=== PATIENT | male | born 1975 | race Caucasian/White ===

== ENCOUNTER 2020-03-16 17:00 | Outpatient (RCR) | payer BC, SELFPAY ==
[2019-12-22 10:35] VITALS: PULSE 93
[2019-12-22 10:40] VITALS: BP 156/90; PULSE 93; RESP 16; TEMP 36.5; O2SAT 98
[2019-12-28 18:30] LABS: Glucose Point of Care 97 (65-105)
--- NOTE | 2020-02-01 09:47 | PCCPR ---
Absent-working late
--- NOTE | 2020-02-03 17:34 | PCCPR ---
Getachew's called today, Getachew is stuck at work and will not be able to make it.
--- NOTE | 2020-02-11 15:50 | PCCPR ---
Absent Getachew's called states he has to work late this evening and will not be in.
--- NOTE | 2020-02-18 14:08 | PCCPR ---
Absent Getachew's called states he has a late work mtg.
[2020-02-26 08:01] LABS: Glucose Point of Care 78 (65-105)
[2020-02-26 08:01] LABS: Glucose Point of Care 96 (65-105)
[2020-02-26 08:01] LABS: Glucose Point of Care 86 (65-105)
[2020-03-09 17:37] LABS: Glucose Point of Care 95 (65-105)
[2020-03-09 17:37] LABS: Glucose Point of Care 99 (65-105)
--- NOTE | 2020-03-10 18:21 | PCCPR ---
Absent-car trouble
== END 2020-03-16 18:24 | disposition home or self-care (01) ==
LOC: ANHCPREHAB 17:00
PROVIDERS: PCP Family Medicine; Visit Provider Nurse Practitioner Adult Health
DX: Z95.1 Presence of aortocoronary bypass graft (principal)
CPT/HCPCS: 93798

== ENCOUNTER 2021-01-27 11:26 | Outpatient (RCR) | payer BC, SELFPAY ==
[2021-01-27] MEDS: diphenhydrAMINE HCl CAP 25 MG CAPSULE PO (12:19)
[2021-01-27] MEDS: FAMOTIDINE 20 MG TABLET PO (12:20)
[2021-01-27] MEDS: ACETAMINOPHEN 325 MG TABLET 650 MG PO (12:20)
[2021-01-27 12:21] VITALS: BP 166/86; PULSE 98; RESP 18; TEMP 35.8; O2SAT 100
--- NOTE | 2021-01-27 12:39 | PC.NURSE ---
Patient received [employer] vaccines on 07/25/2020 and 08/14/2020.
[2021-01-27 13:59] VITALS: BP 151/80; PULSE 87; RESP 18; TEMP 36.1; O2SAT 99
--- NOTE | 2021-01-30 09:21 | PC.NURSE ---
Attempted to call patient for follow-up regarding COVID antibody infusion but patient did not answer. Left voicemail with callback number.
== END 2021-01-27 16:30 | disposition home or self-care (01) ==
LOC: AMCINF 11:26
PROVIDERS: PCP Family Medicine; Referring Provider Family Medicine; Visit Provider Internal Medicine Hematology & Oncology
DX: Z23 Encounter for immunization (principal); U07.1 COVID-19; I10 Essential (primary) hypertension; I25.10 Atherosclerotic heart disease of native coronary artery without angina pectoris; E11.9 Type 2 diabetes mellitus without complications
CPT/HCPCS: A9270; J7050; M0243

== ENCOUNTER 2021-04-03 12:15 | Observation (INO) | payer BC, SELFPAY ==
[2021-04-03] VITALS (23 sets, daily range): BP systolic 126–188; BP diastolic 80–115; PULSE 76–107; RESP 5–22; TEMP 36.3–36.8; O2SAT 91–100
--- NOTE | ~2021-04-03 | NM_ITS ---
EXAMINATION: NM rola stress w perfusion DATE: 04/06/2021 12:19 INDICATION: Coronary atherosclerosis. Congestive heart failure. TECHNIQUE: Rest images were obtained following intravenous administration of 9.5 mCi Tc99m tetrofosmi n (Myoview). The patient was infused intravenously with Lexiscan (regadenoson). Then, 30.2 mCi Tc99m tetrofosmin (Myoview) was administered intravenously, and supine and prone stress images were obtaine d. Data was reconstructed into short axis and horizontal and vertical long axis SPECT images. Gated S PECT images were also obtained. COMPARISON: Chest CT 05/31/2019 FINDINGS: There is a small, mild, fixed perfusion defect involving left ventricular apex and apical a nterior segment, consistent with infarct. There is a small, mild, fixed perfusion defect involving ba janna anterolateral and inferolateral segments, consistent with infarct. No reversible perfusion defect to suggest ischemia. There is global hypokinesis.. Left ventricular ejection fraction measures 29%. IMPRESSION: 1. Small area of mild infarct involving left ventricular apex and apical anterior segment. 2. Small area of mild infarct involving the basal anterolateral and inferolateral segments of left ve ntricle. 3. Global hypokinesis with left ventricular ejection fraction measuring 29%. Reviewed, dictated and finalized at location A. PHYSICIAN IMPRESSION: 1. Small area of mild infarct involving left ventricular apex and apical anteri or segment. 2. Small area of mild infarct involving the basal anterolateral and inferolater al segments of left ventricle. 3. Global hypokinesis with left ventricular ejection fraction measuring 29%.
--- NOTE | ~2021-04-03 | XR_ITS ---
EXAMINATION: XR chest 2V EXAM DATE: 04/03/2021 12:54 INDICATION: SOB, edema, Open Heart X1 Yr Ago, HX CAD,HTN. TECHNIQUE: Portable AP frontal chest x-ray was obtained. Comparison is made to prior examination from 05/31/2019. FINDINGS: Sternotomy wires are present without findings to suggest sternal dehiscence. There is cardi omegaly and pulmonary vascular congestion. There is indistinct reticulation with a bibasal predominan ce which may indicate pulmonary edema. Small pleural effusions. Findings consistent with CHF exacerba tion. No pneumothorax or confluent consolidation. IMPRESSION: Findings consistent with CHF exacerbation. Reviewed, dictated and finalized at location B. DENTIAL ENERGY AUDITOR
--- NOTE | ~2021-04-03 | US_ITS ---
EXAMINATION: US venous doppler LE EXAM DATE: 04/04/2021 09:14 INDICATION: Bilateral leg edema. TECHNIQUE: Multiple grayscale, color flow and Doppler images of the lower extremity deep venous syste ms bilaterally were obtained and reviewed. There is no prior study for comparison. FINDINGS: Right side: The right common femoral, femoral and profunda veins demonstrate normal color flow, respi ratory variation, augmentation and compressibility. Compressibility, color flow confirmed within the right popliteal, posterior tibial, peroneal, and greater saphenous veins. Left side: The left common femoral, femoral and profunda veins demonstrate normal color flow, respira tory variation, augmentation and compressibility. Compressibility, color flow confirmed within the l eft popliteal, posterior tibial, peroneal, and greater saphenous veins. IMPRESSION: 1. No lower extremity deep venous thrombosis bilaterally. Reviewed, dictated and finalized at location D. MACHINE OPERATOR
--- NOTE | ~2021-04-03 | XR_ITS ---
EXAMINATION: XR chest 2V EXAM DATE: 04/05/2021 09:04 INDICATION: Fluid status, shortness of breath. TECHNIQUE: Portable AP frontal chest x-ray was obtained. Comparison is made to prior examination from 04/03/2021. FINDINGS: Sternotomy wires are present without findings to suggest sternal dehiscence. There is mild cardiomegaly and pulmonary vascular congestion, interval improvement. Improving basilar pulmonary marianela ma. Persistent small pleural effusions. No pneumothorax. There are no osseous abnormalities identifie d. IMPRESSION: 1. Improving CHF exacerbation. Reviewed, dictated and finalized at location B. UNLOADER
--- NOTE | 2021-04-03 12:21 | ECG_ITS ---
Measurements Intervals [place] Rate: 103 P: 0 [place]: 132 QRS: 54 QRSD: 118 T: 68 QT: 385 QTc: 506 Interpretive Statements SINUS TACHYCARDIA INCOMPLETE LEFT BUNDLE BRANCH BLOCK DELAYED PRECORDIAL R/S TRANSITION LOW QRS VOLTAGE IN LIMB LEADS BASELINE ARTIFACT- AVL ABNORMAL ECG Electronically Signed On 04-03-2021 13:00:15 SEAL DELIVERY VEHICLE TEAM TECHNICIAN by Demario Crawford D.O.
[2021-04-03 12:38] LABS: Basophils Absolute Auto 0.1 K/mm3 (0.0-0.1); Basophils Percent Auto 0.6 % (0.2-1.2); Eosinophils Percent Auto 0.3 % (0-4.4); Hematocrit 55.1 % (42.0-52.0); Hemoglobin 18.4 g/dL (14.0-18.0); Immature Granulocyte Absolute 0.04 K/mm3 (0.00-0.031); Immature Granulocyte Percent A 0.3 % (0-0.5); Lymphocytes Absolute Auto 1.13 K/mm3 (0.9-3.2); Lymphocytes Percent Auto 9.8 % (18.3-44.2); Mean Corpuscular HGB Conc 33.4 g/dl (32-36); Mean Corpuscular Hemoglobin 29.5 pg (26-34); Mean Corpuscular Volume 88.4 fl (80-100); Mean Platelet Volume 9.6 fl (7.4-10.4); Monocytes Absolute Auto 0.6 K/mm3 (0.1-0.6); Monocytes Percent Auto 5.2 % (2.6-8.5); Neutrophils Absolute Auto 9.7 K/mm3 (1.3-6.7); Neutrophils Percent Auto 83.8 % (45.5-73.1); Platelet Count Result 236 k/mm3 (150-375); Red Blood Count 6.23 M/mm3 (4.6-6.20); Red Cell Distribution Width 15.3 % (11.5-14.5); White Blood Count 11.6 K/mm3 (4.5-10.0)
[2021-04-03 12:52] LABS: Anion Gap 14 mmol/L (8-16); Blood Urea Nitrogen 19 mg/dL (9-20); Calcium 9.2 mg/dL (8.4-10.2); Carbon Dioxide 26 mmol/L (22-30); Chloride 98 mmol/L (98-107); Estimated CRCL calculation 121 ml/min; Estimated Glomerular Filt Rate > 60; Glucose 210 mg/dL (65-110); Potassium 3.4 mmol/L (3.4-5.0); Sodium 138 mmol/L (137-145)
--- NOTE | 2021-04-03 13:04 | ED.SOB ---
HPI - SOB/Dyspnea General Chief Complaint: Shortness of Breath/Dyspnea Stated Complaint: SOB Time Seen by Provider: 04/03/21 13:01 Source: patient Mode of arrival: ambulatory Limitations: no limitations History of Present Illness HPI Narrative: Patient presents with increased shortness of breath over the last 7 days. Mainly on exertion. And swelling of the lower extremity, abdomen and face. Patient denies any fever, chills, nausea, vomiting, chest pain. Patient status post Covid infection History of mitral valve regurgitation, CKD, hyperlipidemia, diabetes, sleep apnea, congestive heart failure Related Data Home Medications Medication Instructions Recorded Confirmed Men's Multivitamin 1 tablet PO DAILY 05/31/19 04/03/21 aspirin 81 mg PO DAILY 05/31/19 04/03/21 semaglutide [Ozempic] 1 mg SUBCUT WEEKLY 12/22/19 04/03/21 tadalafil 10 mg tablet 10 mg PO DAILY PRN 03/01/20 04/03/21 Allergies Allergy/AdvReac Type Severity Reaction Status Date / Time atenolol Allergy Unknown cough Verified 04/03/21 10:56 Review of Systems Review of Systems: CONSTITUTIONAL: Denies fever, chills, or sweats. EYES: Denies visual changes, redness, or discharge. ENT: Denies rhinorrhea, congestion, sore throat, or otalgia. CARDIOVASCULAR: Denies chest pain, palpitations, or edema. RESPIRATORY: Denies cough or dyspnea. GASTROINTESTINAL: Denies abdominal pain, nausea, vomiting, or diarrhea. GENITOURINARY: Denies dysuria or hematuria. SKIN: Denies rash or itching. MUSCULOSKELETAL: Denies back pain, joint pain, or myalgia. NEUROLOGIC: Denies headache, numbness, or weakness. PSYCHIATRIC: Denies anxiety or depression. [facility] Past Medical History Medical History CAD (coronary artery disease) Chest pain Echocardiogram abnormal 04/11/20: EF 35%, concentric LVH and moderate dysfunction. segment hypokinesis LV. Mitral Valve regurg Elevated troponin Herniated disc History of angina HLD (hyperlipidemia) HTN (hypertension) LV dysfunction 04/11/20: EF 35%, concentric LVH and moderate dysfunction. segment hypokinesis LV. Mitral Valve regurg Myocardial infarction Polycythemia Skin ulcer Sleep apnea CPAP Surgical History Surgical History H/O angioplasty H/O cardiac catheterization H/O heart artery stent History of cholecystectomy Family History Family History Mother Hypertension Pancreatic cancer Father Diabetes mellitus Atrial fibrillation Colon cancer Sibling Kidney disease Diabetes mellitus Other Family history of cardiovascular disease Family history of malignant neoplasm Social History Social History Social History: Patient lives at home with his Maru and their 2 children. He is lifelong nonsmoker. No drug use. Drinks 1 alcoholic drink per month on average. He is a full code. He nominates Maru to be the individual would make medical decisions for him if he is not able Alcohol intake: current Drinks per week: 1 Substance use: never Gender identity (if verbalized by the patient): Male Spiritual care concerns: No Agree to blood products: Yes Exam Narrative: General appearance: Well-developed, well-nourished, obese Skin: Normal color 1+ edema lower extremity bilaterally Head: Normocephalic, nontraumatic Eyes: Clear conjunctiva ENT: Oropharynx normal, ears normal, nose normal Neck: Supple, nontender Chest and respiratory: Airway patent, no respiratory distress, no accessory muscle use Heart: Tachycardia Abdomen: Soft, nontender, no organomegaly, quiet bowel sounds Vascular: Normal peripheral pulses, normal capillary refill. Musculoskeletal: Normal range of motion, nontender back Neurologic: Alert and oriented ?3, CONSIGNEE is normal as tested, no gross motor deficit
[2021-04-03 13:11] LABS: NT Pro B Type Natriuretic Pept 5030 pg/mL (5-100); Troponin I 0.055 ng/mL (0.000-0.034)
[2021-04-03] MEDS: NITROGLYCERIN OINTMENT 1 INCH DOSE TRANSDERM (13:13)
[2021-04-03] MEDS: FUROSEMIDE INJ 100 MG/10 ML VIAL 80 MG IV PUSH (13:13)
--- NOTE | 2021-04-03 13:55 | PM.IMHP ---
H&P: HPI History of Present Illness Date/Time: 04/03/21 13:55 Chief Complaint: Shortness of breath. Narrative: This is a pleasant 45-year-old male with coronary artery disease status post stent and two-vessel bypass in September 2019, ischemic cardiomyopathy, hypertension, obstructive sleep apnea, and type 2 diabetes mellitus who presented to the emergency department earlier today from home with complaints of shortness of breath. The patient had Covid in January and he seemed to recover well from that however he has noticed that he has been more fatigued since that time. Over the past 1 week or so he has developed progressive dyspnea on lesser and lesser exertion as well as an unknown weight gain and swelling in his legs and up into the abdomen. He made an appointment with his primary care provider today for evaluation and he was directed to the emergency department where he was found to have a mildly elevated troponin and findings on chest x-ray consistent with CHF exacerbation and he is being admitted in this setting. At the time my evaluation he is sitting up at the side of the bed and has no significant complaints. He denies fever, chills, sweats, sinus congestion, rhinorrhea, otalgia, odynophagia, cough, orthopnea, and PND. He has not had nausea, vomiting, or sweats. No recent travel, calf pain, or history of venous thromboembolism. Review of Systems Review of Systems: 12 systems were reviewed. Patient tells me his glucose has been running a bit high. No blurry vision, polydipsia, or polyuria. He has wounds on his bilateral anterior shins from falling down some bleachers about 3 weeks ago but they seem to be healing okay. About 2 weeks ago he had 4 days that he had nausea and vomiting associated with mild right shoulder pain but that is since resolved. He denies hematemesis and melena. He has not had exertional chest pain. No palpitations. Except as documented, all other systems were reviewed and are negative [facility] Past Medical History Medical History (Updated 04/03/21 @ 14:48 by Tricia Salmeron PA-C) Benign prostatic hyperplasia Chronic depression Coronary artery disease COVID-19 (01/2021) Erectile dysfunction Herniated disc Hypertension Ischemic cardiomyopathy Echocardiogram 04/11/2020 showed normal left ventricular size, moderate concentric left ventricular hypertrophy, moderate global left ventricular systolic dysfunction and impaired diastolic relaxation grade 1 with an EF visually estimated at 35 to 40%, measured at 33% with hypokinetic LV segments to include the apical septum and mid anteroseptal segment. Macroalbuminuric diabetic nephropathy Mitral valve regurgitation Mixed hyperlipidemia Myocardial infarction Obstructive sleep apnea on CPAP Polycythemia Transient atrial fibrillation/flutter 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 Type 2 diabetes mellitus, with long-term current use of insulin Hemoglobin A1c was 11.1% on 05/31/2019. Surgical History Surgical History (Updated 04/03/21 @ 14:12 by Tricia Salmeron PA-C) History of cardiac catheterization 10/09/2013: PTCA/stent to circumflex. 06/02/2019: Multivessel coronary artery disease with severe ischemic cardiomyopathy with ejection fraction around 25%, referred for surgical revascularization History of coronary artery bypass graft x 2 (09/30/19) Bypass of the LAD and right posterior left ventricular branch. Complicated by sternal infection. History of laparoscopic cholecystectomy (11/2008) Status post panniculectomy (2001) Family History Family History Mother Hypertension Pancreatic cancer Father Diabetes mellitus Atrial fibrillation Colon cancer Sibling Kidney disease Diabetes mellitus Other Family history of cardiovascular disease Family history of malignant neoplasm Social History Social History (Updated 04/03/21 @ 14:13 by Tricia Salmeron PA-C) Social History: The patient lives at home with his and
[2021-04-03 14:56] LABS: Alanine Aminotransferase 35 U/L (4-50); Albumin Level 4.7 g/dL (3.5-5.1); Alkaline Phosphatase 66 U/L (38-126); Aspartate Amino Transferase 34 U/L (17-59); Bilirubin,Total 1.9 mg/dL (0.2-1.3); INR 1.1; Prothrombin Time 14.3 Seconds (11.1-14.7)
[2021-04-03 14:57] LABS: Partial Thromboplastin Time 31.4 SECONDS (22.3-36.8)
[2021-04-03 16:14] LABS: Hemoglobin A1C 8.6 % (<5.7)
--- NOTE | 2021-04-03 17:14 | PC.NURSE ---
Attempted to call IMU for report, RN states they will figure out what nurse is taking patient and will call back
--- NOTE | 2021-04-03 17:22 | PC.NURSE ---
Pt aware of admission to room 204, no acute distress at this time
[2021-04-03 17:35] LABS: Troponin I 0.074 ng/mL (0.000-0.034)
--- NOTE | 2021-04-03 18:10 | PC.NURSE ---
This patient, Getachew Dunn, was admitted to IMU Room 204-01. Patient/family oriented to hospital policies and general routines including ID bracelet, bed and alarms, visiting hours, pain management, procedures, bathroom and other care routines, personal items, smoking policy, room service/diet, and visiting hours. Information on how to activate the Rapid Response Team has been discussed. Patient/Family are encouraged to report perceived risks to care and to ask questions if they do not understand what they are told or what they should do.
[2021-04-03 18:21] LABS: Glucose Point of Care 102 mg/dl (65-105)
[2021-04-03 19:49] LABS: Troponin I 0.069 ng/mL (0.000-0.034)
[2021-04-03 20:32] LABS: Glucose Point of Care 139 mg/dl (65-105)
[2021-04-03] MEDS: FUROSEMIDE INJ 40 MG/4 ML VIAL IV PUSH (20:41)
[2021-04-04] VITALS (18 sets, daily range): BP systolic 127–153; BP diastolic 81–95; PULSE 74–96; RESP 14–24; TEMP 36.2–36.9; O2SAT 96–100
--- NOTE | 2021-04-04 | ECHO_ITS ---
Patient Info Name: Getachew Dunn Age: 45 years : 1975 Gender: Male Ht: 72 in Wt: 315 lbs BSA: 2.76 m2 HR: 84 bpm BP: 139 / 87 mmHg Heart Rhythm: Sinus Rhythm Technical Quality: Poor Exam Date: 04/04/2021 2:23 PM Exam Location: [facility] Patient Status: Inpatient Admit Date: 04/03/2021 Staff Ordering Physician: Phil Duvall MD Oven Attendant: Carmenza Justice RDCS Attending Provider: Fahad Dobbins Referring Physician: Eloina FORREST; Exam Type: CA echo dop color flow w con Study Info Indications - ISCHEMIC CARDIOMYOPATHY - ACUTE CHRONIC CHF Complete two-dimensional, color flow and Doppler transthoracic echocardiogram is performed with contrast to opacify the left ventricle and to improve the deliniation of the left ventricle endocardial borders. Contrast/Agitated Saline Contrast/Ag. Saline: Definity Amount: 2.00 ml Administered By: Tammy Koroma RN Existing IV Access: Yes IV Access Condition: patent with no signs of infiltration Reason for Poor Study: patient body habitus Summary 1. Left ventricular chamber dimension is severely enlarged. 2. Left ventricular systolic function is severely reduced, estimated at 15-20%. 3. There is mildly increased left ventricular wall thickness. 4. The left ventricular diastolic function is grade III diastolic dysfunction. 5. The basal anteroseptal, and mid anteroseptal are akinetic. 6. The apex, inferior wall, anterior wall, inferoseptal wall, anterolateral wall, and inferolateral wall are hypokinetic. 7. Left atrial chamber dimension is mildly enlarged. 8. There is mild tricuspid valve regurgitation. 9. Moderate pulmonary hypertension, estimated pulmonary arterial systolic pressure is 45 mmHg. Left Ventricle Left ventricular chamber dimension is severely enlarged. Left ventricular systolic function is severely reduced, estimated at 15-20%. There is mildly increased left ventricular wall thickness. The left ventricular diastolic function is grade III diastolic dysfunction. The basal anteroseptal, and mid anteroseptal are akinetic. The apex, inferior wall, anterior wall, inferoseptal wall, anterolateral wall, and inferolateral wall are hypokinetic. Right Ventricle Right ventricular chamber dimension is normal. Right ventricular systolic function is normal. Left Atria Left atrial chamber dimension is mildly enlarged. Right Atria Right atrial chamber dimension is normal. Atrial Septum Intact interatrial septum visualized by color flow imaging. Aortic Valve The aortic valve is trileaflet. There is no aortic valve sclerosis. There is no aortic valve stenosis. There is trace aortic valve regurgitation. Pulmonic Valve The pulmonic valve is normal. There is no pulmonic valve stenosis. There is trace pulmonic regurgitation. Mitral Valve There is no mitral valve stenosis. There is trace mitral valve regurgitation. The mitral valve annulus is mildly calcified. Tricuspid Valve The tricuspid valve leaflets are normal. There is no significant tricuspid valve stenosis. There is mild tricuspid valve regurgitation. Moderate pulmonary hypertension, estimated pulmonary arterial systolic pressure is 45 mmHg. Pericardium/Pleural The pericardium appears normal. There is no pericardial effusion. Inferior Vena Cava Normal inferior vena cava with <50% collapse upon inspiration consistent with elevated right atri
[2021-04-04 05:36] LABS: Anion Gap 7 mmol/L (8-16); Blood Urea Nitrogen 19 mg/dL (9-20); Calcium 8.7 mg/dL (8.4-10.2); Carbon Dioxide 31 mmol/L (22-30); Chloride 98 mmol/L (98-107); Estimated CRCL calculation 120 ml/min; Estimated Glomerular Filt Rate > 60; Glucose 101 mg/dL (65-110); Magnesium 1.9 mg/dL (1.6-2.3); Potassium 3.1 mmol/L (3.4-5.0); Sodium 136 mmol/L (137-145)
[2021-04-04 08:16] LABS: Glucose Point of Care 121 mg/dl (65-105)
[2021-04-04] MEDS: OLMESARTAN MEDOXOMIL 20 MG TABLET 40 MG PO (09:39)
[2021-04-04] MEDS: ASPIRIN 81 MG ENTERIC TABLET PO (09:39)
[2021-04-04] MEDS: CLOPIDOGREL BISULFATE 75 MG TABLET PO (09:39)
[2021-04-04] MEDS: SERTRALINE HCL 50 MG TABLET 200 MG PO (09:39)
[2021-04-04] MEDS: POTASSIUM CHLORIDE 20 MEQ TABLET.ER PO (09:39)
[2021-04-04] MEDS: amLODIPine BESYLATE 5 MG TABLET 10 MG PO (09:40)
[2021-04-04] MEDS: FUROSEMIDE INJ 40 MG/4 ML VIAL IV PUSH ×2 (09:40→20:21)
[2021-04-04] MEDS: THERAPEUTIC MULTIVITAMINS/MINERALS TAB (*BKC) 1 TABLET PO (09:40)
[2021-04-04] MEDS: METOPROLOL SUCCINATE EXT REL 100 MG TABCR PO (09:40)
[2021-04-04] MEDS: EMPAGLIFLOZIN 25 MG TABLET PO (09:40)
[2021-04-04] MEDS: ATORVASTATIN 20 MG TABLET PO (09:40)
--- NOTE | 2021-04-04 09:40 | P.PNIM_ITS ---
Progress Note: A&P Assessment and Plan (1) Acute exacerbation of congestive heart failure: Code(s): I50.9 - Heart failure, unspecified Status: Acute Assessment and Plan: * blood pressure is have been running as high as 188/115 * compliance with his home medications * IV lasix 40mg BID * Add Entresto 49/51 Q12hr * BNP 5030 * Heart failure education * Can be transferred off IMU (2) Elevated troponin: Code(s): R77.8 - Other specified abnormalities of plasma proteins Status: Acute Assessment and Plan: * Troponin was mildly elevated and flat likely due to CHF. * telemetry * Dr. Reyes consulted thank you for recommendation * No complaints of chest pain (3) Coronary artery disease: Code(s): I25.10 - Atherosclerotic heart disease of [place] coronary artery without angina pectoris Status: Acute Assessment and Plan: * Status post stent to the circumflex and bypass of the LAD and right posterior descending artery in September 2019 at [place] [facility]. * Continue statin, beta-raquel, and dual antiplatelet therapy * telemonitor (4) Hypertension: Code(s): I10 - Essential (primary) hypertension Status: Acute Assessment and Plan: * Current BP 139/87 * Improved with diuresis * Continue home amlodipine, metoprolol * add entresto per cards (5) Mixed hyperlipidemia: Code(s): E78.2 - Mixed hyperlipidemia Status: Acute Assessment and Plan: * Continue statin (6) Obstructive sleep apnea on CPAP: Code(s): G47.33 - Obstructive sleep apnea (adult) (pediatric); Z99.89 - Dependence on other enabling machines and devices Status: Acute Assessment and Plan: * CPAP. 1 will be provided for him to use while hospitalized. 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 * Continue basal insulin and empagliflozin. * Initiate sliding scale insulin. * hemoglobin A1c 8.6 Time Spent With Patient Time with patient: Greater than 35 minutes Subjective Date/time seen: 04/04/21 0940 Interval history: Date/Time: 04/03/21 13:55 Narrative: This is a pleasant 45-year-old male with coronary artery disease status post stent and two-vessel bypass in September 2019, ischemic cardiomyopathy, hypertension, obstructive sleep apnea, and type 2 diabetes mellitus who presented to the emergency department earlier today from home with complaints of shortness of breath. The patient had Covid in January and he seemed to recover well from that however he has noticed that he has been more fatigued since that time. Over the past 1 week or so he has developed progressive dyspnea on lesser and lesser exertion as well as an unknown weight gain and swelling in his legs and up into the abdomen. He made an appointment with his primary care provider today for evaluation and he was directed to the emergency department where he was found to have a mildly elevated troponin and findings on chest x-ray consistent with CHF exacerbation and he is being admitted in this setting. At the time my evaluation he is sitting up at the side of the bed and has no sig nificant complaints. He denies fever, chills, sweats, sinus congestion, rhinorrhea, otalgia, odynophagia, cough, orthopnea, and PND. He has not had nausea, vomiting, or sweats. No recent travel, calf pain, or history of venous
--- NOTE | 2021-04-04 09:40 | PM.IMPN ---
Progress Note: A&P Assessment and Plan (1) Acute exacerbation of congestive heart failure: Code(s): I50.9 - Heart failure, unspecified Status: Acute Assessment and Plan: blood pressure is have been running as high as 188/115 compliance with his home medications IV lasix 40mg BID Add Entresto 49/51 Q12hr BNP 5030 Heart failure education Can be transferred off IMU (2) Elevated troponin: Code(s): R77.8 - Other specified abnormalities of plasma proteins Status: Acute Assessment and Plan: Troponin was mildly elevated and flat likely due to CHF. telemetry Dr. eRyes consulted thank you for recommendation No complaints of chest pain (3) Coronary artery disease: Code(s): I25.10 - Atherosclerotic heart disease of [place] coronary artery without angina pectoris Status: Acute Assessment and Plan: Status post stent to the circumflex and bypass of the LAD and right posterior descending artery in September 2019 at [place]. Continue statin, beta-raquel, and dual antiplatelet therapy telemonitor (4) Hypertension: Code(s): I10 - Essential (primary) hypertension Status: Acute Assessment and Plan: Current BP 139/87 Improved with diuresis Continue home amlodipine, metoprolol add entresto per cards (5) Mixed hyperlipidemia: Code(s): E78.2 - Mixed hyperlipidemia Status: Acute Assessment and Plan: Continue statin (6) Obstructive sleep apnea on CPAP: Code(s): G47.33 - Obstructive sleep apnea (adult) (pediatric); Z99.89 - Dependence on other enabling machines and devices Status: Acute Assessment and Plan: CPAP. 1 will be provided for him to use while hospitalized. (7) Type 2 diabetes mellitus, with long-term current use of insulin: Code(s): E11.9 - Type 2 diabetes mellitus without complications; Z79.4 - manager long term care (current) use of insulin Status: Acute Assessment and Plan: Random glucose today is 101. Continue basal insulin and empagliflozin. Initiate sliding scale insulin. hemoglobin A1c 8.6 Time Spent With Patient Time with patient: Greater than 35 minutes Subjective Date/time seen: 04/04/21 0940 Interval history: Date/Time: 04/03/21 13:55 Narrative: This is a pleasant 45-year-old male with coronary artery disease status post stent and two-vessel bypass in September 2019, ischemic cardiomyopathy, hypertension, obstructive sleep apnea, and type 2 diabetes mellitus who presented to the emergency department earlier today from home with complaints of shortness of breath. The patient had Covid in January and he seemed to recover well from that however he has noticed that he has been more fatigued since that time. Over the past 1 week or so he has developed progressive dyspnea on lesser and lesser exertion as well as an unknown weight gain and swelling in his legs and up into the abdomen. He made an appointment with his primary care provider today for evaluation and he was directed to the emergency department where he was found to have a mildly elevated troponin and findings on chest x-ray consistent with CHF exacerbation and he is being admitted in this setting. At the time my evaluation he is sitting up at the side of the bed and has no significant complaints. He denies fever, chills, sweats, sinus congestion, rhinorrhea, otalgia, odynophagia, cough, orthopnea, and PND. He has not had nausea, vomiting, or sweats. No recent travel, calf pain, or history of venous thromboembolism. Date/Time: 04/04/21 0940 Patient is sitting in the chair and is feeling better. 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 He did state that he is feeling well enough to go home. He does see Dr. Matthew here. He also stated that he really all thought that it was related to covid since he has been going through this. He does admit to breathi
[2021-04-04] MEDS: INSULIN GLARGINE (*BKC) 100 UNITS/ML 40 UNITS SUB-Q (10:14)
[2021-04-04 13:03] LABS: Glucose Point of Care 117 mg/dl (65-105)
--- NOTE | 2021-04-04 13:53 | PM.CNCAR ---
Assessment and Plan Assessment and plan (1) Elevated troponin: Code(s): R77.8 - Other specified abnormalities of plasma proteins Status: Acute Assessment and Plan: This related to his CHF and not related to acute coronary syndrome (2) Acute exacerbation of congestive heart failure: Code(s): I50.9 - Heart failure, unspecified Status: Acute Assessment and Plan: This is acute on chronic systolic heart failure. Likely worsened by acute illness. Will continue IV furosemide 40 mg q.12 hours. Transition to once daily or even oral diuretics tomorrow. I am going to discontinue olmesartan and transition to Entresto 49/51 mg p.o. b.i.d.. Will repeat a 2D echocardiogram Doppler to re-evaluate his mitral regurgitation as well as cardiomyopathy. I's and O's, daily weights will be ordered and monitored. Low-salt diet is also encouraged. He is hypokalemic at this point and will give him 40 mg p.o. potassium chloride x1. Long-term though he may not need potassium supplementation with the addition of Entresto. Continue metoprolol, aspirin, Jardiance and statin. It also makes sense for him to transition off of amlodipine and on to Entresto and aldosterone antagonist if needed. This can be done as an outpatient (3) Hypertension associated with diabetes: Code(s): E11.59 - Type 2 diabetes mellitus with other circulatory complications; I15.2 - Hypertension secondary to endocrine disorders Status: Acute Assessment and Plan: Above goal (4) Hyperlipidemia associated with type 2 diabetes mellitus: Code(s): E11.69 - Type 2 diabetes mellitus with other specified complication; E78.5 - Hyperlipidemia, unspecified Status: Acute Assessment and Plan: Will check a lipid panel and up titrate his statin if needed (5) Coronary artery disease: Code(s): I25.10 - Atherosclerotic heart disease of [place] coronary artery without angina pectoris Status: Acute Assessment and Plan: As above. Continue dual anti-platelet therapy, beta-raquel, ARB, statin (6) Sleep apnea: Qualifiers: Sleep apnea type: obstructive Qualified Code(s): G47.33 - Obstructive sleep apnea (adult) (pediatric) Code(s): G47.30 - Sleep apnea, unspecified Status: Acute Assessment and Plan: Compliant with CPAP History of Present Illness History of Present Illness Consult date/time: 04/04/21 13:53 Requesting physician: Tricia Salmeron PA-C Consult reason: congestive heart failure Reason For Visit: CHF/elevated troponin Narrative: Date of service 04/04/2021 Reason consultation: CHF, elevated troponin Requesting provider: Tricia Salmeron History: Patient is a 45-year-old male who has a history of coronary disease status post stenting and 2 vessel bypass in September of 2019. He is a patient of Dr. Reyes. He also has other problems including ischemic cardiomyopathy ejection fraction 35-40%, hypertension, structure sleep apnea, diabetes, hyperlipidemia. He also had COVID as recently as January of this year. He states that it since having COVID he simply has not felt very well. Again he had coronavirus in January and recovered but is not been feeling very well especially the past 2-3 weeks. Had an episode of nausea and vomiting a few weeks ago and since then has had increasingly worsening bloating, lower extremity swelling and dyspnea with exertion. 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 He denies any paroxysmal nocturnal dyspnea and is compliant this CPAP. He has no chest pain, syncope, presyncope, palpitations. He was admitted because of worsening lower extremity swelling, acute on chronic systolic heart failure. He was started on IV diuretics and is feeling better at this point. Review of Systems Review of Systems: All systems reviewed & are unremarkable except as noted in HPI and below Constitutional: Constitutional: Denies
[2021-04-04] MEDS: PERFLUTREN LIPID MICROSPHERES 1.5 ML VIAL DILUTED TO 10 ML TOTAL VOLUME IV PUSH (14:50)
[2021-04-04] MEDS: POTASSIUM CHLORIDE 20 MEQ TABLET 40 MEQ PO (16:01)
[2021-04-04 17:16] LABS: Glucose Point of Care 123 mg/dl (65-105)
[2021-04-04 20:20] LABS: Glucose Point of Care 173 mg/dl (65-105)
[2021-04-04] MEDS: SACUBITRIL/VALSARTAN 49-51 MG TABLET 1 TABLET PO (20:20)
[2021-04-05] VITALS (12 sets, daily range): BP systolic 128–144; BP diastolic 82–98; PULSE 76–92; RESP 18–22; TEMP 35.3–36.8; O2SAT 95–98
[2021-04-05 05:09] LABS: Basophils Absolute Auto 0.1 K/mm3 (0.0-0.1); Basophils Percent Auto 0.7 % (0.2-1.2); Eosinophils Absolute Auto 0.1 K/mm3 (0-0.3); Hematocrit 49.5 % (42.0-52.0); Hemoglobin 15.9 g/dL (14.0-18.0); Immature Granulocyte Absolute 0.03 K/mm3 (0.00-0.031); Immature Granulocyte Percent A 0.4 % (0-0.5); Lymphocytes Absolute Auto 1.06 K/mm3 (0.9-3.2); Lymphocytes Percent Auto 14.9 % (18.3-44.2); Mean Corpuscular HGB Conc 32.1 g/dl (32-36); Mean Corpuscular Hemoglobin 28.6 pg (26-34); Mean Platelet Volume 9.8 fl (7.4-10.4); Monocytes Absolute Auto 0.4 K/mm3 (0.1-0.6); Monocytes Percent Auto 6.1 % (2.6-8.5); Neutrophils Absolute Auto 5.4 K/mm3 (1.3-6.7); Neutrophils Percent Auto 75.9 % (45.5-73.1); Platelet Count Result 173 k/mm3 (150-375); Red Blood Count 5.56 M/mm3 (4.6-6.20); Red Cell Distribution Width 14.8 % (11.5-14.5); White Blood Count 7.1 K/mm3 (4.5-10.0)
[2021-04-05 05:27] LABS: Alanine Aminotransferase 27 U/L (4-50); Albumin Level 3.8 g/dL (3.5-5.1); Alkaline Phosphatase 60 U/L (38-126); Anion Gap 7 mmol/L (8-16); Aspartate Amino Transferase 28 U/L (17-59); Bilirubin,Total 1.4 mg/dL (0.2-1.3); Blood Urea Nitrogen 16 mg/dL (9-20); Calcium 8.3 mg/dL (8.4-10.2); Carbon Dioxide 26 mmol/L (22-30); Chloride 99 mmol/L (98-107); Estimated CRCL calculation 147 ml/min; Estimated Glomerular Filt Rate > 60; Glucose 163 mg/dL (65-110); Magnesium 1.8 mg/dL (1.6-2.3); Potassium 3.4 mmol/L (3.4-5.0); Sodium 132 mmol/L (137-145)
[2021-04-05] MEDS: INSULIN GLARGINE (*BKC) 100 UNITS/ML 60 UNITS SUB-Q (08:40)
[2021-04-05] MEDS: POTASSIUM CHLORIDE 20 MEQ TABLET 40 MEQ PO (08:40)
[2021-04-05] MEDS: FUROSEMIDE 40 MG TABLET PO (08:42)
[2021-04-05] MEDS: SACUBITRIL/VALSARTAN 49-51 MG TABLET 1 TABLET PO ×2 (08:42→23:15)
[2021-04-05] MEDS: POTASSIUM CHLORIDE 20 MEQ TABLET.ER PO (08:42)
[2021-04-05] MEDS: CLOPIDOGREL BISULFATE 75 MG TABLET PO (08:43)
[2021-04-05] MEDS: ATORVASTATIN 20 MG TABLET PO (08:43)
[2021-04-05] MEDS: METOPROLOL SUCCINATE EXT REL 100 MG TABCR PO (08:43)
[2021-04-05] MEDS: THERAPEUTIC MULTIVITAMINS/MINERALS TAB (*BKC) 1 TABLET PO (08:43)
[2021-04-05] MEDS: SERTRALINE HCL 50 MG TABLET 200 MG PO (08:44)
[2021-04-05] MEDS: ASPIRIN 81 MG ENTERIC TABLET PO (08:44)
[2021-04-05] MEDS: amLODIPine BESYLATE 5 MG TABLET 10 MG PO (08:44)
[2021-04-05] MEDS: EMPAGLIFLOZIN 25 MG TABLET PO (08:44)
[2021-04-05 09:27] LABS: Glucose Point of Care 119 mg/dl (65-105)
[2021-04-05 11:47] LABS: Glucose Point of Care 136 mg/dl (65-105)
--- NOTE | 2021-04-05 12:00 | P.PNIM_ITS ---
Progress Note: A&P Assessment and Plan (1) Acute exacerbation of congestive heart failure: Code(s): I50.9 - Heart failure, unspecified Status: Acute Assessment and Plan: * Acute exacerbation of both systolic and diastolic heart failure * Echo showed systolic dysfunction with an EF of 10-15% and a grade III diastolic dysfunction * blood pressure is have been running as high as 188/115 * compliance with his home medications * IV lasix 40mg BID * Add Entresto 49/51 Q12hr * BNP 5030 * Heart failure education * Life vest ordered * Lexiscan tomorrow (2) Elevated troponin: Code(s): R77.8 - Other specified abnormalities of plasma proteins Status: Acute Assessment and Plan: * Troponin was mildly elevated and flat likely due to CHF. * telemetry * Dr. Reyes consulted thank you for recommendation * No complaints of chest pain (3) Coronary artery disease: Code(s): I25.10 - Atherosclerotic heart disease of [place] coronary artery without angina pectoris Status: Acute Assessment and Plan: * Status post stent to the circumflex and bypass of the LAD and right posterior descending artery in September 2019 at [place]. * Continue statin, beta-raquel, and dual antiplatelet therapy * telemonitor (4) Hypertension: Code(s): I10 - Essential (primary) hypertension Status: Acute Assessment and Plan: * Current BP 135/84 * Improved with diuresis * Continue home amlodipine, metoprolol * add entresto per cards (5) Mixed hyperlipidemia: Code(s): E78.2 - Mixed hyperlipidemia Status: Acute Assessment and Plan: * Continue statin * Lipid panel in the am (6) Obstructive sleep apnea on CPAP: Code(s): G47.33 - Obstructive sleep apnea (adult) (pediatric); Z99.89 - Dependence on other enabling machines and devices Status: Acute Assessment and Plan: * CPAP. 1 will be provided for him to use while hospitalized. (7) Type 2 diabetes mellitus, with long-term current use of insulin: Code(s): E11.9 - Type 2 diabetes mellitus without complications; Z79.4 - skilled nursing (current) use of insulin Status: Acute Assessment and Plan: * Glucose is 163. * Continue basal insulin and empagliflozin. * Initiate sliding scale insulin. * hemoglobin A1c 8.6 Time Spent With Patient Time with patient: Greater than 35 minutes Subjective Date/time seen: 04/05/21 14:07 Interval history: Date/Time: 04/03/21 13:55 Narrative: This is a pleasant 45-year-old male with coronary artery disease status post stent and two-vessel bypass in September 2019, ischemic cardiomyopathy, hypertension, obstructive sleep apnea, and type 2 diabetes mellitus who prese nted to the emergency department earlier today from home with complaints of shortness of breath. The patient had Covid in January and he seemed to recover well from that however he has noticed that he has been more fatigued since that time. Over the past 1 week or so he has developed progressive dyspnea on lesser and lesser exertion as well as an unknown weight gain and swelling in his legs and up into the abdomen. He made an appointment with his primary care provider today for evaluation and he was directed to the emergency department where he was found to have a mildly elevated troponin and findings on chest x-ray consistent with CHF exacerbation and he is being admitted in this setting. At the time my evaluation he is sitting up at the side of the bed and has no significant com
--- NOTE | 2021-04-05 12:00 | PM.IMPN ---
Progress Note: A&P Assessment and Plan (1) Acute exacerbation of congestive heart failure: Code(s): I50.9 - Heart failure, unspecified Status: Acute Assessment and Plan: Acute exacerbation of both systolic and diastolic heart failure Echo showed systolic dysfunction with an EF of 10-15% and a grade III diastolic dysfunction blood pressure is have been running as high as 188/115 compliance with his home medications IV lasix 40mg BID Add Entresto 49/51 Q12hr BNP 5030 Heart failure education Life vest ordered Lexiscan tomorrow (2) Elevated troponin: Code(s): R77.8 - Other specified abnormalities of plasma proteins Status: Acute Assessment and Plan: Troponin was mildly elevated and flat likely due to CHF. telemetry Dr. Reyes consulted thank you for recommendation No complaints of chest pain (3) Coronary artery disease: Code(s): I25.10 - Atherosclerotic heart disease of [place] coronary artery without angina pectoris Status: Acute Assessment and Plan: Status post stent to the circumflex and bypass of the LAD and right posterior descending artery in September 2019 at [place]. Continue statin, beta-raquel, and dual antiplatelet therapy telemonitor (4) Hypertension: Code(s): I10 - Essential (primary) hypertension Status: Acute Assessment and Plan: Current BP 135/84 Improved with diuresis Continue home amlodipine, metoprolol add entresto per cards (5) Mixed hyperlipidemia: Code(s): E78.2 - Mixed hyperlipidemia Status: Acute Assessment and Plan: Continue statin Lipid panel in the am (6) Obstructive sleep apnea on CPAP: Code(s): G47.33 - Obstructive sleep apnea (adult) (pediatric); Z99.89 - Dependence on other enabling machines and devices Status: Acute Assessment and Plan: CPAP. 1 will be provided for him to use while hospitalized. (7) Type 2 diabetes mellitus, with long-term current use of insulin: Code(s): E11.9 - Type 2 diabetes mellitus without complications; Z79.4 - intermediate card tender (current) use of insulin Status: Acute Assessment and Plan: Glucose is 163. Continue basal insulin and empagliflozin. Initiate sliding scale insulin. hemoglobin A1c 8.6 Time Spent With Patient Time with patient: Greater than 35 minutes Subjective Date/time seen: 04/05/21 14:07 Interval history: Date/Time: 04/03/21 13:55 Narrative: This is a pleasant 45-year-old male with coronary artery disease status post stent and two-vessel bypass in September 2019, ischemic cardiomyopathy, hypertension, obstructive sleep apnea, and type 2 diabetes mellitus who presented to the emergency department earlier today from home with complaints of shortness of breath. The patient had Covid in January and he seemed to recover well from that however he has noticed that he has been more fatigued since that time. Over the past 1 week or so he has developed progressive dyspnea on lesser and lesser exertion as well as an unknown weight gain and swelling in his legs and up into the abdomen. He made an appointment with his primary care provider today for evaluation and he was directed to the emergency department where he was found to have a mildly elevated troponin and findings on chest x-ray consistent with CHF exacerbation and he is being admitted in this setting. At the time my evaluation he is sitting up at the side of the bed and has no significant complaints. He denies fever, chills, sweats, sinus congestion, rhinorrhea, otalgia, odynophagia, cough, orthopnea, and PND. He has not had nausea, vomiting, or sweats. No recent travel, calf pain, or history of venous thromboembolism. Date/Time: 04/04/21 0940 Patient is sitting in the chair and is feeling better. 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 He did state that he is feeling well en
--- NOTE | 2021-04-05 14:39 | PC.NURSE ---
Patient transferred via wheelchair to [facility] at 1105.
--- NOTE | 2021-04-05 14:58 | PM.PNCARD ---
Progress Note: A&P Assessment and Plan (1) Elevated troponin: Code(s): R77.8 - Other specified abnormalities of plasma proteins Status: Acute Assessment and Plan: This related to his CHF and not related to acute coronary syndrome (2) Acute exacerbation of congestive heart failure: Code(s): I50.9 - Heart failure, unspecified Status: Acute Assessment and Plan: This is acute on chronic systolic heart failure. His EF is worse. Will keep him NPO after midnight and perform a Lexiscan perfusion study in the morning. He very well may need an angiogram given his worsening ejection fraction. LifeVest is ordered. Will transition him off of amlodipine on to spironolactone. Will start spironolactone 25 mg daily. In the long-term will likely need to discontinue his potassium supplement because of the addition of spironolactone. (3) Hypertension associated with diabetes: Code(s): E11.59 - Type 2 diabetes mellitus with other circulatory complications; I15.2 - Hypertension secondary to endocrine disorders Status: Acute Assessment and Plan: Above goal (4) Hyperlipidemia associated with type 2 diabetes mellitus: Code(s): E11.69 - Type 2 diabetes mellitus with other specified complication; E78.5 - Hyperlipidemia, unspecified Status: Acute Assessment and Plan: Will check a lipid panel and up titrate his statin if needed (5) Coronary artery disease: Code(s): I25.10 - Atherosclerotic heart disease of [place] coronary artery without angina pectoris Status: Acute Assessment and Plan: As above. Continue dual anti-platelet therapy, beta-raquel, ARB, statin (6) Sleep apnea: Qualifiers: Sleep apnea type: obstructive Qualified Code(s): G47.33 - Obstructive sleep apnea (adult) (pediatric) Code(s): G47.30 - Sleep apnea, unspecified Status: Acute Assessment and Plan: Compliant with CPAP Subjective Date/time seen: 04/05/21 14:58 Interval history: 45-year-old with shortness of breath. Diuresed. Echocardiogram shows worsening ejection fraction. Date of service 04/05/2021: He continues diuresed. Swelling is better. Less short of breath. No chest pain. Review of Systems Review of Systems: All systems reviewed & are unremarkable except as noted in HPI and below Constitutional: Constitutional: Denies fatigue, Denies headache(s) and Denies weakness Eyes: Eyes: Denies blurry vision ENT: Reports Normal hearing present, Denies headache(s) and Denies neck pain Cardiovascular: Cardiovascular: Denies chest pain, Reports pedal edema, Reports leg edema and Reports dyspnea on exertion Respiratory: Respiratory: Reports dyspnea on exertion Gastrointestinal: Gastrointestinal: Denies abdominal pain Genitourinary: Genitourinary: Denies dysuria Musculoskeletal: Musculoskeletal: Denies back pain, Denies neck pain and Denies numbness Integumentary/Breasts: Skin/Breast: Denies unusual bruising Neurologic: Reports Normal hearing present, Denies confusion, Denies headache(s), Denies numbness and Denies weakness Psychiatric: Psychiatric: Denies anxiety and Denies confusion Endocrine: Endocrine: Denies fatigue Hematologic/Lymphatic: Hematologic/Lymphatic: Denies easy bleeding Allergic/Immunologic: Allergic/Immunologic: Denies GI upset with certain foods Exam Narrative: Alert and oriented and appears stated age Const: General: comfortable and no acute distress; No confusion Orientation/consciousness: No confusion HENMT: General nose exam: Normal nares present Eyes: Sclera: sclerae normal Neck: Neck: supple and no JVD Chest: Other: No reproducible chest wall pain to palpation Resp: Auscultation: clear to auscultation bilaterally Cardio: Rate: regular rate Rhythm: regular rhythm GI: Auscultation: normal bowel sounds Skin: General skin exam: normal color Neuro: General: No confusion Cranial nerves: Yes Nor
[2021-04-05 16:54] LABS: Glucose Point of Care 99 mg/dl (65-105)
[2021-04-05] MEDS: FUROSEMIDE INJ 40 MG/4 ML VIAL IV PUSH (23:30)
[2021-04-05 23:38] LABS: Glucose Point of Care 156 mg/dl (65-105)
[2021-04-06] VITALS (9 sets, daily range): BP systolic 130–131; BP diastolic 76–86; PULSE 74–99; RESP 18–20; TEMP 35.9–36.8; O2SAT 98–99
[2021-04-06 06:32] LABS: Basophils Absolute Auto 0.1 K/mm3 (0.0-0.1); Basophils Percent Auto 0.7 % (0.2-1.2); Eosinophils Absolute Auto 0.2 K/mm3 (0-0.3); Eosinophils Percent Auto 2.2 % (0-4.4); Hematocrit 51.6 % (42.0-52.0); Hemoglobin 16.7 g/dL (14.0-18.0); Immature Granulocyte Absolute 0.02 K/mm3 (0.00-0.031); Immature Granulocyte Percent A 0.3 % (0-0.5); Lymphocytes Absolute Auto 1.12 K/mm3 (0.9-3.2); Lymphocytes Percent Auto 16.4 % (18.3-44.2); Mean Corpuscular HGB Conc 32.4 g/dl (32-36); Mean Corpuscular Volume 89.6 fl (80-100); Mean Platelet Volume 9.4 fl (7.4-10.4); Monocytes Absolute Auto 0.5 K/mm3 (0.1-0.6); Monocytes Percent Auto 7.6 % (2.6-8.5); Neutrophils Percent Auto 72.8 % (45.5-73.1); Platelet Count Result 177 k/mm3 (150-375); Red Blood Count 5.76 M/mm3 (4.6-6.20); Red Cell Distribution Width 14.8 % (11.5-14.5); White Blood Count 6.9 K/mm3 (4.5-10.0)
[2021-04-06 06:47] LABS: Alanine Aminotransferase 23 U/L (4-50); Albumin Level 3.8 g/dL (3.5-5.1); Alkaline Phosphatase 53 U/L (38-126); Anion Gap 7 mmol/L (8-16); Aspartate Amino Transferase 26 U/L (17-59); Bilirubin,Total 1.2 mg/dL (0.2-1.3); Blood Urea Nitrogen 18 mg/dL (9-20); Carbon Dioxide 31 mmol/L (22-30); Chloride 100 mmol/L (98-107); Cholesterol 119 mg/dL (0-200); Estimated CRCL calculation 109 ml/min; Estimated Glomerular Filt Rate > 60; Glucose 100 mg/dL (65-110); HDL Direct 40 mg/dL; Magnesium 2.2 mg/dL (1.6-2.3); Potassium 3.9 mmol/L (3.4-5.0); Sodium 138 mmol/L (137-145); Triglycerides 77 mg/dL (<150)
[2021-04-06 06:58] LABS: LDL Cholesterol Direct 64 mg/dL
[2021-04-06 09:22] LABS: Glucose Point of Care 122 mg/dl (65-105)
--- NOTE | 2021-04-06 11:19 | PC.NURSE ---
Transfer for Stress Marlena via at 0900.
--- NOTE | 2021-04-06 11:40 | PM.PNCARD ---
Progress Note: A&P Assessment and Plan (1) Elevated troponin: Code(s): R77.8 - Other specified abnormalities of plasma proteins Status: Acute Assessment and Plan: This related to his CHF and not related to acute coronary syndrome (2) Acute exacerbation of congestive heart failure: Code(s): I50.9 - Heart failure, unspecified Status: Acute Assessment and Plan: This is acute on chronic systolic heart failure. His EF is worse. He very well may need an angiogram given his worsening ejection fraction. LifeVest is ordered. Continue spironolactone, Entresto, metoprolol. With the addition of spironolactone and Entresto, he likely does not need the potassium supplementation. Therefore will stop potassium and check a basic metabolic panel next week. Stress test this morning is pending but likely will be discharged home later today for follow-up with Dr. Reyes after LifeVest is fitted. (3) Hypertension associated with diabetes: Code(s): E11.59 - Type 2 diabetes mellitus with other circulatory complications; I15.2 - Hypertension secondary to endocrine disorders Status: Acute Assessment and Plan: Above goal (4) Hyperlipidemia associated with type 2 diabetes mellitus: Code(s): E11.69 - Type 2 diabetes mellitus with other specified complication; E78.5 - Hyperlipidemia, unspecified Status: Acute Assessment and Plan: On statin (5) Coronary artery disease: Code(s): I25.10 - Atherosclerotic heart disease of [place] coronary artery without angina pectoris Status: Acute Assessment and Plan: As above. Continue dual anti-platelet therapy, beta-raquel, ARB, statin (6) Sleep apnea: Qualifiers: Sleep apnea type: obstructive Qualified Code(s): G47.33 - Obstructive sleep apnea (adult) (pediatric) Code(s): G47.30 - Sleep apnea, unspecified Status: Acute Assessment and Plan: Compliant with CPAP Subjective Date/time seen: 04/06/21 11:40 Interval history: 45-year-old with shortness of breath. Diuresed. Echocardiogram shows worsening ejection fraction. Date of service 04/05/2021: He continues diuresed. Swelling is better. Less short of breath. No chest pain. Date of service 04/06/2021: He has lost 24 lb since admission. Swelling is improved and nearly gone. No chest pain or shortness of breath. Patient was seen in the stress lab Review of Systems Review of Systems: All systems reviewed & are unremarkable except as noted in HPI and below Constitutional: Constitutional: Denies fatigue, Denies headache(s) and Denies weakness Eyes: Eyes: Denies blurry vision ENT: Reports Normal hearing present, Denies headache(s) and Denies neck pain Cardiovascular: Cardiovascular: Denies chest pain, Reports pedal edema, Reports leg edema and Reports dyspnea on exertion Respiratory: Respiratory: Reports dyspnea on exertion Gastrointestinal: Gastrointestinal: Denies abdominal pain Genitourinary: Genitourinary: Denies dysuria Musculoskeletal: Musculoskeletal: Denies back pain, Denies neck pain and Denies numbness Integumentary/Breasts: Skin/Breast: Denies unusual bruising Neurologic: Reports Normal hearing present, Denies confusion, Denies headache(s), Denies numbness and Denies weakness Psychiatric: Psychiatric: Denies anxiety and Denies confusion Endocrine: Endocrine: Denies fatigue Hematologic/Lymphatic: Hematologic/Lymphatic: Denies easy bleeding Allergic/Immunologic: Allergic/Immunologic: Denies GI upset with certain foods Exam Narrative: Alert and oriented and appears stated age Const: General: comfortable and no acute distress; No confusion Orientation/consciousness: No confusion HENMT: General nose exam: Normal nares present Eyes: Sclera: sclerae normal Neck: Neck: supple and no JVD Chest: Other: No reproducible chest wall pain to palpation Resp: Auscultation: clear to auscultation bilate
[2021-04-06] MEDS: INSULIN GLARGINE (*BKC) 100 UNITS/ML 60 UNITS SUB-Q (12:36)
[2021-04-06] MEDS: SPIRONOLACTONE 25 MG TABLET PO (12:37)
[2021-04-06] MEDS: FUROSEMIDE 40 MG TABLET PO (12:37)
[2021-04-06] MEDS: SACUBITRIL/VALSARTAN 49-51 MG TABLET 1 TABLET PO ×2 (12:37→16:38)
[2021-04-06] MEDS: POTASSIUM CHLORIDE 20 MEQ TABLET.ER PO (12:37)
[2021-04-06] MEDS: SERTRALINE HCL 50 MG TABLET 200 MG PO (12:37)
[2021-04-06] MEDS: ATORVASTATIN 20 MG TABLET PO (12:37)
[2021-04-06] MEDS: EMPAGLIFLOZIN 25 MG TABLET PO (12:38)
[2021-04-06] MEDS: ASPIRIN 81 MG ENTERIC TABLET PO (12:38)
[2021-04-06] MEDS: CLOPIDOGREL BISULFATE 75 MG TABLET PO (12:38)
[2021-04-06 12:59] LABS: Glucose Point of Care 162 mg/dl (65-105)
--- NOTE | 2021-04-06 13:49 | P.DS_ITS ---
DS: Admitting Diagnosis Discharge Date Date of service 04/06/2021 at 6 40 a.m. Admitting Diagnosis Acute exacerbation of CHF DS: Discharge Diagnosis Discharge Diagnosis (1) Acute exacerbation of congestive heart failure: Code(s): I50.9 - Heart failure, unspecified Status: Acute Assessment and Plan: * Acute exacerbation of both systolic and diastolic heart failure * Echo showed systolic dysfunction with an EF of 10-15% and a grade III diastolic dysfunction * blood pressure is have been running as high as 188/115 * compliance with his home medications * IV lasix 40mg BID * Add Entresto 49/51 Q12hr * BNP 5030 * Heart failure education * Life vest ordered * Lexiscan tomorrow Lexiscan showed small infarct involving the left ventricular apex, anterolateral inferior lateral segments of left ventricle and global hypokinesis. Patient will be fitted for LifeVest and medications have been changed. (2) Elevated troponin: Code(s): R77.8 - Other specified abnormalities of plasma proteins Status: Acute Assessment and Plan: * Troponin was mildly elevated and flat likely due to CHF. * telemetry * Dr. Reyes consulted thank you for recommendation * No complaints of chest pain (3) Coronary artery disease: Code(s): I25.10 - Atherosclerotic heart disease of [place] coronary artery without angina pectoris Status: Acute Assessment and Plan: * Status post stent to the circumflex and bypass of the LAD and right posterior descending artery in September 2019 at [place]. * Continue statin, beta-raquel, and dual antiplatelet therapy * telemonitor (4) Hypertension: Code(s): I10 - Essential (primary) hypertension Status: Acute Assessment and Plan: * Current BP 135/84 * Improved with diuresis * Continue home amlodipine, metoprolol * add entresto per cards (5) Mixed hyperlipidemia: Code(s): E78.2 - Mixed hyperlipidemia Status: Acute Assessment and Plan: * Continue statin * Lipid panel in the am (6) Obstructive sleep apnea on CPAP: Code(s): G47.33 - Obstructive sleep apnea (adult) (pediatric); Z99.89 - Dependence on other enabling machines and devices Status: Acute Assessment and Plan: * CPAP. 1 will be provided for him to use while hospitalized. (7) Type 2 diabetes mellitus, with long-term current use of insulin: Code(s): E11.9 - Type 2 diabetes mellitus without complications; Z79.4 - alf (current) use of insulin Status: Acute Assessment and Plan: * Glucose is 163. * Continue basal insulin and empagliflozin. * Initiate sliding scale insulin. * hemoglobin A1c 8.6 DS: Summary Hospital Course Hospital Course: Patient is a 45-year-old male with a past medical history of hypertension, hyperlipidemia, coronary artery disease with stent placement and bypass, ischemic cardiomyopathy, diabetes who presented to the emergency room with complaints of shortness of breath. It was noted that patient was recovering from COVID back in January. This admission did show severe swelling in the bilateral lower extremities and belly. BNP was 5030. Patient was started on IV Lasix and Cardiology was consulted. Repeat echo was completed which showed an EF of 10-15% with grade 3 diastolic dysfunction. Entresto was added and olmesartan was discontinued. Patient was also started on Aldactone and amlodipine was discontinued. Patient was also evaluated through Lexiscan. Which did show some small
--- NOTE | 2021-04-06 13:49 | PM.DS ---
DS: Admitting Diagnosis Discharge Date Date of service 04/06/2021 at 6 40 a.m. Admitting Diagnosis Acute exacerbation of CHF DS: Discharge Diagnosis Discharge Diagnosis (1) Acute exacerbation of congestive heart failure: Code(s): I50.9 - Heart failure, unspecified Status: Acute Assessment and Plan: Acute exacerbation of both systolic and diastolic heart failure Echo showed systolic dysfunction with an EF of 10-15% and a grade III diastolic dysfunction blood pressure is have been running as high as 188/115 compliance with his home medications IV lasix 40mg BID Add Entresto 49/51 Q12hr BNP 5030 Heart failure education Life vest ordered Lexiscan tomorrow Lexiscan showed small infarct involving the left ventricular apex, anterolateral inferior lateral segments of left ventricle and global hypokinesis. Patient will be fitted for LifeVest and medications have been changed. (2) Elevated troponin: Code(s): R77.8 - Other specified abnormalities of plasma proteins Status: Acute Assessment and Plan: Troponin was mildly elevated and flat likely due to CHF. telemetry Dr. Reyes consulted thank you for recommendation No complaints of chest pain (3) Coronary artery disease: Code(s): I25.10 - Atherosclerotic heart disease of [place] coronary artery without angina pectoris Status: Acute Assessment and Plan: Status post stent to the circumflex and bypass of the LAD and right posterior descending artery in September 2019 at [place]. Continue statin, beta-raquel, and dual antiplatelet therapy telemonitor (4) Hypertension: Code(s): I10 - Essential (primary) hypertension Status: Acute Assessment and Plan: Current BP 135/84 Improved with diuresis Continue home amlodipine, metoprolol add entresto per cards (5) Mixed hyperlipidemia: Code(s): E78.2 - Mixed hyperlipidemia Status: Acute Assessment and Plan: Continue statin Lipid panel in the am (6) Obstructive sleep apnea on CPAP: Code(s): G47.33 - Obstructive sleep apnea (adult) (pediatric); Z99.89 - Dependence on other enabling machines and devices Status: Acute Assessment and Plan: CPAP. 1 will be provided for him to use while hospitalized. (7) Type 2 diabetes mellitus, with long-term current use of insulin: Code(s): E11.9 - Type 2 diabetes mellitus without complications; Z79.4 - detention (current) use of insulin Status: Acute Assessment and Plan: Glucose is 163. Continue basal insulin and empagliflozin. Initiate sliding scale insulin. hemoglobin A1c 8.6 DS: Summary Hospital Course Hospital Course: Patient is a 45-year-old male with a past medical history of hypertension, hyperlipidemia, coronary artery disease with stent placement and bypass, ischemic cardiomyopathy, diabetes who presented to the emergency room with complaints of shortness of breath. It was noted that patient was recovering from COVID back in January. This admission did show severe swelling in the bilateral lower extremities and belly. BNP was 5030. Patient was started on IV Lasix and Cardiology was consulted. Repeat echo was completed which showed an EF of 10-15% with grade 3 diastolic dysfunction. Entresto was added and olmesartan was discontinued. Patient was also started on Aldactone and amlodipine was discontinued. Patient was also evaluated through Lexiscan. Which did show some small mild infarcts and global hypokinesis. Patient has been fitted for a Life Vest and will need follow-up with Cardiology in a few weeks. Labs have been stable throughout the visit. Renal function is stable with a BUN/creatinine of 18/1.1. Hemoglobin A1c was 8.6 upon admission. Random glucose a been running anywhere from 100-200. Blood pressures have been stable and better with diuresis. Today patient is ready to go. Patient denies chest pain,
[2021-04-06] MEDS: METOPROLOL SUCCINATE EXT REL 100 MG TABCR PO (14:29)
[2021-04-06] MEDS: THERAPEUTIC MULTIVITAMINS/MINERALS TAB (*BKC) 1 TABLET PO (14:30)
--- NOTE | 2021-04-06 15:04 | EST_ITS ---
Patient Info Name: Getachew Dunn Age: 45 years : 1975 Gender: Male Exam Date: 04/06/2021 9:51 AM Exam Location: [facility] Stress Patient Status: Inpatient Admit Date: 04/03/2021 Staff Ordering Physician: Phil Duvall MD Attending Provider: Fahad Dobbins Exercise Technologist: Carmenza Justice RDCS Exercise Physician: Phil Duvall MD Exam Type: CA stress rola w NM Study Info Indications - CHF - CAD A regadenoson stress test was performed. Summary 1. Non diagnostic ST/T wave changes with Lexiscan. 2. Please correlate with nuclear medicine images, reported separately. Max Pred HR: 174 bpm Target HR: 148 bpm Resting ECG Normal sinus rhythm. IVCD, RAD, NSTT. Stress ECG Non diagnostic ST/T wave changes with Lexiscan. Arrhythmias Occasional PVCs. Report Signatures
[2021-04-06 16:47] LABS: Glucose Point of Care 207 mg/dl (65-105)
== END 2021-04-06 17:30 | disposition home or self-care (01) ==
LOC: ANHED 13:35 → ANHIMU 16:41 → ANH3MEDSUR 04-06 13:55 → ANHIMU 04-10 13:50
PROVIDERS: Nurse Practitioner; Physician Assistant; Admitting Provider Internal Medicine; Emergency Provider Emergency Medicine; PCP Family Medicine; Visit Provider Internal Medicine
DX: I11.0 Hypertensive heart disease with heart failure (principal); I50.23 Acute on chronic systolic (congestive) heart failure; R77.8 Other specified abnormalities of plasma proteins; R60.0 Localized edema; R06.02 Shortness of breath; E78.2 Mixed hyperlipidemia; E11.9 Type 2 diabetes mellitus without complications; G47.33 Obstructive sleep apnea (adult) (pediatric); I25.2 Old myocardial infarction; I25.10 Atherosclerotic heart disease of native coronary artery without angina pectoris; Z99.89 Dependence on other enabling machines and devices; Z79.4 Long term (current) use of insulin; Z95.1 Presence of aortocoronary bypass graft; Z79.84 Long term (current) use of oral hypoglycemic drugs; Z95.5 Presence of coronary angioplasty implant and graft; Z79.02 Long term (current) use of antithrombotics/antiplatelets
CPT/HCPCS: 36415; 71046; 78452; 80048; 80053; 80061; 80076; 82948; 83036; 83735; 83880; 84443; 84484; 85025; 85610; 85730; 93005; 93017; 93970; 96374; 96375; 96376; 99285; A9270; A9502; C8929; G0378; J1815; J1940; J2785; Q9957

== ENCOUNTER 2021-08-02 16:30 | Outpatient (RCR) | payer BC, SELFPAY ==
[2021-05-05 11:51] VITALS: PULSE 98
[2021-06-19 07:23] LABS: Glucose Point of Care 192 mg/dl (65-105)
[2021-06-26 16:40] LABS: Glucose Point of Care 199 mg/dl (65-105)
[2021-06-26 17:29] LABS: Glucose Point of Care 155 mg/dl (65-105)
== END 2021-08-02 18:00 | disposition home or self-care (01) ==
LOC: ANHCPREHAB 16:30
PROVIDERS: PCP Family Medicine; Visit Provider Nurse Practitioner
DX: I50.89 Other heart failure (principal)
CPT/HCPCS: 93798

== ENCOUNTER 2021-11-16 09:00 | Outpatient (RCR) | payer BC, SELFPAY ==
[2021-11-16 12:34] VITALS: BP 173/88; PULSE 102; RESP 20; TEMP 36.6; O2SAT 99
[2021-11-16] MEDS: FAMOTIDINE 20 MG TABLET PO (12:38)
[2021-11-16] MEDS: ACETAMINOPHEN 325 MG TABLET 650 MG PO (12:38)
[2021-11-16] MEDS: diphenhydrAMINE HCl CAP 25 MG CAPSULE PO (12:39)
[2021-11-16] MEDS: BEBTELOVIMAB 175 MG/2 ML VIAL IV PUSH (12:59)
[2021-11-16 13:41] VITALS: BP 142/77; PULSE 92; O2SAT 97
== END 2021-11-16 16:00 ==
LOC: AMCINF 09:00
PROVIDERS: PCP Family Medicine; Referring Provider Family Medicine; Visit Provider Internal Medicine Hematology & Oncology
DX: U07.1 COVID-19 (principal)
CPT/HCPCS: A9270; M0222; Q0222

== ENCOUNTER → 2023-04-16 15:02 | Outpatient (CLI) | payer BC, SELFPAY ==
--- NOTE | ~2023-04-16 | XR_ITS ---
EXAM: XR foot LT min 3V DATE: 04/16/2023 15:14 HISTORY: Left 2nd toe cyanosis, left heel pain NO INJURY . COMPARISON: 07/23/2018, images only. FINDINGS: Normal mineralization. No fracture or dislocation. No lytic or blastic lesion. Mild scatte red degenerative change. No erosion or periosteal change. Vascular calcifications. IMPRESSION: No radiographic evidence of osteomyelitis. Reviewed, dictated and finalized at location K. IC POLICY PROFESSOR
--- NOTE | ~2023-04-16 | XR_ITS ---
EXAM: XR foot RT min 3V DATE: 04/16/2023 15:14 HISTORY: r 5th metarsal pain ( prox) NO INJURY . COMPARISON: None available. FINDINGS: Normal mineralization. No fracture or dislocation. No lytic or blastic lesion. Mild scatte red degenerative change. Plantar enthesopathy No erosion or periosteal change. Vascular calcification s. IMPRESSION: Radiographically normal-appearing fifth metatarsal. Reviewed, dictated and finalized at location K. OFFICE MARKUP CLERK
== END ==
PROVIDERS: PCP Family Medicine; Visit Provider Family Medicine
DX: M79.675 Pain in left toe(s) (principal); M79.671 Pain in right foot; R23.0 Cyanosis
CPT/HCPCS: 73630

== ENCOUNTER 2023-10-27 10:29 | Emergency (ER) | payer BC, SELFPAY ==
--- NOTE | 2023-10-27 10:31 | ED.SKABFB ---
HPI - Skin/Abscess/Foreign Bdy General Chief complaint: Skin/Abscess/Foreign Body Stated complaint: Boil Time Seen by Provider: 10/27/23 10:31 Source: patient Mode of arrival: ambulatory Limitations: no limitations History of Present Illness HPI narrative: Getachew is a 48-year-old male patient presenting to the clinic today with complaints of a boil to his right scrotum. He reports 1st noticed this on Saturday. It began draining today. Reports chills yesterday but no known fever. States he has had boils to this area in the past that have had to be drained. History of diabetes, hypertension, CABG, congestive heart failure, morbid obesity, sleep apnea, CKD, and AFib-flutter. Takes Plavix and aspirin. Related Data Home Medications Medication Instructions Recorded Confirmed aspirin 81 mg tablet,delayed 81 mg PO DAILY 05/31/19 11/16/21 release hpxcsmah-tpytsvwt-amcft acid 400 1 tablet PO DAILY 05/31/19 11/16/21 mcg-vit K 20 mcg-lycop 300 mcg tablet (Men's Multivitamin) Allergies Allergy/AdvReac Type Severity Reaction Status Date / Time atenolol AdvReac Unknown cough Verified 10/27/23 10:38 Review of Systems Review of Systems: Pertinent positives per HPI. Patient denies any fever, rash, headache, visual changes, dizziness, cough, runny nose, sore throat, shortness of breath, chest pain, palpitations, nausea, vomiting, diarrhea, constipation, abdominal pain, or any urinary issues. 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 Trochanteric bursitis, right hip Type 2 diabetes mellitus, with long-term current use of insulin Hemoglobin A1c was 11.1% on 05/31/2019. Surgical History Surgical History History of cardiac catheterization 10/09/2013: PTCA/stent to circumflex. 06/02/2019: Multivessel coronary artery disease with severe ischemic cardiomyopathy with ejection fraction around 25%, referred for surgical revascularization History of coronary artery bypass graft x 2 (09/30/19) Bypass of the LAD and right posterior left ventricular branch. Complicated by sternal infection. History of laparoscopic cholecystectomy (11/2008) Status post panniculectomy (2001) Family History Family History Mother Pancreatic cancer Hypertension Father Colon cancer Diabetes mellitus Atrial fibrillation Sibling Diabetes mellitus Kidney disease Hypertension Other Family history of cardiovascular disease Family history of malignant neoplasm Social History Social History Social History: The patient lives at home with his and their 2 children in [place]. He works for [employer]. Lifelong nonsmoker. He drinks perhaps 1-2 alcoholic beverages a month on average. No illicit substance use. He designates his , Maru Dunn, as his surrogate decision-maker. CODE STATUS: Full code. Smoking status: Never smoker Alcohol intake: never Substance use: never Substance use type: does not use Lack of Transportation: No Lack of Food: Never True Current Housing: I Have Housing Concerned About Future Housing: No Difficulty Paying Gas/Electric Bills: No Difficulty Paying for Meds: No Currently Unemployed: No Education: Bachelor's Degree Difficulty w/ Childcare or Family Care: No Living arrangements: with family Spiritual care concerns: No Comments At the time of my
[2023-10-27 10:35] VITALS: BP 201/122; PULSE 111; RESP 16; TEMP 36.6; O2SAT 100
== END 2023-10-27 10:50 | disposition short-term general hospital (02) ==
LOC: EXPGOSH 10:31
PROVIDERS: Emergency Provider Nurse Practitioner Family; PCP Family Medicine
DX: N49.2 Inflammatory disorders of scrotum (principal); I16.0 Hypertensive urgency; E11.9 Type 2 diabetes mellitus without complications; I13.0 Hypertensive heart and chronic kidney disease with heart failure and stage 1 through stage 4 chronic kidney disease, or unspecified chronic kidney disease; E11.22 Type 2 diabetes mellitus with diabetic chronic kidney disease; N18.30 Chronic kidney disease, stage 3 unspecified; I50.9 Heart failure, unspecified; E78.2 Mixed hyperlipidemia; I25.2 Old myocardial infarction; G47.33 Obstructive sleep apnea (adult) (pediatric); Z95.5 Presence of coronary angioplasty implant and graft; E11.21 Type 2 diabetes mellitus with diabetic nephropathy; E66.01 Morbid (severe) obesity due to excess calories; Z68.41 Body mass index [BMI] 40.0-44.9, adult; Z79.01 Long term (current) use of anticoagulants; Z79.82 Long term (current) use of aspirin
CPT/HCPCS: 99212; G0463

== ENCOUNTER 2023-10-29 13:31 | Emergency (ER) | payer BC, SELFPAY ==
[2023-10-29] VITALS (27 sets, daily range): BP systolic 147–209; BP diastolic 83–114; PULSE 107–129; RESP 18–36; TEMP 36.6–36.7; O2SAT 94–100
--- NOTE | ~2023-10-29 | CT_ITS ---
EXAMINATION: CT chest abdomen pelvis w con DATE: 10/29/2023 15:01 INDICATION: Perineal abscess at the right groin TECHNIQUE: Computed tomography (CT) of the chest, abdomen, and pelvis was performed with 100 mL Omnip aque-350 intravenous contrast. Automated exposure control and iterative reconstruction technique were employed. The dose-length product was 2574.48 mGy-cm. COMPARISON: CT chest dated 05/31/2019 FINDINGS: CHEST CT: Smooth septal line thickening at the bilateral dependent lung bases consistent with minimal pulmonary edema. No pneumonia or pleural effusion. Heart size is normal. Atherosclerotic coronary artery calci fication. There are also changes of prior median sternotomy and coronary artery bypass grafting. Thor acic aorta is normal in caliber with no dissection. No pathologically enlarged thoracic lymphadenopat hy. No significant change in a likely benign 12 mm thyroid nodule extending caudally from the caudal lobe of the left thyroid. Moderate bilateral gynecomastia. Moderate thoracic spondylosis with chronic mild anterior wedging and several Schmorl's nodes at several levels scattered throughout the thoraci c spine. ABDOMEN/PELVIS CT: Cholecystectomy clips the gallbladder fossa. Diffuse hepatic steatosis. Spleen, pancreas, bilateral a drenal glands and left kidney are normal. 1.6 cm exophytic cyst at the lateral upper pole of the righ t kidney. Small fat-containing supraumbilical ventral hernia. Bowels including the appendix are eugenia l. Bladder is normal. Surgical scar extending from left to right across the anterior pelvic wall. Sub cutaneous edema extending caudally from the surgical scar into the peritoneum. There is a large gas a nd fluid containing abscess at the right side of the perineum which is reportedly been draining likel y accounting for the intraluminal gas. The abscess cavity measures 8.2 x 2.2 x 3.2 cm. No other more remote soft tissue gas to suggest necrotizing fasciitis although this is ultimately a clinical diagno sis. No free intraperitoneal gas or fluid. There are shotty bilateral likely reactive inguinal lymph nodes slightly more prominent on the left. No pathologically enlarged intra-abdominal or pelvic lymph adenopathy. Mild to moderate lumbar spondylosis. IMPRESSION: 1. Cellulitis associated with a gas and fluid containing, reportedly draining 8.2 x 2.2 x 3.2 cm righ t perineal subcutaneous abscess. 2. Coronary artery disease with changes of prior coronary artery bypass grafting and mild pulmonary e silvia at the bilateral dependent lung bases. Reviewed, dictated and finalized at location A. IMPRESSION: 1. Cellulitis associated with a gas and fluid containing, reportedly draining 8 .2 x 2.2 x 3.2 cm right perineal subcutaneous abscess. 2. Coronary artery disease with changes of prior coronary artery bypass graftin g and mild pulmonary edema at the bilateral dependent lung bases.
--- NOTE | ~2023-10-29 | US_ITS ---
EXAMINATION: US scrotum doppler DATE: 10/29/2023 18:45 INDICATION: abscess . TECHNIQUE: Grayscale and Doppler ultrasound images of the testes were obtained. COMPARISON: CT cap, same date. FINDINGS: The right testis measures 4.3 x 2.3 x 2.7 cm. The left testis measures 3.9 x 2.9 x 2.9 cm. No testicular mass. There is normal vascular flow to both testes. The right epididymis is enlarged an d heterogeneous, with increased flow. The left epididymis is enlarged and heterogeneous, with increas ed flow. No varicocele. Small volume simple appearing left hydrocele. Diffuse scrotal skin thickening . Partially visualized right peroneal abscess. IMPRESSION: Sonographic findings suggestive of bilateral epididymitis. Small left hydrocele. Diffuse scrotal skin swelling, correlate for clinical findings of cellulitis. Partially visualized right peroneal abscess , better seen by prior CT. Reviewed, dictated and finalized at location K. IMPRESSION: Sonographic findings suggestive of bilateral epididymitis. Small left hydrocele . Diffuse scrotal skin swelling, correlate for clinical findings of cellulitis. Partially visualized right peroneal abscess, better seen by prior CT.
--- NOTE | 2023-10-29 14:09 | ED.SKABFB ---
HPI - Skin/Abscess/Foreign Bdy General Chief complaint: Skin/Abscess/Foreign Body Stated complaint: foot infection Time Seen by Provider: 10/29/23 14:02 History of Present Illness HPI narrative: Pt presents with abscess in perineal and scrotal swelling. Pt denies fever. Pt is diabetic. Pt has not been taking his BP meds. Pt denies vomiting or fever. Related Data Home Medications Medication Instructions Recorded Confirmed aspirin 81 mg tablet,delayed 81 mg PO DAILY 05/31/19 11/16/21 release nyfecygu-znddcxjc-mqxnf acid 400 1 tablet PO DAILY 05/31/19 11/16/21 mcg-vit K 20 mcg-lycop 300 mcg tablet (Men's Multivitamin) Allergies Allergy/AdvReac Type Severity Reaction Status Date / Time atenolol AdvReac Unknown cough Verified 10/29/23 13:51 Review of Systems Review of Systems: All systems reviewed & are unremarkable except as noted in HPI and below PMFSH Past Medical History Medical History CHF (congestive heart failure) Chronic depression Chronic kidney disease, stage 3 (moderate) COVID-19 (01/2021) COVID-19 Elevated troponin Erectile dysfunction Herniated disc HTN (hypertension) Macroalbuminuric diabetic nephropathy Mitral valve regurgitation Mixed hyperlipidemia Myocardial infarction Obstructive sleep apnea on CPAP Polycythemia Transient atrial fibrillation/flutter 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 Trochanteric bursitis, right hip Type 2 diabetes mellitus, with long-term current use of insulin Hemoglobin A1c was 11.1% on 05/31/2019. Surgical History Surgical History History of cardiac catheterization 10/09/2013: PTCA/stent to circumflex. 06/02/2019: Multivessel coronary artery disease with severe ischemic cardiomyopathy with ejection fraction around 25%, referred for surgical revascularization History of coronary artery bypass graft x 2 (09/30/19) Bypass of the LAD and right posterior left ventricular branch. Complicated by sternal infection. History of laparoscopic cholecystectomy (11/2008) Status post panniculectomy (2001) Family History Family History Mother Pancreatic cancer Hypertension Father Colon cancer Diabetes mellitus Atrial fibrillation Sibling Diabetes mellitus Kidney disease Hypertension Other Family history of cardiovascular disease Family history of malignant neoplasm Social History Social History Social History: The patient lives at home with his and their 2 children in [place]. He works for [employer]. Lifelong nonsmoker. He drinks perhaps 1-2 alcoholic beverages a month on average. No illicit substance use. He designates his , Maru Dunn, as his surrogate decision-maker. CODE STATUS: Full code. Smoking status: Never smoker Alcohol intake: never Substance use: never Substance use type: does not use Lack of Transportation: No Lack of Food: Never True Current Housing: I Have Housing Concerned About Future Housing: No Difficulty Paying Gas/Electric Bills: No Difficulty Paying for Meds: No Currently Unemployed: No Education: Bachelor's Degree Difficulty w/ Childcare or Family Care: No Living arrangements: with family Spiritual care concerns: No Exam Const: General: no acute distress Nutritional Appearance: well nourished Orientation/consciousness: patient oriented x3 Limitations: no limitations Resp: Effort & Inspection: normal respiratory effort Auscultation: clear to auscultation bilaterally Cardio: Rate: regular rate Rhythm: regular rhythm GI: GI Palp: Yes Soft to palpation and No Tenderness to palpation present (GI) Auscultation: normal bowel sounds : Scrotum: scrotal swelling diffuse Other: swollen fluctuant area perineum on right. Skin: General skin exam: normal color Wo
[2023-10-29 14:14] LABS: Basophils Absolute Auto 0.1 K/mm3 (0.0-0.1); Basophils Percent Auto 0.4 % (0.2-1.2); Eosinophils Percent Auto 0.2 % (0-4.4); Hematocrit 51.2 % (42.0-52.0); Hemoglobin 16.6 g/dL (14.0-18.0); Immature Granulocyte Absolute 0.08 K/mm3 (0.00-0.031); Immature Granulocyte Percent A 0.6 % (0-0.5); Lymphocytes Absolute Auto 0.47 K/mm3 (0.9-3.2); Lymphocytes Percent Auto 3.4 % (18.3-44.2); Mean Corpuscular HGB Conc 32.4 g/dl (32-36); Mean Corpuscular Hemoglobin 28.3 pg (26-34); Mean Corpuscular Volume 87.2 fl (80-100); Mean Platelet Volume 9.8 fl (7.4-10.4); Monocytes Absolute Auto 0.8 K/mm3 (0.1-0.6); Monocytes Percent Auto 5.7 % (2.6-8.5); Neutrophils Absolute Auto 12.5 K/mm3 (1.3-6.7); Neutrophils Percent Auto 89.7 % (45.5-73.1); Platelet Count Result 206 k/mm3 (150-375); Red Blood Count 5.87 M/mm3 (4.6-6.20); Red Cell Distribution Width 15.3 % (11.5-14.5); White Blood Count 13.9 K/mm3 (4.5-10.0)
[2023-10-29] MEDS: MORPHINE SULFATE (*CRX) 4 MG/ML INJ IV PUSH (14:19)
[2023-10-29 14:26] LABS: Alanine Aminotransferase 25 U/L (6-50); Albumin Level 4.3 g/dL (3.5-5.1); Alkaline Phosphatase 132 U/L (38-126); Anion Gap 18 mmol/L (4-12); Aspartate Amino Transferase 30 U/L (17-59); Bilirubin,Total 1.7 mg/dL (0.2-1.3); Blood Urea Nitrogen 18 mg/dL (9-20); Calcium 9.1 mg/dL (8.4-10.2); Carbon Dioxide 16 mmol/L (22-30); Chloride 99 mmol/L (98-107); Estimated CRCL calculation 135 ml/min; Estimated Glomerular Filt Rate > 60; Glucose 350 mg/dL (65-110); Potassium 3.7 mmol/L (3.4-5.0); Sodium 133 mmol/L (137-145)
[2023-10-29 15:15] LABS: Lactic Acid Reflex 1.7 mmol/L (0.7-2.0)
[2023-10-29 15:21] LABS: INR 1.3; Prothrombin Time 16.6 Seconds (11.1-14.7)
[2023-10-29 15:22] LABS: Partial Thromboplastin Time 38.6 Seconds (22.3-36.8)
[2023-10-29 15:32] LABS: CRP 23.8 mg/dL (<1.0)
[2023-10-29] MEDS: VANCOMYCIN 1,250 MG/NS 250 ML 1,250 MG/250 ML BAG 166.67 MG IVPB (18:10)
--- NOTE | 2023-10-29 19:09 | PM.IMCN ---
Assessment and Plan Assessment and plan (1) Necrotizing fasciitis: Code(s): M72.6 - Necrotizing fasciitis Status: Acute (2) Abscess of deep perineal space: Code(s): N34.0 - Urethral abscess Status: Acute (3) Sepsis: Qualifiers: Sepsis type: sepsis due to unspecified organism Sepsis acute organ dysfunction status: without acute organ dysfunction Qualified Code(s): A41.9 - Sepsis, unspecified organism Code(s): A41.9 - Sepsis, unspecified organism Status: Acute (4) Type 2 diabetes mellitus with hyperglycemia, with long-term current use of insulin: Code(s): E11.65 - Type 2 diabetes mellitus with hyperglycemia; Z79.4 - intermediate frame tender (current) use of insulin Status: Acute (5) Pseudohyponatremia: Code(s): R79.89 - Other specified abnormal findings of blood chemistry Status: Acute (6) High anion gap metabolic acidosis: Code(s): E87.29 - Other acidosis Status: Acute Plan Patient has a perineal abscess with large amount of gas with measurements as mentioned above. Given the relatively small pinhole area of evaluation the amount of gas seems out of proportion to the abscess self. The patient does have history of complicated infections of the peritoneum in the past his Lrinec score is intermediate risk for necrotizing fasciitis/Rogelio's gangrene. Given clinical picture I am highly suspicious of necrotizing fasciitis and the patient is likely more complex than can be handled at our facility. For this reason I have asked ER to transfer the patient to tertiary care. I have also requested the patient be started on vancomycin, Zosyn and clindamycin. Patient is also on diabetic medications I can leave him more prone Rogelio's gangrene. The patient does have uncontrolled diabetes which also complicates his prognosis and management. I did order 1 L of IV fluids while patient is awaiting transfer. Blood cultures have been ordered and are pending. Patient does have elevated anion gap with a low serum bicarb. It could have a component of DKA or simply dehydration. Patient has pseudo hyponatremia due to hyperglycemia. Recommend patient receive a least 2 L isotonic fluid hydration but up to 30 mL/kilos bolus depending on clinical course. Patient may not receive all of the fluids prior to transfer but at least initiating bolus would be beneficial. Clinical condition is serious. Prognosis is guarded. 70 minute spent in critical care activities. Due to a high probability of clinically significant, life threatening deterioration, the patient required my highest level of preparedness to intervene emergently and I personally spent this critical care time directly and personally managing the patient. This critical care time included obtaining a history; examining the patient; pulse oximetry; ordering and review of studies; arranging urgent treatment with development of a management plan; evaluation of patient's response to treatment; frequent reassessment; and discussions with other providers. It was exclusive of separately billable procedures and treating other patients and teaching time. Please see Assessment and Plan section and the rest of the note for further information on patient assessment and treatment. HPI Date of Consult Consult date: 10/29/23 Requesting Physician: Dr. Reilly Primary Care Provider: Lindsay Peralta MD Consult Narrative Narrative: Getachew Dunn is a 48 year old male with a past medical history of morbid obesity, obstructive sleep apnea, essential hypertension, coronary artery disease, uncontrolled diabetes mellitus on insulin therapy and prior episodes of groin abscesses requiring incision and drainage who presented to the ER but with an abscess in his right groin. The patient reports that symptoms started on November 24. He had a small area of pain and swelling. The area started to drain the next day with bloody clear to purulent appeari
[2023-10-29] MEDS: LACTATED RINGERS 1,000 ML 999 ML IV CONT (19:51)
[2023-10-29] MEDS: PIPERACILLN/TAZ 3.375GM/NS50ML 3.375 GM/50 ML BAG IVPB (19:51)
[2023-10-29] MEDS: CLINDAMYCIN 600 MG/D5W 50 ML 600 MG/50 ML PIGGYBACK 100 MG IVPB (20:20)
--- NOTE | 2023-10-29 20:30 | PC.NURSE ---
IV fluids/antibiotics continued in ems to [facility]. report given to Jared @191. left [facility] @2029 by [facility]
== END 2023-10-29 20:30 | disposition short-term general hospital (02) ==
PROVIDERS: Emergency Provider Emergency Medicine; PCP Family Medicine
DX: A41.9 Sepsis, unspecified organism (principal); M72.6 Necrotizing fasciitis; L02.215 Cutaneous abscess of perineum; E11.65 Type 2 diabetes mellitus with hyperglycemia; E87.29 Other acidosis; N49.3 Fournier gangrene; E11.22 Type 2 diabetes mellitus with diabetic chronic kidney disease; I13.0 Hypertensive heart and chronic kidney disease with heart failure and stage 1 through stage 4 chronic kidney disease, or unspecified chronic kidney disease; I50.9 Heart failure, unspecified; N18.30 Chronic kidney disease, stage 3 unspecified; E11.21 Type 2 diabetes mellitus with diabetic nephropathy; E11.40 Type 2 diabetes mellitus with diabetic neuropathy, unspecified; I25.5 Ischemic cardiomyopathy; I34.0 Nonrheumatic mitral (valve) insufficiency; I25.10 Atherosclerotic heart disease of native coronary artery without angina pectoris; I27.20 Pulmonary hypertension, unspecified; E78.2 Mixed hyperlipidemia; N40.1 Benign prostatic hyperplasia with lower urinary tract symptoms; N13.8 Other obstructive and reflux uropathy; G47.33 Obstructive sleep apnea (adult) (pediatric); Z95.1 Presence of aortocoronary bypass graft; Z86.16 Personal history of COVID-19; Z90.49 Acquired absence of other specified parts of digestive tract; Z79.4 Long term (current) use of insulin; Z79.82 Long term (current) use of aspirin; Z79.84 Long term (current) use of oral hypoglycemic drugs; Z79.85 Long-term (current) use of injectable non-insulin antidiabetic drugs; Z79.899 Other long term (current) drug therapy; R93.89 Abnormal findings on diagnostic imaging of other specified body structures
CPT/HCPCS: 36415; 71260; 74177; 76870; 80053; 83605; 85025; 85610; 85730; 86140; 87040; 93976; 96365; 96366; 96367; 96375; 99285; J2270; J2543; J3370; J7120; Q9967

== ENCOUNTER 2025-02-18 12:46 | Inpatient (IN) | payer BC, SELFPAY ==
--- OUTSIDE RECORDS SUMMARY | 2008-09-30 10:45 | XMS_ITS | Continuity of Care Document ---
Author Organization [facility] Address [address] [place] [address] Phone Care Team Providers Care Analyst Sales Name Role Phone Brower OD, Ryan Unavailable Unavailable Procedures Procedure Date No Charge Contact Lens Check Eye Exam & Treatment Office Consultation Ophthalmoscopy Ophthalmoscopy Optic Nerve Topography Optic Nerve Topography Eye Exam & Treatment Advance Directives Directive Yes / No Effective Date File Name No Information Encounters Encounter Description Practice Location Reason(s) For Visit Diagnoses Date Provider Providers Copied on Encounter [facility], [address] [place] [address] [address], [place], [place], [id number], tel:[phone] [facility] No Information May-1 4-200 9 Brower OD Ryan. [address], [place], [place], [facility], . tel:[phone] [facility], [address], [place], [place], [id number], [place] tel:[phone] [facility] No Information May-0 7-200 9 Brower OD Ryan. [address] , [address], [place], [address], . tel:[phone] Office Consultation [facility], [address], [place], [place], [id number], tel:[phone] [facility] No Information May-0 7-200 9 Reid Jeff. [address] [place], [address], [place]. tel:[phone] Referring Provider: Ryan Beverly, [address], [place], [address]. tel:[phone] [facility], [address] [facility] [address], [place], [place], [address], [place] tel:[phone] [facility] No Information 3[address] 7 Pamela Mendieta. [address], [place], [place], [address], [place]. tel:[phone] Family History Family Member Type Diagnosis Age At Onset No Information Payers Payer name Insurance type Covered libertarian ID Authorprachi gracia(s) [facility] [id number] Social History Type Description Quantity Date Captured Comments Sex Male Smoking Status No Information Chief Complaint And Reason For Visit No Information Reason For Referral Reason For Referral No Information History Of Present Illness Encounter Date Complaint History Of Prese nt Illness No Information Functional Status Date Functional Assessmen t No Information Instructions Date Instruction Additional Infor mation No Information Assessments Type Assessment Date No Information Patient Care Teams Name Effective Dates (start - stop) Status Members No Information
--- OUTSIDE RECORDS SUMMARY | 2008-09-30 10:45 | XMS_ITS | Continuity of Care Document ---
Author Organization [facility] Address [address] [place] [address] Phone Care Team Providers Care Weight Training Instructor Name Role Phone Brower OD, Ryan Unavailable Unavailable Procedures Procedure Date No Charge Contact Lens Check Eye Exam & Treatment Office Consultation Ophthalmoscopy Ophthalmoscopy Optic Nerve Topography Optic Nerve Topography Eye Exam & Treatment Advance Directives Directive Yes / No Effective Date File Name No Information Encounters Encounter Description Practice Location Reason(s) For Visit Diagnoses Date Provider Providers Copied on Encounter [facility], [address] [place] [address] [address], [place], [place], [id number], tel:[phone] [facility] No Information May-1 4-200 9 Brower OD Ryan. [address], [place], [place], [facility], . tel:[phone] [facility], [address], [place], [place], [address], [place] tel:[phone] [facility] No Information May-0 7-200 9 Brower OD Ryan. [address], [place], [address], . tel:[phone] Office Consultation [facility], [address], [place], [place], [address], tel:[phone] [facility] No Information May-0 7-200 9 Reid Jeff. [address] [place], [address], [place]. tel:[phone] Referring Provider: Ryan Beverly, [address], [place], [address]. tel:[phone] [facility], [address], [place], [place], [address], [place] tel:[phone] [facility] No Information 3[address] 7 Pamela Mendieta. [address], [place], [place], [address], [place]. tel:[phone] Family History Family Member Type Diagnosis Age At Onset No Information Payers Payer name Insurance type Covered democrat ID Authorprachi gracia(s) [facility] [id number] Social History Type Description Quantity Date Captured [...]
--- NOTE | ~2025-02-18 | XR_ITS ---
EXAMINATION: XR chest 2V, 02/18/2025 14:18 CDT HISTORY: infection work up COMPARISON: No comparisons available. Technique: 2 views obtained. Findings: The lungs are clear, no effusion. No pneumothorax. Heart is normal size. Mediastinal and hilar contours are within normal limits. Post sternotomy Impression: No acute cardiopulmonary abnormality. Reviewed, dictated and finalized at location P. Impression: No acute cardiopulmonary abnormality.
--- NOTE | ~2025-02-18 | US_ITS ---
EXAMINATION: US venous doppler LE RT, 02/19/2025 16:57 CDT HISTORY: edema COMPARISON: None Technique: Ramos-scale and color Doppler images were attempted of the lower saphenofemoral junction, common femoral vein,superficial femoral vein, proximal deep femoral vein, proximal deep femoral vein, popliteal vein and posterior tibial veins. Findings: Deep Venous System:Normal flow, augmentation and compressibility. No echogenic thrombus identified. Superficial Venous SystemNo superficial thrombophlebitis. Soft tissues: Soft tissues are unremarkable. Impression: Negative for DVT. Reviewed, dictated and finalized at location P. Impression: Negative for DVT.
--- NOTE | ~2025-02-18 | US_ITS ---
EXAMINATION: US arterial ankle brachial ind DATE: 02/20/2025 10:45 INDICATION: Right great toe diabetic ulcer. TECHNIQUE: Segmental pressures and plethysmographic and Doppler waveforms of the brachial and lower extremity arteries were obtained. COMPARISON: None. FINDINGS: Right and left brachial artery pressures of 130 mm Hg and 121 mm Hg, respectively, are concordant (normal difference <= 30 mmHg). The right ankle-brachial index (ROSANA) is 1.79 (normal >= 0.9-1.0). The right great toe-brachial index (TBI) is 0.68 (normal >= 0.65). Arterial Doppler waveforms are biphasic in posterior tibial artery and monophasic in dorsalis pedis. The left ROSANA is 1.68. The left TBI is 0.61. Arterial Doppler waveforms are biphasic at the ankle. IMPRESSION: 1. Mildly decreased left TBI and normal left ROSANA, consistent with left-sided arterial occlusive disease. Note that ROSANA may be overestimated if arteries are calcified. 2. No significant right-sided arterial occlusive disease. Reviewed, dictated and finalized at location E. IMPRESSION: 1. Mildly decreased left TBI and normal left ROSANA, consistent with left-sided ar terial occlusive disease. Note that ROSANA may be overestimated if arteries are ca lcified. 2. No significant right-sided arterial occlusive disease.
--- OUTSIDE RECORDS SUMMARY | 2025-02-18 12:52 | XMS_ITS | Clinical Summary ---
Author Organization [facility] Address [address] [place] [id number] Phone Care Team Providers Care Drywall Metal Stud Worker Name Role Phone Lindsay Peralta MD Primary Care Provider [phone] Allergies Active Allergy Reactions Criticality Noted Date Comments Atenolol-Chlorthalidone Cough Low 12/10/2001 Medications aspirin 81 MG chewable tablet Chew 81 mg 1 (one) time each day. Active atorvastatin (LIPITOR) 20 MG tablet Take 20 mg by mouth 1 (one) time each day. Active olmesartan (BENICAR) 40 MG tablet Take 40 mg by mouth 1 (one) time each day. Active fluticasone (FLONASE) 50 MCG/ACT nasal spray Administer 1 spray into each nostril 1 (one) time each day. Shake gently. Before first use, prime pump. After use, clean tip and replace cap. Active metFORMIN (GLUCOPHAGE) 500 MG tablet Take 1,000 mg by mouth 2 (two) times a day with meals. Active insulin glargine (LANTUS) 100 UNIT/ML injection Inject under the skin every night. Active metoprolol succinate XL (TOPROL-XL) 100 MG 24 hr tablet Take 100 mg by mouth 1 (one) time each day. Active Multiple Vitamin (MULTIVITAMIN) capsule Take 1 capsule by mouth 1 (one) time each day. Active clopidogrel (PLAVIX) 75 MG tablet Take 75 mg by mouth 1 (one) time each day. Active sertraline (ZOLOFT) 100 MG tablet Take 100 mg by mouth 1 (one) time each day. Active B-D ULTRAFINE III SHORT PEN 31G X 8 MM misc USE TO INJECT 3 TIMES PER DAY 3 9 Active insulin lispro (HumaLOG KWIKPEN) 200 UNIT/ML solution pen-injector injection INJECT 5 UNITS PRIOR OR WITH EACH MEAL 3 TIMES A DAY 9 Active furosemide (LASIX) 40 MG tablet Take 40 mg by mouth daily Active Continuous Blood Gluc Dope Maintenance Worker (DEXCOM G6 RECREATION ACTIVITIES COORDINATOR) device USE TO MONITIOR BLOOD GLUCOSE LEVELS 0 Active ONETOUCH ULTRA test strip 0 Active JARDIANCE 25 MG tablet Take 1 tablet by mouth 1 (one) time each day in the morning 0 Active amLODIPine (NORVASC) 10 MG tablet Take 1 tablet (10 mg total) by mouth 1 (one) time each day 90 tablet 3 0 Active potassium chloride (KLOR-CON M20) 20 MEQ CR tablet Take 20 mEq by mouth 1 (one) time each day Active Semaglutide, 1 MG/DOSE, 2 MG/1.5ML solution pen-injector Inject 1 mg under the skin per week Active Continuous Blood Gluc Sensor (Dexcom G6 Sensor) misc 0 Active Cholecalciferol (D2000 Ultra Strength) 50 MCG (2000 UT) capsule Take 2,000 Units by mouth daily Active Active Problems Problem Noted Date Diagnosed Date Subclinical hypothyroidism 10/19/2019 Overview (09/16/2020): Last Assessment & Plan: Will repeat TS/FT4 as outpatient, consider adding a TPO antibody as well at that time Atrial fibrillation 10/04/2019 Overview (12/04/2019): Last Assessment & Plan: Post op A-fib Remains SR Amiodarone 200mg daily Monitor QTc Acute injury of kidney 10/01/2019 Overview (12/04/2019): Last Assessment & Plan: Cr up today from 1.04 to 1.31 today Will hold diuretics today Cont vancomycin and monitoring of trough Continue to monitor BMP History of coronary artery bypass grafting 09/30 Overview (09/16/2020): Last Assessment & Plan: Completed on 09/30/2019. Admitted from clinic due to concern for surgical site infection. Now on antibiotics. Infection contributes to hyperglycemia. Will continue to work on improving blood glucose control to help with resolution of infection. Obstructive sleep apnea syndrome 09/28/2019 Overview (12/04/2019): Last Assessment & Plan: Utilize home CPAP Coronary arteriosclerosis in sit[place] artery 10/16 Overview (12/11/2018): Coronary atherosclerosis Generalized ischemic myocardial dysfunction 09/19 History of placement of stent for coronary arter y disease 10/16/2018 Essential hypertension 09/27/2018 Other and unspecified hyperlipidemia 09/27/2018 Persistent proteinuria 09/27/2018 Type 2 diabetes mellitus 10/03/2013 Overview (12/11/2018): DMII WO CMP UNCNTRLD Immunizations Immunization Administration Dates Next Due Influenza TIV (IM) 03/01/2020 Influenza, Injectable, Quadrivalent, Preservativ e Free 02/13/2018 Social History Tobacco Use Types Packs/Day Years Used Date Smoking Tobacco: Never Smokeless Tobacco: Never Alcohol Use Standard Drinks/Week Comments Yes 0 (1 standard drink = 0.6 oz pur e alcohol) rare Sex and Gender Information Value Date Recorded Sex Assigned at Not on file Legal Sex Male 11:07 AM MDT Gender Identity Not on file Sexual Orientation Not on file Last Filed Vital Signs Vital Sign Reading Time Taken Comments Blood Pressure 128/72 03/22/2020 2:38 PM [employer] Pulse 84 03/22/2020 2:38 PM [employer] Temperature 36 C (96.8 F) 03/22/2020 2:38 PM [employer] Respiratory Rate - - Oxygen Saturation - - Inhaled Oxygen Concentration - - Weight 132 kg (291 lb) 03/22/2020 2:38 PM [employer] Height 180.3 cm (5' 11) 03/22/2020 2:38 PM [employer] Body Mass Index 40.59 03/22/2020 2:38 PM [employer] Plan of Treatment Health Maintenance Due Date Last Done Comments Influenza Vaccine (#1) 2025 03/01/2020, 2017 Insurance [facility] Care Teams Drywall Metal Stud Worker Relationship Specialty Start Date End Date Lindsay Peralta MD [address] [place] [id number] PCP - General 09/04/18
--- OUTSIDE RECORDS SUMMARY | 2025-02-18 12:52 | XMS_ITS | Clinical Summary ---
Author Organization [facility] Address [address] [place] [address] Care Team Providers Care Process Engineering Technician Name Role Phone Lindsay Peralta MD Primary Care Provider [phone] Source Comments [facility],non-owned Affiliates and Associated Physician Practices is amultiple site organization consisting of ambulatory clinics and hospital sitesin [place], [place], [place] and [place]. This disclosure is being madepursuant to the Care Everywhere program and may not contain all information available regarding this patient. Last updated 18.[facility] Allergies Active Allergy Reactions Criticality Noted Date Comments Atenolol Cough Low 10/29/2023 Medications * Be aware that medications may not be up to date on this document. Alwaysverify current medications with the patient. aspirin (Aspirin) 81 MG chew tablet Take 1 (one) tablet by mouth once daily Active empagliflozin (Jardiance) 25 MG tablet Take 1 (one) tablet by mouth once daily Active atorvastatin (Lipitor) 40 MG tablet Take 1 (one) tablet by mouth at bedtime Active metFORMIN (Glucophage) 500 MG tablet Take 1 (one) tablet by mouth 2 times daily with morning and evening meal Active sertraline (Zoloft) 100 MG tablet Take 1 (one) tablet by mouth once daily Active multivitamin daily tablet Take 1 (one) tablet by mouth daily with food Active vitamin D3 (Cholecalciferol ) 25 MCG (1000 UNITS) tablet Take 1 (one) tablet by mouth once daily Active insulin glargine (Lantus/Semglee) 100 units/ml injection Inject 50 (fifty) Units subcutaneously once daily Active Semaglutide (1 MG/DOSE) 2 MG/1.5ML Subcutaneous Solution Pen-injector (Ozempic) Inject 1 (one) mg subcutaneously every 7 days Active metoprolol succinate XL 24hr (Toprol XL) 100 MG tablet Take 1 (one) tablet by mouth once daily Active insulin aspart (NovoLOG) pen Inject 8 (eight) Units subcutaneously 3 times daily with meals for 30 days 7.2 mL 11/02/19 24 Active oxyCODONE, immediate release, (Roxicodone) 5 MG tabletIndication s:Perineal abscess TAKE ONE TABLET BY MOUTH EVERY 6 HOURS NEEDED FOR PAIN 12 tablet 11/02/19 24 Active insulin lispro (HumaLOG;ADMelog ) 100 UNIT/ML pen INJECT 8 UNITS SUBCUTANEOUSLY 3 TIMES A DAY WITH MEALS FOR 30 DAYS 15 mL 11/02/19 24 Active amoxicillin-clav ulanate (Augmentin) 875-125 MG tablet TAKE ONE TABLET BY MOUTH 2 TIMES A DAY WITH MORNING AND EVENING MEALS FOR 4 DAYS 8 tablet 11/02/19 24 Active linezolid (Zyvox) 600 MG tablet TAKE ONE TABLET BY MOUTH EVERY 12 HOURS FOR 4 DAYS 8 tablet 11/02/19 24 Active Insulin Pen Needle 32G X 4 MM [facility] USE PEN NEEDLES FOUR TIMES A DAY FOR INJECTIONS 100 Each 11/02/19 24 Active Active Problems Problem Noted Date Diagnosed Date Diabetic ketoacidosis withou t coma associated with diabetes mellitus due to underlying condition 10/30/2023 CAD s/p PCI, CABG 10/30/2023 Overview (10/30/2023): PCI in 2012, CABG in 2019 at [facility] Perineal abscess 10/30/2023 Sinus tachycardia 10/30/2023 High anion gap metabolic acidosis 10/30/2023 SUSANA (obstructive sleep apnea) 10/30/2023 Hypertension 10/30/2023 CHF (congestive heart failure) 10/30/2023 Hypokalemia 10/30/2023 Family History Medical History Relation Name Comments Cancer - Colon Father Diabetes - Type 2 Father CAD (Coronary Artery Disease) Mother Myocardial Infarction Cancer - Pancreatic Mother Hypertension Mother Relation Name Status Comments Father Mother Social History Tobacco Use Types Packs/Day Years Used Date Smoking Tobacco: Never Passive Smoke Exposure: Never Smokeless Tobacco: Never Tobacco Cessation:Counseling Given: No Alcohol Use Standard Drinks/Week Comments Yes 0 (1 standard drink = 0.6 oz pur e alcohol) A couple times per month AUDIT-C Answer Date Recorded Q1: How often do you have a drink containing alc ohol? Monthly or less 10/30/2023 Q2: How many drinks containi ng alcohol do you have on a typical day when you are drinking? 1 or 2 10/30/2023 Q3: How often do you have si x or more drinks on one occasion? Never 10/30/2023 Overall Financial Resource Strain (CARDIA) Answe r Date Recorded How hard is it for you to pa y for the very basics like food, housing, medical care, and heating? Not very hard 10/30/2023 [facility] - Occupational Stress Questionnaire Answer Date Recorded Do you feel stress - tense, restless, nervous, or anxious, or unable to sleep at night because your mind is troubled all the time - these days? To some extent 10/30/2023 Hunger Vital Sign Answer Date Recorded Within the past 12 months, y ou worried that your food would run out before you got the money to buy more. Never true 10/30/19 24 Within the past 12 months, t he food you bought just didn't last and you didn't have money to get more. Never true 10/30/2023 PRAPARE - Transportation Answer Date Re corded In the past 12 months, has l ack of transportation kept you from medical appointments or from getting medications? No 10/18 In the past 12 months, has l ack of transportation kept you from meetings, work, or from getting things needed for daily living? No 10/30/2023 Housing Stability Vital Sign Answer Mo e Recorded In the last 12 months, was t here a time when you were not able to pay the mortgage or rent on time? No 10/30/2023 In the last 12 months, how many places have you lived? 1 10/30/2023 In the last 12 months, was t here a time when you did not have a steady place to sleep or slept in a retirement (including now)? No 10/30/2023 Sex and Gender Information Value Date Recorded Sex Assigned at Not on file Legal Sex Male 6:55 PM CDT Gender Identity Not on file Sexual Orientation Not on file Last Filed Vital Signs Vital Sign Reading Time Taken Comments Blood Pressure 136/95 11/02/2023 8:21 AM CDT Pulse 82 11/02/2023 8:21 AM CDT Temperature 36.2 C (97.2 F) 11/02/2023 3:00 AM CDT Respiratory Rate 12 11/02/2023 8:21 AM CDT Oxygen Saturation 97% 11/02/2023 8:21 AM CDT Inhaled Oxygen Concentration - - Weight 136 kg (299 lb 13.2 oz) 11/01/2023 4:00 A M CDT Height 180.3 cm (5' 11) 10/30/2023 8:00 AM CDT Body Mass Index 41.82 10/30/2023 8:00 AM CDT Plan of Treatment Health Maintenance Due Date Last Done Comments COLOGUARD (AGES 45-75) - COLON CA SCREENING 1974 COLON MONITORING 1974 COLONOSCOPY - COLON CA SCREENING 1974 CT COLONOGRAPHY - COLON CA SCREENING 1974 Colorectal Cancer Screening 1974 FIT - COLON CA SCREENING 1974 FLEX SIG - COLON CA SCREENING 1974 HIV SCREENING 1989 HEPATITIS C SCREENING 10/19/1992 DTAP/TDAP/TD VACCINES (1 - Tdap) 1993 HEPATITIS B VACCINE (1 of 3 - 19+ 3-dose series) 1993 PNEUMOCOCCAL VACCINE 50+ (1 of 2 - PCV) 1993 DIABETES RETINOPATHY SCREENING 10/30/2023 DIABETES-FOOT EXAM WITH MONOFILAMENT 10/30/2023 DIABETES-HGB A1C 01/30/2024 10/30/2023 DEPRESSION SCREENING 05/20/2024 DIABETES - URINE PROTEIN SCREENING 05/20/2024 ZOSTER VACCINE (1 of 2) 2024 DIABETES-SERUM CREATININE 11/01/20242023, 11/01/2023, 10/31/2023, Additional history exists COVID-19 VACCINE ( - season) 2025 INFLUENZA VACCINE (#1) 2025 03/01/2020, 2017 HIB VACCINE Aged Out No longer eligi ble based on patient's age to complete this topic HPV VACCINE Aged Out No longer eligi ble based on patient's age to complete this topic MENINGOCOCCAL (Group B) VACCINE SHARED DECISION-MAKING Aged Out No longer eligible based on patient's age to complete this topic MENINGOCOCCAL GROUPS A/C/Y/W VACCINE Aged Out No longer eligible based on patient's age to complete this topic Procedures Procedure Name Priority Date/Time Associated Diagnosis Comments BASIC METABOLIC PANEL (CALCIUM TOTAL) Routine 11/02/2023 3:19 AM CDT HEMOGLOBIN A1C BHARAT 10/30/2023 8:05 AM CDT from Last 3 Months or Most Recently Relevant to Health Maintenance Results * (ABNORMAL) BASIC METABOLIC PANEL (CALCIUM TOTAL) (11/02/2023 3:19 AM CDT) BUN 25 7 - 26 mg/dL 11/02/2023 3:50 AM [facility] Creatinine 1.03 0.71 - 1.16 mg/dL 11/02/2023 3:50 AM [facility] Sodium 134(L) 136 - 145 mmol/L 11/02/2023 3:50 AM [facility] Potassium 3.7 3.5 - 4.5 mmol/L 11/02/2023 3:50 AM [facility] Chloride 106 98 - 107 mmol/L 11/02/2023 3:50 AM [facility] CO2 19(L) 22 - 29 mmol/L 11/02/2023 3:50 AM [facility] Glucose 234(H) 70 - 115 mg/dL 11/02/2023 3:50 AM [facility] Calcium 9.2 8.4 - 10.2 mg/dL 11/02/2023 3:50 AM [facility] Anion Gap 9 6 - 16 11/02/2023 3:50 AM [facility] BUN/Creatinine Ratio 24(H) 7 - 23 11/02/2023 3:50 AM [facility] Osmolality Calculated 290 275 - 295 mOsm/kg 11/02/2023 3:50 AM [facility] eGFR by CKD-EPI 89(L) >=90 mL/min/1.7 3 m2 11/02/2023 3:50 AM [facility] Blood BLOOD SPECIMEN / Unknown Venipuncture / Unknown 11/02/2023 3:19 AM CDT 11/02/2023 3:27 AM CDT Result [facility] Dequan Munson MD LAB - CHEMISTRY ORDERABLES Final Result Performing Organization Address [facility]/ZIP Co de Phone Number [facility] [address] [place] [address], [facility] [phone] * (ABNORMAL) HEMOGLOBIN A1C (10/30/2023 8:05 AM CDT) Hemoglobin A1c 13.0(H) <=5.6 % 10/30/2023 11:05 AM [facility] Estimated Average Glucose 326 mg/dL 10/30/2023 11:05 AM [facility] Comment: HbA1c Interpretation: Normal : < 5.7% Pre-diabetes: 5.7-6.4% Diabetes: Equal to or greater than 6.5% Test results diagnostic of diabetes should be repeated for confirmation. Treatment target values recommended by ADA and other clinical organizations should be used to evaluate metabolic control in patients. Reference: [place] [employer] Association, Standards of Care in Diabetes -2020 In patients 70 years and older consider HbA1c target range of 7.0-7.5% (Reference: Rhys Beverly et al. JAMDA. 2012) The Sebia assay for the measurement of HbA1c is a National Glycohemoglobin Standardization Program (NGSP) certified method. Blood BLOOD SPECIMEN / Unknown Venipuncture / Unknown 10/30/2023 8:05 AM CDT 10/30/2023 8:26 AM CDT us Gely Kelley MD LAB - CHEMISTRY ORDERABLES F inal Result Performing Organization Address City/[facility]/ZIP Co de Phone Number [facility] [address] [place] [phone], [place] [phone] from Last 3 Months or Most Recently Relevant to [place] [address] [place] [phone] ANTHEM Advance Directives * Full Code (Latest Code Status on File) Date Activated Date Inactivated Comments 10/30/2023 7:31 AM 11/02/2023 12:57 PM Care Teams Process Engineering Technician Relationship Specialty Start Date End Date Lindsay Peralta MD [address] [place] [id number] PCP - General Family Medicine 10/29/23
--- OUTSIDE RECORDS SUMMARY | 2025-02-18 12:52 | XMS_ITS | Clinical Summary ---
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 Role Phone Lindsay Peralta MD Primary Care Provider + Salvador Prince MD Unavailable [phone] Miscellaneous, Not In File Unavailable Unava ilable Gia Brannon MD Unavailable [phone] Fran Reyes MD Unavailable [phone] Allergies Active Allergy Reactions Criticality Noted Date Comments Atenolol-Chlorthalidone Cough Low 12/10/2001 Medications metoprolol XL (TOPROL-XL) 100 mg 24 hr tablet Take one by mouth one time per day 0 0 9 Active Additional Information Patient taking differently:100 mgoral Every morning, Indications: hypertension, Reported on 07/27/2021 multivitamin tabletIndicatio ns:Vitamin Deficiency Prevention Take 1 tablet by mouth every morning Centrum Active sertraline (ZOLOFT) 100 mg tabletIndicatio ns:mood Take 200 mg by mouth every morning 9 Active acetaminophen (TYLENOL) 325 mg tablet Take 2 tablets (650 mg total) by mouth every 6 (six) hours as needed for pain 30 tablet 0 Active aspirin 81 mg chewable tablet Take 1 tablet (81 mg total) by mouth daily 30 tablet 0 Active clopidogreL (PLAVIX) 75 mg tablet Take 1 tablet (75 mg total) by mouth daily 30 tablet 1 0 Active atorvastatin (LIPITOR) 20 mg tablet Take 1 tablet (20 mg total) by mouth nightly 30 tablet 1 0 Active Additional Information Patient taking differently: 40 mgoral Nightly, Reported on 07/27/2021 metFORMIN (GLUCOPHAGE) 1,000 mg tablet Take 1,000 mg by mouth 2 (two) times a day with meals Active insulin glargine (Lantus U-100 Insulin) 100 unit/mL injection Inject 50 Units under the skin daily 15 mL 1 0 Active empagliflozin (JARDIANCE) 25 mg tabletIndicatio ns:type 2 diabetes mellitus Take 1 tablet (25 mg total) by mouth every morning 30 tablet 1 0 Active furosemide (LASIX) 40 mg tablet Take 1 tablet (40 mg total) by mouth daily 30 tablet 0 Active Additional Information Patient taking differently: 80 mgoral Daily, Reported on 07/27/2021 insulin aspart U-100 (NovoLOG) 100 unit/mL (3 mL) insulin pen Inject 15 Units under the skin 3 (three) times a day with meals (plus 1 unit for every 25 greater than 150 up to max 7 units. Max daily dose) Refer to After Visit Summary for Sliding Scale Insulin Instructions. 7 pen 0 Active blood glucose diagnostic (glucose blood) strip Use as directed up to four times a day. 100 each 1 0 Active blood-glucose sensor (Dexcom G6 Sensor) deviceIndicatio ns:Type 2 diabetes mellitus 1 Device continuously Use 1 sensor device every 10 days. 9 Device 3 0 Active semaglutide (Ozempic) 1 mg/dose (2 mg/1.5 mL) pen injectorIndicat ions:Type 2 diabetes mellitus Inject 1 mg under the skin every 7 days 6 Syringe 2 0 Active tadalafiL (CIALIS) 5 mg tablet 0 Active cholecalciferol (VITAMIN D-3) 2000 unit capsule Take 2,000 Units by mouth daily Active sacubitriL-vals agustín (ENTRESTO) 97-103 mg tabletIndicatio ns:chronic heart failure Take 1 tablet by mouth 2 (two) times a day 60 tablet 3 1 Active spironolactone (ALDACTONE) 25 mg tablet Take 1 tablet by mouth once daily 30 tablet 3 2 Active Active Problems Problem Noted Date Diagnosed Date Subclinical hypothyroidism 10/19/2019 Assessment & Plan (10/19/2019 12:20 PM CDT): Will repeat TS/FT4 as outpatient, consider adding a TPO antibody as well at that time High risk medication use 10/14/2019 Assessment & Plan (10/18/2019 9:27 AM CDT): This patent has high risk medication use - requires an intensive, high risk insulin regimen, with intensive glycemic monitoring. This patient has an increased risk of hypoglycemia due to high insulin doses, now being treated for surgical site infection which may increase insulin requirements even further. Management per plan listed under diabetes. Assessment & Plan (10/17/2019 2:41 PM CDT): This patent has high risk medication use - requires an intensive, high risk insulin regimen, with intensive glycemic monitoring. This patient has an increased risk of hypoglycemia due to high insulin doses, now being treated for surgical site infection which may increase insulin requirements even further. Management per plan listed under diabetes. Assessment & Plan (10/16/2019 8:08 AM CDT): This patent has high risk medication use - requires an intensive, high risk insulin regimen, with intensive glycemic monitoring. This patient has an increased risk of hypoglycemia due to high insulin doses, now being treated for surgical site infection which may increase insulin requirements even further. Management per plan listed under diabetes. Assessment & Plan (10/15/2019 1:30 PM CDT): This patent has high risk medication use, with variable insulin requirements based on intake. He requires an intensive, high risk insulin regimen, with intensive glycemic monitoring. This patient has an increased risk of hypoglycemia due to high insulin doses, now being treated for surgical site infection which may increase insulin requirements even further. Management per plan listed under diabetes. Assessment & Plan (10/15/2019 10:11 AM CDT): This patent has high risk medication use - requires an intensive, high risk insulin regimen, with intensive glycemic monitoring. This patient has an increased risk of hypoglycemia due to high insulin doses, now being treated for surgical site infection which may increase insulin requirements even further. Management per plan listed under diabetes. Assessment & Plan (10/14/2019 12:57 PM CDT): This patent has high risk medication use - requires an intensive, high risk insulin regimen, with intensive glycemic monitoring. This patient has an increased risk of hypoglycemia due to high insulin doses, now being treated for surgical site infection which may increase insulin requirements even further. Management per plan listed under diabetes. Sternal wound infection 10/13/2019 Assessment & Plan (10/18/2019 9:27 AM CDT): Erythema inferior portion of sternal wound continues to improve WBC down from 12 to 10 Patient is afebrile continue vancomycin and cefepime for sternal wound erythema without any evidence of drainage No culture sent as there isn't any drainage Assessment & Plan (10/17/2019 2:41 PM CDT): Erythema inferior portion of sternal wound continues to improve WBC 12.2 Patient is afebrile continue vancomycin and cefepime for sternal wound erythema without any evidence of drainage No culture sent as there isn't any drainage Assessment & Plan (10/16/2019 8:13 AM CDT): Erythema inferior portion of sternal wound continues to improve WBC 13.3 from 16.9 on admit Patient is afebrile continue vancomycin and cefepime for sternal wound erythema without any evidence of drainage No culture sent as there isn't any drainage Assessment & Plan (10/15/2019 10:12 AM CDT): Erythema inferior portion of sternal wound is improving WBC down to 13 from 16.9, was 9.6 at time of discharge Patient is afebrile continue vancomycin and cefepime for sternal wound erythema without any evidence of drainage No culture sent as there isn't any drainage Assessment & Plan (10/14/2019 12:51 PM CDT): Contributes to hyperglycemia. Will adjust insulin doses for better blood glucose control to help with resolution of the infection. Assessment & Plan (10/14/2019 9:03 AM CDT): WBC is 16.9, was 9.6 at time of discharge Patient is afebrile continue vancomycin and cefepime for sternal wound erythema without any evidence of drainage No culture sent as there isn't any drainage Consider CT chest Atrial fibrillation 10/04/2019 Assessment & Plan (10/18/2019 9:27 AM CDT): Post op A-fib Remains SR Amiodarone 200mg daily Monitor QTc Assessment & Plan (10/17/2019 2:40 PM CDT): Post op A-fib Remains SR Amiodarone 200mg daily Monitor QTc Assessment & Plan (10/16/2019 8:08 AM CDT): Post op A-fib Remains SR Amiodarone 200mg daily Monitor QTc Assessment & Plan (10/15/2019 10:11 AM CDT): Post op A-fib Remains SR Amiodarone decreased to 200mg daily Monitor QTc Assessment & Plan (10/14/2019 8:57 AM CDT): Post op A-fib Currently SR Continue amiodarone Assessment & Plan (10/06/2019 11:42 AM CDT): Cardioverted in ICU on 10/03 Dc amio gtt and convert to 400mg daily Increase beta raquel QTC 493 Acute post-operative pain 10/02/2019 Assessment & Plan (10/05/2019 9:34 AM CDT): Continue current medications Assessment & Plan (10/02/2019 12:03 PM CDT): Neuro exam- alert, oriented, c/o incisional pain unrelieved by current medication regimen - additional Dilaudid for breakthrough pain and add Lidocaine patch S/P CABG x 2 10/01/2019 Assessment & Plan (10/19/2019 12:17 PM CDT): Completed on 09/30/2019. Admitted from clinic due to concern for surgical site infection. Now on antibiotics. Infection contributes to hyperglycemia. Will continue to work on improving blood glucose control to help with resolution of infection. Assessment & Plan (10/18/2019 9:25 AM CDT): Re-admit with concern for sternal wound erythemia without drainage complicated by hyperglycemia - wound is looking better Appreciate Endocrine input Continue metoprolol Continue plavix Continue statin Held diuretics 2/2 to increased creat level Assessment & Plan (10/17/2019 2:41 PM CDT): Re-admit with concern for sternal wound erythemia without drainage complicated by hyperglycemia - wound is looking better Appreciate Endocrine input Continue metoprolol Continue plavix Continue statin Continue lasix Assessment & Plan (10/16/2019 8:09 AM CDT): Re-admit with concern for sternal wound erythemia without drainage complicated by hyperglycemia - wound is looking better Appreciate Endocrine input Continue metoprolol Continue plavix Continue statin Continue lasix Assessment & Plan (10/15/2019 10:12 AM CDT): Re-admit with concern for sternal wound erythemia without drainage complicated by hyperglycemia - wound is looking better Endocrine consult Continue metoprolol Continue plavix Continue statin Continue lasix Assessment & Plan (10/14/2019 12:51 PM CDT): Completed on 09/30/2019. Admitted from clinic due to concern for surgical site infection. Now on antibiotics. Infection contributes to hyperglycemia. Will continue to work on improving blood glucose control to help with resolution of infection. Assessment & Plan (10/14/2019 8:59 AM CDT): Pod 14 Re-admit with concern for sternal wound erythemia without drainage complicated by hyperglycemia Continue metoprolol Continue plavix Continue statin Continue lasix Assessment & Plan (10/06/2019 11:32 AM CDT): Cabg X 2 on 09/29 Continue ASA Continue statin Continue plavix increase metoprolol to 50mg BID Will change lasix to po on day of DC Change amiodarone to daily QTC 493 Dc epicardial pacing wires today Assessment & Plan (10/02/2019 12:00 PM CDT): - provide analgesia w/ scheduled Tylenol & PRN Oxycodone *additional Dilaudid for breakthrough pain and add Lidocaine patch - provide bowel regimen while receiving narcotics - Aspirin and Plavix s/p CABG - GI prophylaxis to continue - DVT prophylaxis sub-q Heparin - PT eval and treat ongoing Assessment & Plan (10/01/2019 2:20 PM CDT): S/p 2v CABG (SANTORO-LAD, Svg-PL). Post-op care to include: - ASA Daily - Statin qHS - Eventual BB once off inotropic support - Hold CRISTAL/ARB in the post-op setting - ADAT - Continue glycemic control per CTICU protocol with HD SSI and NPH 20 units q8h to maintain BG <180 first 24 hrs - Discontinue pepcid. No Hx of GERD. - SCDs and SQH for DVT ppx - Continue daren-op Cefazolin. Will hold daren-op Vancomycin in the setting of worsening SHAWNEE - PT to begin POD #1 for decreased mobility after surgery - continue swan, cordis, arterial line and jaeger per CT Surgery SHAWNEE (acute kidney injury) 10/01/2019 Assessment & Plan (10/18/2019 9:26 AM CDT): Cr up today from 1.04 to 1.31 today Will hold diuretics today Cont vancomycin and monitoring of trough Continue to monitor BMP Assessment & Plan (10/17/2019 2:40 PM CDT): Cr now normal Cont vancomycin and monitoring of trough Continue to monitor BMP Assessment & Plan (10/16/2019 8:08 AM CDT): Cr now normal Cont vancomycin, trough with afternoon dose Continue to monitor BMP Assessment & Plan (10/19/2019 12:18 PM CDT): Pt has had persistent proteinuria, last evaluated by nephrology about a year ago, protein/creatinine ratio >500, other work-up negative. Clearance has been normal, possibly even hyperfiltration. Pt may be at increased risk of SHAWNEE with diabetic nephropathy. Cr WNL today. Assessment & Plan (10/14/2019 8:57 AM CDT): Cr now normal Cont vancomycin, trough with 4th dose Continue to monitor BMP Assessment & Plan (10/06/2019 11:32 AM CDT): Cr downtrending will change lasix to oral on day of DC Assessment & Plan (10/02/2019 11:58 AM CDT): BUN/ Cr stably elevated, UOP > 50 ml/hrly. - maintain renal perfusion pressure (MAP 70-90) - Lasix 40 mg iv x 1 to promote negative FB - f/u BMP this afternoon Assessment & Plan (10/01/2019 2:20 PM CDT): Pre-op creatinine 0.59. Creatinine with an upward trend, 1.53 (1.7). - Avoid nephrotoxins, renally dose meds as appropriate - avoid hypotension - Hold daren-op Vancomycin in the setting of worsening SHAWNEE - FBG even to slightly negative, allow auto-diuresis in the setting of a worsening SHAWNEE - BMP at 1700 Right ventricular dysfunction 09/30/2019 Assessment & Plan (10/02/2019 11:48 AM CDT): Post-procedure TAZ w/ normal biventricular function on Epi 0.05 mcg/kg/min. Hemodynamically supported w/ Epi 0.02 mcg/kg/min (CI 2.9, SVO2 75). Nicardipine for afterload reduction - decrease Epi to 0.01 mcg/kg/min, f/u ScVO2 - obtain NIBP and consider addition of home Norvasc - wean Nicardipine for SBP <150 - FBG even to slightly negative Assessment & Plan (10/01/2019 1:54 PM CDT): Post-procedure TAZ w/ normal biventricular function on Epi 0.05 mcg/kg/min. Overnight, Epi weaned to 0.04 mcg/kg/min. CI~ 3, PAP 1/3 systemic and SVO2 64% - Wean Epi to 0.03 mcg/kg/min and hold - 500 mL LR bolus now - FBG even to slightly negative, allow auto-diuresis in the setting worsening SHAWNEE Additional Notes: 1300: Patient with borderline hypertension and HR ~125 bpm--> Epi weaned to 0.02. 1330: BG remains elevated despite the addition of NPH; therefore, NPH 5 units administered and inc scheduled NPH to 25 units q8h Assessment & Plan (09/30/2019 4:58 PM CDT): Post-procedure TAZ w/ normal biventricular function on Epi 0.05 mcg/kg/min. On arrival CI 3.3, SVO2 pending - plan to begin Epi wean after extubation (q 8 for CI >2.2) SUSANA (obstructive sleep apnea) 09/28/2019 Assessment & Plan (10/05/2019 9:32 AM CDT): Utilize home CPAP Coronary artery disease invo lving e[place] coronary artery of [place] heart without angina pectoris 10/16/2018 Assessment & Plan (10/19/2019 12:17 PM CDT): Avoid hypoglycemia. On SGLT-2 inhibitor and starting GLP-1 RA History of coronary artery stent placement 10/16 Cardiomyopathy, ischemic 10/16/2018 Persistent proteinuria 09/27/2018 Assessment & Plan (10/19/2019 12:19 PM CDT): The last assessment of proteinuria was >1 year ago. Proteinuria, even before decline in kidney function, increases the risk of CAD, mortality and CKD. Given problems getting to an outside lab, I recommend rechecking protein/creatinine ratio or microalbumin/creatinine ratio on a spot urine. Jardiance and Ozempic both have renal benefits, and are appropriate agents for a patient with proteinuria. Discussed with pt need to keep up with water intake on SGLT-2i, and to hold for several days if he is NPO for any procedures Severe obesity 10/08/2017 Assessment & Plan (10/18/2019 9:29 AM CDT): Obesity has been lifelong, and is clearly driving the other problems. Endocrine reports quite good results, ie weight loss, with the newer GLP1 RA + SGLT2 inhibitor meds for diabetes. 1800 kcal diet, 60 grams of carb with each meal Assessment & Plan (10/17/2019 2:41 PM CDT): Obesity has been lifelong, and is clearly driving the other problems. Endocrine reports quite good results, ie weight loss, with the newer GLP1 RA + SGLT2 inhibitor meds for diabetes. 1800 kcal diet, 60 grams of carb with each meal Assessment & Plan (10/16/2019 8:17 AM CDT): Obesity has been lifelong, and is clearly driving the other problems. Endocrine reports quite good results, ie weight loss, with the newer GLP1 RA + SGLT2 inhibitor meds for diabetes. 1800 kcal diet, 60 grams of carb with each meal Assessment & Plan (10/19/2019 12:20 PM CDT): Obesity has been lifelong, and is clearly driving the other problems. The patient reports that he has not sought assistance with his obesity, and that it has not been addressed by his PCP. Pt on SGLT-2i with GLP-1 RA to be added as outpatient. This plus a restricted diet will be instituted as an OP, visit is scheduled. Longer term, depending on results with these efforts, bariatric surgery could be considered. Mixed hyperlipidemia 07/02/2017 Assessment & Plan (10/17/2019 2:41 PM CDT): Continue atorvastatin Assessment & Plan (10/16/2019 8:09 AM CDT): Continue atorvastatin Assessment & Plan (10/19/2019 12:18 PM CDT): Pt has a mild to moderate dyslipidemia. 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 On statin Atherosclerosis of coronary artery 03/18/2014 Overview (08/23/2016): Coronary atherosclerosis Type 2 diabetes mellitus 10/03/2013 Overview (09/30/2019): Hgb A1C 8.3 Assessment & Plan (10/18/2019 9:24 AM CDT): HgA1c 8.4 (194) but may be unreliable due to recent blood transfusion from surgery hold metformin while inpatient Will increase Lantus to 50 units Qam Humalog 15 units Tid plus SSI with meals Appreciate Endocrine input: Discharge Planning: - d/c on lantus and humalog, final doses same as hospital doses - plan to d/c on increased dose of metformin 1gm BID and jardiance 25mg daily - Discharge on 1800 kcal diet, 60 grams of carb with each meal - I will see the patient as an OP, and plan the following: Start a GLP1 receptor agonist (probably Ozempic), institute continuous glucose monitoring and send for diabetes education to relearn carbohydrate counting, restricted carbohydrate diet, and CGM use. Clinic phone number: [phone] for my clinic. Goals of management will include weight loss and management of complications in addition to glucose management. Assessment & Plan (10/17/2019 2:42 PM CDT): HgA1c 8.4 (194) but may be unreliable due to recent blood transfusion from surgery hold metformin while inpatient Appreciate Endocrine input: Discharge Planning: - d/c on lantus and humalog, final doses same as hospital doses - plan to d/c on increased dose of metformin 1gm BID and jardiance 25mg daily - Discharge on 1800 kcal diet, 60 grams of carb with each meal - I will see the patient as an OP, and plan the following: Start a GLP1 receptor agonist (probably Ozempic), institute continuous glucose monitoring and send for diabetes education to relearn carbohydrate counting, restricted carbohydrate diet, and CGM use. Clinic phone number: [phone] for my clinic. Goals of management will include weight loss and management of complications in addition to glucose management. Assessment & Plan (10/16/2019 8:17 AM CDT): HgA1c 8.4 (194) but may be unreliable due to recent blood transfusion from surgery hold metformin while inpatient Appreciate Endocrine input: Recommendations: - Continue Lantus 40U QHS - Continue Humalog 12U TID AC - MDSSI TIDAC and HS - QID accuchecks Call if any glucoses are <90 or >250 mg/dl. Discharge Planning: - d/c on lantus and humalog, final doses same as hospital doses - plan to d/c on increased dose of metformin 1gm BID and jardiance 25mg daily - Discharge on 1800 kcal diet, 60 grams of carb with each meal - I will see the patient as an OP, and plan the following: Start a GLP1 receptor agonist (probably Ozempic), institute continuous glucose monitoring and send for diabetes education to relearn carbohydrate counting, restricted carbohydrate diet, and CGM use. Clinic phone number: [phone] for my clinic. Goals of management will include weight loss and management of complications in addition to glucose management. Assessment & Plan (10/19/2019 12:17 PM CDT): A1C 8.4% (received transfusion two weeks ago). Current home regimen includes metformin 500mg BID (decreased from 1g BID after surgery 2 weeks ago), jardiance 10mg daily, Lantus 80 units q.a.m., Humalog 6 units when pre-meal BG close to 200, typically only with lunch and dinner. He is a little vague about his diabetes control as an OP, but it appears to be sub-optimal from many perspectives. He checks his blood sugars about 3 times daily, does not adjust insulin doses but has some knowledge of carbohydrate counting. He denies being on a more advanced regimen than metformin plus basal-bolus insulin with SMBG. He denies having low blood sugars in the past, typically runs high. His glucoses are well controlled here on about half of his OP insulin dose, due to the restricted, carb consistent diet. Recommendations for discharge: - Continue Lantus 50U once daily. Decrease to 45 units once Ozempic is started after discharge - Continue Humalog 15U TID AC (1 unit per 4 grams of carbohydrate). Decrease to 12 units of Lispro with meals once Ozempic is started - MDSSI TIDAC and HS - QID accuchecks - plan to d/c on increased dose of metformin 1gm BID and jardiance 25mg daily, Ozempic once weekly, 0.25 mg subQ. Discussed with patient potential GI side effects of this medication and how to modify his diet to decrease risk of nausea/vomiting. Insulin doses will be reduced slightly, as above - Discharge on 1800 kcal diet, 60 grams of carb with each meal - Pt will follow up with Dr. Brannon as an outpatient. Her plan is to start continuous glucose monitoring, have pt see a agricultural extension educator to review carb counting, and to follow a diet restricted in carbs. Clinic phone number: [phone]. Goals of management to include weight loss and management of complications in addition to glucose management. Pt has an appointment for 10/27/19, video visit. Assessment & Plan (10/15/2019 10:15 AM CDT): HgA1c 8.4 (194) but may be unreliable due to recent blood transfusion from surgery hold metformin while inpatient Appreciate Endocrine input: Recommendations: - Decrease Lantus to 40U QHS - continue humalog 7U TIDAC for today, increase to 12U TIDAC tomorrow - MDSSI TIDAC and HS - QID accuchecks - clinical diabetes education - provide CGM Freestyle Qamar sample if possible Discharge Planning: - pending insulin requirements, may be good candidate for Soliqua (Lantus/GLP-1 pen) vs. Continue Lantus and humalog - plan to d/c on increased dose of metformin 1gm BID and jardiance 25mg daily - requested f/u in endocrine clinic here (our clinic will call him to schedule). Clinic phone number: [phone] Assessment & Plan (10/14/2019 12:54 PM CDT): A1C 8.4% (received transfusion two weeks ago). Current home regimen includes metformin 500mg BID (decreased from 1g BID after surgery 2 weeks ago), jardiance 10mg daily, Lantus 80 units q.a.m., Humalog 6 units when pre-meal BG close to 200, typically only with lunch and dinner. He denies being on a higher dose of jardiance in the past. He checks his blood sugars about 3 times daily. In the morning blood sugars are closer to 100. Before lunch and before dinner blood sugars are usually in the mid 200s. He denies having any low blood sugars in the past. On admission, he was given Lantus 60 units last night, Humalog 7 units with meals, mid dose sliding scale. BG have largely been within target range. Current home regimen is basal heavy. Will transition to more evenly distributed insulin regimen between basal and boluses. Recommendations: - Decrease Lantus to 40U QHS - continue humalog 7U TIDAC for today, increase to 12U TIDAC tomorrow - MDSSI TIDAC and HS - QID accuchecks Discharge Planning: - d/c on lantus and humalog, final doses TBD - plan to d/c on increased dose of metformin 1gm BID and jardiance 25mg daily - requested f/u in endocrine clinic here (our clinic will call him to schedule). Clinic phone number: [phone] Assessment & Plan (10/14/2019 9:09 AM CDT): HgA1c 8.4 (194) but may be unreliable due to recent blood transfusion from surgery hold metformin while inpatient Continue lantus Continue humalog Endocrine consult Patients PCP manages diabetes but he has tried to get in with an reproduction technician in the past, he would be willing to see endocrinology at [facility] staff educator consulted Assessment & Plan (10/02/2019 11:56 AM CDT): Glycemic control maintained w/ Insulin infusion. Unsuccessful attempt at NPH transition yesterday. - begin NPH 30 units q 8hr and HD SSI - discontinue Insulin infusion after NPH administered Assessment & Plan (10/01/2019 2:01 PM CDT): Remains on an Insulin infusion for glycemic control. Anticipate need for IV Insulin given Epinephrine and history of uncontrolled DM. Managed on home Lantus, empagliflozin, and metformin - Discontinue insulin gtt - Continue glycemic control per [facility]ICU protocol with HD SSI to maintain BG <180 first 24 hrs - Initiate NPH 20 units q8h Assessment & Plan (09/30/2019 4:56 PM CDT): Patient arrived on Insulin infusion for glycemic control. Anticipate need for IV Insulin given Epinephrine and uncontrolled DM. Takes Lantus and 2 oral medications at home - transition to SSI Insulin + basal, likely POD 1 Assessment & Plan (10/06/2019 11:31 AM CDT): Change NPH to every 12 hours Continue SSI Will plan to dc on home medications tomorrow Preop cardiovascular exam Resolved Problems Problem Noted Date Diagnosed Date Resolved Date Pulmonary insufficiency 09/30/201909/17 Assessment & Plan (10/01/2019 2:03 PM CDT): Expected following cardiac surgery. CXR revealed slightly increased left basilar atelectasis.. - aggressive pulmonary hygiene with IS, acapella, and C&DB - PT/OOBTC/AMB - wean O2 for sats > 92% - home CPAP for SUSANA - FBG even to slightly negative, allow auto-diuresis Assessment & Plan (09/30/2019 5:02 PM CDT): Post procedural short-term ventilator support with anticipated extubation. Initially w/ mixed acidosis- given Bicarb and increased mVT. - f/u repeat ABG and pCXR - PSV trial when hemodynamically stable - VAP prophylaxis/ pulmonary hygiene - home CPAP for SUSANA Metabolic acidosis, increased anion gap 09/30/2019 10/02/2019 Assessment & Plan (09/30/2019 5:45 PM CDT): Anion gap 17, bicarb 18 (after 100 meq given), lactate 7. Patient w/ DM and Cr doubled - give 250 ml Albumin - check beta hydroxybutyrate HTN (hypertension) 09/28/2019 0 Assessment & Plan (09/28/2019 5:30 PM CDT): VS q 4 hrs Continue Amlodipine, Metoprolol Add Hydralazine 10 IV q 6 hrs prn SBP > 150 Coronary artery disease 07/09/201909/17 Overview (07/09/2019): Added automatically from request for surgery [id number] Assessment & Plan (09/29/2019 9:22 AM CDT): [facility] showed severe multi vessel CAD Prep for planned CABG on 09/29 Continue ASA, Statin, Beta raquel TNG SL prn angina Check 12 L, Troponins Preoperative testing completed Immunizations Immunization Administration Dates Next Due Influenza, Quadrivalent, Spl it, Preservative Free, Intramuscular 02/13/2018 Surgical History Surgery Date Site/Laterality Comments CARDIAC CATHETERIZATION CORONARY ANGIOPLASTY WITH ST ENT PLACEMENT 05/20/2013 - 05/19/2014 CHOLECYSTECTOMY ABDOMINOPLASTY 03/20/2002 - 04/18/2002 CORONARY ARTERY BYPASS GRAFT 09/18/2019 - 10/18/2019 Medical History Medical History Date Comments Hyperlipidemia Hyperlipidemia Diabetes mellitus Diabetes Hypertension Hypertension Sleep apnea 2010 Heart attack (HCC) 2014 Obesity Family History Medical History Relation Name Comments Cancer Father Dad Coronary artery disease Father Dad Diabetes Father Dad Obesity Father Dad Atrial fibrillation Mother Mom Cancer Mother Mom Hypertension Mother Mom Diabetes type II Other Family hist ory of Diabetes -Type II; Diabetes Paternal Grandfather Grandapa Relation Name Status Comments Father Dad Mother Mom Other Paternal Grandfather Grandapa Social History Tobacco Use Types Packs/Day Years Used Date Smoking Tobacco: Never Smokeless Tobacco: Never Alcohol Use Standard Drinks/Week Comments Not Currently 0 (1 standard drink = 0.6 oz pur e alcohol) socially AUDIT-C Answer Date Recorded Q1: How often do you have a drink containing alc ohol? 2-4 times a month 07/13/2019 Q2: How many drinks containi ng alcohol do you have on a typical day when you are drinking? 3 or 4 07/13/2019 Frequency of Binge Drinking Not on file 06/21 Sex and Gender Information Value Date Recorded Sex Assigned at Not on file Legal Sex Male 11:10 AM ASPHALT SURFACE HEATER OPERATOR Gender Identity Male 07/11/2019 11:28 AM ASPHALT SURFACE HEATER OPERATOR Sexual Orientation Straight 11/11/2018 2: 54 PM CDT Obstetrics History Last Filed Vital Signs Vital Sign Reading Time Taken Comments Blood Pressure 134/90 07/27/2021 1:02 PM ASPHALT SURFACE HEATER OPERATOR Pulse 94 07/27/2021 1:02 PM ASPHALT SURFACE HEATER OPERATOR Temperature 36.1 C (97 F) 04/11/2020 2:56 PM ASPHALT SURFACE HEATER OPERATOR Respiratory Rate 20 11/04/2019 12:08 PM CDT Oxygen Saturation 97% 07/27/2021 1:02 PM ASPHALT SURFACE HEATER OPERATOR Inhaled Oxygen Concentration - - Weight 134.7 kg (297 lb) 07/27/2021 1:02 PM ASPHALT SURFACE HEATER OPERATOR Height 180.3 cm (5' 11) 07/27/2021 1:02 PM ASPHALT SURFACE HEATER OPERATOR Body Mass Index 41.42 07/27/2021 1:02 PM ASPHALT SURFACE HEATER OPERATOR Plan of Treatment Health Maintenance Due Date Last Done Comments Colon Cancer Screening-Colonoscopy 1974 Depression Screening 1974 Hepatitis C Screening 1974 Prostate Cancer Screening-PSA 1974 Dilated Eye Exam 1974 Foot Exam 1974 DTaP/Tdap/Td Vaccine (1 - Tdap) 1985 Hepatitis B Screening 1992 Regular Well Visit/Exam 18-64 1992 Hemoglobin A1C 04/14/2020 10/13/2019, 09/28/2019 Albumin Creatinine Ratio, Urine 10/15/2020 0 Pneumococcal vaccine <65 (2 of 2 - PCV) 03/01/2021 03/01/2020 Lipid Panel 04/06/2022 04/06/2021, 09/17, 10/16/2018, Additional history exists eGFR 04/11/2022 04/11/2021 Zoster Vaccine (1 of 2) 2024 Covid-19 Vaccine (4 - 2024-2 6 season) 2025 04/18/2021, 08/11/2020, 07/21/2020 Influenza Vaccine (#1) 2025 , 03/01/2020, 02/13/2018 Medical Devices Implanted Type Area Carpet Layer Device Identifier Shelf Expiration Date Model / Serial / Lot Heart Stent Heart Description:x1 stent per pt Procedures Procedure Name Priority Date/Time Associated Diagnosis Comments BASIC METABOLIC PANEL Routine 04/11/2021 1:48 PM ASPHALT SURFACE HEATER OPERATOR Cardiomyopathy, ischemic LIPID PANEL Routine 04/06/2021 ALBUMIN CREATININE RATIO, URINE Timed 10/16/2019 11:16 PM CDT HEMOGLOBIN A1C Routine 10/13/2019 5:34 PM CDT from Last 3 Months or Most Recently Relevant to Health Maintenance Results * (ABNORMAL) Basic metabolic panel (04/11/2021 1:48 PM ASPHALT SURFACE HEATER OPERATOR) Glucose 149(H) 65 - 99 mg/dL [facility] [place] Comment: Fasting reference interval For someone without known diabetes, a glucose value >125 mg/dL indicates that they may have diabetes and this should be confirmed with a follow-up test. BUN 18 7 - 25 mg/dL [facility] [place] Creatinine 1.02 0.60 - 1.35 mg/dL [facility] [place] eGFR NON-AFR. PERUVIAN 88 > OR = 60 mL/min/1. 73m2 [facility] EGFR 102 > OR = 60 mL/min/1. 73m2 [facility] [place] BUN/creat ratio NOT APPLICABLE 6 - 22 (calc) [facility] [place] Sodium 136 135 - 146 mmol/L [facility] [place] Potassium, pl 4.0 3.5 - 5.3 mmol/L [facility] [place] Chloride 97(L) 98 - 110 mmol/L [facility] [place] CO2 29 20 - 32 mmol/L [facility] [place] Calcium 9.7 8.6 - 10.3 mg/dL [facility] [place] Blood specimen (specimen) 04/11/2021 1:48 PM ASPHALT SURFACE HEATER OPERATOR 04/11/2021 1:49 PM ASPHALT SURFACE HEATER OPERATOR Alvina Hunt BARNWORKER GROOM LAB BLOOD ORDERABLES Final R esult [facility] [address] [place] [address] * Lipid panel (04/06/2021) SCRIBED Cholesterol, Total 119 0 - 200 EXTERNAL LAB SCRIBED HDL 40 40 - 100 EXTERNAL LAB SCRIBED LDL 64 0 - 70 EXTERNAL LAB SCRIBED Triglycerides 77 0 - 150 EXTERNAL LAB Blood Historical Provider MD LAB BLOOD ORDERABLES Edit ed Result - Final EXTERNAL LAB * (ABNORMAL) Albumin Creatinine Ratio, Urine (10/16/2019 11:16 PM CDT) Pathologist [facility] Albumin Ur 41.4 mg/L [facility] Comment: Interpretive Data No reference range established. Current interpretive data was last revised 2018. Creatinine Ur 95.2 mg/dL [facility] Comment: Interpretive Data No reference range established. Current interpretive data was last revised 2018. Albumin Creatinine Ratio, Ur 43(H) 1 - 29 mg/g [facility] Urine 10/16/2019 11:1 6 PM CDT 10/16/2019 11:45 PM CDT Jenn Barajas BARNWORKER GROOM LAB URINE ORDERABLES Final R esult Performing Organization Address [facility] de Phone Number [facility] [place] [address] * (ABNORMAL) Hemoglobin A1c (10/13/2019 5:34 PM CDT) Hgb A1C 8.4(H) 4.0 - 5.6 % [facility] Estimated Average Glucose 194 mg/dL [facility] Comment: The ADA recommends reporting an estimated Average Glucose (eAG) with all Hemoglobin A1c results using the equation derived from a study of 507 normal and diabetic adults. Minority populations were underrepresented and children were not included. (Diabetes Care 31:9218-6176, 2008). The eAG is not equivalent to a fasting glucose. Blood specimen (specimen) 10/13/2019 5:34 PM CDT 10/13/2019 5:56 PM CDT Sandra Salinas BARNWORKER GROOM LAB BLOOD ORDERABLES Final Result Performing Organization Address [facility] de Phone Number [facility] [place] [address] from Last 3 Months or Most Recently Relevant to Health Maintenance Insurance [facility] Advance Directives For more information, please contact: [phone] Documents on File Type Date Recorded Patient Security Dispatcher Expl anation ADVANCE DIRECTIVE 10/08/2019 6:48 AM POWER OF VENDING ROUTE DRIVER-MEDICAL * Full Code (Latest Code Status on File) Date Activated Date Inactivated Comments 10/13/2019 3:43 PM 10/19/2019 5:44 PM * Full Code Date Activated Date Inactivated Comments 10/09/2019 11:49 AM 10/13/2019 3:33 PM * Full Code Date Activated Date Inactivated Comments 09/28/2019 5:21 PM 10/07/2019 6:55 PM Healthcare Agents on File Name Relationship Healthcare Agent Relationship Communication Aziza Dunn Spouse Health Care Agent Care Teams Animal Husbandry Worker Relationship Specialty Start Date End Date Lindsay Peralta MD PCP - General 03/22/08 Salvador Prince MD [address] [place] [address] Surgeon Cardiothoracic Surgery 10/07/19 Miscellaneous, Not In File 10/07/19 Gia Brannon MD Consulting Physician Endocrinology Diabetes & Metabolism 10/19/19 Fran Reyes MD [address] [place] [address] Consulting Physician Cardiology 10/26/19
--- OUTSIDE RECORDS SUMMARY | 2025-02-18 12:52 | XMS_ITS | Clinical Summary ---
Author Organization [facility] Address [facility] [place] [address] Care Team Providers Care Boat Deckhand Name Role Phone Unavailable Primary Care Provider Unavailabl e Social History Tobacco Use Types Packs/Day Years Used Date Smoking Tobacco: Never Assessed Sex and Gender Information Value Date Recorded Sex Assigned at Not on file Legal Sex Male 9:46 PM YARD JOCKEY Gender Identity Not on file Sexual Orientation Not on file Plan of Treatment Health Maintenance Due Date Last Done Comments Colorectal Cancer Screening Colonoscopy (10 Years) 1974 Annual Physical 1977 Hepatitis C 1992 DTaP, Tdap and Td Vaccines ( 1 - Tdap) 1993 Hepatitis B Vaccines (1 of 3 - 19+ 3-dose series) 1993 Pneumococcal Vaccine: 50+ Ye ars (1 of 1 - PCV) 2024 Zoster Vaccines (1 of 2) 2024 COVID-19 Vaccine ( - 2023-2 5 season) 2025 Meningococcal B Vaccine Aged Out No l onger eligible based on patient's age to complete this topic Meningococcal Vaccine Aged Out No lyubov estee eligible based on patient's age to complete this topic RSV Immunizations Under 20 Months Aged Out No longer eligible based on patient's age to complete this topic
--- OUTSIDE RECORDS SUMMARY | 2025-02-18 12:52 | XMS_ITS | Encounter Summary ---
Author Organization [facility] Address [address] [place] [address] Care Team Providers Care Intensive Care Specialist Name Role Phone Lindsay Peralta MD Primary Care Provider + Samantha Zhang NP Unavailable Salvador Prince MD Unavailable [phone] Miscellaneous, Not In File Unavailable Unava ilable Gia Brannon MD Unavailable [phone] Fran Reyes MD Unavailable [phone] Encounter Details Date Type Department Care Team (Late st Contact Info) Description 09/30/2019 Documentation [facility] Case Management [address] [place] [address] Stephane Yeboah, LUIS Social History Tobacco Use Types Packs/Day Years [...] on file Legal Sex Male 11:10 AM CLINICAL DOCUMENT IMPROVEMENT EDUCATOR Gender Identity Male 07/11/2019 11:28 AM CLINICAL DOCUMENT IMPROVEMENT EDUCATOR Sexual Orientation Straight 11/11/2018 2: 54 PM CDT documented as of this encounter Miscellaneous Notes * Plan of Care - Stephane Yeboah RN - 09/30/2019 8:35 AM CDT Patient to OR today with CTS Case management services will continue to follow for any d/c needs. Please call me at [phone] further inquiries. documented in this encounter Plan of Treatment Not on file documented as of this encounter Visit Diagnoses Not on filedocumented in this encounter Care Teams Intensive Care Specialist Relationship Specialty Start Date End Date Lindsay Peralta MD PCP - General 03/22/08 Samantha Zhang NP [address] [address] Nurse Practitioner Cardiology 06/16/19 10/25/19 Salvador Prince MD [address] [place] [address] Surgeon Cardiothoracic Surgery 10/07/19 Miscellaneous, Not In File 10/07/19 Gia Brannon MD Consulting Physician Endocrinology Diabetes & Metabolism 10/19/19 Fran Reyes MD [address] [address] Consulting Physician Cardiology 10/26/19 documented as of this encounter
--- OUTSIDE RECORDS SUMMARY | 2025-02-18 12:52 | XMS_ITS | Encounter Summary ---
Author Organization [facility] Address [facility] [place] [address] Care Team Providers Care Jailer Name Role Phone Unavailable Primary Care Provider Unavailabl e Encounter Details Date Type Department Care Team (Late st Contact Info) Description 12/29/[address] [facility] Conversion [address] [place], [place] [address] , Generic Conversion, Social History Tobacco Use Types Packs/Day Years Used Date Smoking Tobacco: Never Assessed Sex and Gender Information Value Date Recorded Sex Assigned at Not on file Legal Sex Male 9:46 PM BOTTLE CAPPING MACHINE OPERATOR Gender Identity Not on file Sexual Orientation Not on file documented as of this encounter Plan of Treatment Not on file documented as of this encounter Visit Diagnoses Not on filedocumented in this encounter
[2025-02-18 12:55] VITALS: BP 193/115; PULSE 126; RESP 18; TEMP 36.9; O2SAT 100
--- OUTSIDE RECORDS SUMMARY | 2025-02-18 13:41 | XMS_ITS | Clinical Summary ---
Author Organization [facility] Address [address] [place] [address] Phone Care Team Providers Care Hospital Supervisor Name Role Phone Lindsay Peralta MD Primary Care Provider [phone] Allergies Active Allergy Reactions Criticality Noted Date [...] by mouth daily Active Continuous Blood Gluc Boat Hand (DEXCOM G6 CIVIL CAD DESIGNER) device USE TO MONITIOR BLOOD GLUCOSE LEVELS [...] Plan: Utilize home CPAP Coronary arteriosclerosis in [place] artery 10/16 Overview (12/11/2018): Coronary atherosclerosis Generalized [...] Comments Blood Pressure 128/72 03/22/2020 2:38 PM CASTING HOUSE LABORER Pulse 84 03/22/2020 2:38 PM CASTING HOUSE LABORER Temperature 36 C (96.8 F) 03/22/2020 2:38 PM CASTING HOUSE LABORER Respiratory Rate - - Oxygen Saturation - - Inhaled Oxygen Concentration - - Weight 132 kg (291 lb) 03/22/2020 2:38 PM CASTING HOUSE LABORER Height 180.3 cm (5' 11) 03/22/2020 2:38 PM CASTING HOUSE LABORER Body Mass Index 40.59 03/22/2020 2:38 PM CASTING HOUSE LABORER Plan of Treatment Health Maintenance Due Date Last Done Comments Influenza Vaccine (#1) 2025 03/01/2020, 2017 Insurance [facility] Care Teams Hospital Supervisor Relationship Specialty Start Date End Date Lindsay Peralta MD [address] [place] [id number] PCP - General 09/04/18
--- OUTSIDE RECORDS SUMMARY | 2025-02-18 13:41 | XMS_ITS | Clinical Summary ---
Author Organization [facility] [address] Address [address] [place] [address] Care Team Providers Care Forming Machine Upkeep Mechanic Helper Name Role Phone Lindsay Peralta MD Primary Care Provider + Salvador Prince MD Unavailable [phone] Miscellaneous, Not In File Unavailable Unava ilable Gia Brannon MD Unavailable [phone] Fran Reyes MD Unavailable [phone] Allergies Active Allergy Reactions Criticality Noted Date [...] home CPAP Coronary artery disease invo lving g[place] coronary artery of [place] heart without angina pectoris 10/16/2018 Assessment & [...] but that it was stopped after his NURSING ASSOCIATE with stent. On statin Atherosclerosis of coronary [...] diet, and CGM use. Clinic phone number: [phone] for my clinic. Goals of management will [...] diet, and CGM use. Clinic phone number: [phone] for my clinic. Goals of management will [...] diet, and CGM use. Clinic phone number: [phone] for my clinic. Goals of management will [...] continuous glucose monitoring, have pt see a certified breastfeeding educator to review carb counting, and to follow a diet restricted in carbs. Clinic phone number: [phone]. Goals of management to include weight loss [...] call him to schedule). Clinic phone number: [phone] Assessment & Plan (10/14/2019 12:54 PM CDT): [...] call him to schedule). Clinic phone number: [phone] Assessment & Plan (10/14/2019 9:09 AM CDT): HgA1c 8.4 (194) but may be unreliable due to recent blood transfusion from surgery hold metformin while inpatient Continue lantus Continue humalog Endocrine consult Patients PCP manages diabetes but he has tried to get in with an optical store manager in the past, he would be willing to see endocrinology at [facility] tobacco educator consulted Assessment & Plan (10/02/2019 11:56 [...] (07/09/2019): Added automatically from request for surgery [id number] Assessment & Plan (09/29/2019 9:22 AM CDT): [facility] showed severe multi vessel CAD Prep for [...] on file Legal Sex Male 11:10 AM SUPPORT TEACHER Gender Identity Male 07/11/2019 11:28 AM SUPPORT TEACHER Sexual Orientation Straight 11/11/2018 2: 54 PM CDT Obstetrics History Last Filed Vital Signs Vital Sign Reading Time Taken Comments Blood Pressure 134/90 07/27/2021 1:02 PM SUPPORT TEACHER Pulse 94 07/27/2021 1:02 PM SUPPORT TEACHER Temperature 36.1 C (97 F) 04/11/2020 2:56 PM SUPPORT TEACHER Respiratory Rate 20 11/04/2019 12:08 PM CDT Oxygen Saturation 97% 07/27/2021 1:02 PM SUPPORT TEACHER Inhaled Oxygen Concentration - - Weight 134.7 kg (297 lb) 07/27/2021 1:02 PM SUPPORT TEACHER Height 180.3 cm (5' 11) 07/27/2021 1:02 PM SUPPORT TEACHER Body Mass Index 41.42 07/27/2021 1:02 PM SUPPORT TEACHER Plan of Treatment Health Maintenance Due Date [...] 03/01/2020, 02/13/2018 Medical Devices Implanted Type Area Framer Device Identifier Shelf Expiration Date Model / Serial / Lot Heart Stent Heart Description:x1 stent per pt Procedures Procedure Name Priority Date/Time Associated Diagnosis Comments BASIC METABOLIC PANEL Routine 04/11/2021 1:48 PM SUPPORT TEACHER Cardiomyopathy, ischemic LIPID PANEL Routine 04/06/2021 ALBUMIN CREATININE RATIO, URINE Timed 10/16/2019 11:16 PM CDT HEMOGLOBIN A1C Routine 10/13/2019 5:34 PM CDT from Last 3 Months or Most Recently Relevant to Health Maintenance Results * (ABNORMAL) Basic metabolic panel (04/11/2021 1:48 PM SUPPORT TEACHER) Glucose 149(H) 65 - 99 mg/dL [facility] [place] Comment: Fasting reference interval For someone without known diabetes, a glucose value >125 mg/dL indicates that they may have diabetes and this should be confirmed with a follow-up test. BUN 18 7 - 25 mg/dL [facility] [place] [facility] Creatinine 1.02 0.60 - 1.35 mg/dL [facility] eGFR NON-AFR. BULGARIAN 88 > OR = 60 mL/min/1. 73m2 [facility] [place] [facility] EGFR 102 > OR = 60 mL/min/1. 73m2 [facility] [place] [facility] BUN/creat ratio NOT APPLICABLE 6 - 22 (calc) [facility] [place] [facility] Sodium 136 135 - 146 mmol/L [facility] [place] [facility] Potassium, pl 4.0 3.5 - 5.3 mmol/L [facility] [place] [facility] Chloride 97(L) 98 - 110 mmol/L [facility] CO2 29 20 - 32 mmol/L [facility] Calcium 9.7 8.6 - 10.3 mg/dL [facility] [place] [facility] Blood specimen (specimen) 04/11/2021 1:48 PM SUPPORT TEACHER 04/11/2021 1:49 PM SUPPORT TEACHER Alvina Hunt CLIENT ACCOUNT ASSISTANT LAB BLOOD ORDERABLES Final R esult [facility] [address] [place] [address] * Lipid panel (04/06/2021) SCRIBED Cholesterol, Total [...] last revised 2018. Creatinine Ur 95.2 mg/dL [facility] Comment: Interpretive Data No reference range established. Current interpretive data was last revised 2018. Albumin Creatinine Ratio, Ur 43(H) 1 - 29 mg/g [facility] Urine 10/16/2019 11:1 6 PM CDT 10/16/2019 11:45 PM CDT Jenn Barajas CLIENT ACCOUNT ASSISTANT LAB URINE ORDERABLES Final R esult Performing Organization Address [facility] de Phone Number [facility] [address] * (ABNORMAL) Hemoglobin A1c (10/13/2019 5:34 PM CDT) Hgb A1C 8.4(H) 4.0 - 5.6 % [facility] Estimated Average Glucose 194 mg/dL [facility] Comment: The ADA recommends reporting an estimated Average Glucose (eAG) with all Hemoglobin A1c results using the equation derived from a study of 507 normal and diabetic adults. Minority populations were underrepresented and children were not included. (Diabetes Care 31:8881-2931, 2008). The eAG is not equivalent to a fasting glucose. Blood specimen (specimen) 10/13/2019 5:34 PM CDT 10/13/2019 5:56 PM CDT Sandra Salinas CLIENT ACCOUNT ASSISTANT LAB BLOOD ORDERABLES Final Result Performing Organization Address [facility] de Phone Number [facility] [place] [address] from Last 3 Months or Most Recently Relevant to Health Maintenance Insurance [facility] Advance Directives For more information, please contact: [phone] Documents on File Type Date Recorded Patient Explosive Expert Expl anation ADVANCE DIRECTIVE 10/08/2019 6:48 AM POWER OF CLASSROOM PARAPROFESSIONAL-MEDICAL * Full Code (Latest Code Status on [...] Dunn Spouse Health Care Agent Care Teams Forming Machine Upkeep Mechanic Helper Relationship Specialty Start Date End Date Lindsay Peralta MD PCP - General 03/22/08 Salvador Prince MD [address] [place] [address] Surgeon Cardiothoracic Surgery 10/07/19 Miscellaneous, Not In File 10/07/19 Gia Brannon MD Consulting Physician Endocrinology Diabetes & Metabolism 10/19/19 Fran Reyes MD [address] [place] [address] Consulting Physician Cardiology 10/26/19
--- OUTSIDE RECORDS SUMMARY | 2025-02-18 13:41 | XMS_ITS | Encounter Summary ---
Author Organization [facility] Address [facility] [place] [address] Care Team Providers Care Clinic Director Name Role Phone Unavailable Primary Care Provider Unavailabl e Encounter Details Date Type Department Care Team (Late st Contact Info) Description 12/29/[address] [facility] [address], [place] [id number] , Generic Conversion, Social History Tobacco Use Types Packs/Day Years Used Date Smoking Tobacco: Never Assessed Sex and Gender Information Value Date Recorded Sex Assigned at Not on file Legal Sex Male 9:46 PM MAIL PROCESSING MACHINE OPERATOR Gender Identity Not on file Sexual Orientation Not on file documented as of this encounter Plan of Treatment Not on file documented as of this encounter Visit Diagnoses Not on filedocumented in this encounter
--- OUTSIDE RECORDS SUMMARY | 2025-02-18 13:41 | XMS_ITS | Encounter Summary ---
Author Organization [facility] Healthcare Address [address] [place] [address] Care Team Providers Care Costume Draper Name Role Phone Lindsay Peralta MD Primary Care Provider + Samantha Zhang NP Unavailable Salvador Prince MD Unavailable Miscellaneous, Not In File Unavailable Unava ilable Gia Brannon MD Unavailable [phone] Fran Reyes MD Unavailable [phone] Encounter Details Date Type Department Care Team (Late st Contact Info) Description 09/30/2019 Documentation [facility] Case Management [address] [place] [address] Stephane Yeboah, LUIS Social History Tobacco Use [...] on file 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 Please call me at [phone] further inquiries. documented in this encounter Plan of Treatment Not on file documented as of this encounter Visit Diagnoses Not on filedocumented in this encounter Care Teams Costume Draper Relationship Specialty Start Date End Date Lindsay Peralta MD PCP - General 03/22/08 Samantha Zhang NP [address] [address] Nurse Practitioner Cardiology 06/16/19 10/25/19 Salvador Prince MD [address] [place] [address] Surgeon Cardiothoracic Surgery 10/07/19 Miscellaneous, Not In File 10/07/19 Gia Brannon MD Consulting Physician Endocrinology Diabetes & Metabolism 10/19/19 Fran Reyes MD [address] [address] Consulting Physician Cardiology 10/26/19 documented as of this encounter
--- OUTSIDE RECORDS SUMMARY | 2025-02-18 13:41 | XMS_ITS | Clinical Summary ---
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
--- OUTSIDE RECORDS SUMMARY | 2025-02-18 13:41 | XMS_ITS | Clinical Summary ---
Author Organization [facility] [employer] Address [address] [facility] [place] [address] Care Team Providers Care Import Coordinator Name Role Phone Lindsay Peralta MD Primary Care Provider [phone] Source Comments [facility] [employer],non-owned Affiliates and Associated Physician Practices is amultiple site organization consisting of ambulatory clinics and hospital sitesin [place], [place], [place] and [place]. This disclosure is being madepursuant to the Care Everywhere program and may not contain all information available regarding this patient. Last updated 18.[facility] [employer] Allergies Active Allergy Reactions Criticality Noted Date [...] Insulin Pen Needle 32G X 4 MM [facility] [place] PEN NEEDLES FOUR TIMES A DAY FOR INJECTIONS 100 Each 11/02/19 24 Active Active Problems Problem Noted Date Diagnosed Date Diabetic ketoacidosis withou t coma associated with diabetes mellitus due to underlying condition 10/30/2023 CAD s/p PCI, CABG 10/30/2023 Overview (10/30/2023): PCI in 2012, CABG in 2019 at [facility] Perineal abscess 10/30/2023 Sinus tachycardia 10/30/2023 High [...] care, and heating? Not very hard 10/30/2023 [facility] - Occupational Stress [...] place to sleep or slept in a long term (including now)? No 10/30/2023 Sex and Gender [...] 7 - 26 mg/dL 11/02/2023 3:[address] [facility] Creatinine 1.03 0.71 - 1.16 mg/dL 11/02/2023 3:[address] [facility] Sodium 134(L) 136 - 145 mmol/L 11/02/2023 3:[address] [facility] Potassium 3.7 3.5 - 4.5 mmol/L 11/02/2023 3:[address] [facility] Chloride 106 98 - 107 mmol/L 11/02/2023 3:[address] [facility] CO2 19(L) 22 - 29 mmol/L 11/02/2023 3:[address] [facility] Glucose 234(H) 70 - 115 mg/dL 11/02/2023 3:[address] [facility] Calcium 9.2 8.4 - 10.2 mg/dL 11/02/2023 3:[address] [facility] Anion Gap 9 6 - 16 11/02/2023 3:[address] [facility] BUN/Creatinine Ratio 24(H) 7 - 23 11/02/2023 3:[address] [facility] Osmolality Calculated 290 275 - 295 mOsm/kg 11/02/2023 3:[address] [facility] eGFR by CKD-EPI 89(L) >=90 mL/min/1.7 3 m2 11/02/2023 3:[address] [facility] Blood BLOOD SPECIMEN / Unknown Venipuncture / Unknown 11/02/2023 3:19 AM CDT 11/02/2023 3:27 AM CDT Result [facility] Dequan Munson MD LAB - CHEMISTRY ORDERABLES Final Result Performing Organization Address [facility]/ZIP Co de Phone Number [facility] [address] [place] [address], [facility] [phone] * (ABNORMAL) HEMOGLOBIN A1C (10/30/2023 8:05 AM CDT) Hemoglobin A1c 13.0(H) <=5.6 % 10/30/2023 11:[address] [facility] Estimated Average Glucose 326 mg/dL 10/30/2023 11:[address] [facility] Comment: HbA1c Interpretation: Normal : < 5.7% Pre-diabetes: 5.7-6.4% Diabetes: Equal to or greater than 6.5% Test results diagnostic of diabetes should be repeated for confirmation. Treatment target values recommended by ADA and other clinical organizations should be used to evaluate metabolic control in patients. Reference: [place] Diabetes Association, Standards of Care in Diabetes [...] ORDERABLES F inal Result Performing Organization Address City/[facility]/ZIP Co de Phone Number [facility] [address] [place] [id number], [place] [phone] from Last 3 Months or Most Recently Relevant to Health [place] [address] [place] [address] [employer] Advance Directives * Full Code (Latest Code Status on File) Date Activated Date Inactivated Comments 10/30/2023 7:31 AM 11/02/2023 12:57 PM Care Teams Import Coordinator Relationship Specialty Start Date End Date Lindsay Peralta MD [address] [place] [id number] PCP - General Family Medicine 10/29/23
--- NOTE | 2025-02-18 14:06 | ED.GENADULT ---
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 Patient states that he has been dealing with this infected great toe for a couple months. He states that he had an MRI of his great toe, that showed concern for acute osteomyelitis without developing abscess. Patient states that he has been on doxycycline for about a month and a wound to his great toe has been getting worse. Related Data Home Medications ?Medication ?Instructions ?Recorded ?Confirmed ?Last Taken ?Type aspirin 81 mg tablet,delayed 81 mg PO DAILY 05/31/19 02/18/25 12/22/19 History release sywcktaj-twnliyyq-nyxjl acid 400 1 tablet PO DAILY 05/31/19 02/18/25 12/22/19 History mcg-vit K 20 mcg-lycop 300 mcg tablet (Men's Multivitamin) acetaminophen 300 mg-codeine 30 mg 1 tablet PO Q4H PRN pain 02/16/25 02/18/25 Unknown History tablet doxycycline hyclate 100 mg capsule 100 mg PO Q12H 02/16/25 02/18/25 Unknown History Allergies Allergy/AdvReac Type Severity Reaction Status Date / Time atenolol AdvReac Unknown cough Verified 02/18/25 17:31 Review of Systems Review of Systems: All systems reviewed & are unremarkable except as noted in HPI and below PMFSH Past Medical History Medical History Moderate pulmonary hypertension Ischemic cardiomyopathy Diabetic neuropathy Diabetic nephropathy Trochanteric bursitis, right hip Transient atrial fibrillation/flutter 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 Mitral valve regurgitation Obstructive sleep apnea on CPAP CHF (congestive heart failure) Echocardiogram 2020 demonstrated EF of 15-20 with grade 3 diastolic dysfunction repeat echocardiogram 2021 demonstrated moderate left ventricular enlargement, moderate left ventricular systolic dysfunction, impaired diastolic relaxation grade 1, moderate left atrial enlargement, prior echos have demonstrated moderate pulmonary hypertension but study from 2021 was technically difficult. COVID-19 (01/2021) Erectile dysfunction BPH loc w urin obs/LUTS Chronic depression Chronic kidney disease, stage 3 (moderate) Macroalbuminuric diabetic nephropathy Mixed hyperlipidemia Type 2 diabetes mellitus, with long-term current use of insulin Hemoglobin A1c was 11.1% on 05/31/2019. And 8.25 March 2021 Polycythemia Herniated disc HTN (hypertension) Myocardial infarction Surgical History Surgical History History of coronary artery bypass graft x 2 (09/30/19) Bypass of the LAD and right posterior left ventricular branch. Complicated by sternal infection. Status post panniculectomy (2001) History of laparoscopic cholecystectomy (11/2008) History of cardiac catheterization 10/09/2013: PTCA/stent to circumflex. 06/02/2019: Multivessel coronary artery disease with severe ischemic cardiomyopathy with ejection fraction around 25%, referred for surgical revascularization Family History Family History (Updated 02/18/25 @ 17:47 by Juan Morrissey RN) Mother Pancreatic cancer Hypertension Family history of cardiovascular disease Family history of malignant neoplasm Father Colon cancer Diabetes mellitus Atrial fibrillation Family history of malignant neoplasm Sibling Diabetes mellitus Kidney disease Hypertension Social History Social History Social History: The patient lives at home with his and their 2 (ages 15 and 17 as of October 2023) children in [place]. He works for [employer] in [employer]. Lifelong nonsmoker. He drinks perhaps 1-2 alcoholic beverages a month on average. No illicit substance use. He designates his , Maru Dunn, as his surrogate decision-maker. CODE STATUS: Full code. Surrogate decision maker: Maru Dunn () Smoking status: Never smoker Alcohol intake: never Substance use: never Substance use type: does not use Do You Feel Safe in your Home?: Yes Lack of Transportation: No Lack of Food: Never True Current Housing: I Have Housing Concerned About Future Housing: No Difficulty Paying Gas/Electric Bills: No Difficulty Paying for Meds: No Currently Unemployed: No Education: Bachelor's Degree Difficulty w/ Childcare or Family Care: No Living arrangements: with family Spiritual care concerns: No Exam Narrative: GENERAL: Well-appearing, well-nourished, and in no acute distress. HEAD: Normocephalic, atraumatic. EYES: PERRLA and EOMI. ENT: Nares clear, no rhinorrhea or epistaxis. Mucous membranes moist. Oropharynx without tonsillar hypertrophy exudate or other lesions. NECK: Supple. No adenopathy or masses. No carotid bruits or JVD CHEST: Clear to auscultation. No respiratory distress. No wheezes rales or rhonchi HEART: Regular rate and rhythm. No murmur heard. Normal peripheral pulses. ABDOMEN: Soft, nontender, nondistended, normal active bowel sounds. EXTREMITIES: Normal range of motion. + open wound to great toe to the medial aspect open, draining and moderate erythema/cellulitis extending up foot + warm to touch SKIN: Warm, dry, no rash. NEURO: No focal deficits. Alert and oriented x3. PSYCH: Normal mood and affect. Course Vital Signs Vital signs: Vital Signs Temperature 36.9 C 02/18/25 12:55 Pulse Rate 126 H 02/18/25 12:55 Respiratory Rate 18 02/18/25 12:55 Blood Pressure 193/115 H 02/18/25 12:55 Pulse Oximetry 100 02/18/25 12:55 Oxygen Delivery Room Air 02/18/25 12:55 Temperature 36.8 C 02/18/25 16:53 Pulse Rate 105 H 02/18/25 16:53 Respiratory Rate 18 02/18/25 16:53 Blood Pressure 173/92 H 02/18/25 16:53 Pulse Oximetry 98 02/18/25 16:53 Oxygen Delivery Room Air 02/18/25 12:55 Medical Decision Making [facility] Narrative Medical decision making narrative: 49-year-old male who presents with concern for osteomyelitis on imaging that he had 3 days ago. Normal range of motion. + open wound to great toe to the medial aspect open, draining and moderate erythema/cellulitis extending up foot + warm to touch concern for worsening infection, plan to start work up and start IV antibiotics CBC leukocytosis 10.7, hemodynamically stable CMP sodium 127 corrected with the elevated blood sugar of 133-135, bicarb 19 BUN 20 to, glucose 352, total bilirubin 1.6, alk-phos 146 CRP 20 Lactate 1.6 Discussed with hospice clear regarding the acute osteomyelitis on his imaging that he had 3 days ago and the need for admission for IV antibiotics. Based on his CMP with the lower bicarb and elevated blood sugar checking VBG and Acetone VBG resulted and pt is not acidotic, talked to Hospitalist Beryl, who accepts admission pending the acetone Medical Records Medical records reviewed: Yes I reviewed the external patient's medical records. Vital Signs Vital Signs: Vital Signs Temperature 36.9 C 02/18/25 12:55 Pulse Rate 126 H 02/18/25 12:55 Respiratory Rate 18 02/18/25 12:55 Blood Pressure 193/115 H 02/18/25 12:55 Pulse Oximetry 100 02/18/25 12:55 Oxygen Delivery Room Air 02/18/25 12:55 Temperature 36.8 C 02/18/25 16:53 Pulse Rate 105 H 02/18/25 16:53 Respiratory Rate 18 02/18/25 16:53 Blood Pressure 173/92 H 02/18/25 16:53 Pulse Oximetry 98 02/18/25 16:53 Oxygen Delivery Room Air 02/18/25 12:55 Vitals reviewed Lab Data Lab results reviewed: Yes I reviewed the patient's lab results. 02/18/25 14:11 02/18/25 14:11 Labs: Lab Results 02/18/25 02/18/25 Range/Units 14:11 15:35 WBC 10.7 H (4.5-10.0) K/mm3 RBC 5.29 (4.6-6.20) M/mm3 Hgb 15.0 (14.0-18.0) g/dL Hct 45.9 (42.0-52.0) % MCV 86.8 (80-100) fl MCH 28.4 (26-34) pg MCHC 32.7 (32-36) g/dl RDW 15.5 H (11.5-14.5) % Plt Count 203 (150-375) k/mm3 MPV 9.2 (7.4-10.4) fl Immature Gran % (Auto) 0.6 H (0-0.5) % Neut % (Auto) 90.2 H (45.5-73.1) % Lymph % (Auto) 3.2 L (18.3-44.2) % [place] % (Auto) 5.4 (2.6-8.5) % Eos % (Auto) 0.3 (0-4.4) % Baso % (Auto) 0.3 (0.2-1.2) % Lymph # (Auto) 0.34 L (0.9-3.2) K/mm3 [place] # (Auto) 0.6 (0.1-0.6) K/mm3 Eos # (Auto) 0.0 (0-0.3) K/mm3 Baso # (Auto) 0.0 (0.0-0.1) K/mm3 Abs Immat Gran (auto) 0.06 H (0.00-0.031) K/mm3 Absolute Neuts (auto) 9.7 H (1.3-6.7) K/mm3 Absolute Nucleated RBC 0.000 (0.0-0.012) K/mm3 Nucleated RBC % 0.0 (0.0-0.2) % PT 14.1 (11.1-14.7) Seconds INR 1.1 APTT 33.1 (22.3-36.8) Seconds Sodium 127 L (137-145) mmol/L Potassium 4.8 (3.4-5.0) mmol/L Chloride 96 L (98-107) mmol/L Carbon Dioxide 19 L (22-30) mmol/L Anion Gap 12 (4-12) mmol/L BUN 22 H (9-20) mg/dL Creatinine 0.77 (0.7-1.3) mg/dL Estim Creat Clear Calc 132 ml/min Estimated GFR > 60 (59 - ) Glucose 352 H (65-110) mg/dL Lactic Acid 1.6 (0.7-2.0) mmol/L Calcium 9.4 (8.4-10.2) mg/dL Total Bilirubin 1.6 H (0.2-1.3) mg/dL AST 37 (17-59) U/L ALT 30 (6-50) U/L Alkaline Phosphatase 146 H (38-126) U/L C-Reactive Protein 20.8 H (<1.0) mg/dL Total Protein 8.5 H (6.3-8.2) g/dL Albumin 4.1 (3.5-5.1) g/dL Beta-Hydroxybutyrate/Acetoacetate 2.65 H (0.02-0.27) mmol/L Urine Color Yellow (Yellow) Urine Appearance Clear (Clear) Urine pH 5.5 (5.0-9.0) Ur Specific [place] 1.040 H (1.001-1.035) Urine Protein 3+ H (Negative) mg/dL Urine Glucose (UA) 3+ H (Negative) mg/dL Urine Ketones 1+ H (Negative) mg/dL Ur Blood (Man) 3+ H (Negative) Urine Nitrate Negative (Negative) Urine Bilirubin Negative (Negative) Urine Urobilinogen 1.0 (<2.0) mg/dL Add Ur Microanalysis Reviewed Leukocyte Esterase Rfl Negative (Negative) LEXX/UL Urine RBC 21-50 H (0-2) /hpf Urine WBC 0-5 (0-3) /hpf Ur Squamous Epith Cells None seen (Few) /hpf Urine Bacteria None seen /hpf Urine Casts 3-5 Imaging Data Radiologist's impression: Impressions Chest X-Ray 02/18/25 14:27 Impression: No acute cardiopulmonary abnormality. Discharge Plan Discharge Clinical Impression: Osteomyelitis Qualifiers: Osteomyelitis type: unspecified type Osteomyelitis location: foot Laterality: right Qualified Code(s): M86.9 - Osteomyelitis, unspecified Type 2 diabetes mellitus, with long-term current use of insulin Qualifiers: Diabetes mellitus complication status: with ophthalmic complications Diabetes mellitus complication detail: with diabetic retinopathy Diabetic retinopathy severity: with severe nonproliferative retinopathy Diabetes mellitus macular edema: without macular edema Laterality: bilateral Qualified Code(s): E11.3493 - 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
[2025-02-18 14:23] LABS: Hematocrit 45.9 % (42.0-52.0); Hemoglobin 15.0 g/dL (14.0-18.0); Immature Granulocyte Percent A 0.6 % (0-0.5); Lymphocytes Absolute Auto 0.34 K/mm3 (0.9-3.2); Mean Corpuscular HGB Conc 32.7 g/dl (32-36); Mean Corpuscular Hemoglobin 28.4 pg (26-34); Mean Corpuscular Volume 86.8 fl (80-100); Nucleated Red Blood Cells Absolute Auto 0.000 K/mm3 (0.0-0.012); Nucleated Red Blood Cells Perc 0.0 % (0.0-0.2); Platelet Count Result 203 k/mm3 (150-375); Red Blood Count 5.29 M/mm3 (4.6-6.20); White Blood Count 10.7 K/mm3 (4.5-10.0)
[2025-02-18 14:38] LABS: INR 1.1; Prothrombin Time 14.1 Seconds (11.1-14.7)
[2025-02-18 14:39] LABS: Partial Thromboplastin Time 33.1 Seconds (22.3-36.8)
[2025-02-18 14:41] LABS: Alanine Aminotransferase 30 U/L (6-50); Albumin Level 4.1 g/dL (3.5-5.1); Alkaline Phosphatase 146 U/L (38-126); Anion Gap 12 mmol/L (4-12); Aspartate Amino Transferase 37 U/L (17-59); Bilirubin,Total 1.6 mg/dL (0.2-1.3); Blood Urea Nitrogen 22 mg/dL (9-20); Calcium 9.4 mg/dL (8.4-10.2); Carbon Dioxide 19 mmol/L (22-30); Chloride 96 mmol/L (98-107); Estimated CRCL calculation 132 ml/min; Estimated Glomerular Filt Rate > 60; Glucose 352 mg/dL (65-110); Potassium 4.8 mmol/L (3.4-5.0); Sodium 127 mmol/L (137-145); Total Protein 8.5 g/dL (6.3-8.2)
[2025-02-18 14:51] LABS: CRP 20.8 mg/dL (<1.0)
[2025-02-18] MEDS: cefTRIAXone 2 GM in SODIUM CHLORIDE 0.9% IV 100 ML 200 ML IVPB (15:29)
[2025-02-18 15:30] VITALS: BP 169/94; PULSE 114; RESP 26; O2SAT 94
[2025-02-18] MEDS: KETOROLAC 30 MG/ML VIAL (*BKC) IV PUSH (15:45)
[2025-02-18] MEDS: SODIUM CHLORIDE 0.9% IV 1,000 ML 999 ML IV CONT (15:45)
[2025-02-18] MEDS: MORPHINE SULFATE (*CRX) 4 MG/ML INJ 2 MG IV PUSH (15:45)
[2025-02-18 16:02] LABS: Add Urine Microscopic? YES; Appearance Urine Clear (Clear); Glucose Urine UA 3+ mg/dL (Negative); Leukocyte Esterase Ur Negative LEU/UL (Negative); Need Manual Microscopic Reviewed; Nitrate Urine Negative (Negative); Specific Grav Ur 1.040 (1.001-1.035)
[2025-02-18 16:05] LABS: Beta-Hydroxybutyrate/Acetoace. 2.65 mmol/L (0.02-0.27)
[2025-02-18] MEDS: VANCOMYCIN 1,250 MG/NS 250 ML 1,250 MG/250 ML BAG 166.67 MG IVPB ×2 (16:09→18:14)
[2025-02-18 16:53] VITALS: BP 173/92; PULSE 105; RESP 18; TEMP 36.8; O2SAT 98
[2025-02-18 17:15] VITALS: BMI 37.3
--- NOTE | 2025-02-18 17:30 | ADMGEN ---
This patient, Getachew Dunn, was admitted to 2 Medical Room 242-. Patient/family oriented to hospital policies and general routines including ID bracelet, bed and alarms, visiting hours, pain management, procedures, bathroom and other care routines, personal items, smoking policy, room service/diet, and visiting hours. Information on how to activate the Rapid Response Team has been discussed. Patient/Family are encouraged to report perceived risks to care and to ask questions if they do not understand what they are told or what they should do.
[2025-02-18] MEDS: CEFEPIME 1 GM in SODIUM CHLORIDE 0.9% IV 50 ML 100 ML IVPB (17:41)
[2025-02-18] MEDS: metroNIDAZOLE 500 MG/ISO 100ML 500 MG/100 ML BAG 100 MG IVPB (18:15)
[2025-02-18 20:17] VITALS: BP 173/91; PULSE 101; RESP 20; TEMP 36.8; O2SAT 99
[2025-02-18] MEDS: INSULIN ASPART (*BKC) 100 UNITS/ML 6 UNITS SUB-Q (20:17)
[2025-02-18 20:28] VITALS: PULSE 92
[2025-02-18] MEDS: METOPROLOL SUCCINATE EXT REL 100 MG TABCR PO (20:28)
[2025-02-18 21:00] VITALS: O2SAT 96
--- NOTE | 2025-02-18 21:54 | PM.IMHP ---
H&P: HPI History of Present Illness Date/Time: 02/18/25 21:54 Chief Complaint: Left great toe infection Narrative: This is a 49-year-old male patient has a history of hypertension and diabetes with neuropathy, nephropathy, and chronic renal failure. The patient has been treated for a right great toe infection for several months. He has been seen by his backend developer and PCP. He stated that he has had some debridement to the right great toe in the past. An MRI was performed and there was some concern for osteomyelitis without developing abscess. The patient has been on doxycycline for approximately 1 month and his wound is getting worse his right great toe. His PCP sent him to the emergency room here. His white count is 10.7. His sodium is down to 127 with the only comparison 0f 133 on 10/29/2023. His blood sugar is 352 and then 361. His hydro butyrate acetoacetate is 2.65. His urine has 3+ protein 3+ glucose and 1+ ketones with 3+ blood. Leukocytes 21-50 in the urine. Chest x-ray will today was read as lungs are clear no effusion no pneumothorax heart is normal size mediastinal and hilar contours are within normal limits post sternotomy no acute cardiopulmonary abnormality. Surgery has been consulted. The patient was given cefepime, Rocephin, and vancomycin in the emergency room. He was also given ketorolac and morphine for pain in the emergency room. He was also given IV fluids in the emergency room. The patient is being admitted to inpatient status on the date of service of 02/18/2025. Review of Systems Constitutional: Constitutional: Reports as per HPI and Reports no additional constitutional complaints Eyes: Eyes: Reports as per HPI and Reports no additional eye complaints ENT: Reports system reviewed and no additional complaints, except as documented and Reports Normal hearing present Cardiovascular: Cardiovascular: Reports no additional cardiovascular complaints Respiratory: Respiratory: Reports as per HPI and Reports no additional respiratory complaints Gastrointestinal: Gastrointestinal: Reports as per HPI and Reports no additional gastrointestinal complaints Musculoskeletal: Musculoskeletal: Reports no additional musculoskeletal complaints Integumentary/Breasts: Skin/Breast: Reports system reviewed and no additional complaints, except as docu Neurologic: Reports system reviewed and no additional complaints, except as documented and Reports Normal hearing present Psychiatric: Psychiatric: Reports no additional psychiatric complaints and Reports as per HPI Hematologic/Lymphatic: Hematologic/Lymphatic: Reports no additional hematologic/lymphatic complaints Allergic/Immunologic: Allergic/Immunologic: Reports no additional allergic/immunologic complaints [facility] Past Medical History Medical History CHF (congestive heart failure) Echocardiogram 2020 demonstrated EF of 15-20 with grade 3 diastolic dysfunction repeat echocardiogram 2021 demonstrated moderate left ventricular enlargement, moderate left ventricular systolic dysfunction, impaired diastolic relaxation grade 1, moderate left atrial enlargement, prior echos have demonstrated moderate pulmonary hypertension but study from 2021 was technically difficult. Moderate pulmonary hypertension Ischemic cardiomyopathy Diabetic neuropathy Diabetic nephropathy Trochanteric bursitis, right hip Transient atrial fibrillation/flutter 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 Mitral valve regurgitation Obstructive sleep apnea on CPAP COVID-19 (01/2021) Erectile dysfunction BPH loc w urin obs/LUTS Chronic depression Chronic kidney disease, stage 3 (moderate) Macroalbuminuric diabetic nephropathy Mixed hyperlipidemia Type 2 diabetes mellitus, with long-term current use of insulin Hemoglobin A1c was 11.1% on 05/31/2019. And 8.25 March 2021 Polycythemia Herniated disc HTN (hypertension) Myocardial infarction Surgical History Surgical History History of coronary artery bypass graft x 2 (09/30/19) Bypass of the LAD and right posterior left ventricular branch. Complicated by sternal infection. Status post panniculectomy (2001) History of laparoscopic cholecystectomy (11/2008) History of cardiac catheterization 10/09/2013: PTCA/stent to circumflex. 06/02/2019: Multivessel coronary artery disease with severe ischemic cardiomyopathy with ejection fraction around 25%, referred for surgical revascularization Family History Family History Mother Pancreatic cancer Hypertension Family history of cardiovascular disease Family history of malignant neoplasm Father Colon cancer Diabetes mellitus Atrial fibrillation Family history of malignant neoplasm Sibling Diabetes mellitus Kidney disease Hypertension Social History Social History Social History: The patient lives at home with his and their 2 (ages 17 and 19 as of February 2025) children in [place]. He works for [employer] in [employer]. Lifelong nonsmoker. He drinks perhaps 1-2 alcoholic beverages a month on average. No illicit substance use. He designates his , Maru Dunn, as his surrogate decision-maker. CODE STATUS: Full code. Surrogate decision maker: Maru Dunn () Smoking status: Never smoker Alcohol intake: never Substance use: never Substance use type: does not use Do You Feel Safe in your Home?: Yes Lack of Transportation: No Lack of Food: Never True Current Housing: I Have Housing Concerned About Future Housing: No Difficulty Paying Gas/Electric Bills: No Difficulty Paying for Meds: No Currently Unemployed: No Education: Bachelor's Degree Difficulty w/ Childcare or Family Care: No Living arrangements: with family Spiritual care concerns: No Meds Home Medications and Allergies Home Medications ?Medication ?Instructions ?Recorded ?Confirmed ?Type aspirin 81 mg tablet,delayed 81 mg PO DAILY 05/31/19 02/18/25 History release hmyxcgwj-gwqqswyg-hqllf acid 400 1 tablet PO DAILY 05/31/19 02/18/25 History mcg-vit K 20 mcg-lycop 300 mcg tablet (Men's Multivitamin) pen needle, diabetic 31 gauge x See Rx Instructions .Route 10/10/21 02/18/25 Rx 5/16 (BD Ultra-Fine Short Pen .COMPLEX #1,200 syringes Needle) insulin glargine 100 unit/mL (3 60 unit (0.6 mL) subcut QAM #60 mL 04/16/23 02/18/25 Rx mL) subcutaneous pen (Lantus Solostar U-100 Insulin) insulin lispro 100 unit/mL 1 sliding scale dose subcut 04/16/23 02/18/25 Rx subcutaneous pen USEASDIRECTD #15 mL metoprolol succinate 100 mg 100 mg PO DAILY #90 tabs 04/16/23 02/18/25 Rx tablet,extended release 24 hr blood-glucose sensor (Dexcom G6 #9 ea 11/11/23 02/18/25 Rx Sensor device) blood-glucose transmitter (Dexcom #1 ea 11/11/23 02/18/25 Rx G6 Transmitter device) clopidogrel 75 mg tablet (Plavix) 75 mg PO DAILY #90 tabs 01/02/24 02/18/25 Rx sertraline 100 mg tablet 100 mg PO DAILY #90 tabs 04/13/24 02/18/25 Rx furosemide 40 mg tablet 80 mg (2 x 40 mg) PO QAM #180 tabs 05/18/24 02/18/25 Rx tirzepatide 7.5 mg/0.5 mL See Rx Instructions .Route 05/26/24 02/18/25 Rx subcutaneous pen injector .COMPLEX #4 mL (Mounjaro) sacubitril 97 mg-valsartan 103 mg See Rx Instructions .Route 07/24/24 02/18/25 Rx tablet (Entresto) .COMPLEX #180 tabs empagliflozin 25 mg tablet See Rx Instructions .Route 08/28/24 02/18/25 Rx (Jardiance) .COMPLEX #90 tabs spironolactone 25 mg tablet See Rx Instructions .Route 08/28/24 02/18/25 Rx .COMPLEX #90 tabs atorvastatin 40 mg tablet 40 mg PO QHS #90 tabs 12/21/24 02/18/25 Rx metformin 500 mg tablet,extended 1,000 mg (2 x 500 mg) PO BID #180 12/21/24 02/18/25 Rx release 24 hr tabs acetaminophen 300 mg-codeine 30 mg 1 tablet PO Q4H PRN pain 02/16/25 02/18/25 History tablet doxycycline hyclate 100 mg capsule 100 mg PO Q12H 02/16/25 02/18/25 History Allergies Allergy/AdvReac Type Severity Reaction Status Date / Time atenolol AdvReac Unknown cough Verified 02/18/25 17:31 Vital Signs Vital Signs - 24 hr 02/18/25 12:55 02/18/25 15:30 02/18/25 16:53 Temperature 98.4 F 98.3 F Pulse Rate 126 H 114 H 105 H Respiratory Rate 18 26 H 18 Blood Pressure 193/115 H 169/94 H 173/92 H Pulse Oximetry 100 94 98 Oxygen Delivery Room Air 02/18/25 20:17 02/18/25 20:28 Temperature 98.2 F Pulse Rate 101 H 92 Respiratory Rate 20 Blood Pressure 173/91 H Pulse Oximetry 99 Oxygen Delivery Exam Const: General: cooperative, comfortable, no acute distress, well developed, awake and Physically active Nutritional Appearance: obese Orientation/consciousness: oriented to person, oriented to place, oriented to time and patient oriented x3 Limitations: no limitations HENMT: Head: normal to inspection, No palpable skull fracture present, normocephalic and atraumatic Eyes: General: appearance normal, both eyes and all related structures Alignment and Position: alignment normal Periorbital: periorbital findings normal Eyelids: eyelids normal Neck: Neck: normal visual inspection, full ROM and no lymphadenopathy Chest: Chest palpation & inspection: normal inspection of the chest Resp: Effort & Inspection: normal respiratory effort Auscultation: clear to auscultation bilaterally Cardio: Palpation: normal PMI Rate: tachycardic Rhythm: regular rhythm Heart sounds: S1 normal heart sound present and S2 normal heart sound present Peripheral pulses: Peripheral pulses 2+ throughout GI: Inspection: normal to inspection Auscultation: normal bowel sounds Rectal Exam: deferred Skin: General skin exam: normal color Lesions: lesion noted Other: Ulcerated area to right medial great toe. Approximate 2 x 2. Serous sanguinous drainage noted. Neuro: General: oriented to person, oriented to place, oriented to time and patient oriented x3 Cranial nerves: Yes Equal, round and reactive pupils present and Yes Normal hearing present Sensory Exam: normal sensation Extrem: General: normal to inspection Right upper extremity: normal to inspection and shoulder/upper arm Left upper extremity: normal to inspection and shoulder/upper arm Right lower extremity: full ROM, edema Details: 2+ and foot Left lower extremity: normal to inspection Other: 2+ pitting edema to the right foot. Erythema to mid right foot. Ulcerated area noted on the right great toe with serosanguineous drainage. No malodorous smell noted. Patient is neurologically intact. Difficulty finding pedal pulse on the right foot due to the edema however it is palpable. However he has normal capillary refill. The right foot is warm and tender to touch. Psych: Appearance: grossly normal Mental Status: mental status grossly normal Speech and movement: Normal speech and movement present Affect: normal affect Attitude: cooperative Thought process: Normal thought process present Thought content: Yes Normal thought content present Insight: Good insight present (Psych) Judgement: Good judgement present (Psych) H&P: Results Labs Labs: Short CBC 02/18/25 Range/Units 14:11 WBC 10.7 H (4.5-10.0) K/mm3 Hgb 15.0 (14.0-18.0) g/dL Hct 45.9 (42.0-52.0) % Plt Count 203 (150-375) k/mm3 BMP 02/18/25 14:11 Sodium 127 L Potassium 4.8 Chloride 96 L Carbon Dioxide 19 L BUN 22 H Creatinine 0.77 Glucose 352 H Calcium 9.4 Liver Function 02/18/25 Range/Units 14:11 Total Bilirubin 1.6 H (0.2-1.3) mg/dL AST 37 (17-59) U/L ALT 30 (6-50) U/L Alkaline Phosphatase 146 H (38-126) U/L Albumin 4.1 (3.5-5.1) g/dL Urine 02/18/25 Range/Units 15:35 Urine Color Yellow (Yellow) Urine Appearance Clear (Clear) Urine pH 5.5 (5.0-9.0) Ur Specific [place] 1.040 H (1.001-1.035) Urine Protein 3+ H (Negative) mg/dL Urine Glucose (UA) 3+ H (Negative) mg/dL Imaging Chest x-ray: Radiologist's impression: Impressions Chest X-Ray 02/18/25 14:27 Impression: No acute cardiopulmonary abnormality. Assessment and Plan Assessment and plan (1) Osteomyelitis: Qualifiers: Laterality: right Osteomyelitis location: foot Osteomyelitis type: unspecified type Qualified Code(s): M86.9 - Osteomyelitis, unspecified Code(s): M86.9 - Osteomyelitis, unspecified Status: Acute Assessment and Plan: -I did review the outpatient notes from his backend developer who stated that the patient was having an MRI on 02/16/2025. However I do not have any imaging of the MRI in our system. I did request for records for the MRI. The patient stated that it was noted that his osteomyelitis. -this patient has been dealing with a diabetic foot ulcer for over 3 months now. -had been on doxycycline for the last month. The patient has failed outpatient therapy. -the patient stated that he has had multiple debridements in the toe only appears to be getting worse. -as per diabetic ulcer protocol the patient was started on cefepime, Flagyl, and vancomycin. -the patient is NPO for possible debridement tomorrow. -surgical consultation was placed and further recommendations would be greatly appreciated. -C reactive protein is 20.8. -check lactic in the a.m. -continue with pain management -consider arterial Dopplers (2) Chronic kidney disease, stage 3: Code(s): N18.30 - Chronic kidney disease, stage 3 unspecified Status: Acute Assessment and Plan: -patient's BUN is only elevated to 22 at this point his creatinine is normal. He has estimated GFR greater than 60. -most likely secondary to his uncontrolled diabetes. -avoid nephrotoxic medication (3) Type 2 diabetes mellitus with hyperglycemia, with long-term current use of insulin: Code(s): E11.65 - Type 2 diabetes mellitus with hyperglycemia; Z79.4 - terminal gauger (current) use of insulin Status: Acute Assessment and Plan: -no recent A1c for comparison. -check A1c in the a.m.. -continue with Lantus. -patient's blood sugar was 361 -Accu-Cheks AC and HS with high-dose sliding scale. -the patient was given coverage for hs tonight. -patient may have with higher blood sugars secondary to his infection. -his beta hydroxybutyrate acetate is 2.65. -consider community educator -diabetic diet (4) Obstructive sleep apnea on CPAP: Code(s): G47.33 - Obstructive sleep apnea (adult) (pediatric); Z99.89 - Dependence on other enabling machines and devices Status: Acute Assessment and Plan: -auto titrate home setting (5) CHF (congestive heart failure): Qualifiers: Heart failure chronicity: chronic Heart failure type: combined systolic and diastolic Qualified Code(s): I50.42 - Chronic combined systolic (congestive) and diastolic (congestive) heart failure Code(s): I50.9 - Heart failure, unspecified Status: Acute Assessment and Plan: -continue with metoprolol if blood pressure allows. -Continue with Entresto again the blood pressure levels. Continue to monitor daily BMPs -his spironolactone is on hold at this time due to the hyponatremia -last echo 06/01/2021 summary 1. Left ventricular systolic function is severely reduced, estimated at 25-30%. 2. Definity contrast used to improve visualization. 3. There is trace mitral valve regurgitation. 4. Poor quality exam due to obesity. may consider repeat echo is they are has not been a recent echo. (6) Hyperlipidemia associated with type 2 diabetes mellitus: Code(s): E11.69 - Type 2 diabetes mellitus with other specified complication; E78.5 - Hyperlipidemia, unspecified Status: Acute Assessment and Plan: -continue with atorvastatin and monitor liver enzymes (7) Hyponatremia: Code(s): E87.1 - Hypo-osmolality and hyponatremia Status: Acute Assessment and Plan: -I have not started any IV fluids at this time as he does have poor ejection fraction. -diuretics are on hold -sertraline is on hold -check urine osmolality and serum osmolality -check thyroid Quality VTE Prophylaxis VTE prophylaxis: mechanical ordered
[2025-02-19] VITALS (11 sets, daily range): BP systolic 121–159; BP diastolic 81–92; PULSE 70–95; RESP 15–22; TEMP 36.1–36.9; O2SAT 92–100; BMI 37.3
[2025-02-19] MEDS: metroNIDAZOLE 500 MG/ISO 100ML 500 MG/100 ML BAG 100 MG IVPB ×3 (01:45→18:06)
[2025-02-19] MEDS: HYDROcodone/acetaminophen (*CRX) 5-325 MG TABLET 1 TAB PO ×3 (03:30→23:11)
[2025-02-19] MEDS: VANCOMYCIN 1,500 MG/NS 500 ML 1,500 MG/500 ML BAG 250 MG IVPB ×2 (03:30→15:50)
[2025-02-19 05:03] LABS: Hematocrit 39.4 % (42.0-52.0); Hemoglobin 12.7 g/dL (14.0-18.0); Immature Granulocyte Percent A 0.5 % (0-0.5); Lymphocytes Absolute Auto 0.47 K/mm3 (0.9-3.2); Mean Corpuscular HGB Conc 32.2 g/dl (32-36); Mean Corpuscular Hemoglobin 28.3 pg (26-34); Mean Corpuscular Volume 87.8 fl (80-100); Nucleated Red Blood Cells Absolute Auto 0.000 K/mm3 (0.0-0.012); Nucleated Red Blood Cells Perc 0.0 % (0.0-0.2); Platelet Count Result 173 k/mm3 (150-375); Red Blood Count 4.49 M/mm3 (4.6-6.20); White Blood Count 7.5 K/mm3 (4.5-10.0)
[2025-02-19 05:08] LABS: Hemoglobin A1C 11.0 % (<5.7)
[2025-02-19 05:10] LABS: Anion Gap 7 mmol/L (4-12); Blood Urea Nitrogen 25 mg/dL (9-20); Calcium 9.0 mg/dL (8.4-10.2); Carbon Dioxide 22 mmol/L (22-30); Chloride 99 mmol/L (98-107); Estimated CRCL calculation 125 ml/min; Estimated Glomerular Filt Rate > 60; Glucose 357 mg/dL (65-110); Potassium 4.5 mmol/L (3.4-5.0); Sodium 128 mmol/L (137-145)
[2025-02-19] MEDS: CEFEPIME 2 GM in SODIUM CHLORIDE 0.9% IV 50 ML 100 ML IVPB ×2 (05:54→18:06)
[2025-02-19 05:55] LABS: Thyroid Stimulating Hormone Reflex 1.650 uIU/mL (0.465-4.68)
--- NOTE | 2025-02-19 06:58 | P.PNIM_ITS ---
Progress Note: A&P Assessment and Plan (1) Osteomyelitis: Qualifiers: Laterality: right Osteomyelitis location: foot Osteomyelitis type: unspecified type Qualified Code(s): M86.9 - Osteomyelitis, unspecified Code(s): M86.9 - Osteomyelitis, unspecified Status: Acute Assessment and Plan: -patient follows with podiatry. Patient had outpatient MRI 02/16/25 which apparently showed osteomyelitis of the great toe. Records requested. - patient has been on doxycycline for 1 month and has had multiple debridements - CRP 20. Afebrile, no leukocytosis. LA WNL. - continue cefepime, Flagyl and vancomycin - general surgery consulted - planning for OR today. NPO. - obtain ABIs - pain control (2) Chronic kidney disease, stage 3: Code(s): N18.30 - Chronic kidney disease, stage 3 unspecified Status: Acute Assessment and Plan: -Cr 0.82, stable - avoid nephrotoxins (3) Type 2 diabetes mellitus with hyperglycemia, with long-term current use of insulin: Code(s): E11.65 - Type 2 diabetes mellitus with hyperglycemia; Z79.4 - termite helper (cu rrent) use of insulin Status: Acute Assessment and Plan: - last HgbA1c - 11.0 02/19/25. Admitted to poor compliance with home medications. - admit glucose 300s - hold home metformin, tirzepatide - continue home lantus at reduced dose given NPO. Will plan to resume home Lantus and add prandial insulin once patient is eating. - POCT glucose qACHS - hypoglycemia management protocol - para educator consulted (4) Obstructive sleep apnea on CPAP: Code(s): G47.33 - Obstructive sleep apnea (adult) (pediatric); Z99.89 - Dependence on other enabling machines and devices Status: Acute Assessment and Plan: - continue home CPAP (5) CHF (congestive heart failure): Qualifiers: Heart failure chronicity: chronic Heart failure type: combined systolic and diastolic Qualified Code(s): I50.42 - Chronic combined systolic (congestive) and diastolic (congestive) heart failure Code(s): I50.9 - Heart failure, unspecified Status: Acute Assessment and Plan: - echo 05/2021 with EF 25-30% - continue home metoprolol and Entresto. Aldactone on hold due to hyponatremia. - monitor volume status (6) Hyperlipidemia associated with type 2 diabetes mellitus: Code(s): E11.69 - Type 2 diabetes mellitus with other specified complication; E78.5 - Hyperlipidemia, unspecified Status: Acute Assessment and Plan: -continue with atorvastatin (7) Hyponatremia: Code(s): E87.1 - Hypo-osmolality and hyponatremia Status: Acute Assessment and Plan: - Na 132 corrected for hypoglycemia - hold on IV fluids for now. Encourage PO intake and optimize blood sugars (8) CAD (coronary artery disease): Qualifiers: Coronary Disease-Associated Artery/Lesion type: [place] artery [place] vs. transplanted heart: [place] heart Associated angina: angina presence unspecified Qualified Code(s): I25.10 - Atherosclerotic heart disease of [place] coronary artery without angina pectoris Code(s): I25.10 - Atherosclerotic heart disease of [place] coronary artery without angina pectoris Status: Acute Assessment and Plan: - s/p CABG - continue home Plavix, ASA and statin Plan DVT prophylaxis: Lovenox post-op Code status: full code Dispo: likely 2-3 days pending culture data Subjective Date/time seen: 02/19/25 06:58 Interval history: Patient seen and examined at bedside. Denies significant pain in his toe. Admitted to poor compliance with his diabetic regimen. Review of Systems Review of Systems: All systems reviewed & are unremarkable except as noted in HPI and below Exam Narrative: General: NAD Eyes: EOMI ENT: neck supple Cardiovascular: Regular rate and rhythm Respiratory: Clear to auscultation, respirations even and unlabored on RA Gastrointestinal: Soft, non tender Genitourinary: no suprapubic tenderness Musculoskeletal: No edema Skin: warm, dry. R toe dressing CDI. Neuro: Alert. Psych: Mood appropriate Objective Data Vital Signs Vital Signs: Vital Signs - 24 hr 02/18/25 12:55 02/18/25 15:30 02/18/25 16:53 Temperature 98.4 F 98.3 F Pulse Rate 126 H 114 H 105 H Respiratory Rate 18 26 H 18 Blood Pressure 193/115 H 169/94 H 173/92 H Pulse Oximetry 100 94 98 Oxygen Delivery Room Air 02/18/25 20:17 02/18/25 20:28 02/18/25 21:00 Temperature 98.2 F Pulse Rate 101 H 92 Respiratory Rate 20 Blood Pressure 173/91 H Pulse Oximetry 99 96 Oxygen Delivery CPAP 02/19/25 02:05 02/19/25 05:03 Temperature 98.5 F Pulse Rate 90 Respiratory Rate 18 Blood Pressure 151/91 H Pulse Oximetry 99 Oxygen Delivery CPAP Intake/Output Intake/Output: Intake & Output 02/16/25 02/17/25 02/18/25 02/19/25 23:59 23:59 23:59 23:59 Intake Total 1740 650 Output Total 700 Balance 1740 -50 Meds/Results Medications: Active Medications Generic Name Dose Route Start Last Admin Trade Name Freq PRN Reason Stop Dose Admin Hydrocodone Bitart/Acetaminophen 1 tab 02/18/25 22:06 02/19/25 03:30 Hydrocodone/Acetaminophen (*Crx) 5-325 Mg Tablet PO 1 tab Q4H PRN Administration Pain Rated 4-6 Aspirin 81 mg 02/19/25 09:00 Aspirin 81 Mg Enteric Tablet PO DAILY [facility] Atorvastatin Calcium 40 mg 02/19/25 21:00 Atorvastatin 40 Mg Tablet PO QHS [facility] Clopidogrel Bisulfate 75 mg 02/19/25 09:00 Clopidogrel Bisulfate 75 Mg Tablet PO DAILY [facility] Dextrose 12.5 gm 02/18/25 17:55 Dextrose 50% 25 Gm/50 Ml Syringe IV PUSH PRN PRN Hypoglycemia Protocol Empagliflozin 25 mg 02/19/25 09:00 Empagliflozin 25 Mg Tablet BY MOUTH DAILY [facility] Furosemide 80 mg 02/19/25 09:00 Furosemide 40 Mg Tablet PO QAM [facility] Glucagon 1 mg 02/18/25 17:55 Glucagon For Inj 1 Mg Vial IM PRN PRN Hypoglycemia Protocol Glucose 15 gm 02/18/25 17:55 Glucose Oral Gel 15 Gm Of Glucse In 37.5 Gm Tube PO PRN PRN Hypoglycemia Protocol Vancomycin HCl 1,500 mg in 500 mls @ 250 mls/hr 02/19/25 04:00 02/19/25 05:30 Vancomycin 1,500 Mg/Ns 500 Ml IVPB Infused Q12H [facility] Infusion Dextrose 1,000 mls @ 100 mls/hr 02/18/25 17:55 Dextrose 5% 1,000 Ml IVPB PRN PRN Hypoglycemia Protocol Cefepime HCl 2 gm/ Sodium 50 mls @ 100 mls/hr 02/19/25 06:00 02/19/25 06:30 Chloride IVPB Infused Q12H [facility] Infusion Metronidazole 500 mg in 100 mls @ 100 mls/hr 02/19/25 02:00 02/19/25 02:45 Flagyl 500 Mg/Iso Soln 100 Ml IVPB Infused Q8H [facility] Infusion Insulin Aspart 4 - 8 units 02/19/25 08:00 Insulin Aspart (*Bkc) 100 Units/Ml SUB-Q TIDWM [facility] Protocol Insulin Glargine 60 units 02/19/25 09:00 Insulin Glargine (*Bkc) 100 Units/Ml SUB-Q QAM [facility] Metoprolol Succinate 100 mg 02/19/25 09:00 Metoprolol Succinate Ext Rel 100 Mg Tabcr PO DAILY [facility] Morphine Sulfate 2 mg 02/18/25 22:07 Morphine Sulfate (*Crx) 4 Mg/Ml Inj IV PUSH Q4H PRN Pain Rated 7-10 Sacubitril/Valsartan 1 tab 02/19/25 09:00 Sacubitril/Valsartan 97-103 Mg Tablet BY MOUTH Q12HR [facility] Radiology Results: ITS Impressions Chest X-Ray 02/18/25 14:27 Impression: No acute cardiopulmonary abnormality. Labs Labs: Laboratory Results - last 24 hr 02/18/25 02/18/25 02/18/25 14:11 15:35 20:11 WBC 10.7 H RBC 5.29 Hgb 15.0 Hct 45.9 MCV 86.8 MCH 28.4 MCHC 32.7 RDW 15.5 H Plt Count 203 MPV 9.2 Immature Gran % (Auto) 0.6 H Neut % (Auto) 90.2 H Lymph % (Auto) 3.2 L [place] % (Auto) 5.4 Eos % (Auto) 0.3 Baso % (Auto) 0.3 Lymph # (Auto) 0.34 L [place] # (Auto) 0.6 Eos # (Auto) 0.0 Baso # (Auto) 0.0 Abs Immat Gran (auto) 0.06 H Absolute Neuts (auto) 9.7 H Absolute Nucleated RBC 0.000 Nucleated RBC % 0.0 PT 14.1 INR 1.1 APTT 33.1 Sodium 127 L Potassium 4.8 Chloride 96 L Carbon Dioxide 19 L Anion Gap 12 BUN 22 H Creatinine 0.77 Estim Creat Clear Calc 132 Estimated GFR > 60 Glucose 352 H POC Capillary Glucose 361 H Hemoglobin A1c Lactic Acid 1.6 Calcium 9.4 Total Bilirubin 1.6 H AST 37 ALT 30 Alkaline Phosphatase 146 H C-Reactive Protein 20.8 H Total Protein 8.5 H Albumin 4.1 Beta-Hydroxybutyrate/Acetoacetate 2.65 H TSH (Reflex) Urine Color Yellow Urine Appearance Clear Urine pH 5.5 Ur Specific [place] 1.040 H Urine Protein 3+ H Urine Glucose (UA) 3+ H Urine Ketones 1+ H Ur Blood (Man) 3+ H Urine Nitrate Negative Urine Bilirubin Negative Urine Urobilinogen 1.0 Add Ur Microanalysis Reviewed Leukocyte Esterase Rfl Negative Urine RBC 21-50 H Urine WBC 0-5 Ur Squamous Epith Cells None seen Urine Bacteria None seen Urine Casts 3-5 02/19/25 04:49 WBC 7.5 RBC 4.49 L Hgb 12.7 L Hct 39.4 L MCV 87.8 MCH 28.3 MCHC 32.2 RDW 15.3 H Plt Count 173 MPV 9.3 Immature Gran % (Auto) 0.5 Neut % (Auto) 82.0 H Lymph % (Auto) 6.3 L [place] % (Auto) 8.6 H Eos % (Auto) 2.1 Baso % (Auto) 0.5 Lymph # (Auto) 0.47 L [place] # (Auto) 0.7 H Eos # (Auto) 0.2 Baso # (Auto) 0.0 Abs Immat Gran (auto) 0.04 H Absolute Neuts (auto) 6.2 Absolute Nucleated RBC 0.000 Nucleated RBC % 0.0 PT INR APTT Sodium 128 L Potassium 4.5 Chloride 99 Carbon Dioxide 22 Anion Gap 7 BUN 25 H Creatinine 0.82 Estim Creat Clear Calc 125 Estimated GFR > 60 Glucose 357 H POC Capillary Glucose Hemoglobin A1c 11.0 H Lactic Acid 1.1 Calcium 9.0 Total Bilirubin AST ALT Alkaline Phosphatase C-Reactive Protein Total Protein Albumin Beta-Hydroxybutyrate/Acetoacetate TSH (Reflex) 1.650 Urine Color Urine Appearance Urine pH Ur Specific [place] Urine Protein Urine Glucose (UA) Urine Ketones Ur Blood (Man) Urine Nitrate Urine Bilirubin Urine Urobilinogen Add Ur Microanalysis Leukocyte Esterase Rfl Urine RBC Urine WBC Ur Squamous Epith Cells Urine Bacteria Urine Casts Quality VTE Prophylaxis VTE prophylaxis: mechanical ordered
[2025-02-19] MEDS: METOPROLOL SUCCINATE EXT REL 100 MG TABCR PO (08:05)
[2025-02-19 09:50] LABS: HCO3 VBG 21.3 mEq/l (24.0-30.0); PCO2 VBG 32.5 mmHg (42.0-48.0); PO2 VBG 51.8 mmHg (35.0-45.0); pH VBG 7.434 (7.300-7.400)
--- NOTE | 2025-02-19 10:40 | PM.CNGS ---
Assessment and Plan Assessment and plan (1) Open wound of right great toe: Qualifiers: Encounter type: initial encounter Qualified Code(s): S91.101A - Unspecified open wound of right great toe without damage to nail, initial encounter Code(s): S91.101A - Unspecified open wound of right great toe without damage to nail, initial encounter Status: Acute Assessment and Plan: Patient presented to the ED yesterday with complaints of a right great toe wound. He states that he 1st noted this back in November. He has been following with a clinical nursing manager and has been on multiple courses of oral antibiotics without any improvement. His PCP and clinical nursing manager instructed him to go to the ED to be treated with IV antibiotics. Patient states that 3 days ago he had a an MRI performed on the right foot that demonstrated osteo myelitis. He reports having multiple debridements in the office. Upon exam, the wound appears to be necrotic with nonviable tissue to medial aspect of most of right great toe. Purulent exudate present with foul odor. There is also a small ulceration to the lateral aspect of the right great toe without any obvious signs of infection. The wound will need incision and drainage in the operating room. Keep patient NPO. Continue IV antibiotics. He is on the surgery schedule for this afternoon. We will continue to follow over the weekend. (2) Type 2 diabetes mellitus with hyperglycemia, with long-term current use of insulin: Code(s): E11.65 - Type 2 diabetes mellitus with hyperglycemia; Z79.4 - long-term (current) use of insulin Status: Acute Assessment and Plan: Uncontrolled. Patient admits that he is supposed to be on insulin, but that he does not take it regularly. He admits to not taking very good care of his diabetes. Today his hemoglobin A1c is 11.0. Manage per hospitalist team. (3) Hypertension associated with diabetes: Code(s): E11.59 - Type 2 diabetes mellitus with other circulatory complications; I15.2 - Hypertension secondary to endocrine disorders Status: Acute (4) CHF (congestive heart failure): Qualifiers: Heart failure chronicity: chronic Heart failure type: combined systolic and diastolic Qualified Code(s): I50.42 - Chronic combined systolic (congestive) and diastolic (congestive) heart failure Code(s): I50.9 - Heart failure, unspecified Status: Acute Plan Discussed patient's case and plan of care with Dr. Curiel. History of Present Illness Consult details Consult date: 02/19/25 Reason for consult: other (Osteomyelitis, right 1st toe) Requesting physician: Beryl Potter APRN Narrative: Patient is a 49-year-old female with history of he diabetes, hypertension, SUSANA, CHF, HLD, CKD who we have been asked to see in surgical consultation for osteomyelitis of a right 1st toe. Patient states that he 1st noticed abnormalities to his toe this past November. He got in with a clinical nursing manager and has been following with them since this time. He he was originally placed on amoxicillin. He states that he has had multiple in-office debridements. Most recently, he was placed on doxycycline roughly 2 weeks ago. The wound did not seem to be getting any better. As it continued to worsen, the decision was made by patient's clinical nursing manager and his PCP to send him to the emergency department for IV antibiotic treatment. Patient states that 3 days ago he had an outpatient MRI done that reportedly showed osteomyelitis. Patient states that surrounding redness to his great toe just appeared 2 days ago. When questioned about his diabetes, patient admits that he is supposed to be on insulin, but that he does not take it regularly. He does not control his diabetes well. He has not experienced any systemic symptoms like fever, chills, nausea, or vomiting. No other complaints. Upon admission to the ED patient's vital signs were stable. Afebrile. WBC mildly elevated yesterday at 10.7, now down to 7.5. Patient is being treated with cefepime, Flagyl and vancomycin. Chest x-ray with no acute cardiopulmonary abnormality. MRI records requested by hospitalist. ROSANA and Doppler studies ordered. COUNT INCLUDES THE [facility] Past Medical History Medical History (Updated 02/18/25 @ 22:29 by Elizabeth Epstein APRN) CHF (congestive heart failure) Echocardiogram 2020 demonstrated EF of 15-20 with grade 3 diastolic dysfunction repeat echocardiogram 2021 demonstrated moderate left ventricular enlargement, moderate left ventricular systolic dysfunction, impaired diastolic relaxation grade 1, moderate left atrial enlargement, prior echos have demonstrated moderate pulmonary hypertension but study from 2021 was technically difficult. Moderate pulmonary hypertension Ischemic cardiomyopathy Diabetic neuropathy Diabetic nephropathy Trochanteric bursitis, right hip Transient atrial fibrillation/flutter 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 Mitral valve regurgitation Obstructive sleep apnea on CPAP COVID-19 (01/2021) Erectile dysfunction BPH loc w urin obs/LUTS Chronic depression Chronic kidney disease, stage 3 (moderate) Macroalbuminuric diabetic nephropathy Mixed hyperlipidemia Type 2 diabetes mellitus, with long-term current use of insulin Hemoglobin A1c was 11.1% on 05/31/2019. And 8.25 March 2021 Polycythemia Herniated disc HTN (hypertension) Myocardial infarction Surgical History Surgical History History of coronary artery bypass graft x 2 (09/30/19) Bypass of the LAD and right posterior left ventricular branch. Complicated by sternal infection. Status post panniculectomy (2001) History of laparoscopic cholecystectomy (11/2008) History of cardiac catheterization 10/09/2013: PTCA/stent to circumflex. 06/02/2019: Multivessel coronary artery disease with severe ischemic cardiomyopathy with ejection fraction around 25%, referred for surgical revascularization Family History Family History Mother Pancreatic cancer Hypertension Family history of cardiovascular disease Family history of malignant neoplasm Father Colon cancer Diabetes mellitus Atrial fibrillation Family history of malignant neoplasm Sibling Diabetes mellitus Kidney disease Hypertension Social History Social History (Updated 02/18/25 @ 22:05 by Elizabeth Epstein APRN) Social History: The patient lives at home with his and their 2 (ages 17 and 19 as of February 2025) children in [place]. He works for [employer] in [employer]. Lifelong nonsmoker. He drinks perhaps 1-2 alcoholic beverages a month on average. No illicit substance use. He designates his , Maru Dunn, as his surrogate decision-maker. CODE STATUS: Full code. Surrogate decision maker: Maru Dunn () Smoking status: Never smoker Alcohol intake: never Substance use: never Substance use type: does not use Do You Feel Safe in your Home?: Yes Lack of Transportation: No Lack of Food: Never True Current Housing: I Have Housing Concerned About Future Housing: No Difficulty Paying Gas/Electric Bills: No Difficulty Paying for Meds: No Currently Unemployed: No Education: Bachelor's Degree Difficulty w/ Childcare or Family Care: No Living arrangements: with family Spiritual care concerns: No Meds Home Medications and Allergies Home Medications ?Medication ?Instructions ?Recorded ?Confirmed ?Type aspirin 81 mg tablet,delayed 81 mg PO DAILY 05/31/19 02/18/25 History release blrtlwnz-evrcdxmh-kacsb acid 400 1 tablet PO DAILY 05/31/19 02/18/25 History mcg-vit K 20 mcg-lycop 300 mcg tablet (Men's Multivitamin) pen needle, diabetic 31 gauge x See Rx Instructions .Route 10/10/21 02/18/25 Rx 5/16 (BD Ultra-Fine Short Pen .COMPLEX #1,200 syringes Needle) insulin glargine 100 unit/mL (3 60 unit (0.6 mL) subcut QAM #60 mL 04/16/23 02/18/25 Rx mL) subcutaneous pen (Lantus Solostar U-100 Insulin) insulin lispro 100 unit/mL 1 sliding scale dose subcut 04/16/23 02/18/25 Rx subcutaneous pen USEASDIRECTD #15 mL metoprolol succinate 100 mg 100 mg PO DAILY #90 tabs 04/16/23 02/18/25 Rx tablet,extended release 24 hr blood-glucose sensor (Dexcom G6 #9 ea 11/11/23 02/18/25 Rx Sensor device) blood-glucose transmitter (Dexcom #1 ea 11/11/23 02/18/25 Rx G6 Transmitter device) clopidogrel 75 mg tablet (Plavix) 75 mg PO DAILY #90 tabs 01/02/24 02/18/25 Rx sertraline 100 mg tablet 100 mg PO DAILY #90 tabs 04/13/24 02/18/25 Rx furosemide 40 mg tablet 80 mg (2 x 40 mg) PO QAM #180 tabs 05/18/24 02/18/25 Rx tirzepatide 7.5 mg/0.5 mL See Rx Instructions .Route 05/26/24 02/18/25 Rx subcutaneous pen injector .COMPLEX #4 mL (Mounjaro) sacubitril 97 mg-valsartan 103 mg See Rx Instructions .Route 07/24/24 02/18/25 Rx tablet (Entresto) .COMPLEX #180 tabs empagliflozin 25 mg tablet See Rx Instructions .Route 08/28/24 02/18/25 Rx (Jardiance) .COMPLEX #90 tabs spironolactone 25 mg tablet See Rx Instructions .Route 08/28/24 02/18/25 Rx .COMPLEX #90 tabs atorvastatin 40 mg tablet 40 mg PO QHS #90 tabs 12/21/24 02/18/25 Rx metformin 500 mg tablet,extended 1,000 mg (2 x 500 mg) PO BID #180 12/21/24 02/18/25 Rx release 24 hr tabs acetaminophen 300 mg-codeine 30 mg 1 tablet PO Q4H PRN pain 02/16/25 02/18/25 History tablet doxycycline hyclate 100 mg capsule 100 mg PO Q12H 02/16/25 02/18/25 History Allergies Allergy/AdvReac Type Severity Reaction Status Date / Time atenolol AdvReac Unknown cough Verified 02/18/25 17:31 Vital Signs Vital Signs - 24 hr 02/18/25 12:55 02/18/25 15:30 02/18/25 16:53 Temperature 98.4 F 98.3 F Pulse Rate 126 H 114 H 105 H Respiratory Rate 18 26 H 18 Blood Pressure 193/115 H 169/94 H 173/92 H Pulse Oximetry 100 94 98 Oxygen Delivery Room Air 02/18/25 20:17 02/18/25 20:28 02/18/25 21:00 Temperature 98.2 F Pulse Rate 101 H 92 Respiratory Rate 20 Blood Pressure 173/91 H Pulse Oximetry 99 96 Oxygen Delivery CPAP 02/19/25 02:05 02/19/25 05:03 02/19/25 08:05 Temperature 98.5 F Pulse Rate 90 70 Respiratory Rate 18 Blood Pressure 151/91 H Pulse Oximetry 99 Oxygen Delivery CPAP Exam Const: General: comfortable and no acute distress Eyes: General: appearance normal, both eyes and all related structures Neck: Neck: supple and no JVD Resp: Effort & Inspection: normal respiratory effort Cardio: Rate: regular rate Extrem: Other: Right great toe with ulceration to majority of medial aspect with purulent drainage. Tissue appears to be mostly yellow slough. Very odorous. Small area of ulceration to great toe on lateral aspect in interdigital space. No purulence drainage from this area. Surrounding redness to skin extending to base of 1st toe. No other toes affected. Distal pulses difficult to palpate. Psych: Mental Status: mental status grossly normal Results Labs 02/19/25 04:49 02/19/25 04:49 Labs: Abnormal lab results 02/18/25 02/18/25 02/18/25 Range/Units 14:11 15:35 20:11 WBC 10.7 H (4.5-10.0) K/mm3 RBC (4.6-6.20) M/mm3 Hgb (14.0-18.0) g/dL Hct (42.0-52.0) % RDW 15.5 H (11.5-14.5) % Immature Gran % (Auto) 0.6 H (0-0.5) % Neut % (Auto) 90.2 H (45.5-73.1) % Lymph % (Auto) 3.2 L (18.3-44.2) % Todd % (Auto) (2.6-8.5) % Lymph # (Auto) 0.34 L (0.9-3.2) K/mm3 Todd # (Auto) (0.1-0.6) K/mm3 Abs Immat Gran (auto) 0.06 H (0.00-0.031) K/mm3 Absolute Neuts (auto) 9.7 H (1.3-6.7) K/mm3 VBG pH 7.434 H* (7.300-7.400) VBG pCO2 32.5 L (42.0-48.0) mmHg VBG pO2 51.8 H (35.0-45.0) mmHg VBG HCO3 21.3 L (24.0-30.0) mEq/l Sodium 127 L (137-145) mmol/L Chloride 96 L (98-107) mmol/L Carbon Dioxide 19 L (22-30) mmol/L BUN 22 H (9-20) mg/dL Glucose 352 H (65-110) mg/dL POC Capillary Glucose 361 H (65-105) mg/dl Hemoglobin A1c (<5.7) % Total Bilirubin 1.6 H (0.2-1.3) mg/dL Alkaline Phosphatase 146 H (38-126) U/L C-Reactive Protein 20.8 H (<1.0) mg/dL Total Protein 8.5 H (6.3-8.2) g/dL Beta-Hydroxybutyrate/Acetoacetate 2.65 H (0.02-0.27) mmol/L Ur Specific [place] 1.040 H (1.001-1.035) Urine Protein 3+ H (Negative) mg/dL Urine Glucose (UA) 3+ H (Negative) mg/dL Urine Ketones 1+ H (Negative) mg/dL Ur Blood (Man) 3+ H (Negative) Urine RBC 21-50 H (0-2) /hpf 02/19/25 02/19/25 Range/Units 04:49 07:59 WBC (4.5-10.0) K/mm3 RBC 4.49 L (4.6-6.20) M/mm3 Hgb 12.7 L (14.0-18.0) g/dL Hct 39.4 L (42.0-52.0) % RDW 15.3 H (11.5-14.5) % Immature Gran % (Auto) (0-0.5) % Neut % (Auto) 82.0 H (45.5-73.1) % Lymph % (Auto) 6.3 L (18.3-44.2) % Todd % (Auto) 8.6 H (2.6-8.5) % Lymph # (Auto) 0.47 L (0.9-3.2) K/mm3 Todd # (Auto) 0.7 H (0.1-0.6) K/mm3 Abs Immat Gran (auto) 0.04 H (0.00-0.031) K/mm3 Absolute Neuts (auto) (1.3-6.7) K/mm3 VBG pH (7.300-7.400) VBG pCO2 (42.0-48.0) mmHg VBG pO2 (35.0-45.0) mmHg VBG HCO3 (24.0-30.0) mEq/l Sodium 128 L (137-145) mmol/L Chloride (98-107) mmol/L Carbon Dioxide (22-30) mmol/L BUN 25 H (9-20) mg/dL Glucose 357 H (65-110) mg/dL POC Capillary Glucose 324 H (65-105) mg/dl Hemoglobin A1c 11.0 H (<5.7) % Total Bilirubin (0.2-1.3) mg/dL Alkaline Phosphatase (38-126) U/L C-Reactive Protein (<1.0) mg/dL Total Protein (6.3-8.2) g/dL Beta-Hydroxybutyrate/Acetoacetate (0.02-0.27) mmol/L Ur Specific [place] (1.001-1.035) Urine Protein (Negative) mg/dL Urine Glucose (UA) (Negative) mg/dL Urine Ketones (Negative) mg/dL Ur Blood (Man) (Negative) Urine RBC (0-2) /hpf Diabetes panel 02/18/25 02/19/25 Range/Units 14:11 04:49 Sodium 127 L 128 L (137-145) mmol/L Potassium 4.8 4.5 (3.4-5.0) mmol/L Chloride 96 L 99 (98-107) mmol/L Carbon Dioxide 19 L 22 (22-30) mmol/L BUN 22 H 25 H (9-20) mg/dL Creatinine 0.77 0.82 (0.7-1.3) mg/dL Glucose 352 H 357 H (65-110) mg/dL Hemoglobin A1c 11.0 H (<5.7) % Calcium 9.4 9.0 (8.4-10.2) mg/dL AST 37 (17-59) U/L ALT 30 (6-50) U/L Alkaline Phosphatase 146 H (38-126) U/L Total Protein 8.5 H (6.3-8.2) g/dL Albumin 4.1 (3.5-5.1) g/dL Calcium panel 02/18/25 02/19/25 Range/Units 14:11 04:49 Calcium 9.4 9.0 (8.4-10.2) mg/dL Albumin 4.1 (3.5-5.1) g/dL Pituitary panel 02/18/25 02/19/25 Range/Units 14:11 04:49 Sodium 127 L 128 L (137-145) mmol/L Potassium 4.8 4.5 (3.4-5.0) mmol/L Chloride 96 L 99 (98-107) mmol/L Carbon Dioxide 19 L 22 (22-30) mmol/L BUN 22 H 25 H (9-20) mg/dL Creatinine 0.77 0.82 (0.7-1.3) mg/dL Glucose 352 H 357 H (65-110) mg/dL Calcium 9.4 9.0 (8.4-10.2) mg/dL Adrenal panel 02/18/25 02/19/25 Range/Units 14:11 04:49 Sodium 127 L 128 L (137-145) mmol/L Potassium 4.8 4.5 (3.4-5.0) mmol/L Chloride 96 L 99 (98-107) mmol/L Carbon Dioxide 19 L 22 (22-30) mmol/L BUN 22 H 25 H (9-20) mg/dL Creatinine 0.77 0.82 (0.7-1.3) mg/dL Glucose 352 H 357 H (65-110) mg/dL Calcium 9.4 9.0 (8.4-10.2) mg/dL Total Bilirubin 1.6 H (0.2-1.3) mg/dL AST 37 (17-59) U/L ALT 30 (6-50) U/L Alkaline Phosphatase 146 H (38-126) U/L Total Protein 8.5 H (6.3-8.2) g/dL Albumin 4.1 (3.5-5.1) g/dL All other labs normal.
[2025-02-19] MEDS: INSULIN GLARGINE (*BKC) 100 UNITS/ML 30 UNITS SUB-Q (10:48)
--- NOTE | 2025-02-19 11:29 | WPDHPUPDATE1 ---
History and Physical Update Update Date/Time: 02/19/25 11:29 History and Physical has been reviewed, including an updated exam of the patient. There are NO changes in the patient's condition. Risks, benefits, and alternatives have been discussed and questions answered. Patient agrees to proceed with procedure.
--- NOTE | 2025-02-19 13:11 | WPDANESEPPF ---
Anes - Initial Pre Proc Eval Procedure: Operation Date: 02/19/25 13:30 Proposed Procedures p Incision and Drainage Right Great Toe Abscess - Anuj Curiel MD Date/Time: 02/19/25 13:11 Surgeon: Liza Alves MD Pre Op Diagnosis: Osteomyelitis Patient Data Age: 49 Gender: M Height: 1.8 m Weight: 121.2 kg Last Vital Signs Temp 36.4 C 02/19/25 12:34 Pulse 95 02/19/25 12:34 Resp 16 02/19/25 12:34 BP 159/92 H 02/19/25 12:34 Pulse Ox 100 02/19/25 12:34 O2 Del Method Room Air 02/19/25 12:34 Allergies Allergy/AdvReac Type Severity Reaction Status Date / Time atenolol AdvReac Unknown cough Verified 02/18/25 17:31 Home Medications ?Medication ?Instructions ?Recorded ?Confirmed ?Type aspirin 81 mg tablet,delayed 81 mg PO DAILY 05/31/19 02/18/25 History release bnvdpmhx-uevvgavv-dmfyn acid 400 1 tablet PO DAILY 05/31/19 02/18/25 History mcg-vit K 20 mcg-lycop 300 mcg tablet (Men's Multivitamin) pen needle, diabetic 31 gauge x See Rx Instructions .Route 10/10/21 02/18/25 Rx 5/16 (BD Ultra-Fine Short Pen .COMPLEX #1,200 syringes Needle) insulin glargine 100 unit/mL (3 60 unit (0.6 mL) subcut QAM #60 mL 04/16/23 02/18/25 Rx mL) subcutaneous pen (Lantus Solostar U-100 Insulin) insulin lispro 100 unit/mL 1 sliding scale dose subcut 04/16/23 02/18/25 Rx subcutaneous pen USEASDIRECTD #15 mL metoprolol succinate 100 mg 100 mg PO DAILY #90 tabs 04/16/23 02/18/25 Rx tablet,extended release 24 hr blood-glucose sensor (Dexcom G6 #9 ea 11/11/23 02/18/25 Rx Sensor device) blood-glucose transmitter (Dexcom #1 ea 11/11/23 02/18/25 Rx G6 Transmitter device) clopidogrel 75 mg tablet (Plavix) 75 mg PO DAILY #90 tabs 01/02/24 02/18/25 Rx sertraline 100 mg tablet 100 mg PO DAILY #90 tabs 04/13/24 02/18/25 Rx furosemide 40 mg tablet 80 mg (2 x 40 mg) PO QAM #180 tabs 05/18/24 02/18/25 Rx tirzepatide 7.5 mg/0.5 mL See Rx Instructions .Route 05/26/24 02/18/25 Rx subcutaneous pen injector .COMPLEX #4 mL (Mounjaro) sacubitril 97 mg-valsartan 103 mg See Rx Instructions .Route 07/24/24 02/18/25 Rx tablet (Entresto) .COMPLEX #180 tabs empagliflozin 25 mg tablet See Rx Instructions .Route 08/28/24 02/18/25 Rx (Jardiance) .COMPLEX #90 tabs spironolactone 25 mg tablet See Rx Instructions .Route 08/28/24 02/18/25 Rx .COMPLEX #90 tabs atorvastatin 40 mg tablet 40 mg PO QHS #90 tabs 12/21/24 02/18/25 Rx metformin 500 mg tablet,extended 1,000 mg (2 x 500 mg) PO BID #180 12/21/24 02/18/25 Rx release 24 hr tabs acetaminophen 300 mg-codeine 30 mg 1 tablet PO Q4H PRN pain 02/16/25 02/18/25 History tablet doxycycline hyclate 100 mg capsule 100 mg PO Q12H 02/16/25 02/18/25 History Laboratory Tests 02/18/25 02/18/25 02/18/25 14:11 15:35 20:11 WBC 10.7 H K/mm3 (4.5-10.0) RBC 5.29 M/mm3 (4.6-6.20) Hgb 15.0 g/dL (14.0-18.0) Hct 45.9 % (42.0-52.0) MCV 86.8 fl (80-100) MCH 28.4 pg (26-34) MCHC 32.7 g/dl (32-36) RDW 15.5 H % (11.5-14.5) Plt Count 203 k/mm3 (150-375) MPV 9.2 fl (7.4-10.4) Immature Gran % (Auto) 0.6 H % (0-0.5) Neut % (Auto) 90.2 H % (45.5-73.1) Lymph % (Auto) 3.2 L % (18.3-44.2) Stark % (Auto) 5.4 % (2.6-8.5) Eos % (Auto) 0.3 % (0-4.4) Baso % (Auto) 0.3 % (0.2-1.2) Lymph # (Auto) 0.34 L K/mm3 (0.9-3.2) Stark # (Auto) 0.6 K/mm3 (0.1-0.6) Eos # (Auto) 0.0 K/mm3 (0-0.3) Baso # (Auto) 0.0 K/mm3 (0.0-0.1) Abs Immat Gran (auto) 0.06 H K/mm3 (0.00-0.031) Absolute Neuts (auto) 9.7 H K/mm3 (1.3-6.7) Absolute Nucleated RBC 0.000 K/mm3 (0.0-0.012) Nucleated RBC % 0.0 % (0.0-0.2) PT 14.1 Seconds (11.1-14.7) INR 1.1 APTT 33.1 Seconds (22.3-36.8) VBG pH 7.434 H* (7.300-7.400) VBG pCO2 32.5 L mmHg (42.0-48.0) VBG pO2 51.8 H mmHg (35.0-45.0) VBG HCO3 21.3 L mEq/l (24.0-30.0) O2 Delivery Device Not Reportable O2 Liters/Min Not Reportable Sodium 127 L mmol/L (137-145) Potassium 4.8 mmol/L (3.4-5.0) Chloride 96 L mmol/L (98-107) Carbon Dioxide 19 L mmol/L (22-30) Anion Gap 12 mmol/L (4-12) BUN 22 H mg/dL (9-20) Creatinine 0.77 mg/dL (0.7-1.3) Estim Creat Clear Calc 132 ml/min Estimated GFR > 60 (59 - ) Glucose 352 H mg/dL (65-110) POC Capillary Glucose 361 H mg/dl (65-105) Hemoglobin A1c Serum Osmolality Lactic Acid 1.6 mmol/L (0.7-2.0) Calcium 9.4 mg/dL (8.4-10.2) Total Bilirubin 1.6 H mg/dL (0.2-1.3) AST 37 U/L (17-59) ALT 30 U/L (6-50) Alkaline Phosphatase 146 H U/L (38-126) C-Reactive Protein 20.8 H mg/dL (<1.0) Total Protein 8.5 H g/dL (6.3-8.2) Albumin 4.1 g/dL (3.5-5.1) Beta-Hydroxybutyrate/Acetoacetate 2.65 H mmol/L (0.02-0.27) TSH (Reflex) Urine Color Yellow (Yellow) Urine Appearance Clear (Clear) Urine pH 5.5 (5.0-9.0) Ur Specific [place] 1.040 H (1.001-1.035) Urine Protein 3+ H mg/dL (Negative) Urine Glucose (UA) 3+ H mg/dL (Negative) Urine Ketones 1+ H mg/dL (Negative) Ur Blood (Man) 3+ H (Negative) Urine Nitrate Negative (Negative) Urine Bilirubin Negative (Negative) Urine Urobilinogen 1.0 mg/dL (<2.0) Add Ur Microanalysis Reviewed Leukocyte Esterase Rfl Negative LEXX/UL (Negative) Urine RBC 21-50 H /hpf (0-2) Urine WBC 0-5 /hpf (0-3) Ur Squamous Epith Cells None seen /hpf (Few) Urine Bacteria None seen /hpf Urine Casts 3-5 Urine Osmolality 02/19/25 02/19/25 02/19/25 03:26 04:49 07:59 WBC 7.5 K/mm3 (4.5-10.0) RBC 4.49 L M/mm3 (4.6-6.20) Hgb 12.7 L g/dL (14.0-18.0) Hct 39.4 L % (42.0-52.0) MCV 87.8 fl (80-100) MCH 28.3 pg (26-34) MCHC 32.2 g/dl (32-36) RDW 15.3 H % (11.5-14.5) Plt Count 173 k/mm3 (150-375) MPV 9.3 fl (7.4-10.4) Immature Gran % (Auto) 0.5 % (0-0.5) Neut % (Auto) 82.0 H % (45.5-73.1) Lymph % (Auto) 6.3 L % (18.3-44.2) Stark % (Auto) 8.6 H % (2.6-8.5) Eos % (Auto) 2.1 % (0-4.4) Baso % (Auto) 0.5 % (0.2-1.2) Lymph # (Auto) 0.47 L K/mm3 (0.9-3.2) Stark # (Auto) 0.7 H K/mm3 (0.1-0.6) Eos # (Auto) 0.2 K/mm3 (0-0.3) Baso # (Auto) 0.0 K/mm3 (0.0-0.1) Abs Immat Gran (auto) 0.04 H K/mm3 (0.00-0.031) Absolute Neuts (auto) 6.2 K/mm3 (1.3-6.7) Absolute Nucleated RBC 0.000 K/mm3 (0.0-0.012) Nucleated RBC % 0.0 % (0.0-0.2) PT INR APTT VBG pH VBG pCO2 VBG pO2 VBG HCO3 O2 Delivery Device O2 Liters/Min Sodium 128 L mmol/L (137-145) Potassium 4.5 mmol/L (3.4-5.0) Chloride 99 mmol/L (98-107) Carbon Dioxide 22 mmol/L (22-30) Anion Gap 7 mmol/L (4-12) BUN 25 H mg/dL (9-20) Creatinine 0.82 mg/dL (0.7-1.3) Estim Creat Clear Calc 125 ml/min Estimated GFR > 60 (59 - ) Glucose 357 H mg/dL (65-110) POC Capillary Glucose 324 H mg/dl (65-105) Hemoglobin A1c 11.0 H % (<5.7) Serum Osmolality Pending Lactic Acid 1.1 mmol/L (0.7-2.0) Calcium 9.0 mg/dL (8.4-10.2) Total Bilirubin AST ALT Alkaline Phosphatase C-Reactive Protein Total Protein Albumin Beta-Hydroxybutyrate/Acetoacetate TSH (Reflex) 1.650 uIU/mL (0.465-4.68) Urine Color Urine Appearance Urine pH Ur Specific [place] Urine Protein Urine Glucose (UA) Urine Ketones Ur Blood (Man) Urine Nitrate Urine Bilirubin Urine Urobilinogen Add Ur Microanalysis Leukocyte Esterase Rfl Urine RBC Urine WBC Ur Squamous Epith Cells Urine Bacteria Urine Casts Urine Osmolality Pending 02/19/25 12:53 WBC RBC Hgb Hct MCV MCH MCHC RDW Plt Count MPV Immature Gran % (Auto) Neut % (Auto) Lymph % (Auto) Stark % (Auto) Eos % (Auto) Baso % (Auto) Lymph # (Auto) Stark # (Auto) Eos # (Auto) Baso # (Auto) Abs Immat Gran (auto) Absolute Neuts (auto) Absolute Nucleated RBC Nucleated RBC % PT INR APTT VBG pH VBG pCO2 VBG pO2 VBG HCO3 O2 Delivery Device O2 Liters/Min Sodium Potassium Chloride Carbon Dioxide Anion Gap BUN Creatinine Estim Creat Clear Calc Estimated GFR Glucose POC Capillary Glucose 290 H mg/dl (65-105) Hemoglobin A1c Serum Osmolality Lactic Acid Calcium Total Bilirubin AST ALT Alkaline Phosphatase C-Reactive Protein Total Protein Albumin Beta-Hydroxybutyrate/Acetoacetate TSH (Reflex) Urine Color Urine Appearance Urine pH Ur Specific [place] Urine Protein Urine Glucose (UA) Urine Ketones Ur Blood (Man) Urine Nitrate Urine Bilirubin Urine Urobilinogen Add Ur Microanalysis Leukocyte Esterase Rfl Urine RBC Urine WBC Ur Squamous Epith Cells Urine Bacteria Urine Casts Urine Osmolality Patient hx anesthesia problems: none Family hx anesthesia problems: none Results Review: All pre-operative results and documents have been reviewed as part of the pre-operative evaluation. [facility] Past Medical History Medical History CHF (congestive heart failure) Echocardiogram 2020 demonstrated EF of 15-20 with grade 3 diastolic dysfunction repeat echocardiogram 2021 demonstrated moderate left ventricular enlargement, moderate left ventricular systolic dysfunction, impaired diastolic relaxation grade 1, moderate left atrial enlargement, prior echos have demonstrated moderate pulmonary hypertension but study from 2021 was technically difficult. Moderate pulmonary hypertension Ischemic cardiomyopathy Diabetic neuropathy Diabetic nephropathy Trochanteric bursitis, right hip Transient atrial fibrillation/flutter 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 Mitral valve regurgitation Obstructive sleep apnea on CPAP COVID-19 (01/2021) Erectile dysfunction BPH loc w urin obs/LUTS Chronic depression Chronic kidney disease, stage 3 (moderate) Macroalbuminuric diabetic nephropathy Mixed hyperlipidemia Type 2 diabetes mellitus, with long-term current use of insulin Hemoglobin A1c was 11.1% on 05/31/2019. And 8.25 March 2021 Polycythemia Herniated disc HTN (hypertension) Myocardial infarction Surgical History Surgical History History of coronary artery bypass graft x 2 (09/30/19) Bypass of the LAD and right posterior left ventricular branch. Complicated by sternal infection. Status post panniculectomy (2001) History of laparoscopic cholecystectomy (11/2008) History of cardiac catheterization 10/09/2013: PTCA/stent to circumflex. 06/02/2019: Multivessel coronary artery disease with severe ischemic cardiomyopathy with ejection fraction around 25%, referred for surgical revascularization Family History Family History Mother Pancreatic cancer Hypertension Family history of cardiovascular disease Family history of malignant neoplasm Father Colon cancer Diabetes mellitus Atrial fibrillation Family history of malignant neoplasm Sibling Diabetes mellitus Kidney disease Hypertension Social History Social History Social History: The patient lives at home with his and their 2 (ages 17 and 19 as of February 2025) children in [place]. He works for [employer] in [employer]. Lifelong nonsmoker. He drinks perhaps 1-2 alcoholic beverages a month on average. No illicit substance use. He designates his , Maru Dunn, as his surrogate decision-maker. CODE STATUS: Full code. Surrogate decision maker: Maru Dunn () Smoking status: Never smoker Alcohol intake: never Substance use: never Substance use type: does not use Do You Feel Safe in your Home?: Yes Lack of Transportation: No Lack of Food: Never True Current Housing: I Have Housing Concerned About Future Housing: No Difficulty Paying Gas/Electric Bills: No Difficulty Paying for Meds: No Currently Unemployed: No Education: Bachelor's Degree Difficulty w/ Childcare or Family Care: No Living arrangements: with family Spiritual care concerns: No Anes - Eval Final PreProcedure Day of Procedure 02/19/25 13:11 Patient weight: obese Heart: regular rate and rhythm Lungs: clear to auscultation Airway: Mallampati scale class II Neurological: alert and oriented Last oral intake: >/= 8 hours ASA classification: IV Emergent: no Anesthetic plan: proceed Anesthesia type and monitoring: general LMA and standard monitoring Results Review: All pre-operative results and documents have been reviewed as part of the pre-operative evaluation. Informed Consent: The patient's anesthetic plan and its attendant risks and benefits were discussed with the patient/family/POA. Questions were solicited and answers provided to the satisfaction of the patient/family/POA.
[2025-02-19] MEDS: LACTATED RINGERS 1,000 ML 30 ML IV CONT (14:10)
--- NOTE | 2025-02-19 14:36 | PM.OP ---
Procedure Note - Brief Procedure Note - Brief Date of procedure: 02/19/25 Right great toe abscess with cellulitis and osteomyelitis Post-op diagnosis: Same Procedure performed: Complex incision and drainage of right great toe abscess Surgeon: Anuj Curiel MD Processing Mgr: Mara SAWANT Anesthesia: MAC and local Implants: none Estimated blood loss (mL): 5 Urine output (mL): 700 Drains: Yes ( quarter-inch [place] drain right great toe) Packing: Yes ( quarter-inch iodoform gauze right great toe wound) Pathology: Other ( culture swab sent to microbiology for Gram stain, aerobic and anaerobic cultures.) Complications: No immediate complications Condition: Stable Disposition: PACU
[2025-02-19] MEDS: INSULIN HUMAN REGULAR (*BKC) 100 UNITS/ML 7 UNITS IV PUSH (14:53)
[2025-02-19] MEDS: fentaNYL CITRATE INJ (*CRX) 100 MCG/2 ML VIAL 25 MCG IV PUSH ×2 (14:55→15:00)
[2025-02-19] MEDS: INSULIN ASPART (*BKC) 100 UNITS/ML SUB-Q (17:22)
[2025-02-19] MEDS: oxyCODONE HCL (*CRX) 5 MG TAB IR PO (20:03)
[2025-02-19] MEDS: ATORVASTATIN 40 MG TABLET PO (20:04)
[2025-02-19] MEDS: SACUBITRIL/VALSARTAN 97-103 MG TABLET 1 TAB BY MOUTH (20:04)
[2025-02-19] MEDS: MORPHINE SULFATE (*CRX) 4 MG/ML INJ 2 MG IV PUSH (21:07)
--- NOTE | 2025-02-19 23:42 | W.PM.PROC2 ---
Procedure Note - Detailed Date of Procedure 02/19/25 Pre-op Diagnosis Right great toe abscess with osteomyelitis and cellulitis Post-op Diagnosis Same Procedure Performed Complex incision and drainage of right great toe abscess Surgeon Anuj Curiel MD Information Technology Instructor Mara Gonzalez [facility] Anesthesia MAC and Local Indications Patient is a 49-year-old white male who is an uncontrolled diabetic. He has had a chronic wound on the right great toe which is been associated with osteomyelitis of the phalanx. Of the past few days he is still of acute redness and swelling and drainage of pus from the wound. He has an abscess of the right great toe presents now for incision and drainage. Findings The patient had a abscess of the right great toe distally at the junction of the proximal distal phalanx. There was a burrowing abscess connecting between a small wound on the lateral aspect of the right great toe to the medial side of the toe. The intervening phalanx had then destroyed by the infection and the joint space between the proximal and distal phalanx had been destroyed. Description of Procedure After informed consent was obtained patient was brought to the operating room was placed supine position and IV sedation was administered by anesthesia. The right foot was then prepped and draped usual sterile fashion. A time-out was then performed correctly identifying the patient as well as procedure to be performed. Site marking was verified. He was already on scheduled IV antibiotics. I started by injecting 1% lidocaine with 0.5% Marcaine mixed without epinephrine around the wound for local anesthetic effect. There was a skin bridge between the part of the wound which was already draining pus and a small puncture wound on the lateral aspect of the midportion of the right great toe. The skin bridge was divided with the scalpel to enter the abscess cavity. I then probed the abscess cavity and it tracked to the medial-sided the midportion of the right great toe. I opened up this tract with a Ángela clamp. I then took a culture swab of the abscess cavity and sent this to microbiology for Gram stain and culture. I then palpated the abscess cavity and felt the end of the proximal phalanx. It appeared that the bone had been destroyed at the level of the PIP joint. I then proceeded to irrigate out the abscess cavity with sterile saline solution. Some nonviable skin and subcutaneous tissue was cut away with sharp scalpel dissection and discarded. I then placed a quarter-inch [place] drain through the abscess tracked and sutured in the loop configuration. It was then packed with quarter-inch iodoform gauze. The wound was then cleaned and then a sterile dressing was applied. The patient tolerated the procedure well no complications. All sponges, needles, and instrument counts were correct at the end procedure. EBL was _5__cc. The patient was awakened and taken to recovery in stable and satisfactory condition. Implants None Estimated Blood Loss 5 Urine Output 700 Drains Yes ( [place] drainage right toe) Packing Yes ( quarter-inch iodoform gauze) Pathology Other ( wound swab sent to microbiology for Gram stain and culture) Complications No immediate complications Condition Stable Disposition PACU [facility] Billing Surgery - Charge Forward: Surgery Billing
[2025-02-20] MEDS: metroNIDAZOLE 500 MG/ISO 100ML 500 MG/100 ML BAG 100 MG IVPB ×3 (01:18→18:26)
[2025-02-20] MEDS: MORPHINE SULFATE (*CRX) 4 MG/ML INJ 2 MG IV PUSH ×3 (01:18→10:23)
[2025-02-20 03:20] LABS: Hematocrit 42.9 % (42.0-52.0); Hemoglobin 13.7 g/dL (14.0-18.0); Immature Granulocyte Percent A 0.5 % (0-0.5); Lymphocytes Absolute Auto 0.61 K/mm3 (0.9-3.2); Mean Corpuscular HGB Conc 31.9 g/dl (32-36); Mean Corpuscular Hemoglobin 27.8 pg (26-34); Mean Corpuscular Volume 87.0 fl (80-100); Nucleated Red Blood Cells Absolute Auto 0.000 K/mm3 (0.0-0.012); Nucleated Red Blood Cells Perc 0.0 % (0.0-0.2); Platelet Count Result 228 k/mm3 (150-375); Red Blood Count 4.93 M/mm3 (4.6-6.20); White Blood Count 9.2 K/mm3 (4.5-10.0)
[2025-02-20 03:35] LABS: Alanine Aminotransferase 108 U/L (6-50); Albumin Level 3.3 g/dL (3.5-5.1); Alkaline Phosphatase 221 U/L (38-126); Anion Gap 11 mmol/L (4-12); Aspartate Amino Transferase 146 U/L (17-59); Bilirubin,Total 1.2 mg/dL (0.2-1.3); Blood Urea Nitrogen 25 mg/dL (9-20); CRP 7.6 mg/dL (<1.0); Calcium 8.8 mg/dL (8.4-10.2); Carbon Dioxide 18 mmol/L (22-30); Chloride 100 mmol/L (98-107); Estimated CRCL calculation 134 ml/min; Estimated Glomerular Filt Rate > 60; Glucose 291 mg/dL (65-110); Potassium 4.5 mmol/L (3.4-5.0); Sodium 129 mmol/L (137-145); Total Protein 7.0 g/dL (6.3-8.2)
[2025-02-20 04:05] VITALS: BP 126/77; PULSE 80; RESP 20; TEMP 36.4; O2SAT 99
[2025-02-20] MEDS: VANCOMYCIN 2,000 MG/NS 500 ML 2,000 MG/500 ML BAG 250 MG IVPB ×2 (04:29→16:13)
[2025-02-20] MEDS: oxyCODONE HCL (*CRX) 5 MG TAB IR PO (04:37)
[2025-02-20] MEDS: CEFEPIME 2 GM in SODIUM CHLORIDE 0.9% IV 50 ML 100 ML IVPB ×2 (06:38→18:25)
--- NOTE | 2025-02-20 06:57 | P.PNIM_ITS ---
Progress Note: A&P Assessment and Plan (1) Osteomyelitis: Qualifiers: Laterality: right Osteomyelitis location: foot Osteomyelitis type: unspecified type Qualified Code(s): M86.9 - Osteomyelitis, unspecified Code(s): M86.9 - Osteomyelitis, unspecified Status: Acute Assessment and Plan: -patient follows with podiatry. Patient had outpatient MRI 02/16/25 which apparently showed osteomyelitis of the great toe. Records requested. - patient has been on doxycycline for 1 month and has had multiple debridements - CRP 20. Afebrile, no leukocytosis. LA WNL. - s/p complex I&D by Dr. Curiel 02/19 - continue cefepime, Flagyl and vancomycin. Await surgical cultures. 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 Admitted to poor compliance with home medications. - admit glucose 300s - hold home metformin, tirzepatide - continue home lantus at reduced dose. Start aspart 5u TIDWM with high dose SSI. Titrate PRN. 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 Aldactone on hold due to hyponatremia. - monitor volume status (6) Hyperlipidemia associated with type 2 diabetes mellitus: Code(s): E11.69 - Type 2 diabetes mellitus with other specified complication; E78.5 - Hyperlipidemia, unspecified Status: Acute Assessment and Plan: -hold statin to elevated LFTs (7) Hyponatremia: Code(s): E87.1 - Hypo-osmolality and hyponatremia Status: Acute Assessment and Plan: - Na 132 corrected for hyperglycemia. - hold on IV fluids for now. Encourage PO intake and optimize blood sugars (8) CAD (coronary artery disease): Qualifiers: Associated angina: angina presence unspecified Coronary Disease-Associa steve Artery/Lesion type: [place] artery [place] vs. transplanted heart: [place] heart Qualified Code(s): I25.10 - Atherosclerotic heart disease of [place] coronary artery without angina pectoris Code(s): I25.10 - Atherosclerotic heart disease of [place] coronary artery without angina pectoris Status: Acute Assessment and Plan: - s/p CABG - continue home Plavix, ASA and statin (9) Transaminitis: Code(s): R74.01 - Elevation of levels of liver transaminase levels Status: Acute Assessment and Plan: - AST 146, ALT 108, alk phos 221. Previously normal - hold statin - may be secondary to surgery - consider RUQ US if uptrending Plan DVT prophylaxis: Lovenox post-op Code status: full code Dispo: likely 2-3 days pending culture data Subjective Date/time seen: 02/20/25 06:57 Interval history: Patient seen and examined at bedside. Had some pain overnight, but otherwise doing well. Exam Narrative: General: NAD Eyes: EOMI ENT: neck supple Cardiovascular: Regular rate and rhythm Respiratory: Clear to auscultation, respirations even and unlabored on RA Gastrointestinal: Soft, non tender Genitourinary: no suprapubic tenderness Musculoskeletal: No edema Skin: warm, dry. R foot in CRISTAL wrap. Neuro: Alert. Psych: Mood appropriate Objective Data Vital Signs Vital Signs: Vital Signs - 24 hr 02/19/25 08:05 02/19/25 12:34 02/19/25 14:10 Temperature 97.6 F 97 F L Pulse Rate 70 95 86 Respiratory Rate 16 22 H Blood Pressure 159/92 H 121/81 Pulse Oximetry 100 99 Oxygen Delivery Room Air Simple Face Mask Oxygen Flow Rate 6 02/19/25 14:25 02/19/25 14:40 02/19/25 14:55 Temperature Pulse Rate 88 86 88 Respiratory Rate 20 20 22 H Blood Pressure 127/88 121/88 132/90 Pulse Oximetry 100 100 92 Oxygen Delivery Simple Face Mask Simple Face Mask Room Air Oxygen Flow Rate 6 6 02/19/25 15:10 02/19/25 15:25 02/19/25 19:50 Temperature 97.6 F Pulse Rate 87 90 89 Respiratory Rate 15 20 20 Blood Pressure 126/86 137/88 139/90 Pulse Oximetry 94 94 99 Oxygen Delivery Room Air Room Air Oxygen Flow Rate 02/19/25 20:00 02/19/25 20:50 02/20/25 02:18 Temperature Pulse Rate 89 Respiratory Rate 20 Blood Pressure Pulse Oximetry 99 Oxygen Delivery CPAP CPAP CPAP Oxygen Flow Rate 02/20/25 04:05 Temperature 97.6 F Pulse Rate 80 Respiratory Rate 20 Blood Pressure 126/77 Pulse Oximetry 99 Oxygen Delivery Oxygen Flow Rate Intake/Output Intake/Output: Intake & Output 02/17/25 02/18/25 02/19/25 02/20/25 23:59 23:59 23:59 23:59 Intake Total 1740 2365 990 Output Total 2100 1000 Balance 1740 265 -10 Meds/Results Medications: Active Medications Generic Name Dose Route Start Last Admin Trade Name Freq PRN Reason Stop Dose Admin Acetaminophen 1,000 mg 02/19/25 15:32 Acetaminophen 500 Mg Tablet PO Q6H PRN Mild Pain (1-3) or Fever Hydrocodone Bitart/Acetaminophen 1 tab 02/19/25 15:32 02/19/25 23:11 Hydrocodone/Acetaminophen (*Crx) 5-325 Mg Tablet PO 1 tab Q4H PRN Administration Pain Rated 4-6 Aspirin 81 mg 02/19/25 09:00 02/19/25 07:58 Aspirin 81 Mg Enteric Tablet PO Not Given DAILY ALISON Atorvastatin Calcium 40 mg 02/19/25 21:00 02/19/25 20:04 Atorvastatin 40 Mg Tablet PO 40 mg QHS ALISON Administration Clopidogrel Bisulfate 75 mg 02/19/25 09:00 02/19/25 07:58 Clopidogrel Bisulfate 75 Mg Tablet PO Not Given DAILY ALISON Dextrose 12.5 gm 02/18/25 17:55 Dextrose 50% 25 Gm/50 Ml Syringe IV PUSH PRN PRN Hypoglycemia Protocol Empagliflozin 25 mg 02/19/25 09:00 02/19/25 07:58 Empagliflozin 25 Mg Tablet BY MOUTH Not Given DAILY ALISON Enoxaparin Sodium 40 mg 02/20/25 09:00 Enoxaparin 40 Mg/0.4 Ml Syringe SUB-Q DAILY [facility] Furosemide 80 mg 02/19/25 09:00 02/19/25 08:00 Furosemide 40 Mg Tablet PO Not Given QAM ALISON Glucagon 1 mg 02/18/25 17:55 Glucagon For Inj 1 Mg Vial IM PRN PRN Hypoglycemia Protocol Glucose 15 gm 02/18/25 17:55 Glucose Oral Gel 15 Gm Of Glucse In 37.5 Gm Tube PO PRN PRN Hypoglycemia Protocol Dextrose 1,000 mls @ 100 mls/hr 02/18/25 17:55 Dextrose 5% 1,000 Ml IVPB PRN PRN Hypoglycemia Protocol Cefepime HCl 2 gm/ Sodium 50 mls @ 100 mls/hr 02/19/25 06:00 02/20/25 06:38 Chloride IVPB 100 mls/hr Q12H ALISON Administration Metronidazole 500 mg in 100 mls @ 100 mls/hr 02/19/25 02:00 02/20/25 01:18 Flagyl 500 Mg/Iso Soln 100 Ml IVPB 100 mls/hr Q8H ALISON Administration Vancomycin HCl 2,000 mg in 500 mls @ 250 mls/hr 02/20/25 05:00 02/20/25 06:29 Vancomycin 2,000 Mg/Ns 500 Ml IVPB Infused Q12H ALISON Infusion Insulin Aspart 4 - 8 units 02/19/25 08:00 02/19/25 17:22 Insulin Aspart (*Bkc) 100 Units/Ml SUB-Q 5 units TIDWM ALISON Administration Protocol Insulin Glargine 30 units 02/19/25 09:00 02/19/25 10:48 Insulin Glargine (*Bkc) 100 Units/Ml SUB-Q 30 units QAM ALISON Administration Metoprolol Succinate 100 mg 02/19/25 09:00 02/19/25 08:05 Metoprolol Succinate Ext Rel 100 Mg Tabcr PO 100 mg DAILY ALISON Administration Morphine Sulfate 2 mg 02/18/25 22:07 02/20/25 06:42 Morphine Sulfate (*Crx) 4 Mg/Ml Inj IV PUSH 2 mg Q4H PRN Administration Pain Rated 7-10 Oxycodone HCl 5 mg 02/19/25 15:32 02/20/25 04:37 Oxycodone Hcl (*Crx) 5 Mg Tab Ir PO 5 mg Q6H PRN Administration Pain Rated 7-10 Sacubitril/Valsartan 1 tab 02/19/25 09:00 02/19/25 20:04 Sacubitril/Valsartan 97-103 Mg Tablet BY MOUTH 1 tab Q12HR ALISON Administration Radiology Results: ITS Impressions Chest X-Ray 02/18/25 14:27 Impression: No acute cardiopulmonary abnormality. Venous Doppler Study 02/19/25 17:01 Impression: Negative for DVT. Labs Labs: Laboratory Results - last 24 hr 02/18/25 02/19/25 02/19/25 15:35 07:59 12:53 WBC RBC Hgb Hct MCV MCH MCHC RDW Plt Count MPV Immature Gran % (Auto) Neut % (Auto) Lymph % (Auto) [place] % (Auto) Eos % (Auto) Baso % (Auto) Lymph # (Auto) [place] # (Auto) Eos # (Auto) Baso # (Auto) Abs Immat Gran (auto) Absolute Neuts (auto) Absolute Nucleated RBC Nucleated RBC % VBG pH 7.434 H* VBG pCO2 32.5 L VBG pO2 51.8 H VBG HCO3 21.3 L O2 Delivery Device Not Reportable O2 Liters/Min Not Reportable Sodium Potassium Chloride Carbon Dioxide Anion Gap BUN Creatinine Estim Creat Clear Calc Estimated GFR Glucose POC Capillary Glucose 324 H 290 H Calcium Total Bilirubin AST ALT Alkaline Phosphatase C-Reactive Protein Total Protein Albumin Vancomycin Trough 02/19/25 02/19/25 02/19/25 14:29 14:32 17:15 WBC RBC Hgb Hct MCV MCH MCHC RDW Plt Count MPV Immature Gran % (Auto) Neut % (Auto) Lymph % (Auto) [place] % (Auto) Eos % (Auto) Baso % (Auto) Lymph # (Auto) [place] # (Auto) Eos # (Auto) Baso # (Auto) Abs Immat Gran (auto) Absolute Neuts (auto) Absolute Nucleated RBC Nucleated RBC % VBG pH VBG pCO2 VBG pO2 VBG HCO3 O2 Delivery Device O2 Liters/Min Sodium Potassium Chloride Carbon Dioxide Anion Gap BUN Creatinine Estim Creat Clear Calc Estimated GFR Glucose POC Capillary Glucose 315 H 311 H 252 H Calcium Total Bilirubin AST ALT Alkaline Phosphatase C-Reactive Protein Total Protein Albumin Vancomycin Trough 02/19/25 02/20/25 19:49 03:12 WBC 9.2 RBC 4.93 Hgb 13.7 L Hct 42.9 MCV 87.0 MCH 27.8 MCHC 31.9 L RDW 15.5 H Plt Count 228 MPV 9.3 Immature Gran % (Auto) 0.5 Neut % (Auto) 82.0 H Lymph % (Auto) 6.6 L [place] % (Auto) 8.8 H Eos % (Auto) 1.6 Baso % (Auto) 0.5 Lymph # (Auto) 0.61 L [place] # (Auto) 0.8 H Eos # (Auto) 0.2 Baso # (Auto) 0.1 Abs Immat Gran (auto) 0.05 H Absolute Neuts (auto) 7.5 H Absolute Nucleated RBC 0.000 Nucleated RBC % 0.0 VBG pH VBG pCO2 VBG pO2 VBG HCO3 O2 Delivery Device O2 Liters/Min Sodium 129 L Potassium 4.5 Chloride 100 Carbon Dioxide 18 L Anion Gap 11 BUN 25 H Creatinine 0.76 Estim Creat Clear Calc 134 Estimated GFR > 60 Glucose 291 H POC Capillary Glucose 350 H Calcium 8.8 Total Bilirubin 1.2 AST 146 H ALT 108 H Alkaline Phosphatase 221 H C-Reactive Protein 7.6 H Total Protein 7.0 Albumin 3.3 L Vancomycin Trough 11.5 Quality VTE Prophylaxis VTE prophylaxis: mechanical ordered
[2025-02-20] MEDS: FUROSEMIDE 40 MG TABLET 80 MG PO (08:06)
[2025-02-20 08:07] VITALS: PULSE 80
[2025-02-20] MEDS: SACUBITRIL/VALSARTAN 97-103 MG TABLET 1 TAB BY MOUTH ×2 (08:07→20:32)
[2025-02-20] MEDS: METOPROLOL SUCCINATE EXT REL 100 MG TABCR PO (08:07)
[2025-02-20] MEDS: CLOPIDOGREL BISULFATE 75 MG TABLET PO (08:07)
[2025-02-20] MEDS: EMPAGLIFLOZIN 25 MG TABLET BY MOUTH (08:07)
[2025-02-20] MEDS: ASPIRIN 81 MG ENTERIC TABLET PO (08:07)
[2025-02-20] MEDS: HYDROcodone/acetaminophen (*CRX) 5-325 MG TABLET 1 TAB PO ×2 (08:13→18:25)
[2025-02-20] MEDS: INSULIN ASPART (*BKC) 100 UNITS/ML SUB-Q ×5 (08:16→17:00)
[2025-02-20] MEDS: ENOXAPARIN 40 MG/0.4 ML SYRINGE SUB-Q (08:17)
[2025-02-20] MEDS: INSULIN GLARGINE (*BKC) 100 UNITS/ML 40 UNITS SUB-Q (08:17)
--- NOTE | 2025-02-20 10:37 | P.PN_ITS ---
Progress Note: A&P Assessment and Plan (1) Open wound of right great toe: Qualifiers: Encounter type: initial encounter Qualified Code(s): S91.101A - Unspecified open wound of right great toe without damage to nail, initial encounter Code(s): S91.101A - Unspecified open wound of right great toe without damage to nail, initial encounter Status: Acute Assessment and Plan: Diabetic wound abscess of the right great toe. Status post complex incision and drainage yesterday. Continue packing of the wound and [place] drain in place for now. Continue IV antibiotics for the osteomyelitis. Patient still at high risk for needing ultimately amputation of the right great toe. Discussed in detail with the patient. We will continue the packing through the weekend to see how the cellulitis responds to the drainage. (2) Osteomyelitis: Qualifiers: Laterality: right Osteomyelitis location: foot Osteomyelitis type: unspecified type Qualified Code(s): M86.9 - Osteomyelitis, unspecified Code(s): M86.9 - Osteomyelitis, unspecified Status: Acute Assessment and Plan: As above. Subjective Date/time seen: 02/20/25 10:37 Interval history: Patient clinically stable. No acute events overnight. White blood cell count is still normal today. Decreased pain in the great toe after surgery dressing remains dry. Exam Extrem: Other: Right great toe wound packed. Slightly decreased erythema around the right great toe extend then almost to the MTP joint. Patient is able to extend the right toe. The wound has no necrotic tissue within it and no purulent drainage. The distal end of the proximal phalanx and the proximal and the distal phalanx are both exposed in the wound. [place] drain remains in place. Remaining toes of the right foot are all viable without wounds or cellulitis. Objective Data Vital Signs Vital Signs: Vital Signs - 24 hr 02/19/25 12:34 02/19/25 14:10 02/19/25 14:25 Temperature 36.4 C 36.1 C L Pulse Rate 95 86 88 Respiratory Rate 16 22 H 20 Blood Pressure 159/92 H 121/81 127/88 Pulse Oximetry 100 99 100 Oxygen Delivery Room Air Simple Face Mask Simple Face Mask Oxygen Flow Rate 6 6 02/19/25 14:40 02/19/25 14:55 02/19/25 15:10 Temperature Pulse Rate 86 88 87 Respiratory Rate 20 22 H 15 Blood Pressure 121/88 132/90 126/86 Pulse Oximetry 100 92 94 Oxygen Delivery Simple Face Mask Room Air Room Air Oxygen Flow Rate 6 02/19/25 15:25 02/19/25 19:50 02/19/25 20:00 Temperature 36.4 C Pulse Rate 90 89 89 Respiratory Rate 20 20 20 Blood Pressure 137/88 139/90 Pulse Oximetry 94 99 99 Oxygen Delivery Room Air CPAP Oxygen Flow Rate 02/19/25 20:50 02/20/25 02:18 02/20/25 04:05 Temperature 36.4 C Pulse Rate 80 Respiratory Rate 20 Blood Pressure 126/77 Pulse Oximetry 99 Oxygen Delivery CPAP CPAP Oxygen Flow Rate 02/20/25 08:07 Temperature Pulse Rate 80 Respiratory Rate Blood Pressure Pulse Oximetry Oxygen Delivery Oxygen Flow Rate Intake/Output Intake/Output: Intake & Output 02/17/25 02/18/25 02/19/25 02/20/25 23:59 23:59 23:59 23:59 Intake Total 1740 2365 1140 Output Total 2100 1000 Balance 1740 265 140 Meds/Results Medications: Active Medications Generic Name Dose Route Start Last Admin Trade Name Freq PRN Reason Stop Dose Admin Acetaminophen 1,000 mg 02/19/25 15:32 Acetaminophen 500 Mg Tablet PO Q6H PRN Mild Pain (1-3) or Fever Hydrocodone Bitart/Acetaminophen 1 tab 02/19/25 15:32 02/20/25 08:13 Hydrocodone/Acetaminophen (*Crx) 5-325 Mg Tablet PO 1 tab Q4H PRN Administration Pain Rated 4-6 Aspirin 81 mg 02/19/25 09:00 02/20/25 08:07 Aspirin 81 Mg Enteric Tablet PO 81 mg DAILY ALISON Administration Atorvastatin Calcium 40 mg 02/19/25 21:00 02/19/25 20:04 Atorvastatin 40 Mg Tablet PO 40 mg On Hold: 02/20/25 07:07 QHS ALISON Administration Clopidogrel Bisulfate 75 mg 02/19/25 09:00 02/20/25 08:07 Clopidogrel Bisulfate 75 Mg Tablet PO 75 mg DAILY ALISON Administration Dextrose 12.5 gm 02/18/25 17:55 Dextrose 50% 25 Gm/50 Ml Syringe IV PUSH PRN PRN Hypoglycemia Protocol Empagliflozin 25 mg 02/19/25 09:00 02/20/25 08:07 Empagliflozin 25 Mg Tablet BY MOUTH 25 mg DAILY ALISON Administration Enoxaparin Sodium 40 mg 02/20/25 09:00 02/20/25 08:17 Enoxaparin 40 Mg/0.4 Ml Syringe SUB-Q 40 mg DAILY ALISON Administration Furosemide 80 mg 02/19/25 09:00 02/20/25 08:06 Furosemide 40 Mg Tablet PO 80 mg QAM ALISON Administration Glucagon 1 mg 02/18/25 17:55 Glucagon For Inj 1 Mg Vial IM PRN PRN Hypoglycemia Protocol Glucose 15 gm 02/18/25 17:55 Glucose Oral Gel 15 Gm Of Glucse In 37.5 Gm Tube PO PRN PRN Hypoglycemia Protocol Dextrose 1,000 mls @ 100 mls/hr 02/18/25 17:55 Dextrose 5% 1,000 Ml IVPB PRN PRN Hypoglycemia Protocol Cefepime HCl 2 gm/ Sodium 50 mls @ 100 mls/hr 02/19/25 06:00 02/20/25 07:08 Chloride IVPB Infused Q12H ALISON Infusion Metronidazole 500 mg in 100 mls @ 100 mls/hr 02/19/25 02:00 02/20/25 10:28 Flagyl 500 Mg/Iso Soln 100 Ml IVPB 100 mls/hr Q8H ALISON Administration Vancomycin HCl 2,000 mg in 500 mls @ 250 mls/hr 02/20/25 05:00 02/20/25 06:29 Vancomycin 2,000 Mg/Ns 500 Ml IVPB Infused Q12H ALISON Infusion Insulin Aspart 4 - 8 units 02/19/25 08:00 02/20/25 08:16 Insulin Aspart (*Bkc) 100 Units/Ml SUB-Q 4 units TIDWM ALISON Administration Protocol Insulin Aspart 5 units 02/20/25 08:00 02/20/25 08:16 Insulin Aspart (*Bkc) 100 Units/Ml SUB-Q 5 units TIDWM ALISON Administration Insulin Glargine 40 units 02/20/25 09:00 02/20/25 08:17 Insulin Glargine (*Bkc) 100 Units/Ml SUB-Q 40 units QAM ALISON Administration Metoprolol Succinate 100 mg 02/19/25 09:00 02/20/25 08:07 Metoprolol Succinate Ext Rel 100 Mg Tabcr PO 100 mg DAILY ALISON Administration Morphine Sulfate 2 mg 02/18/25 22:07 02/20/25 10:23 Morphine Sulfate (*Crx) 4 Mg/Ml Inj IV PUSH 2 mg Q4H PRN Administration Pain Rated 7-10 Oxycodone HCl 5 mg 02/19/25 15:32 02/20/25 04:37 Oxycodone Hcl (*Crx) 5 Mg Tab Ir PO 5 mg Q6H PRN Administration Pain Rated 7-10 Sacubitril/Valsartan 1 tab 02/19/25 09:00 02/20/25 08:07 Sacubitril/Valsartan 97-103 Mg Tablet BY MOUTH 1 tab Q12HR ALISON Administration Radiology Results: ITS Impressions Chest X-Ray 02/18/25 14:27 Impression: No acute cardiopulmonary abnormality. Venous Doppler Study 02/19/25 17:01 Impression: Negative for DVT. Labs Labs: Laboratory Results - last 24 hr 02/19/25 02/19/25 02/19/25 12:53 14:29 14:32 WBC RBC Hgb Hct MCV MCH MCHC RDW Plt Count MPV Immature Gran % (Auto) Neut % (Auto) Lymph % (Auto) [place] % (Auto) Eos % (Auto) Baso % (Auto) Lymph # (Auto) [place] # (Auto) Eos # (Auto) Baso # (Auto) Abs Immat Gran (auto) Absolute Neuts (auto) Absolute Nucleated RBC Nucleated RBC % Sodium Potassium Chloride Carbon Dioxide Anion Gap BUN Creatinine Estim Creat Clear Calc Estimated GFR Glucose POC Capillary Glucose 290 H 315 H 311 H Calcium Total Bilirubin AST ALT Alkaline Phosphatase C-Reactive Protein Total Protein Albumin Vancomycin Trough 02/19/25 02/19/25 02/20/25 17:15 19:49 03:12 WBC 9.2 RBC 4.93 Hgb 13.7 L Hct 42.9 MCV 87.0 MCH 27.8 MCHC 31.9 L RDW 15.5 H Plt Count 228 MPV 9.3 Immature Gran % (Auto) 0.5 Neut % (Auto) 82.0 H Lymph % (Auto) 6.6 L [place] % (Auto) 8.8 H Eos % (Auto) 1.6 Baso % (Auto) 0.5 Lymph # (Auto) 0.61 L [place] # (Auto) 0.8 H Eos # (Auto) 0.2 Baso # (Auto) 0.1 Abs Immat Gran (auto) 0.05 H Absolute Neuts (auto) 7.5 H Absolute Nucleated RBC 0.000 Nucleated RBC % 0.0 Sodium 129 L Potassium 4.5 Chloride 100 Carbon Dioxide 18 L Anion Gap 11 BUN 25 H Creatinine 0.76 Estim Creat Clear Calc 134 Estimated GFR > 60 Glucose 291 H POC Capillary Glucose 252 H 350 H Calcium 8.8 Total Bilirubin 1.2 AST 146 H ALT 108 H Alkaline Phosphatase 221 H C-Reactive Protein 7.6 H Total Protein 7.0 Albumin 3.3 L Vancomycin Trough 11.5 02/20/25 08:04 WBC RBC Hgb Hct MCV MCH MCHC RDW Plt Count MPV Immature Gran % (Auto) Neut % (Auto) Lymph % (Auto) [place] % (Auto) Eos % (Auto) Baso % (Auto) Lymph # (Auto) [place] # (Auto) Eos # (Auto) Baso # (Auto) Abs Immat Gran (auto) Absolute Neuts (auto) Absolute Nucleated RBC Nucleated RBC % Sodium Potassium Chloride Carbon Dioxide Anion Gap BUN Creatinine Estim Creat Clear Calc Estimated GFR Glucose POC Capillary Glucose 244 H Calcium Total Bilirubin AST ALT Alkaline Phosphatase C-Reactive Protein Total Protein Albumin Vancomycin Trough
[2025-02-20 15:20] VITALS: BP 115/72; PULSE 78; RESP 20; TEMP 36.4; O2SAT 98
[2025-02-20 19:34] VITALS: PULSE 75; O2SAT 98
[2025-02-20 20:00] VITALS: PULSE 75; RESP 20; O2SAT 98
[2025-02-21] MEDS: metroNIDAZOLE 500 MG/ISO 100ML 500 MG/100 ML BAG 100 MG IVPB ×3 (01:56→16:57)
[2025-02-21] MEDS: VANCOMYCIN 2,000 MG/NS 500 ML 2,000 MG/500 ML BAG 250 MG IVPB (04:04)
[2025-02-21 04:18] VITALS: PULSE 74; O2SAT 98
[2025-02-21 05:22] LABS: Hematocrit 43.0 % (42.0-52.0); Hemoglobin 13.8 g/dL (14.0-18.0); Immature Granulocyte Percent A 0.9 % (0-0.5); Lymphocytes Absolute Auto 0.65 K/mm3 (0.9-3.2); Mean Corpuscular HGB Conc 32.1 g/dl (32-36); Mean Corpuscular Hemoglobin 28.0 pg (26-34); Mean Corpuscular Volume 87.4 fl (80-100); Nucleated Red Blood Cells Absolute Auto 0.000 K/mm3 (0.0-0.012); Nucleated Red Blood Cells Perc 0.0 % (0.0-0.2); Platelet Count Result 243 k/mm3 (150-375); Red Blood Count 4.92 M/mm3 (4.6-6.20); White Blood Count 9.1 K/mm3 (4.5-10.0)
[2025-02-21] MEDS: CEFEPIME 2 GM in SODIUM CHLORIDE 0.9% IV 50 ML 100 ML IVPB ×2 (06:03→16:57)
[2025-02-21] MEDS: oxyCODONE HCL (*CRX) 5 MG TAB IR PO ×3 (06:03→23:28)
[2025-02-21 06:09] LABS: Alanine Aminotransferase 81 U/L (6-50); Albumin Level 3.0 g/dL (3.5-5.1); Alkaline Phosphatase 192 U/L (38-126); Anion Gap 9 mmol/L (4-12); Aspartate Amino Transferase 61 U/L (17-59); Bilirubin,Total 0.9 mg/dL (0.2-1.3); Blood Urea Nitrogen 27 mg/dL (9-20); CRP 8.3 mg/dL (<1.0); Calcium 8.8 mg/dL (8.4-10.2); Carbon Dioxide 20 mmol/L (22-30); Chloride 102 mmol/L (98-107); Estimated CRCL calculation 129 ml/min; Estimated Glomerular Filt Rate > 60; Glucose 104 mg/dL (65-110); Potassium 4.2 mmol/L (3.4-5.0); Sodium 131 mmol/L (137-145); Total Protein 6.6 g/dL (6.3-8.2)
[2025-02-21 06:38] VITALS: BP 110/67; PULSE 70; RESP 18; TEMP 36.3; O2SAT 100
--- NOTE | 2025-02-21 06:54 | P.PNIM_ITS ---
Progress Note: A&P Assessment and Plan (1) Osteomyelitis: Qualifiers: Laterality: right Osteomyelitis location: foot Osteomyelitis type: unspecified type Qualified Code(s): M86.9 - Osteomyelitis, unspecified Code(s): M86.9 - Osteomyelitis, unspecified Status: Acute Assessment and Plan: -patient follows with podiatry. Patient had outpatient MRI 02/16/25 which apparently showed osteomyelitis of the great toe. Records requested. - patient has been on doxycycline for 1 month and has had multiple debridements - initialCRP 20, downtrending. Afebrile, no leukocytosis. LA WNL. - s/p complex I&D by Dr. Curiel 02/19 - continue cefepime, Flagyl and vancomycin. Await surgical cultures. ID consulted, appreciate recs. 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 May benefit from vascular surgery consultation as outpatient. - pain control (2) Chronic kidney disease, stage 3: Code(s): N18.30 - Chronic kidney disease, stage 3 unspecified Status: Acute Assessment and Plan: -Cr 0.76, stable - avoid nephrotoxins (3) Type 2 diabetes mellitus with hyperglycemia, with long-term current use of insulin: Code(s): E11.65 - Type 2 diabetes mellitus with hyperglycemia; Z79.4 - buttermaker continuous churn (current) use of insulin Status: Acute Assessment and Plan: - last HgbA1c - 11.0 02/19/25. Admitted to poor compliance with home medications. - admit glucose 300s - hold home metformin, tirzepatide - continue home lantus at reduced dose. Start aspart 5u TIDWM with high dose SSI. Titrate PRN. - POCT glucose qACHS - hypoglycemia management protocol - customer success director consulted (4) Obstructive sleep apnea on CPAP: Code(s): G47.33 - Obstructive sleep apnea (adult) (pediatric); Z99.89 - Dependence on other enabling machines and devices Status: Acute Assessment and Plan: - continue home CPAP (5) CHF (congestive heart failure): Qualifiers: Heart failure chronicity: chronic Heart failure type: combined systolic and diastolic Qualified Code(s): I50.42 - Chronic combined systolic (congestive) and diastolic (congestive) heart failure Code(s): I50.9 - Heart failure, unspecified Status: Acute Assessment and Plan: - echo 05/2021 with EF 25-30% - continue home metoprolol and Entresto. Aldactone on hold due to hyponatremia. - monitor volume status (6) Hyperlipidemia associated with type 2 diabetes mellitus: Code(s): E11.69 - Type 2 diabetes mellitus with other specified complication; E78.5 - Hyperlipidemia, unspecified Status: Acute Assessment and Plan: -hold statin to elevated LFTs (7) Hyponatremia: Code(s): E87.1 - Hypo-osmolality and hyponatremia Status: Acute Assessment and Plan: - Na 132 corrected for hyperglycemia. - hold on IV fluids for now. Encourage PO intake and optimize blood sugars (8) CAD (coronary artery disease): Qualifiers: Associated angina: angina presence unspecified Coronary Disease- Associated Artery/Lesion type: [place] artery [place] vs. transplanted heart: [place] heart Qualified Code(s): I25.10 - Atherosclerotic heart disease of [place] coronary artery without angina pectoris Code(s): I25.10 - Atherosclerotic heart disease of [place] coronary artery without angina pectoris Status: Acute Assessment and Plan: - s/p CABG - continue home Plavix, ASA and statin (9) Transaminitis: Code(s): R74.01 - Elevation of levels of liver transaminase levels Status: Acute Assessment and Plan: - trending down today - hold statin - may be secondary to surgery Plan DVT prophylaxis: Lovenox post-op Code status: full code Dispo: likely 1-2 days pending culture data and ID recs Subjective Date/time seen: 02/21/25 06:54 Interval history: Patient seen and examined at bedside. Pain improved. Denied chest pain, SOB. Discussed plan of care, patient agreeable. Review of Systems Review of Systems: All systems reviewed & are unremarkable except as noted in HPI and below Exam Narrative: General: NAD Eyes: EOMI ENT: neck supple Cardiovascular: Regular rate and rhythm Respiratory: Clear to auscultation, respirations even and unlabored on RA Gastrointestinal: Soft, non tender Genitourinary: no suprapubic tenderness Musculoskeletal: No edema Skin: warm, dry. R foot in CRISTAL wrap. Neuro: Alert. Psych: Mood appropriate Objective Data Vital Signs Vital Signs: Vital Signs - 24 hr 02/20/25 08:07 02/20/25 11:17 02/20/25 13:42 Temperature Pulse Rate 80 Respiratory Rate Blood Pressure Pulse Oximetry Oxygen Delivery Room Air Room Air 02/20/25 15:20 02/20/25 19:34 02/20/25 20:00 Temperature 97.6 F Pulse Rate 78 75 75 Respiratory Rate 20 20 Blood Pressure 115/72 Pulse Oximetry 98 98 98 Oxygen Delivery CPAP CPAP 02/21/25 04:18 02/21/25 06:38 Temperature 97.4 F L Pulse Rate 74 70 Respiratory Rate 18 Blood Pressure 110/67 Pulse Oximetry 98 100 Oxygen Delivery CPAP Intake/Output Intake/Output: Intake & Output 02/18/25 02/19/25 02/20/25 02/21/25 23:59 23:59 23:59 23:59 Intake Total 1740 2365 2835 50 Output Total 2100 1000 Balance 1146 786 1109 50 Meds/Results Medications: Active Medications Generic Name Dose Route Start Last Admin Trade Name Freq PRN Reason Stop Dose Admin Acetaminophen 1,000 mg 02/19/25 15:32 Acetaminophen 500 Mg Tablet PO Q6H PRN Mild Pain (1-3) or Fever Hydrocodone Bitart/Acetaminophen 1 tab 02/19/25 15:32 02/20/25 18:25 Hydrocodone/Acetaminophen (*Crx) 5-325 Mg Tablet PO 1 tab Q4H PRN Administration Pain Rated 4-6 Aspirin 81 mg 10/03/25 09:00 02/20/25 08:07 Aspirin 81 Mg Enteric Tablet PO 81 mg DAILY ALISON Administration Atorvastatin Calcium 40 mg 02/19/25 21:00 02/19/25 20:04 Atorvastatin 40 Mg Tablet PO 40 mg On Hold: 02/20/25 07:07 QHS ALISON Administration Clopidogrel Bisulfate 75 mg 02/19/25 09:00 02/20/25 08:07 Clopidogrel Bisulfate 75 Mg Tablet PO 75 mg DAILY ALISON Administration Dextrose 12.5 gm 02/18/25 17:55 Dextrose 50% 25 Gm/50 Ml Syringe IV PUSH PRN PRN Hypoglycemia Protocol Empagliflozin 25 mg 02/19/25 09:00 02/20/25 08:07 Empagliflozin 25 Mg Tablet BY MOUTH 25 mg DAILY ALISON Administration Enoxaparin Sodium 40 mg 02/20/25 09:00 02/20/25 08:17 Enoxaparin 40 Mg/0.4 Ml Syringe SUB-Q 40 mg DAILY ALISON Administration Furosemide 80 mg 02/19/25 09:00 02/20/25 08:06 Furosemide 40 Mg Tablet PO 80 mg QAM ALISON Administration Glucagon 1 mg 02/18/25 17:55 Glucagon For Inj 1 Mg Vial IM PRN PRN Hypoglycemia Protocol Glucose 15 gm 02/18/25 17:55 Glucose Oral Gel 15 Gm Of Glucse In 37.5 Gm Tube PO PRN PRN Hypoglycemia Protocol Dextrose 1,000 mls @ 100 mls/hr 02/18/25 17:55 Dextrose 5% 1,000 Ml IVPB PRN PRN Hypoglycemia Protocol Cefepime HCl 2 gm/ Sodium 50 mls @ 100 mls/hr 02/19/25 06:00 02/21/25 06:51 Chloride IVPB Infused Q12H ALISON Infusion Metronidazole 500 mg in 100 mls @ 100 mls/hr 02/19/25 02:00 02/21/25 01:56 Flagyl 500 Mg/Iso Soln 100 Ml IVPB 100 mls/hr Q8H ALISON Administration Vancomycin HCl 2,000 mg in 500 mls @ 250 mls/hr 02/20/25 05:00 02/21/25 04:04 Vancomycin 2,000 Mg/Ns 500 Ml IVPB 250 mls/hr Q12H ALISON Administration Insulin Aspart 4 - 8 units 02/19/25 08:00 02/20/25 16:59 Insulin Aspart (*Bkc) 100 Units/Ml SUB-Q Not Given TIDWM [facility] Protocol Insulin Aspart 5 units 02/20/25 08:00 02/20/25 17:00 Insulin Aspart (*Bkc) 100 Units/Ml SUB-Q 5 units TIDWM ALISON Administration Insulin Glargine 40 units 02/20/25 09:00 02/20/25 08:17 Insulin Glargine (*Bkc) 100 Units/Ml SUB-Q 40 units QAM ALISON Administration Metoprolol Succinate 100 mg 02/19/25 09:00 02/20/25 08:07 Metoprolol Succinate Ext Rel 100 Mg Tabcr PO 100 mg DAILY ALISON Administration Morphine Sulfate 2 mg 02/18/25 22:07 02/20/25 10:23 Morphine Sulfate (*Crx) 4 Mg/Ml Inj IV PUSH 2 mg Q4H PRN Administration Pain Rated 7-10 Oxycodone HCl 5 mg 02/19/25 15:32 02/21/25 06:03 Oxycodone Hcl (*Crx) 5 Mg Tab Ir PO 5 mg Q6H PRN Administration Pain Rated 7-10 Sacubitril/Valsartan 1 tab 02/19/25 09:00 02/20/25 20:32 Sacubitril/Valsartan 97-103 Mg Tablet BY MOUTH 1 tab Q12HR ALISON Administration Radiology Results: ITS Impressions Chest X-Ray 02/18/25 14:27 Impression: No acute cardiopulmonary abnormality. Venous Doppler Study 02/19/25 17:01 Impression: Negative for DVT. Ankle Brachial Index 02/20/25 13:55 IMPRESSION: 1. Mildly decreased left TBI and normal left ORSANA, consistent with left-sided arterial occlusive disease. Note that ROSANA may be overestimated if arteries are calcified. 2. No significant right-sided arterial occlusive disease. Labs Labs: Laboratory Results - last 24 hr 02/20/25 02/20/25 02/20/25 08:04 11:47 16:38 WBC RBC Hgb Hct MCV MCH MCHC RDW Plt Count MPV Immature Gran % (Auto) Neut % (Auto) Lymph % (Auto) [place] % (Auto) Eos % (Auto) Baso % (Auto) Lymph # (Auto) [place] # (Auto) Eos # (Auto) Baso # (Auto) Abs Immat Gran (auto) Absolute Neuts (auto) Absolute Nucleated RBC Nucleated RBC % Sodium Potassium Chloride Carbon Dioxide Anion Gap BUN Creatinine Estim Creat Clear Calc Estimated GFR Glucose POC Capillary Glucose 244 H 227 H 165 H Calcium Total Bilirubin AST ALT Alkaline Phosphatase C-Reactive Protein Total Protein Albumin 02/20/25 02/21/25 19:43 04:41 WBC 9.1 RBC 4.92 Hgb 13.8 L Hct 43.0 MCV 87.4 MCH 28.0 MCHC 32.1 RDW 15.7 H Plt Count 243 MPV 9.5 Immature Gran % (Auto) 0.9 H Neut % (Auto) 80.8 H Lymph % (Auto) 7.1 L [place] % (Auto) 8.0 Eos % (Auto) 2.3 Baso % (Auto) 0.9 Lymph # (Auto) 0.65 L [place] # (Auto) 0.7 H Eos # (Auto) 0.2 Baso # (Auto) 0.1 Abs Immat Gran (auto) 0.08 H Absolute Neuts (auto) 7.4 H Absolute Nucleated RBC 0.000 Nucleated RBC % 0.0 Sodium 131 L Potassium 4.2 Chloride 102 Carbon Dioxide 20 L Anion Gap 9 BUN 27 H Creatinine 0.79 Estim Creat Clear Calc 129 Estimated GFR > 60 Glucose 104 POC Capillary Glucose 141 H Calcium 8.8 Total Bilirubin 0.9 AST 61 H ALT 81 H Alkaline Phosphatase 192 H C-Reactive Protein 8.3 H Total Protein 6.6 Albumin 3.0 L Quality VTE Prophylaxis VTE prophylaxis: mechanical ordered
[2025-02-21 08:38] VITALS: BP 141/74; PULSE 75; O2SAT 100
[2025-02-21 08:40] VITALS: PULSE 74
[2025-02-21] MEDS: SACUBITRIL/VALSARTAN 97-103 MG TABLET 1 TAB BY MOUTH ×2 (08:40→20:35)
[2025-02-21] MEDS: CLOPIDOGREL BISULFATE 75 MG TABLET PO (08:40)
[2025-02-21] MEDS: ASPIRIN 81 MG ENTERIC TABLET PO (08:40)
[2025-02-21] MEDS: FUROSEMIDE 40 MG TABLET 80 MG PO (08:40)
[2025-02-21] MEDS: EMPAGLIFLOZIN 25 MG TABLET BY MOUTH (08:40)
[2025-02-21] MEDS: METOPROLOL SUCCINATE EXT REL 100 MG TABCR PO (08:40)
[2025-02-21] MEDS: ENOXAPARIN 40 MG/0.4 ML SYRINGE SUB-Q (08:41)
[2025-02-21] MEDS: INSULIN ASPART (*BKC) 100 UNITS/ML SUB-Q ×4 (08:41→17:33)
[2025-02-21] MEDS: INSULIN GLARGINE (*BKC) 100 UNITS/ML 40 UNITS SUB-Q (08:42)
--- NOTE | 2025-02-21 10:07 | P.PN_ITS ---
Progress Note: A&P Assessment and Plan (1) Open wound of right great toe: Qualifiers: Encounter type: initial encounter Qualified Code(s): S91.101A - Unspecified open wound of right great toe without damage to nail, initial encounter Code(s): S91.101A - Unspecified open wound of right great toe without damage to nail, initial encounter Status: Acute Assessment and Plan: Despite incision and drainage of the abscess of the right 1st great toe he still has cellulitis of the area and appears to extend back to the 1st MTP joint now. The osteomyelitis is pretty severe and the toe and I do not think is going to be able to be salvaged. I recommended ray amputation of the right great toe tomorrow. He is agreeable to proceeding. Will make him NPO after midnight and Jhon onto the schedule for tomorrow. Continue IV antibiotics. Gram-positive cocci growing rods are seen on Gram stain. Need to continue cover for MRSA. Subjective Date/time seen: 02/21/25 10:07 Interval history: Patient clinically stable. Still having some pain in the right great toe. White blood count is normal. No fever. Exam Extrem: Other: Right great toe wound packing still has some mucoid for purulent drainage. Erythema is about the same. There is actually some extension of erythema to the 1st MTP joint on the right foot. Objective Data Vital Signs Vital Signs: Vital Signs - 24 hr 02/20/25 11:17 02/20/25 13:42 02/20/25 15:20 Temperature 36.4 C Pulse Rate 78 Respiratory Rate 20 Blood Pressure 115/72 Pulse Oximetry 98 Oxygen Delivery Room Air Room Air 02/20/25 19:34 02/20/25 20:00 02/21/25 04:18 Temperature Pulse Rate 75 75 74 Respiratory Rate 20 Blood Pressure Pulse Oximetry 98 98 98 Oxygen Delivery CPAP CPAP CPAP 02/21/25 06:38 02/21/25 08:38 02/21/25 08:40 Temperature 36.3 C L Pulse Rate 70 75 74 Respiratory Rate 18 Blood Pressure 110/67 141/74 H Pulse Oximetry 100 100 Oxygen Delivery 02/21/25 08:40 Temperature Pulse Rate Respiratory Rate Blood Pressure Pulse Oximetry Oxygen Delivery Room Air Intake/Output Intake/Output: Intake & Output 02/18/25 02/19/25 02/20/25 02/21/25 23:59 23:59 23:59 23:59 Intake Total 1740 2365 2835 50 Output Total 2100 1000 Balance 6064 251 2682 50 Meds/Results Medications: Active Medications Generic Name Dose Route Start Last Admin Trade Name Freq PRN Reason Stop Dose Admin Acetaminophen 1,000 mg 02/19/25 15:32 Acetaminophen 500 Mg Tablet PO Q6H PRN Mild Pain (1-3) or Fever Hydrocodone Bitart/Acetaminophen 1 tab 02/19/25 15:32 02/20/25 18:25 Hydrocodone/Acetaminophen (*Crx) 5-325 Mg Tablet PO 1 tab Q4H PRN Administration Pain Rated 4-6 Aspirin 81 mg 02/19/25 09:00 02/21/25 08:40 Aspirin 81 Mg Enteric Tablet PO 81 mg DAILY ALISON Administration Atorvastatin Calcium 40 mg 02/19/25 21:00 02/19/25 20:04 Atorvastatin 40 Mg Tablet PO 40 mg On Hold: 02/20/25 07:07 QHS ALISON Administration Clopidogrel Bisulfate 75 mg 02/19/25 09:00 02/21/25 08:40 Clopidogrel Bisulfate 75 Mg Tablet PO 75 mg DAILY ALISON Administration Dextrose 12.5 gm 02/18/25 17:55 Dextrose 50% 25 Gm/50 Ml Syringe IV PUSH PRN PRN Hypoglycemia Protocol Empagliflozin 25 mg 02/19/25 09:00 02/21/25 08:40 Empagliflozin 25 Mg Tablet BY MOUTH 25 mg DAILY ALISON Administration Enoxaparin Sodium 40 mg 02/20/25 09:00 02/21/25 08:41 Enoxaparin 40 Mg/0.4 Ml Syringe SUB-Q 40 mg DAILY ALISNO Administration Furosemide 80 mg 02/19/25 09:00 02/21/25 08:40 Furosemide 40 Mg Tablet PO 80 mg QAM ALISON Administration Glucagon 1 mg 02/18/25 17:55 Glucagon For Inj 1 Mg Vial IM PRN PRN Hypoglycemia Protocol Glucose 15 gm 02/18/25 17:55 Glucose Oral Gel 15 Gm Of Glucse In 37.5 Gm Tube PO PRN PRN Hypoglycemia Protocol Dextrose 1,000 mls @ 100 mls/hr 02/18/25 17:55 Dextrose 5% 1,000 Ml IVPB PRN PRN Hypoglycemia Protocol Cefepime HCl 2 gm/ Sodium 50 mls @ 100 mls/hr 02/19/25 06:00 02/21/25 06:51 Chloride IVPB Infused Q12H ALISON Infusion Metronidazole 500 mg in 100 mls @ 100 mls/hr 02/19/25 02:00 02/21/25 01:56 Flagyl 500 Mg/Iso Soln 100 Ml IVPB 100 mls/hr Q8H ALISON Administration Vancomycin HCl 2,000 mg in 500 mls @ 250 mls/hr 02/20/25 05:00 02/21/25 04:04 Vancomycin 2,000 Mg/Ns 500 Ml IVPB 250 mls/hr Q12H ALISON Administration Insulin Aspart 4 - 8 units 02/19/25 08:00 02/21/25 08:13 Insulin Aspart (*Bkc) 100 Units/Ml SUB-Q Not Given TIDWM [facility] Protocol Insulin Aspart 5 units 02/20/25 08:00 02/21/25 08:41 Insulin Aspart (*Bkc) 100 Units/Ml SUB-Q 5 units TIDWM ALISON Administration Insulin Glargine 40 units 02/20/25 09:00 02/21/25 08:42 Insulin Glargine (*Bkc) 100 Units/Ml SUB-Q 40 units QAM ALISON Administration Metoprolol Succinate 100 mg 02/19/25 09:00 02/21/25 08:40 Metoprolol Succinate Ext Rel 100 Mg Tabcr PO 100 mg DAILY ALISON Administration Morphine Sulfate 2 mg 02/18/25 22:07 02/20/25 10:23 Morphine Sulfate (*Crx) 4 Mg/Ml Inj IV PUSH 2 mg Q4H PRN Administration Pain Rated 7-10 Oxycodone HCl 5 mg 02/19/25 15:32 02/21/25 06:03 Oxycodone Hcl (*Crx) 5 Mg Tab Ir PO 5 mg Q6H PRN Administration Pain Rated 7-10 Sacubitril/Valsartan 1 tab 02/19/25 09:00 02/21/25 08:40 Sacubitril/Valsartan 97-103 Mg Tablet BY MOUTH 1 tab Q12HR ALISON Administration Radiology Results: ITS Impressions Chest X-Ray 02/18/25 14:27 Impression: No acute cardiopulmonary abnormality. Venous Doppler Study 02/19/25 17:01 Impression: Negative for DVT. Ankle Brachial Index 02/20/25 13:55 IMPRESSION: 1. Mildly decreased left TBI and normal left ROSANA, consistent with left-sided arterial occlusive disease. Note that ROSANA may be overestimated if arteries are calcified. 2. No significant right-sided arterial occlusive disease. Labs Labs: Laboratory Results - last 24 hr 02/20/25 02/20/25 02/20/25 11:47 16:38 19:43 WBC RBC Hgb Hct MCV MCH MCHC RDW Plt Count MPV Immature Gran % (Auto) Neut % (Auto) Lymph % (Auto) [place] % (Auto) Eos % (Auto) Baso % (Auto) Lymph # (Auto) [place] # (Auto) Eos # (Auto) Baso # (Auto) Abs Immat Gran (auto) Absolute Neuts (auto) Absolute Nucleated RBC Nucleated RBC % Sodium Potassium Chloride Carbon Dioxide Anion Gap BUN Creatinine Estim Creat Clear Calc Estimated GFR Glucose POC Capillary Glucose 227 H 165 H 141 H Calcium Total Bilirubin AST ALT Alkaline Phosphatase C-Reactive Protein Total Protein Albumin 02/21/25 02/21/25 04:41 07:56 WBC 9.1 RBC 4.92 Hgb 13.8 L Hct 43.0 MCV 87.4 MCH 28.0 MCHC 32.1 RDW 15.7 H Plt Count 243 MPV 9.5 Immature Gran % (Auto) 0.9 H Neut % (Auto) 80.8 H Lymph % (Auto) 7.1 L [place] % (Auto) 8.0 Eos % (Auto) 2.3 Baso % (Auto) 0.9 Lymph # (Auto) 0.65 L [place] # (Auto) 0.7 H Eos # (Auto) 0.2 Baso # (Auto) 0.1 Abs Immat Gran (auto) 0.08 H Absolute Neuts (auto) 7.4 H Absolute Nucleated RBC 0.000 Nucleated RBC % 0.0 Sodium 131 L Potassium 4.2 Chloride 102 Carbon Dioxide 20 L Anion Gap 9 BUN 27 H Creatinine 0.79 Estim Creat Clear Calc 129 Estimated GFR > 60 Glucose 104 POC Capillary Glucose 149 H Calcium 8.8 Total Bilirubin 0.9 AST 61 H ALT 81 H Alkaline Phosphatase 192 H C-Reactive Protein 8.3 H Total Protein 6.6 Albumin 3.0 L
[2025-02-21] MEDS: HYDROcodone/acetaminophen (*CRX) 5-325 MG TABLET 1 TAB PO ×2 (10:11→20:37)
[2025-02-21] MEDS: MORPHINE SULFATE (*CRX) 4 MG/ML INJ 2 MG IV PUSH (13:04)
[2025-02-21 15:36] VITALS: BP 135/72; PULSE 78; RESP 18; TEMP 36.4; O2SAT 100
[2025-02-21] MEDS: VANCOMYCIN 2,000 MG/NS 500 ML 2,000 MG/500 ML BAG 150 MG IVPB (17:33)
[2025-02-21 20:02] VITALS: BP 141/93; PULSE 87; RESP 16; TEMP 36.2; O2SAT 100
[2025-02-21] MEDS: SODIUM CHLORIDE 0.9% IV 1,000 ML 100 ML IV CONT (21:20)
[2025-02-22] VITALS (13 sets, daily range): BP systolic 98–153; BP diastolic 60–90; PULSE 71–82; RESP 16–20; TEMP 36.1–36.4; O2SAT 94–100
[2025-02-22] MEDS: metroNIDAZOLE 500 MG/ISO 100ML 500 MG/100 ML BAG 100 MG IVPB ×3 (01:42→14:13)
[2025-02-22] MEDS: MORPHINE SULFATE (*CRX) 4 MG/ML INJ 2 MG IV PUSH (01:43)
[2025-02-22] MEDS: VANCOMYCIN 2,000 MG/NS 500 ML 2,000 MG/500 ML BAG 150 MG IVPB ×2 (04:09→18:21)
[2025-02-22] MEDS: HYDROcodone/acetaminophen (*CRX) 5-325 MG TABLET 1 TAB PO ×2 (04:33→20:22)
[2025-02-22 05:43] LABS: Hematocrit 42.9 % (42.0-52.0); Hemoglobin 13.7 g/dL (14.0-18.0); Immature Granulocyte Percent A 1.2 % (0-0.5); Lymphocytes Absolute Auto 0.66 K/mm3 (0.9-3.2); Mean Corpuscular HGB Conc 31.9 g/dl (32-36); Mean Corpuscular Hemoglobin 28.0 pg (26-34); Mean Corpuscular Volume 87.6 fl (80-100); Nucleated Red Blood Cells Absolute Auto 0.000 K/mm3 (0.0-0.012); Nucleated Red Blood Cells Perc 0.0 % (0.0-0.2); Platelet Count Result 264 k/mm3 (150-375); Red Blood Count 4.90 M/mm3 (4.6-6.20); White Blood Count 9.5 K/mm3 (4.5-10.0)
[2025-02-22 06:05] LABS: Alanine Aminotransferase 60 U/L (6-50); Albumin Level 2.9 g/dL (3.5-5.1); Alkaline Phosphatase 157 U/L (38-126); Anion Gap 8 mmol/L (4-12); Aspartate Amino Transferase 34 U/L (17-59); Bilirubin,Total 0.6 mg/dL (0.2-1.3); Blood Urea Nitrogen 26 mg/dL (9-20); CRP 5.5 mg/dL (<1.0); Calcium 8.5 mg/dL (8.4-10.2); Carbon Dioxide 23 mmol/L (22-30); Chloride 103 mmol/L (98-107); Estimated CRCL calculation 110 ml/min; Estimated Glomerular Filt Rate > 60; Glucose 189 mg/dL (65-110); Potassium 3.5 mmol/L (3.4-5.0); Sodium 134 mmol/L (137-145); Total Protein 6.4 g/dL (6.3-8.2)
--- NOTE | 2025-02-22 07:00 | P.PNIM_ITS ---
Progress Note: A&P Assessment and Plan (1) Osteomyelitis: Qualifiers: Laterality: right Osteomyelitis location: foot Osteomyelitis type: unspecified type Qualified Code(s): M86.9 - Osteomyelitis, unspecified Code(s): M86.9 - Osteomyelitis, unspecified Status: Acute Assessment and Plan: -patient follows with podiatry. Patient had outpatient MRI 02/16/25 which apparently showed osteomyelitis of the great toe. Records requested. - patient has been on doxycycline for 1 month and has had multiple debridements - initial CRP 20, downtrending. Afebrile, no leukocytosis. LA WNL. - s/p complex I&D by Dr. Curiel 02/19 - general surgery following- concern for continued cellulitis and osteo. Planning for ray amputation today. - continue cefepime, Flagyl and vancomycin. Await surgical cultures. ID consulted, appreciate recs. 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 May benefit from vascular surgery consultation as outpatient. - pain control - PT/OT when able (2) Chronic kidney disease, stage 3: Code(s): N18.30 - Chronic kidney disease, stage 3 unspecified Status: Acute Assessment and Plan: -Cr 0.76, stable - avoid nephrotoxins (3) Type 2 diabetes mellitus with hyperglycemia, with long-term current use of insulin: Code(s): E11.65 - Type 2 diabetes mellitus with hyperglycemia; Z79.4 - ad terminal makeup operator (current) use of insulin Status: Acute Assessment and Plan: - last HgbA1c - 11.0 02/19/25. Admitted to poor compliance with home medications. - admit glucose 300s - hold home metformin, tirzepatide - continue home lantus at reduced dose, aspart 5u TIDWM with high dose SSI. Titrate PRN. - POCT glucose qACHS - hypoglycemia management protocol - vehicle upholsterer consulted (4) Obstructive sleep apnea on CPAP: Code(s): G47.33 - Obstructive sleep apnea (adult) (pediatric); Z99.89 - Dependence on other enabling machines and devices Status: Acute Assessment and Plan: - continue home CPAP (5) CHF (congestive heart failure): Qualifiers: Heart failure chronicity: chronic Heart failure type: combined systolic and diastolic Qualified Code(s): I50.42 - Chronic combined systolic (congestive) and diastolic (congestive) heart failure Code(s): I50.9 - Heart failure, unspecified Status: Acute Assessment and Plan: - echo 05/2021 with EF 25-30% - continue home metoprolol and Entresto. Aldactone on hold due to hyponatremia. - monitor volume status (6) Hyperlipidemia associated with type 2 diabetes mellitus: Code(s): E11.69 - Type 2 diabetes mellitus with other specified complication; E78.5 - Hyperlipidemia, unspecified Status: Acute Assessment and Plan: -hold statin to elevated LFTs (7) Hyponatremia: Code(s): E87.1 - Hypo-osmolality and hyponatremia Status: Acute Assessment and Plan: - improved with better glucose management. - Encourage PO intake and optimize blood sugars - daily BMP (8) CAD (coronary artery disease): Qualifiers: Associated angina: angina presence unspecified Coronary Disease- Associated Artery/Lesion type: [place] artery [place] vs. transplanted heart: [place] heart Qualified Code(s): I25.10 - Atherosclerotic heart disease of [place] coronary artery without angina pectoris Code(s): I25.10 - Atherosclerotic heart disease of [place] coronary artery without angina pectoris Status: Acute Assessment and Plan: - s/p CABG - continue home Plavix, ASA and statin (9) Transaminitis: Code(s): R74.01 - Elevation of levels of liver transaminase levels Status: Acute Assessment and Plan: - trending down today - hold statin - may be secondary to surgery Plan DVT prophylaxis: Lovenox post-op Code status: full code Dispo: TBD Subjective Date/time seen: 02/22/25 07:00 Interval history: Patient seen and examined at bedside. Surgery planning for amputation today. at bedside. Questions answered to the best of my ability. Review of Systems Review of Systems: All systems reviewed & are unremarkable except as noted in HPI and below Exam Narrative: General: NAD Eyes: EOMI ENT: neck supple Cardiovascular: Regular rate and rhythm Respiratory: Clear to auscultation, respirations even and unlabored on RA Gastrointestinal: Soft, non tender Genitourinary: no suprapubic tenderness Musculoskeletal: No edema Skin: warm, dry. R foot in CRISTAL wrap. Neuro: Alert. Psych: Mood appropriate Objective Data Vital Signs Vital Signs: Vital Signs - 24 hr 02/21/25 08:38 02/21/25 08:40 02/21/25 08:40 Temperature Pulse Rate 75 74 Respiratory Rate Blood Pressure 141/74 H Pulse Oximetry 100 Oxygen Delivery Room Air 02/21/25 15:36 02/21/25 20:02 02/21/25 22:12 Temperature 97.6 F 97.2 F L Pulse Rate 78 87 Respiratory Rate 18 16 Blood Pressure 135/72 141/93 H Pulse Oximetry 100 100 Oxygen Delivery CPAP 02/22/25 02:22 02/22/25 06:00 Temperature 97.5 F L Pulse Rate 77 Respiratory Rate 16 Blood Pressure 131/89 Pulse Oximetry 99 Oxygen Delivery CPAP Intake/Output Intake/Output: Intake & Output 02/19/25 02/20/25 02/21/25 02/22/25 23:59 23:59 23:59 23:59 Intake Total 2365 2835 2360 Output Total 2100 1000 Balance 265 1835 2360 Meds/Results Medications: Active Medications Generic Name Dose Route Start Last Admin Trade Name Freq PRN Reason Stop Dose Admin Acetaminophen 1,000 mg 02/19/25 15:32 Acetaminophen 500 Mg Tablet PO Q6H PRN Mild Pain (1-3) or Fever Hydrocodone Bitart/Acetaminophen 1 tab 02/19/25 15:32 02/22/25 04:33 Hydrocodone/Acetaminophen (*Crx) 5-325 Mg Tablet PO 1 tab Q4H PRN Administration Pain Rated 4-6 Aspirin 81 mg 02/19/25 09:00 02/21/25 08:40 Aspirin 81 Mg Enteric Tablet PO 81 mg DAILY ALISON Administration Atorvastatin Calcium 40 mg 02/19/25 21:00 02/19/25 20:04 Atorvastatin 40 Mg Tablet PO 40 mg On Hold: 02/20/25 07:07 QHS ALISON Administration Clopidogrel Bisulfate 75 mg 02/19/25 09:00 02/21/25 08:40 Clopidogrel Bisulfate 75 Mg Tablet PO 75 mg DAILY ALISON Administration Dextrose 12.5 gm 02/18/25 17:55 Dextrose 50% 25 Gm/50 Ml Syringe IV PUSH PRN PRN Hypoglycemia Protocol Empagliflozin 25 mg 02/19/25 09:00 02/21/25 08:40 Empagliflozin 25 Mg Tablet BY MOUTH 25 mg DAILY ALISON Administration Enoxaparin Sodium 40 mg 02/20/25 09:00 02/21/25 08:41 Enoxaparin 40 Mg/0.4 Ml Syringe SUB-Q 40 mg DAILY ALISON Administration Furosemide 80 mg 02/19/25 09:00 02/21/25 08:40 Furosemide 40 Mg Tablet PO 80 mg QAM ALISON Administration Glucagon 1 mg 02/18/25 17:55 Glucagon For Inj 1 Mg Vial IM PRN PRN Hypoglycemia Protocol Glucose 15 gm 02/18/25 17:55 Glucose Oral Gel 15 Gm Of Glucse In 37.5 Gm Tube PO PRN PRN Hypoglycemia Protocol Dextrose 1,000 mls @ 100 mls/hr 02/18/25 17:55 Dextrose 5% 1,000 Ml IVPB PRN PRN Hypoglycemia Protocol Cefepime HCl 2 gm/ Sodium 50 mls @ 100 mls/hr 02/19/25 06:00 02/21/25 17:27 Chloride IVPB Infused Q12H ALISON Infusion Metronidazole 500 mg in 100 mls @ 100 mls/hr 02/19/25 02:00 02/22/25 01:42 Flagyl 500 Mg/Iso Soln 100 Ml IVPB 100 mls/hr Q8H ALISON Administration Vancomycin HCl 2,000 mg in 500 mls @ 250 mls/hr 02/20/25 05:00 02/22/25 04:09 Vancomycin 2,000 Mg/Ns 500 Ml IVPB 150 mls/hr Q12H ALISON Administration Sodium Chloride 1,000 mls @ 100 mls/hr 02/21/25 23:55 02/21/25 21:20 Normal Saline Iv IV CONT 100 mls/hr .Q10H ALISON Administration Insulin Aspart 4 - 8 units 02/19/25 08:00 02/21/25 17:32 Insulin Aspart (*Bkc) 100 Units/Ml SUB-Q 5 units TIDWM ALISON Administration Protocol Insulin Aspart 5 units 02/20/25 08:00 02/21/25 17:33 Insulin Aspart (*Bkc) 100 Units/Ml SUB-Q 5 units TIDWM ALISON Administration Insulin Glargine 40 units 02/20/25 09:00 02/21/25 08:42 Insulin Glargine (*Bkc) 100 Units/Ml SUB-Q 40 units QAM ALISON Administration Metoprolol Succinate 100 mg 02/19/25 09:00 02/21/25 08:40 Metoprolol Succinate Ext Rel 100 Mg Tabcr PO 100 mg DAILY ALISON Administration Morphine Sulfate 2 mg 02/18/25 22:07 02/22/25 01:43 Morphine Sulfate (*Crx) 4 Mg/Ml Inj IV PUSH 2 mg Q4H PRN Administration Pain Rated 7-10 Oxycodone HCl 5 mg 02/19/25 15:32 02/21/25 23:28 Oxycodone Hcl (*Crx) 5 Mg Tab Ir PO 5 mg Q6H PRN Administration Pain Rated 7-10 Sacubitril/Valsartan 1 tab 02/19/25 09:00 02/21/25 20:35 Sacubitril/Valsartan 97-103 Mg Tablet BY MOUTH 1 tab Q12HR ALISON Administration Radiology Results: ITS Impressions Chest X-Ray 02/18/25 14:27 Impression: No acute cardiopulmonary abnormality. Venous Doppler Study 02/19/25 17:01 Impression: Negative for DVT. Ankle Brachial Index 02/20/25 13:55 IMPRESSION: 1. Mildly decreased left TBI and normal left ROSANA, consistent with left-sided arterial occlusive disease. Note that ROSANA may be overestimated if arteries are calcified. 2. No significant right-sided arterial occlusive disease. Labs Labs: Laboratory Results - last 24 hr 02/21/25 02/21/25 02/21/25 07:56 11:48 15:53 WBC RBC Hgb Hct MCV MCH MCHC RDW Plt Count MPV Immature Gran % (Auto) Neut % (Auto) Lymph % (Auto) [place] % (Auto) Eos % (Auto) Baso % (Auto) Lymph # (Auto) [place] # (Auto) Eos # (Auto) Baso # (Auto) Abs Immat Gran (auto) Absolute Neuts (auto) Absolute Nucleated RBC Nucleated RBC % Sodium Potassium Chloride Carbon Dioxide Anion Gap BUN Creatinine Estim Creat Clear Calc Estimated GFR Glucose POC Capillary Glucose 149 H 157 H Calcium Total Bilirubin AST ALT Alkaline Phosphatase C-Reactive Protein Total Protein Albumin Vancomycin Trough 18.9 02/21/25 02/21/25 02/22/25 17:11 19:56 04:49 WBC 9.5 RBC 4.90 Hgb 13.7 L Hct 42.9 MCV 87.6 MCH 28.0 MCHC 31.9 L RDW 15.6 H Plt Count 264 MPV 9.2 Immature Gran % (Auto) 1.2 H Neut % (Auto) 78.6 H Lymph % (Auto) 6.9 L [place] % (Auto) 8.8 H Eos % (Auto) 3.8 Baso % (Auto) 0.7 Lymph # (Auto) 0.66 L [place] # (Auto) 0.8 H Eos # (Auto) 0.4 H Baso # (Auto) 0.1 Abs Immat Gran (auto) 0.11 H Absolute Neuts (auto) 7.5 H Absolute Nucleated RBC 0.000 Nucleated RBC % 0.0 Sodium 134 L Potassium 3.5 Chloride 103 Carbon Dioxide 23 Anion Gap 8 BUN 26 H Creatinine 0.94 Estim Creat Clear Calc 110 Estimated GFR > 60 Glucose 189 H POC Capillary Glucose 257 H 231 H Calcium 8.5 Total Bilirubin 0.6 AST 34 ALT 60 H Alkaline Phosphatase 157 H C-Reactive Protein 5.5 H Total Protein 6.4 Albumin 2.9 L Vancomycin Trough Quality VTE Prophylaxis VTE prophylaxis: mechanical ordered
[2025-02-22] MEDS: CEFEPIME 2 GM in SODIUM CHLORIDE 0.9% IV 50 ML 100 ML IVPB ×2 (07:15→17:27)
[2025-02-22] MEDS: SODIUM CHLORIDE 0.9% IV 1,000 ML 100 ML IV CONT (09:11)
[2025-02-22] MEDS: METOPROLOL SUCCINATE EXT REL 100 MG TABCR PO (09:55)
--- NOTE | 2025-02-22 13:53 | WPDANESEPPF ---
Anes - Initial Pre Proc Eval Procedure: Operation Date: 02/22/25 14:30 Proposed Procedures p Ray Amputation Right Great Toe - Anuj Curiel MD Date/Time: 02/22/25 13:53 Surgeon: Liza Alves MD Pre Op Diagnosis: Osteomyelitis Patient Data Age: 49 Gender: M Height: 1.8 m Weight: 121.2 kg Last Vital Signs Temp 36.4 C L 02/22/25 06:00 Pulse 77 02/22/25 09:55 Resp 16 02/22/25 06:00 BP 131/89 02/22/25 06:00 Pulse Ox 99 02/22/25 06:00 O2 Del Method Room Air 02/22/25 08:40 O2 Flow Rate 6 02/19/25 14:40 Allergies Allergy/AdvReac Type Severity Reaction Status Date / Time atenolol AdvReac Unknown cough Verified 02/18/25 17:31 Home Medications ?Medication ?Instructions ?Recorded ?Confirmed ?Type aspirin 81 mg tablet,delayed 81 mg PO DAILY 05/31/19 02/18/25 History release smhjxeag-bsbhbfiz-xwner acid 400 1 tablet PO DAILY 05/31/19 02/18/25 History mcg-vit K 20 mcg-lycop 300 mcg tablet (Men's Multivitamin) pen needle, diabetic 31 gauge x See Rx Instructions .Route 10/10/21 02/18/25 Rx 5/16 (BD Ultra-Fine Short Pen .COMPLEX #1,200 syringes Needle) insulin glargine 100 unit/mL (3 60 unit (0.6 mL) subcut QAM #60 mL 04/16/23 02/18/25 Rx mL) subcutaneous pen (Lantus Solostar U-100 Insulin) insulin lispro 100 unit/mL 1 sliding scale dose subcut 04/16/23 02/18/25 Rx subcutaneous pen USEASDIRECTD #15 mL metoprolol succinate 100 mg 100 mg PO DAILY #90 tabs 04/16/23 02/18/25 Rx tablet,extended release 24 hr blood-glucose sensor (Dexcom G6 #9 ea 11/11/23 02/18/25 Rx Sensor device) blood-glucose transmitter (Dexcom #1 ea 11/11/23 02/18/25 Rx G6 Transmitter device) clopidogrel 75 mg tablet (Plavix) 75 mg PO DAILY #90 tabs 01/02/24 02/18/25 Rx sertraline 100 mg tablet 100 mg PO DAILY #90 tabs 04/13/24 02/18/25 Rx furosemide 40 mg tablet 80 mg (2 x 40 mg) PO QAM #180 tabs 05/18/24 02/18/25 Rx tirzepatide 7.5 mg/0.5 mL See Rx Instructions .Route 05/26/24 02/18/25 Rx subcutaneous pen injector .COMPLEX #4 mL (Mounjaro) sacubitril 97 mg-valsartan 103 mg See Rx Instructions .Route 07/24/24 02/18/25 Rx tablet (Entresto) .COMPLEX #180 tabs empagliflozin 25 mg tablet See Rx Instructions .Route 08/28/24 02/18/25 Rx (Jardiance) .COMPLEX #90 tabs spironolactone 25 mg tablet See Rx Instructions .Route 08/28/24 02/18/25 Rx .COMPLEX #90 tabs atorvastatin 40 mg tablet 40 mg PO QHS #90 tabs 12/21/24 02/18/25 Rx metformin 500 mg tablet,extended 1,000 mg (2 x 500 mg) PO BID #180 12/21/24 02/18/25 Rx release 24 hr tabs acetaminophen 300 mg-codeine 30 mg 1 tablet PO Q4H PRN pain 02/16/25 02/18/25 History tablet doxycycline hyclate 100 mg capsule 100 mg PO Q12H 02/16/25 02/18/25 History Laboratory Tests 02/21/25 02/21/25 02/21/25 15:53 17:11 19:56 WBC RBC Hgb Hct MCV MCH MCHC RDW Plt Count MPV Immature Gran % (Auto) Neut % (Auto) Lymph % (Auto) [place] % (Auto) Eos % (Auto) Baso % (Auto) Lymph # (Auto) [place] # (Auto) Eos # (Auto) Baso # (Auto) Abs Immat Gran (auto) Absolute Neuts (auto) Absolute Nucleated RBC Nucleated RBC % Sodium Potassium Chloride Carbon Dioxide Anion Gap BUN Creatinine Estim Creat Clear Calc Estimated GFR Glucose POC Capillary Glucose 257 H mg/dl 231 H mg/dl (65-105) (65-105) Calcium Total Bilirubin AST ALT Alkaline Phosphatase C-Reactive Protein Total Protein Albumin Vancomycin Trough 18.9 ug/mL (10.0-20.0) 02/22/25 02/22/25 02/22/25 04:49 08:08 11:25 WBC 9.5 K/mm3 (4.5-10.0) RBC 4.90 M/mm3 (4.6-6.20) Hgb 13.7 L g/dL (14.0-18.0) Hct 42.9 % (42.0-52.0) MCV 87.6 fl (80-100) MCH 28.0 pg (26-34) MCHC 31.9 L g/dl (32-36) RDW 15.6 H % (11.5-14.5) Plt Count 264 k/mm3 (150-375) MPV 9.2 fl (7.4-10.4) Immature Gran % (Auto) 1.2 H % (0-0.5) Neut % (Auto) 78.6 H % (45.5-73.1) Lymph % (Auto) 6.9 L % (18.3-44.2) [place] % (Auto) 8.8 H % (2.6-8.5) Eos % (Auto) 3.8 % (0-4.4) Baso % (Auto) 0.7 % (0.2-1.2) Lymph # (Auto) 0.66 L K/mm3 (0.9-3.2) [place] # (Auto) 0.8 H K/mm3 (0.1-0.6) Eos # (Auto) 0.4 H K/mm3 (0-0.3) Baso # (Auto) 0.1 K/mm3 (0.0-0.1) Abs Immat Gran (auto) 0.11 H K/mm3 (0.00-0.031) Absolute Neuts (auto) 7.5 H K/mm3 (1.3-6.7) Absolute Nucleated RBC 0.000 K/mm3 (0.0-0.012) Nucleated RBC % 0.0 % (0.0-0.2) Sodium 134 L mmol/L (137-145) Potassium 3.5 mmol/L (3.4-5.0) Chloride 103 mmol/L (98-107) Carbon Dioxide 23 mmol/L (22-30) Anion Gap 8 mmol/L (4-12) BUN 26 H mg/dL (9-20) Creatinine 0.94 mg/dL (0.7-1.3) Estim Creat Clear Calc 110 ml/min Estimated GFR > 60 (59 - ) Glucose 189 H mg/dL (65-110) POC Capillary Glucose 139 H mg/dl 157 H mg/dl (65-105) (65-105) Calcium 8.5 mg/dL (8.4-10.2) Total Bilirubin 0.6 mg/dL (0.2-1.3) AST 34 U/L (17-59) ALT 60 H U/L (6-50) Alkaline Phosphatase 157 H U/L (38-126) C-Reactive Protein 5.5 H mg/dL (<1.0) Total Protein 6.4 g/dL (6.3-8.2) Albumin 2.9 L g/dL (3.5-5.1) Vancomycin Trough Patient hx anesthesia problems: none Family hx anesthesia problems: none Results Review: All pre-operative results and documents have been reviewed as part of the pre-operative evaluation. [facility], [facility] Past Medical History Medical History CHF (congestive heart failure) Echocardiogram 2020 demonstrated EF of 15-20 with grade 3 diastolic dysfunction repeat echocardiogram 2021 demonstrated moderate left ventricular enlargement, moderate left ventricular systolic dysfunction, impaired diastolic relaxation grade 1, moderate left atrial enlargement, prior echos have demonstrated moderate pulmonary hypertension but study from 2021 was technically difficult. Moderate pulmonary hypertension Ischemic cardiomyopathy Diabetic neuropathy Diabetic nephropathy Trochanteric bursitis, right hip Transient atrial fibrillation/flutter 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 Mitral valve regurgitation Obstructive sleep apnea on CPAP COVID-19 (01/2021) Erectile dysfunction BPH loc w urin obs/LUTS Chronic depression Chronic kidney disease, stage 3 (moderate) Macroalbuminuric diabetic nephropathy Mixed hyperlipidemia Type 2 diabetes mellitus, with long-term current use of insulin Hemoglobin A1c was 11.1% on 05/31/2019. And 8.25 March 2021 Polycythemia Herniated disc HTN (hypertension) Myocardial infarction Surgical History Surgical History History of coronary artery bypass graft x 2 (09/30/19) Bypass of the LAD and right posterior left ventricular branch. Complicated by sternal infection. Status post panniculectomy (2001) History of laparoscopic cholecystectomy (11/2008) History of cardiac catheterization 10/09/2013: PTCA/stent to circumflex. 06/02/2019: Multivessel coronary artery disease with severe ischemic cardiomyopathy with ejection fraction around 25%, referred for surgical revascularization Family History Family History Mother Pancreatic cancer Hypertension Family history of cardiovascular disease Family history of malignant neoplasm Father Colon cancer Diabetes mellitus Atrial fibrillation Family history of malignant neoplasm Sibling Diabetes mellitus Kidney disease Hypertension Social History Social History Social History: The patient lives at home with his and their 2 (ages 17 and 19 as of February 2025) children in [place]. He works for [employer] in [employer]. Lifelong nonsmoker. He drinks perhaps 1-2 alcoholic beverages a month on average. No illicit substance use. He designates his , Maru Dunn, as his surrogate decision-maker. CODE STATUS: Full code. Surrogate decision maker: Maru Dunn () Smoking status: Never smoker Alcohol intake: never Substance use: never Substance use type: does not use Do You Feel Safe in your Home?: Yes Lack of Transportation: No Lack of Food: Never True Current Housing: I Have Housing Concerned About Future Housing: No Difficulty Paying Gas/Electric Bills: No Difficulty Paying for Meds: No Currently Unemployed: No Education: Bachelor's Degree Difficulty w/ Childcare or Family Care: No Living arrangements: with family Spiritual care concerns: No Anes - Eval Final PreProcedure Day of Procedure 02/22/25 13:53 Patient weight: obese Heart: regular rate and rhythm Lungs: clear to auscultation Airway: Mallampati scale class II Neurological: alert and oriented Last oral intake: >/= 8 hours ASA classification: IV Emergent: no Anesthetic plan: proceed Anesthesia type and monitoring: general LMA and standard monitoring Results Review: All pre-operative results and documents have been reviewed as part of the pre-operative evaluation. Informed Consent: The patient's anesthetic plan and its attendant risks and benefits were discussed with the patient/family/POA. Questions were solicited and answers provided to the satisfaction of the patient/family/POA.
--- NOTE | 2025-02-22 14:04 | WPDHPUPDATE1 ---
History and Physical Update Update Date/Time: 02/22/25 14:04 History and Physical has been reviewed, including an updated exam of the patient. There are NO changes in the patient's condition. Risks, benefits, and alternatives have been discussed and questions answered. Patient agrees to proceed with procedure.
[2025-02-22] MEDS: LIDO 1%/EPINEPHRINE 1:100,000 20 ML VIAL 30 ML INFILTRATE (14:54)
[2025-02-22] MEDS: BUPivacaine HCL 0.5% 10 ML AMP 30 ML INFILTRATE (14:54)
--- NOTE | 2025-02-22 15:02 | S_PTH ---
PATIENT: Getachew Dunn LOC: [id number] U#:[id number] AGE/SX: 49/M ROOM: 242 RE02/18/[address]: Darrion Du PA-C : 1975 BED: 01 DIS: 02/25/2025 SPEC #: [id number] RECD: 02/23/25 08:14 STATUS: PITA RELucia #: [id number] AMANDA: 02/22/25 15:[address]: Anuj Curiel DEPT: [facility] Surgical RECD BY: Lauren Moore ENTERED: 02/23/25 08:14 SP TYPE: Surgical OTHR DR: MD Lindsay Stanford MD Onyema Nnanna, MD Natalie J. Ross, PA Tissues: A - Toe Procedures: Hematoxylin and Eosin Stain Gross and Microscopic Level 4 Decalcification
[2025-02-22] MEDS: LACTATED RINGERS 1,000 ML 30 ML IV CONT (15:34)
--- NOTE | 2025-02-22 15:51 | W.PM.PROC2 ---
Procedure Note - Detailed Date of Procedure 02/22/25 Pre-op Diagnosis Diabetic right great toe ulcer and osteomyelitis. Post-op Diagnosis Same Procedure Performed Ray amputation right great toe with application of wound VAC Surgeon Anuj Curiel MD Guest Services Assistant Jhon Newell SA Anesthesia General Indications Patient is a 49-year-old white male presented with abscess of the right great toe associated osteomyelitis. He initially had incision and drainage of the abscess and was found to have obvious osteomyelitis with destruction of the PIP joint on the right great toe. The infection did not improve with drainage and appears he has cellulitis extending up to the right 1st MTP joint. He presents now for ray amputation of the right great toe on the right foot. Findings The patient is cellulitis extending up to the right 1st MTP joint. Upon disarticulation of the great toe at the joint tissues appear to be viable without evidence of necrosis or purulence. The end of the 1st metatarsal was normal without evidence of osteomyelitis. A black foam wound VAC was placed. The total area of the wound VAC was 15 sq cm. Description of Procedure After informed consent was obtained patient brought to the operating room was placed supine position and then general LMA anesthesia was administered. The lower extremity was then prepped and draped circumferentially from the toes to the proximal right tibia. Time-out was then performed correctly identifying the patient as well as procedure to be performed. Site marking was verified. He was already on scheduled IV antibiotics. I 1st started by making a circumferential incision around the base of the right great toe. This done sharply with a scalpel and then I extended the incision along the medial aspect of the right foot along the edge of the 1st metatarsal. The incision was carried sharply down through the soft tissues to the bone. I then sharply divided the periosteum the subcutaneous tissues and then entered the joint space at the MTP joint. The great great toe was disarticulated at the end MTP joint and sent to pathology. The 1st metatarsal head was normal appearance without evidence of any osteomyelitis. The surrounding tissues appeared to be healthy as well. There was good bleeding from the tissues. I then used a periosteal elevator to separate the tissues from the periosteum of the shaft of the 1st metatarsal. Once this was done I then used a small pneumatic bone saw to divide the distal shaft of the 1st metatarsal removing the 1st metatarsal head. The metatarsal head was sent to pathology with the toe for examination. I then utilized electrocautery judiciously to achieve hemostasis in the wound. I then fulgurated the bone marrow at the tip of the metatarsal. I then irrigated and hemostasis was good. There was no remaining necrotic tissue. Both the extensor and flexor tendon to the 1st toe was cut back proximal to the end of the metatarsal. I then proceeded to close some of the soft tissue over the end of the metatarsal. This done with interrupted 2-0 Vicryl sutures. The skin incision over the medial part of the right foot was then partially closed with some interrupted 3-0 nylon sutures placed in vertical mattress fashion. This left an open wound measuring approximately [id number]. I then proceed to place a wound VAC into the wound utilizing black foam sponge. The area of the wound VAC was 15 sq cm. The foam was utilized over to the dorsal of the forefoot and then the clear adhesive dressings were placed. A hole was cut in the adhesive dressing then the circular suction pad was placed and an airtight seal was obtained. Wound VAC was then engaged and turned on and there was a good seal without any air leak. I then placed additional clear adhesive dressings to reinforce the edges. The wound VAC was left at 125mm of continuous suction. The foot was then cleaned. The patient tolerated the procedure well no complications. All sponges, needles, and instrument counts were correct at the end procedure. EBL was __50_cc. The patient was awakened and taken to recovery in stable and satisfactory condition. Implants None Estimated Blood Loss 50 Urine Output 1,000 Drains No Packing Yes (Wound VAC to right great toe amputation site.) Pathology Yes (Right great toe and 1st metatarsal head to pathology) Complications No immediate complications Condition Stable Disposition PACU [facility] Billing Surgery - Charge Forward: Surgery Billing
--- NOTE | 2025-02-22 15:52 | PCPTNOTE ---
The patient treatment was not able to be completed due to patient out of the room for surgery. Will continue to follow when medically able.
[2025-02-22] MEDS: fentaNYL CITRATE INJ (*CRX) 100 MCG/2 ML VIAL 25 MCG IV PUSH ×2 (16:17→16:19)
[2025-02-22] MEDS: INSULIN ASPART (*BKC) 100 UNITS/ML SUB-Q (18:21)
[2025-02-22] MEDS: SACUBITRIL/VALSARTAN 97-103 MG TABLET 1 TAB BY MOUTH (20:22)
[2025-02-22] MEDS: ATORVASTATIN 40 MG TABLET PO (20:22)
[2025-02-23] VITALS (8 sets, daily range): BP systolic 117–149; BP diastolic 75–87; PULSE 75–80; RESP 16–18; TEMP 36.3–36.6; O2SAT 96–100
[2025-02-23] MEDS: HYDROcodone/acetaminophen (*CRX) 5-325 MG TABLET 1 TAB PO ×2 (03:28→08:16)
[2025-02-23 04:37] LABS: Estimated CRCL calculation 112 ml/min; Estimated Glomerular Filt Rate > 60
[2025-02-23] MEDS: CEFEPIME 2 GM in SODIUM CHLORIDE 0.9% IV 50 ML 100 ML IVPB ×3 (05:30→20:51)
[2025-02-23] MEDS: oxyCODONE HCL (*CRX) 5 MG TAB IR PO ×4 (05:35→20:21)
--- NOTE | 2025-02-23 07:05 | P.PNIM_ITS ---
Progress Note: A&P Assessment and Plan (1) Osteomyelitis: Qualifiers: Laterality: right Osteomyelitis location: foot Osteomyelitis type: unspecified type Qualified Code(s): M86.9 - Osteomyelitis, unspecified Code(s): M86.9 - Osteomyelitis, unspecified Status: Acute Assessment and Plan: -patient follows with podiatry. Patient had outpatient MRI 02/16/25 which apparently showed osteomyelitis of the great toe. Records requested. Patient was on doxycycline for 1 month and has had multiple debridements - initial CRP 20, downtrending. Afebrile, no leukocytosis. LA WNL. - s/p complex I&D of R great toe by Dr. Curiel 02/19. Culture with heavy growth of gram negative bacilli, speciation pending. - concern for continued cellulitis and osteo. S/p R ray amputation with wound vac placement by Dr. Curiel 02/22. - blood cultures NGTD - continue cefepime, Flagyl and vancomycin. Await surgical cultures. ID consulted, appreciate recs. 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 - pain control - PT/OT, care coordination consulted - wound care (2) Chronic kidney disease, stage 3: Code(s): N18.30 - Chronic kidney disease, stage 3 unspecified Status: Acute Assessment and Plan: -Cr 0.76, stable - avoid nephrotoxins (3) Type 2 diabetes mellitus with hyperglycemia, with long-term current use of insulin: Code(s): E11.65 - Type 2 diabetes mellitus with hyperglycemia; Z79.4 - bed bug exterminator (current) use of insulin Status: Acute Assessment and Plan: - last HgbA1c - 11.0 02/19/25. Admitted to poor compliance with home medications. - admit glucose 300s - hold home metformin, tirzepatide - continue home lantus at reduced dose, aspart 5u TIDWM with high dose SSI. Titrate PRN. - POCT glucose qACHS - hypoglycemia management protocol - perinatal educator consulted (4) Obstructive sleep apnea on CPAP: Code(s): G47.33 - Obstructive sleep apnea (adult) (pediatric); Z99.89 - Dependence on other enabling machines and devices Status: Acute Assessment and Plan: - continue home CPAP (5) CHF (congestive heart failure): Qualifiers: Heart failure chronicity: chronic Heart failure type: combined systolic and diastolic Qualified Code(s): I50.42 - Chronic combined systolic (congestive) and diastolic (congestive) heart failure Code(s): I50.9 - Heart failure, unspecified Status: Acute Assessment and Plan: - echo 05/2021 with EF 25-30% - continue home metoprolol and Entresto. Aldactone on hold due to hyponatremia. - monitor volume status (6) Hyperlipidemia associated with type 2 diabetes mellitus: Code(s): E11.69 - Type 2 diabetes mellitus with other specified complication; E78.5 - Hyperlipidemia, unspecified Status: Acute Assessment and Plan: -hold statin due to elevated LFTs - repeat CMP in AM (7) Hyponatremia: Code(s): E87.1 - Hypo-osmolality and hyponatremia Status: Acute Assessment and Plan: - improved with better glucose management. - Encourage PO intake and optimize blood sugars - daily BMP (8) CAD (coronary artery disease): Qualifiers: Associated angina: angina presence unspecified Coronary Disease- Associated Artery/Lesion type: [place] artery [place] vs. transplanted heart: [place] heart Qualified Code(s): I25.10 - Atherosclerotic heart disease of [place] coronary artery without angina pectoris Code(s): I25.10 - Atherosclerotic heart disease of [place] coronary artery without angina pectoris Status: Acute Assessment and Plan: - s/p CABG - continue home Plavix, ASA and statin (9) Transaminitis: Code(s): R74.01 - Elevation of levels of liver transaminase levels Status: Acute Assessment and Plan: - trending down - hold statin - may be secondary to surgery - repeat CMP in AM Plan DVT prophylaxis: Irisx Code status: full code Dispo: TBD pending PT/OT recs. Will need wound vac on discharge. Subjective Date/time seen: 02/23/25 07:05 Interval history: Patient seen and examined at bedside. Doing well post-op other than some mild pain. Feeling some bloating in his abdomen. Denied chest pain, shortness of breath, LE edema. Review of Systems Review of Systems: All systems reviewed & are unremarkable except as noted in HPI and below Exam Narrative: General: NAD Eyes: EOMI ENT: neck supple Cardiovascular: Regular rate and rhythm Respiratory: Clear to auscultation, respirations even and unlabored on RA Gastrointestinal: Soft, non tender Genitourinary: no suprapubic tenderness Musculoskeletal: No edema Skin: warm, dry. R great toe amputation with wound vac in place. Neuro: Alert. Psych: Mood appropriate Objective Data Vital Signs Vital Signs: Vital Signs - 24 hr 02/22/25 08:40 02/22/25 09:55 02/22/25 13:15 Temperature 97.3 F L Pulse Rate 77 82 Respiratory Rate 16 Blood Pressure 141/84 H Pulse Oximetry 99 Oxygen Delivery Room Air Room Air Oxygen Flow Rate 02/22/25 15:34 02/22/25 15:47 02/22/25 15:50 Temperature 97.0 F L Pulse Rate 71 75 72 Respiratory Rate 20 20 18 Blood Pressure 98/60 L 105/62 122/73 Pulse Oximetry 100 100 100 Oxygen Delivery Simple Face Mask Simple Face Mask Simple Face Mask Oxygen Flow Rate 10 10 10 02/22/25 16:05 02/22/25 16:20 02/22/25 16:35 Temperature Pulse Rate 72 71 75 Respiratory Rate 20 18 16 Blood Pressure 132/78 130/70 139/79 Pulse Oximetry 100 94 99 Oxygen Delivery Room Air Room Air Room Air Oxygen Flow Rate 02/22/25 16:50 02/22/25 17:26 02/22/25 20:09 Temperature 97.2 F L 97.5 F L Pulse Rate 74 75 74 Respiratory Rate 18 18 16 Blood Pressure 133/71 142/77 H 153/90 H Pulse Oximetry 99 99 100 Oxygen Delivery Room Air Oxygen Flow Rate 02/22/25 20:20 02/22/25 23:58 02/23/25 02:00 Temperature 97.5 F L Pulse Rate 78 Respiratory Rate 16 Blood Pressure 145/85 H Pulse Oximetry 100 Oxygen Delivery Room Air CPAP Oxygen Flow Rate 02/23/25 04:54 Temperature 97.9 F Pulse Rate 76 Respiratory Rate 16 Blood Pressure 149/87 H Pulse Oximetry 100 Oxygen Delivery Oxygen Flow Rate Intake/Output Intake/Output: Intake & Output 02/20/25 02/21/25 02/22/25 02/23/25 23:59 23:59 23:59 23:59 Intake Total 2835 2360 3440 1000 Output Total 1000 1700 750 Balance 1835 2360 1740 250 Meds/Results Medications: Active Medications Generic Name Dose Route Start Last Admin Trade Name Freq PRN Reason Stop Dose Admin Acetaminophen 1,000 mg 02/19/25 15:32 Acetaminophen 500 Mg Tablet PO Q6H PRN Mild Pain (1-3) or Fever Hydrocodone Bitart/Acetaminophen 1 tab 02/19/25 15:32 02/23/25 03:28 Hydrocodone/Acetaminophen (*Crx) 5-325 Mg Tablet PO 1 tab Q4H PRN Administration Pain Rated 4-6 Aspirin 81 mg 02/19/25 09:00 02/22/25 09:07 Aspirin 81 Mg Enteric Tablet PO Not Given DAILY ALISON Atorvastatin Calcium 40 mg 02/19/25 21:00 02/22/25 20:22 Atorvastatin 40 Mg Tablet PO 40 mg QHS ALISON Administration Clopidogrel Bisulfate 75 mg 02/19/25 09:00 02/22/25 09:07 Clopidogrel Bisulfate 75 Mg Tablet PO Not Given DAILY ALISON Dextrose 12.5 gm 02/18/25 17:55 Dextrose 50% 25 Gm/50 Ml Syringe IV PUSH PRN PRN Hypoglycemia Protocol Empagliflozin 25 mg 02/19/25 09:00 02/22/25 09:07 Empagliflozin 25 Mg Tablet BY MOUTH Not Given DAILY ALISON Enoxaparin Sodium 40 mg 02/20/25 09:00 02/22/25 09:07 Enoxaparin 40 Mg/0.4 Ml Syringe SUB-Q Not Given DAILY ALISON Furosemide 80 mg 02/19/25 09:00 02/22/25 09:07 Furosemide 40 Mg Tablet PO Not Given QAM ALISON Glucagon 1 mg 02/18/25 17:55 Glucagon For Inj 1 Mg Vial IM PRN PRN Hypoglycemia Protocol Glucose 15 gm 02/18/25 17:55 Glucose Oral Gel 15 Gm Of Glucse In 37.5 Gm Tube PO PRN PRN Hypoglycemia Protocol Dextrose 1,000 mls @ 100 mls/hr 02/18/25 17:55 Dextrose 5% 1,000 Ml IVPB PRN PRN Hypoglycemia Protocol Cefepime HCl 2 gm/ Sodium 50 mls @ 100 mls/hr 02/19/25 06:00 02/23/25 05:30 Chloride IVPB 100 mls/hr Q12H ALISON Administration Vancomycin HCl 1,500 mg in 500 mls @ 250 mls/hr 02/23/25 11:00 Vancomycin 1,500 Mg/Ns 500 Ml IVPB Q12H ALISON Insulin Aspart 4 - 8 units 02/19/25 08:00 02/22/25 17:27 Insulin Aspart (*Bkc) 100 Units/Ml SUB-Q Not Given TIDWM [facility] Protocol Insulin Aspart 5 units 02/20/25 08:00 02/22/25 18:21 Insulin Aspart (*Bkc) 100 Units/Ml SUB-Q 5 units TIDWM [facility] Administration Insulin Glargine 40 units 02/20/25 09:00 02/22/25 09:15 Insulin Glargine (*Bkc) 100 Units/Ml SUB-Q Not Given QAM [facility] Metoprolol Succinate 100 mg 02/19/25 09:00 02/22/25 09:55 Metoprolol Succinate Ext Rel 100 Mg Tabcr PO 100 mg DAILY ALISON Administration Metronidazole 500 mg 02/22/25 14:30 02/23/25 05:30 Metronidazole 500 Mg Tablet PO 500 mg Q8HR ALISON Administration Morphine Sulfate 4 mg 02/22/25 17:00 Morphine Sulfate (*Crx) 4 Mg/Ml Inj IV PUSH Q4H PRN Pain Rated 7-10 Oxycodone HCl 5 mg 02/19/25 15:32 02/23/25 05:35 Oxycodone Hcl (*Crx) 5 Mg Tab Ir PO 5 mg Q6H PRN Administration Pain Rated 7-10 Sacubitril/Valsartan 1 tab 02/19/25 09:00 02/22/25 20:22 Sacubitril/Valsartan 97-103 Mg Tablet BY MOUTH 1 tab Q12HR ALISON Administration Radiology Results: ITS Impressions Chest X-Ray 02/18/25 14:27 Impression: No acute cardiopulmonary abnormality. Venous Doppler Study 02/19/25 17:01 Impression: Negative for DVT. Ankle Brachial Index 02/20/25 13:55 IMPRESSION: 1. Mildly decreased left TBI and normal left ROSANA, consistent with left-sided arterial occlusive disease. Note that ROSANA may be overestimated if arteries are calcified. 2. No significant right-sided arterial occlusive disease. Labs Labs: Laboratory Results - last 24 hr 02/22/25 02/22/25 02/22/25 08:08 11:25 15:40 Creatinine Estim Creat Clear Calc Estimated GFR POC Capillary Glucose 139 H 157 H 151 H Vancomycin Trough 02/22/25 02/22/25 02/23/25 17:21 19:59 04:12 Creatinine 0.92 Estim Creat Clear Calc 112 Estimated GFR > 60 POC Capillary Glucose 143 H 175 H Vancomycin Trough 22.0 H Quality VTE Prophylaxis VTE prophylaxis: mechanical ordered
[2025-02-23 07:20] LABS: Hematocrit 47.1 % (42.0-52.0); Hemoglobin 14.6 g/dL (14.0-18.0); Immature Granulocyte Percent A 1.2 % (0-0.5); Lymphocytes Absolute Auto 0.73 K/mm3 (0.9-3.2); Mean Corpuscular HGB Conc 31.0 g/dl (32-36); Mean Corpuscular Hemoglobin 27.8 pg (26-34); Mean Corpuscular Volume 89.7 fl (80-100); Nucleated Red Blood Cells Absolute Auto 0.000 K/mm3 (0.0-0.012); Nucleated Red Blood Cells Perc 0.0 % (0.0-0.2); Platelet Count Result 287 k/mm3 (150-375); Red Blood Count 5.25 M/mm3 (4.6-6.20); White Blood Count 9.6 K/mm3 (4.5-10.0)
[2025-02-23 07:29] LABS: Anion Gap 9 mmol/L (4-12); Blood Urea Nitrogen 22 mg/dL (9-20); Calcium 8.8 mg/dL (8.4-10.2); Carbon Dioxide 20 mmol/L (22-30); Chloride 103 mmol/L (98-107); Glucose 271 mg/dL (65-110); Potassium 3.9 mmol/L (3.4-5.0); Sodium 132 mmol/L (137-145)
--- NOTE | 2025-02-23 07:50 | WPDANESPN ---
Anes - Prog Note Post-Op Date/Time: 02/23/25 07:50 Cardiovascular status: normal Respiratory status: normal Airway patency: baseline Mental status: baseline Post-Op hydration status: normal Vital Signs: Last Vital Signs Temp 97.9 F 02/23/25 04:54 Pulse 76 02/23/25 04:54 Resp 16 02/23/25 04:54 BP 149/87 H 02/23/25 04:54 Pulse Ox 100 02/23/25 04:54 O2 Del Method CPAP 02/23/25 02:00 O2 Flow Rate 10 02/22/25 15:50 Pain Score (VAS): 0/10 I/O: Intake & Output 02/22/25 02/22/25 02/23/25 15:59 23:59 07:59 Intake Total 600 1190 1000 Output Total 1700 750 Balance 600 -510 250 Laboratory Tests 02/23/25 04:12 02/23/25 04:12 02/22/25 02/22/25 02/22/25 08:08 11:25 15:40 WBC RBC Hgb Hct MCV MCH MCHC RDW Plt Count MPV Immature Gran % (Auto) Neut % (Auto) Lymph % (Auto) [place] % (Auto) Eos % (Auto) Baso % (Auto) Lymph # (Auto) [place] # (Auto) Eos # (Auto) Baso # (Auto) Abs Immat Gran (auto) Absolute Neuts (auto) Absolute Nucleated RBC Nucleated RBC % Sodium Potassium Chloride Carbon Dioxide Anion Gap BUN Creatinine Estim Creat Clear Calc Estimated GFR Glucose POC Capillary Glucose 139 H 157 H 151 H Calcium Vancomycin Trough 02/22/25 02/22/25 02/23/25 17:21 19:59 04:12 WBC 9.6 RBC 5.25 Hgb 14.6 Hct 47.1 MCV 89.7 MCH 27.8 MCHC 31.0 L RDW 16.1 H Plt Count 287 MPV 9.5 Immature Gran % (Auto) 1.2 H Neut % (Auto) 81.8 H Lymph % (Auto) 7.6 L [place] % (Auto) 5.4 Eos % (Auto) 3.5 Baso % (Auto) 0.5 Lymph # (Auto) 0.73 L [place] # (Auto) 0.5 Eos # (Auto) 0.3 Baso # (Auto) 0.1 Abs Immat Gran (auto) 0.12 H Absolute Neuts (auto) 7.9 H Absolute Nucleated RBC 0.000 Nucleated RBC % 0.0 Sodium 132 L Potassium 3.9 Chloride 103 Carbon Dioxide 20 L Anion Gap 9 BUN 22 H Creatinine 0.92 Estim Creat Clear Calc 112 Estimated GFR > 60 Glucose 271 H POC Capillary Glucose 143 H 175 H Calcium 8.8 Vancomycin Trough 22.0 H Microbiology 02/19/25 13:37 Toe Right Great Aerobic Culture - Preliminary Gram negative bacilli isolated 02/19/25 13:37 Toe Right Great Gram Stain - Final Post-procedural complaints: none Patient Feedback: Patient satisfied with anesthetic care.
[2025-02-23] MEDS: ENOXAPARIN 40 MG/0.4 ML SYRINGE SUB-Q (08:14)
[2025-02-23] MEDS: EMPAGLIFLOZIN 25 MG TABLET BY MOUTH (08:15)
[2025-02-23] MEDS: SACUBITRIL/VALSARTAN 97-103 MG TABLET 1 TAB BY MOUTH ×2 (08:15→20:22)
[2025-02-23] MEDS: CLOPIDOGREL BISULFATE 75 MG TABLET PO (08:15)
[2025-02-23] MEDS: FUROSEMIDE 40 MG TABLET 80 MG PO (08:15)
[2025-02-23] MEDS: METOPROLOL SUCCINATE EXT REL 100 MG TABCR PO (08:15)
[2025-02-23] MEDS: ASPIRIN 81 MG ENTERIC TABLET PO (08:16)
[2025-02-23] MEDS: INSULIN GLARGINE (*BKC) 100 UNITS/ML 40 UNITS SUB-Q (08:21)
[2025-02-23] MEDS: INSULIN ASPART (*BKC) 100 UNITS/ML SUB-Q ×5 (08:22→16:35)
--- NOTE | 2025-02-23 08:52 | WPDIDCN ---
Assessment and Plan Assessment and plan (1) Open wound of right great toe: Qualifiers: Encounter type: initial encounter Qualified Code(s): S91.101A - Unspecified open wound of right great toe without damage to nail, initial encounter Code(s): S91.101A - Unspecified open wound of right great toe without damage to nail, initial encounter Status: Acute (2) Diabetic foot ulcer with osteomyelitis: Code(s): E11.621 - Type 2 diabetes mellitus with foot ulcer; E11.69 - Type 2 diabetes mellitus with other specified complication; L97.509 - Non-pressure chronic ulcer of other part of unspecified foot with unspecified severity; M86.9 - Osteomyelitis, unspecified Status: Acute (3) Cellulitis and abscess of foot: Code(s): L03.119 - Cellulitis of unspecified part of limb; L02.619 - Cutaneous abscess of unspecified foot Status: Acute (4) Type 2 diabetes mellitus with hyperglycemia, with long-term current use of insulin: Code(s): E11.65 - Type 2 diabetes mellitus with hyperglycemia; Z79.4 - senior care (current) use of insulin Status: Acute Plan # Right foot, 1st toe, diabetic foot infection involving ulcer, abscess, and underlying osteomyelitis. -- status post complex right 1st toe debridement 02/19. Procedure anaerobic culture finalized as skin patti with many Gram-negative rods, heavy growth. -- status post right 1st toe ray amputation 02/22. Pathology including margin involvement of osteomyelitis pending. --has been receiving cefepime, metronidazole, and vancomycin. # Diabetes with complications including nephropathy and peripheral neuropathy. Plan: -- need final 02/19 culture information. Anaerobic results remain pending. -- need pathology report; specifically, bone margin evaluation for residual osteomyelitis. -- if amputation bone margin negative for osteomyelitis and residual surgical site tissue with resolving SSTI may be able to discontinue antibiotics after short course. -- if residual osteomyelitis seen at surgical site bone margin then would plan for an extended course of IV antibiotics as continued treatment for osteomyelitis and directed toward original 02/19 cultures which remain pending. -- based on cultures to date may discontinue vancomycin. Continue cefepime but recommend, based on current renal function, increasing to 2 g Q 8 hours as treatment for osteomyelitis. Continue metronidazole. -- further recommendations to follow. Thank you for the consult. -- discussed with patient and nursing. Questions answered. Patient was seen via video telehealth consultation with the assistance of staff. Chart, data, and patient independently reviewed. Patient was located at [facility] while I was located in my [place] office. Received verbal consent from patient. HPI Data of Consult Date/Time: 02/23/25 08:52 Requesting Physician: Liza Alves MD Primary Care Provider: Lindsay Peralta MD Consult Narrative Reason for consult: Right 1st toe osteomyelitis Narrative: Getachew Dunn is a 49 year old male . Past history significant for diabetes, peripheral neuropathy, diabetic nephropathy, chronic renal failure, and right foot diabetic foot infection. He was admitted 02/18/2025 regarding the latter. History times several months of right 1st toe wound with associated progressive infection and status post prior attempts at debridement. Recent MRI suggested osteomyelitis without abscess. Attempt at medical treatment with 1 month of oral doxycycline without success. On presentation there was active drainage of pus and concern for abscess as well as surrounding tissue inflammation suggesting cellulitis. He underwent complex incision and drainage of right 1st toe abscess 02/19. Cultures from procedure are significant to date for Gram-negative rods. Despite debridement it was determined he should undergo amputation and on 02/22 he underwent ray amputation of right 1st toe. wound VAC currently in place. Surgical tissue has been submitted for pathology review. There are no known antibiotic allergies and he has been receiving cefepime, metronidazole, and vancomycin. He is afebrile, with normal vital signs, and tolerating room air during the day. WBC currently 14.6 with platelets 287. CRP on presentation 20.8 and currently 5.5. BUN 22 and creatinine 0.92. Presentation arterial Doppler study show mildly decreased left TBI and normal left ROSANA consistent with left-sided arterial occlusive disease. No significant right-sided arterial occlusive disease. Venous Doppler studies negative for DVT. Additional past medical history significant for hypertension, coronary artery disease, status post [place], status post CABG 09/2019, congestive heart failure secondary to ischemic cardiomyopathy, transient atrial fibrillation/ flutter, mitral valve regurgitation, moderate pulmonary hypertension, obstructive sleep apnea, BPH, mixed hyperlipidemia, and polycythemia. Review of Systems Review of Systems: All systems reviewed & are unremarkable except as noted in HPI and below PMFSH Past Medical History Medical History CHF (congestive heart failure) Echocardiogram 2020 demonstrated EF of 15-20 with grade 3 diastolic dysfunction repeat echocardiogram 2021 demonstrated moderate left ventricular enlargement, moderate left ventricular systolic dysfunction, impaired diastolic relaxation grade 1, moderate left atrial enlargement, prior echos have demonstrated moderate pulmonary hypertension but study from 2021 was technically difficult. Moderate pulmonary hypertension Ischemic cardiomyopathy Diabetic neuropathy Diabetic nephropathy Trochanteric bursitis, right hip Transient atrial fibrillation/flutter 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 Mitral valve regurgitation Obstructive sleep apnea on CPAP COVID-19 (01/2021) Erectile dysfunction BPH loc w urin obs/LUTS Chronic depression Chronic kidney disease, stage 3 (moderate) Macroalbuminuric diabetic nephropathy Mixed hyperlipidemia Type 2 diabetes mellitus, with long-term current use of insulin Hemoglobin A1c was 11.1% on 05/31/2019. And 8.25 March 2021 Polycythemia Herniated disc HTN (hypertension) Myocardial infarction Surgical History Surgical History History of coronary artery bypass graft x 2 (09/30/19) Bypass of the LAD and right posterior left ventricular branch. Complicated by sternal infection. Status post panniculectomy (2001) History of laparoscopic cholecystectomy (11/2008) History of cardiac catheterization 10/09/2013: PTCA/stent to circumflex. 06/02/2019: Multivessel coronary artery disease with severe ischemic cardiomyopathy with ejection fraction around 25%, referred for surgical revascularization Family History Family History Mother Pancreatic cancer Hypertension Family history of cardiovascular disease Family history of malignant neoplasm Father Colon cancer Diabetes mellitus Atrial fibrillation Family history of malignant neoplasm Sibling Diabetes mellitus Kidney disease Hypertension Social History Social History Social History: The patient lives at home with his and their 2 (ages 17 and 19 as of February 2025) children in [place]. He works for [employer] in [employer]. Lifelong nonsmoker. He drinks perhaps 1-2 alcoholic beverages a month on average. No illicit substance use. He designates his , Maru Dunn, as his surrogate decision-maker. CODE STATUS: Full code. Surrogate decision maker: Maru Dunn () Smoking status: Never smoker Alcohol intake: never Substance use: never Substance use type: does not use Do You Feel Safe in your Home?: Yes Lack of Transportation: No Lack of Food: Never True Current Housing: I Have Housing Concerned About Future Housing: No Difficulty Paying Gas/Electric Bills: No Difficulty Paying for Meds: No Currently Unemployed: No Education: Bachelor's Degree Difficulty w/ Childcare or Family Care: No Living arrangements: with family Spiritual care concerns: No Meds Home Medications and Allergies Home Medications ?Medication ?Instructions ?Recorded ?Confirmed ?Type aspirin 81 mg tablet,delayed 81 mg PO DAILY 05/31/19 02/18/25 History release ddxxnqre-gwvwozuo-qljzl acid 400 1 tablet PO DAILY 05/31/19 02/18/25 History mcg-vit K 20 mcg-lycop 300 mcg tablet (Men's Multivitamin) pen needle, diabetic 31 gauge x See Rx Instructions .Route 10/10/21 02/18/25 Rx 5/16 (BD Ultra-Fine Short Pen .COMPLEX #1,200 syringes Needle) insulin glargine 100 unit/mL (3 60 unit (0.6 mL) subcut QAM #60 mL 04/16/23 02/18/25 Rx mL) subcutaneous pen (Lantus Solostar U-100 Insulin) insulin lispro 100 unit/mL 1 sliding scale dose subcut 04/16/23 02/18/25 Rx subcutaneous pen USEASDIRECTD #15 mL metoprolol succinate 100 mg 100 mg PO DAILY #90 tabs 04/16/23 02/18/25 Rx tablet,extended release 24 hr blood-glucose sensor (Dexcom G6 #9 ea 11/11/23 02/18/25 Rx Sensor device) blood-glucose transmitter (Dexcom #1 ea 11/11/23 02/18/25 Rx G6 Transmitter device) clopidogrel 75 mg tablet (Plavix) 75 mg PO DAILY #90 tabs 01/02/24 02/18/25 Rx sertraline 100 mg tablet 100 mg PO DAILY #90 tabs 04/13/24 02/18/25 Rx furosemide 40 mg tablet 80 mg (2 x 40 mg) PO QAM #180 tabs 05/18/24 02/18/25 Rx tirzepatide 7.5 mg/0.5 mL See Rx Instructions .Route 05/26/24 02/18/25 Rx subcutaneous pen injector .COMPLEX #4 mL (Mounjaro) sacubitril 97 mg-valsartan 103 mg See Rx Instructions .Route 07/24/24 02/18/25 Rx tablet (Entresto) .COMPLEX #180 tabs empagliflozin 25 mg tablet See Rx Instructions .Route 08/28/24 02/18/25 Rx (Jardiance) .COMPLEX #90 tabs spironolactone 25 mg tablet See Rx Instructions .Route 08/28/24 02/18/25 Rx .COMPLEX #90 tabs atorvastatin 40 mg tablet 40 mg PO QHS #90 tabs 12/21/24 02/18/25 Rx metformin 500 mg tablet,extended 1,000 mg (2 x 500 mg) PO BID #180 12/21/24 02/18/25 Rx release 24 hr tabs acetaminophen 300 mg-codeine 30 mg 1 tablet PO Q4H PRN pain 02/16/25 02/18/25 History tablet doxycycline hyclate 100 mg capsule 100 mg PO Q12H 02/16/25 02/18/25 History Allergies Allergy/AdvReac Type Severity Reaction Status Date / Time atenolol AdvReac Unknown cough Verified 02/18/25 17:31 Vital Signs Vital Signs - 24 hr 02/22/25 09:55 02/22/25 13:15 02/22/25 15:34 Temperature 97.3 F L 97.0 F L Pulse Rate 77 82 71 Respiratory Rate 16 20 Blood Pressure 141/84 H 98/60 L Pulse Oximetry 99 100 Oxygen Delivery Room Air Simple Face Mask Oxygen Flow Rate 10 02/22/25 15:47 02/22/25 15:50 02/22/25 16:05 Temperature Pulse Rate 75 72 72 Respiratory Rate 20 18 20 Blood Pressure 105/62 122/73 132/78 Pulse Oximetry 100 100 100 Oxygen Delivery Simple Face Mask Simple Face Mask Room Air Oxygen Flow Rate 10 10 02/22/25 16:20 02/22/25 16:35 02/22/25 16:50 Temperature Pulse Rate 71 75 74 Respiratory Rate 18 16 18 Blood Pressure 130/70 139/79 133/71 Pulse Oximetry 94 99 99 Oxygen Delivery Room Air Room Air Room Air Oxygen Flow Rate 02/22/25 17:26 02/22/25 20:09 02/22/25 20:20 Temperature 97.2 F L 97.5 F L Pulse Rate 75 74 Respiratory Rate 18 16 Blood Pressure 142/77 H 153/90 H Pulse Oximetry 99 100 Oxygen Delivery Room Air Oxygen Flow Rate 02/22/25 23:58 02/23/25 02:00 02/23/25 04:54 Temperature 97.5 F L 97.9 F Pulse Rate 78 76 Respiratory Rate 16 16 Blood Pressure 145/85 H 149/87 H Pulse Oximetry 100 100 Oxygen Delivery CPAP Oxygen Flow Rate 02/23/25 08:15 Temperature Pulse Rate 76 Respiratory Rate Blood Pressure Pulse Oximetry Oxygen Delivery Oxygen Flow Rate Exam Narrative: Awake and alert. No distress. No difficulty breathing. No current tachycardia. No rash. Right lower extremity status post 1st ray amputation with wound VAC in place. Results Labs 02/23/25 04:12 02/23/25 04:12 Labs: Short CBC 02/23/25 Range/Units 04:12 WBC 9.6 (4.5-10.0) K/mm3 Hgb 14.6 (14.0-18.0) g/dL Hct 47.1 (42.0-52.0) % Plt Count 287 (150-375) k/mm3 BMP 02/23/25 04:12 Sodium 132 L Potassium 3.9 Chloride 103 Carbon Dioxide 20 L BUN 22 H Creatinine 0.92 Glucose 271 H Calcium 8.8
--- NOTE | 2025-02-23 10:05 | P.PNGS_ITS ---
Progress Note: A&P Assessment and Plan (1) Open wound of right great toe: Qualifiers: Encounter type: initial encounter Qualified Code(s): S91.101A - Unspecified open wound of right great toe without damage to nail, initial encounter Code(s): S91.101A - Unspecified open wound of right great toe without damage to nail, initial encounter Status: Acute Assessment and Plan: * Postop day 1 following ray amputation right great toe with wound VAC placement. * Will plan to change the wound VAC dressing with wound care nurses tomorrow * Continue IV antibiotics per ID recommendations (IV cefepime/vancomycin and PO metronidazole) * Pathology pending. Wound cx preliminary - gram negative bacilli. Will await final cultures. * Continue heel touch weight bearing for transfers/stand and pivot. Avoid ambulating on RLE. Plan I have discussed the patient's case and plan of care with Dr. Curiel Subjective Subjective Date/Time Seen: 02/23/25 10:05 Post Op day: 1 (Ray amputation right great toe with application wound VAC) Interval history: Having surgical pain at the area of his right great toe amputation. Oxycodone help relieve the pain, but he does not get any relief from the [place]. He feels the oxycodone wears off within 3 hours and he has been alternating with the [place]. No other complaints. He has been standing on his right heel and using a urinal at the bedside. Exam Const: General: comfortable and no acute distress Extrem: Other: Right great toe ray amputation with wound VAC dressing dry and intact, minimal sanguineous drainage in VAC canister. Erythema around the amputation site on the forefoot both on the dorsal and plantar aspect of the foot, but does not appear to be extending proximally. Objective Data Vital Signs Vital Signs: Vital Signs - 24 hr 02/22/25 13:15 02/22/25 15:34 02/22/25 15:47 Temperature 97.3 F L 97.0 F L Pulse Rate 82 71 75 Respiratory Rate 16 20 20 Blood Pressure 141/84 H 98/60 L 105/62 Pulse Oximetry 99 100 100 Oxygen Delivery Room Air Simple Face Mask Simple Face Mask Oxygen Flow Rate 10 10 02/22/25 15:50 02/22/25 16:05 02/22/25 16:20 Temperature Pulse Rate 72 72 71 Respiratory Rate 18 20 18 Blood Pressure 122/73 132/78 130/70 Pulse Oximetry 100 100 94 Oxygen Delivery Simple Face Mask Room Air Room Air Oxygen Flow Rate 10 02/22/25 16:35 02/22/25 16:50 02/22/25 17:26 Temperature 97.2 F L Pulse Rate 75 74 75 Respiratory Rate 16 18 18 Blood Pressure 139/79 133/71 142/77 H Pulse Oximetry 99 99 99 Oxygen Delivery Room Air Room Air Oxygen Flow Rate 02/22/25 20:09 02/22/25 20:20 02/22/25 23:58 Temperature 97.5 F L 97.5 F L Pulse Rate 74 78 Respiratory Rate 16 16 Blood Pressure 153/90 H 145/85 H Pulse Oximetry 100 100 Oxygen Delivery Room Air Oxygen Flow Rate 02/23/25 02:00 02/23/25 04:54 02/23/25 08:00 Temperature 97.9 F 97.3 F L Pulse Rate 76 75 Respiratory Rate 16 16 Blood Pressure 149/87 H 147/87 H Pulse Oximetry 100 100 Oxygen Delivery CPAP Oxygen Flow Rate 02/23/25 08:15 Temperature Pulse Rate 76 Respiratory Rate Blood Pressure Pulse Oximetry Oxygen Delivery Oxygen Flow Rate Intake/Output Intake/Output: Intake & Output 02/20/25 02/21/25 02/22/25 02/23/25 23:59 23:59 23:59 23:59 Intake Total 2835 2360 3440 1240 Output Total 1000 1700 750 Balance 1835 2360 1740 490 Meds/Results Medications: Active Medications Generic Name Dose Route Start Last Admin Trade Name Freq PRN Reason Stop Dose Admin Acetaminophen 1,000 mg 02/19/25 15:32 Acetaminophen 500 Mg Tablet PO Q6H PRN Mild Pain (1-3) or Fever Hydrocodone Bitart/Acetaminophen 1 tab 02/19/25 15:32 02/23/25 08:16 Hydrocodone/Acetaminophen (*Crx) 5-325 Mg Tablet PO 1 tab Q4H PRN Administration Pain Rated 4-6 Aspirin 81 mg 02/19/25 09:00 02/23/25 08:16 Aspirin 81 Mg Enteric Tablet PO 81 mg DAILY ALISON Administration Atorvastatin Calcium 40 mg 02/19/25 21:00 02/22/25 20:22 Atorvastatin 40 Mg Tablet PO 40 mg QHS ALISON Administration Clopidogrel Bisulfate 75 mg 02/19/25 09:00 02/23/25 08:15 Clopidogrel Bisulfate 75 Mg Tablet PO 75 mg DAILY ALISON Administration Dextrose 12.5 gm 02/18/25 17:55 Dextrose 50% 25 Gm/50 Ml Syringe IV PUSH PRN PRN Hypoglycemia Protocol Empagliflozin 25 mg 02/19/25 09:00 02/23/25 08:15 Empagliflozin 25 Mg Tablet BY MOUTH 25 mg DAILY ALISON Administration Enoxaparin Sodium 40 mg 02/20/25 09:00 02/23/25 08:14 Enoxaparin 40 Mg/0.4 Ml Syringe SUB-Q 40 mg DAILY ALISON Administration Furosemide 80 mg 02/19/25 09:00 02/23/25 08:15 Furosemide 40 Mg Tablet PO 80 mg QAM ALISON Administration Glucagon 1 mg 02/18/25 17:55 Glucagon For Inj 1 Mg Vial IM PRN PRN Hypoglycemia Protocol Glucose 15 gm 02/18/25 17:55 Glucose Oral Gel 15 Gm Of Glucse In 37.5 Gm Tube PO PRN PRN Hypoglycemia Protocol Dextrose 1,000 mls @ 100 mls/hr 02/18/25 17:55 Dextrose 5% 1,000 Ml IVPB PRN PRN Hypoglycemia Protocol Cefepime HCl 2 gm/ Sodium 50 mls @ 100 mls/hr 02/19/25 06:00 02/23/25 05:30 Chloride IVPB 100 mls/hr Q12H ALISON Administration Vancomycin HCl 1,500 mg in 500 mls @ 250 mls/hr 02/23/25 11:00 Vancomycin 1,500 Mg/Ns 500 Ml IVPB Q12H ALISON Insulin Aspart 4 - 8 units 02/19/25 08:00 02/23/25 08:22 Insulin Aspart (*Bkc) 100 Units/Ml SUB-Q 4 units TIDWM ALISON Administration Protocol Insulin Aspart 5 units 02/20/25 08:00 02/23/25 08:22 Insulin Aspart (*Bkc) 100 Units/Ml SUB-Q 5 units TIDWM ALISON Administration Insulin Glargine 40 units 02/20/25 09:00 02/23/25 08:21 Insulin Glargine (*Bkc) 100 Units/Ml SUB-Q 40 units QAM ALISON Administration Metoprolol Succinate 100 mg 02/19/25 09:00 02/23/25 08:15 Metoprolol Succinate Ext Rel 100 Mg Tabcr PO 100 mg DAILY ALISON Administration Metronidazole 500 mg 02/22/25 14:30 02/23/25 05:30 Metronidazole 500 Mg Tablet PO 500 mg Q8HR ALISON Administration Morphine Sulfate 4 mg 02/22/25 17:00 Morphine Sulfate (*Crx) 4 Mg/Ml Inj IV PUSH Q4H PRN Pain Rated 7-10 Oxycodone HCl 5 mg 02/19/25 15:32 02/23/25 05:35 Oxycodone Hcl (*Crx) 5 Mg Tab Ir PO 5 mg Q6H PRN Administration Pain Rated 7-10 Sacubitril/Valsartan 1 tab 02/19/25 09:00 02/23/25 08:15 Sacubitril/Valsartan 97-103 Mg Tablet BY MOUTH 1 tab Q12HR ALISON Administration Radiology Results: ITS Impressions Chest X-Ray 02/18/25 14:27 Impression: No acute cardiopulmonary abnormality. Venous Doppler Study 02/19/25 17:01 Impression: Negative for DVT. Ankle Brachial Index 02/20/25 13:55 IMPRESSION: 1. Mildly decreased left TBI and normal left ROSANA, consistent with left-sided arterial occlusive disease. Note that ROSANA may be overestimated if arteries are calcified. 2. No significant right-sided arterial occlusive disease. Labs Labs: Laboratory Results - last 24 hr 02/22/25 02/22/25 02/22/25 11:25 15:40 17:21 WBC RBC Hgb Hct MCV MCH MCHC RDW Plt Count MPV Immature Gran % (Auto) Neut % (Auto) Lymph % (Auto) [place] % (Auto) Eos % (Auto) Baso % (Auto) Lymph # (Auto) [place] # (Auto) Eos # (Auto) Baso # (Auto) Abs Immat Gran (auto) Absolute Neuts (auto) Absolute Nucleated RBC Nucleated RBC % Sodium Potassium Chloride Carbon Dioxide Anion Gap BUN Creatinine Estim Creat Clear Calc Estimated GFR Glucose POC Capillary Glucose 157 H 151 H 143 H Calcium Vancomycin Trough 02/22/25 02/23/25 02/23/25 19:59 04:12 08:16 WBC 9.6 RBC 5.25 Hgb 14.6 Hct 47.1 MCV 89.7 MCH 27.8 MCHC 31.0 L RDW 16.1 H Plt Count 287 MPV 9.5 Immature Gran % (Auto) 1.2 H Neut % (Auto) 81.8 H Lymph % (Auto) 7.6 L [place] % (Auto) 5.4 Eos % (Auto) 3.5 Baso % (Auto) 0.5 Lymph # (Auto) 0.73 L [place] # (Auto) 0.5 Eos # (Auto) 0.3 Baso # (Auto) 0.1 Abs Immat Gran (auto) 0.12 H Absolute Neuts (auto) 7.9 H Absolute Nucleated RBC 0.000 Nucleated RBC % 0.0 Sodium 132 L Potassium 3.9 Chloride 103 Carbon Dioxide 20 L Anion Gap 9 BUN 22 H Creatinine 0.92 Estim Creat Clear Calc 112 Estimated GFR > 60 Glucose 271 H POC Capillary Glucose 175 H 213 H Calcium 8.8 Vancomycin Trough 22.0 H
[2025-02-23] MEDS: VANCOMYCIN 1,500 MG/NS 500 ML 1,500 MG/500 ML BAG 250 MG IVPB (11:00)
[2025-02-23] MEDS: ATORVASTATIN 40 MG TABLET PO (20:21)
[2025-02-24] MEDS: oxyCODONE HCL (*CRX) 5 MG TAB IR PO ×3 (00:40→11:17)
[2025-02-24 04:59] LABS: Hematocrit 41.4 % (42.0-52.0); Hemoglobin 13.1 g/dL (14.0-18.0); Immature Granulocyte Percent A 1.2 % (0-0.5); Lymphocytes Absolute Auto 0.79 K/mm3 (0.9-3.2); Mean Corpuscular HGB Conc 31.6 g/dl (32-36); Mean Corpuscular Hemoglobin 27.9 pg (26-34); Mean Corpuscular Volume 88.3 fl (80-100); Nucleated Red Blood Cells Absolute Auto 0.000 K/mm3 (0.0-0.012); Nucleated Red Blood Cells Perc 0.0 % (0.0-0.2); Platelet Count Result 254 k/mm3 (150-375); Red Blood Count 4.69 M/mm3 (4.6-6.20); White Blood Count 10.4 K/mm3 (4.5-10.0)
[2025-02-24] MEDS: CEFEPIME 2 GM in SODIUM CHLORIDE 0.9% IV 50 ML 100 ML IVPB ×2 (05:05→13:03)
[2025-02-24 05:13] LABS: Alanine Aminotransferase 45 U/L (6-50); Albumin Level 3.0 g/dL (3.5-5.1); Alkaline Phosphatase 140 U/L (38-126); Anion Gap 6 mmol/L (4-12); Aspartate Amino Transferase 33 U/L (17-59); Bilirubin,Total 0.7 mg/dL (0.2-1.3); Blood Urea Nitrogen 20 mg/dL (9-20); CRP 3.0 mg/dL (<1.0); Calcium 8.6 mg/dL (8.4-10.2); Carbon Dioxide 23 mmol/L (22-30); Chloride 102 mmol/L (98-107); Estimated CRCL calculation 115 ml/min; Estimated Glomerular Filt Rate > 60; Glucose 186 mg/dL (65-110); Potassium 3.8 mmol/L (3.4-5.0); Sodium 131 mmol/L (137-145); Total Protein 6.6 g/dL (6.3-8.2)
[2025-02-24 06:00] VITALS: BP 139/85; PULSE 73; RESP 18; TEMP 36.1; O2SAT 100
--- NOTE | 2025-02-24 07:14 | P.PNIM_ITS ---
Progress Note: A&P Assessment and Plan (1) Osteomyelitis: Qualifiers: Laterality: right Osteomyelitis location: foot Osteomyelitis type: unspecified type Qualified Code(s): M86.9 - Osteomyelitis, unspecified Code(s): M86.9 - Osteomyelitis, unspecified Status: Acute Assessment and Plan: -patient follows with podiatry. Patient had outpatient MRI 02/16/25 which apparently showed osteomyelitis of the great toe. Records requested. Patient was on doxycycline for 1 month and has had multiple debridements - initial CRP 20, downtrending. Afebrile, no leukocytosis. LA WNL. - s/p complex I&D of R great toe by Dr. Curiel 02/19. Culture with heavy growth of gram negative bacilli, speciation pending. - concern for continued cellulitis and osteo. S/p R ray amputation with wound vac placement by Dr. Curiel 02/22. - blood cultures NGTD - continue cefepime, Flagyl and vancomycin. Await surgical cultures. ID consulted, appreciate recs. 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 - pain control - PT/OT, care coordination consulted - wound care - wound cultures still pending (2) Chronic kidney disease, stage 3: Code(s): N18.30 - Chronic kidney disease, stage 3 unspecified Status: Acute Assessment and Plan: - Cr 0.76, stable - avoid nephrotoxins (3) Type 2 diabetes mellitus with hyperglycemia, with long-term current use of insulin: Code(s): E11.65 - Type 2 diabetes mellitus with hyperglycemia; Z79.4 - [facility] (current) use of insulin Status: Acute Assessment and Plan: - last HgbA1c - 11.0 02/19/25. Admitted to poor compliance with home medications. - admit glucose 300s - hold home metformin, tirzepatide - continue home lantus at reduced dose, aspart 5u TIDWM with high dose SSI. Titrate PRN. - POCT glucose qACHS - hypoglycemia management protocol - staff educator consulted (4) Obstructive sleep apnea on CPAP: Code(s): G47.33 - Obstructive sleep apnea (adult) (pediatric); Z99.89 - Dependence on other enabling machines and devices Status: Acute Assessment and Plan: - continue home CPAP (5) CHF (congestive heart failure): Qualifiers: Heart failure chronicity: chronic Heart failure type: combined systolic and diastolic Qualified Code(s): I50.42 - Chronic combined systolic (congestive) and diastolic (congestive) heart failure Code(s): I50.9 - Heart failure, unspecified Status: Acute Assessment and Plan: - echo 05/2021 with EF 25-30% - continue home metoprolol and Entresto. Aldactone on hold due to hyponatremia. - monitor volume status (6) Hyperlipidemia associated with type 2 diabetes mellitus: Code(s): E11.69 - Type 2 diabetes mellitus with other specified complication; E78.5 - Hyperlipidemia, unspecified Status: Acute Assessment and Plan: - hold statin due to elevated LFTs - repeat CMP in AM (7) Hyponatremia: Code(s): E87.1 - Hypo-osmolality and hyponatremia Status: Acute Assessment and Plan: - improved with better glucose management. - Encourage PO intake and optimize blood sugars - daily BMP (8) CAD (coronary artery disease): Qualifiers: Associated angina: angina presence unspecified Coronary Disease- Associated Artery/Lesion type: [place] artery [place] vs. transplanted heart: [place] heart Qualified Code(s): I25.10 - Atherosclerotic heart disease of [place] coronary artery without angina pectoris Code(s): I25.10 - Atherosclerotic heart disease of [place] coronary artery without angina pectoris Status: Acute Assessment and Plan: - s/p CABG - continue home Plavix, ASA and statin L (9) Transaminitis: Code(s): R74.01 - Elevation of levels of liver transaminase levels Status: Acute Assessment and Plan: - trending down - hold statin - may be secondary to surgery - repeat CMP in AM - Down-trending Plan DVT prophylaxis: Lovenox Code status: full code Dispo: TBD pending PT/OT recs. Will need wound vac on discharge. Subjective Date/time seen: 02/24/25 07:14 Interval history: 02/24/2025 Patient sitting in bed at time of examination. Denies any chest pain, shortness of breath, lower extremity swelling or calf tenderness. Still endorsing some postop pain but otherwise feels better today. Wound culture still pending for specificities. Will of to discharge when these have resulted. ID continues to follow. Review of Systems Review of Systems: All systems reviewed & are unremarkable except as noted in HPI and below Constitutional: Constitutional: Reports as per HPI and Reports no additional constitutional complaints Eyes: Eyes: Reports as per HPI and Reports no additional eye complaints ENT: Reports system reviewed and no additional complaints, except as documented and Reports Normal hearing present Cardiovascular: Cardiovascular: Reports no additional cardiovascular complaints Respiratory: Respiratory: Reports as per HPI and Reports no additional respiratory complaints Gastrointestinal: Gastrointestinal: Reports as per HPI and Reports no additional gastrointestinal complaints Musculoskeletal: Musculoskeletal: Reports no additional musculoskeletal complaints Integumentary/Breasts: Skin/Breast: Reports system reviewed and no additional complaints, except as docu Neurologic: Reports system reviewed and no additional complaints, except as documented and Reports Normal hearing present Psychiatric: Psychiatric: Reports no additional psychiatric complaints and Reports as per HPI Hematologic/Lymphatic: Hematologic/Lymphatic: Reports no additional hematologic/lymphatic complaints Allergic/Immunologic: Allergic/Immunologic: Reports no additional allergic/immunologic complaints Exam Narrative: General: NAD Eyes: EOMI ENT: neck supple Cardiovascular: Regular rate and rhythm Respiratory: Clear to auscultation, respirations even and unlabored on RA Gastrointestinal: Soft, non tender Genitourinary: no suprapubic tenderness Musculoskeletal: No edema Skin: warm, dry. R great toe amputation with wound vac in place. Neuro: Alert. Psych: Mood appropriate Const: General: cooperative, comfortable, no acute distress, well developed, awake, Physically active and obese Nutritional Appearance: obese Orientation/consciousness: oriented to person, oriented to place, oriented to time and patient oriented x3 Limitations: no limitations HENMT: Head: normal to inspection, No palpable skull fracture present, normocephalic and atraumatic Eyes: General: appearance normal, both eyes and all related structures Alignment and Position: alignment normal Periorbital: periorbital findings normal Eyelids: eyelids normal Pupils: Equal, round and reactive pupils present Neck: Neck: normal visual inspection, full ROM and no lymphadenopathy Chest: Chest palpation & inspection: normal inspection of the chest Resp: Effort & Inspection: normal respiratory effort Auscultation: clear to auscultation bilaterally Cardio: Palpation: normal PMI Rate: tachycardic Rhythm: regular rhythm Heart sounds: S1 normal heart sound present and S2 normal heart sound present Peripheral pulses: Peripheral pulses 2+ throughout GI: Inspection: normal to inspection Auscultation: normal bowel sounds Rectal Exam: deferred Skin: General skin exam: normal color and lesion Lesions: lesion noted Other: Ulcerated area to right medial great toe. Approximate 2 x 2. Serous sanguinous drainage noted. Neuro: General: oriented to person, oriented to place, oriented to time and patient oriented x3 Cranial nerves: Yes Equal, round and reactive pupils present and Yes Normal hearing present Sensory Exam: normal sensation Extrem: General: normal to inspection Right upper extremity: normal to inspection and shoulder/upper arm Left upper extremity: normal to inspection and shoulder/upper arm Right lower extremity: full ROM, edema Details: 2+ and foot Left lower extremity: normal to inspection Other: 2+ pitting edema to the right foot. José thema to mid right foot. Ulcerated area noted on the right great toe with serosanguineous drainage. No malodorous smell noted. Patient is neurologically intact. Difficulty finding pedal pulse on the right foot due to the edema however it is palpable. However he has normal capillary refill. The right foot is warm and tender to touch. Psych: Appearance: grossly normal Mental Status: mental status grossly normal Speech and movement: Normal speech and movement present Affect: normal affect Attitude: cooperative Thought process: Normal thought process present Insight: Good insight present (Psych) Judgement: Good judgement present (Psych) Objective Data Vital Signs Vital Signs: Vital Signs - 24 hr 02/23/25 08:00 02/23/25 08:15 02/23/25 08:16 Temperature 97.3 F L Pulse Rate 75 76 Respiratory Rate 16 16 Blood Pressure 147/87 H Pulse Oximetry 100 100 Oxygen Delivery CPAP Fraction of Inspired Oxygen 02/23/25 13:14 02/23/25 14:00 02/23/25 20:06 Temperature 97.6 F Pulse Rate 79 Respiratory Rate 18 Blood Pressure 135/75 Pulse Oximetry 99 98 Oxygen Delivery Room Air Room Air Fraction of Inspired Oxygen 21 02/23/25 20:30 02/23/25 22:00 02/23/25 22:13 Temperature 97.7 F Pulse Rate 80 Respiratory Rate 18 Blood Pressure 117/75 Pulse Oximetry 96 96 Oxygen Delivery CPAP CPAP Fraction of Inspired Oxygen 21 02/24/25 04:39 02/24/25 06:00 Temperature 97.0 F L Pulse Rate 73 Respiratory Rate 18 Blood Pressure 139/85 Pulse Oximetry 100 Oxygen Delivery CPAP Fraction of Inspired Oxygen Intake/Output Intake/Output: Intake & Output 02/21/25 02/22/25 02/23/25 02/24/25 23:59 23:59 23:59 23:59 Intake Total 2360 3440 2392 1450 Output Total 1700 4300 800 Balance 2360 1740 -1908 650 Meds/Results Medications: Active Medications Generic Name Dose Route Start Last Admin Trade Name Freq PRN Reason Stop Dose Admin Acetaminophen 1,000 mg 02/19/25 15:32 Acetaminophen 500 Mg Tablet PO Q6H PRN Mild Pain (1-3) or Fever Hydrocodone Bitart/Acetaminophen 1 tab 02/19/25 15:32 02/23/25 08:16 Hydrocodone/Acetaminophen (*Crx) 5-325 Mg Tablet PO 1 tab Q4H PRN Administration Pain Rated 4-6 Aspirin 81 mg 02/19/25 09:00 02/23/25 08:16 Aspirin 81 Mg Enteric Tablet PO 81 mg DAILY ALISON Administration Atorvastatin Calcium 40 mg 02/19/25 21:00 02/23/25 20:21 Atorvastatin 40 Mg Tablet PO 40 mg QHS ALISON Administration Clopidogrel Bisulfate 75 mg 02/19/25 09:00 02/23/25 08:15 Clopidogrel Bisulfate 75 Mg Tablet PO 75 mg DAILY ALISON Administration Dextrose 12.5 gm 02/18/25 17:55 Dextrose 50% 25 Gm/50 Ml Syringe IV PUSH PRN PRN Hypoglycemia Protocol Empagliflozin 25 mg 02/19/25 09:00 02/23/25 08:15 Empagliflozin 25 Mg Tablet BY MOUTH 25 mg DAILY ALISON Administration Enoxaparin Sodium 40 mg 02/20/25 09:00 02/23/25 08:14 Enoxaparin 40 Mg/0.4 Ml Syringe SUB-Q 40 mg DAILY ALISON Administration Furosemide 80 mg 02/19/25 09:00 02/23/25 08:15 Furosemide 40 Mg Tablet PO 80 mg QAM ALISON Administration Glucagon 1 mg 02/18/25 17:55 Glucagon For Inj 1 Mg Vial IM PRN PRN Hypoglycemia Protocol Glucose 15 gm 02/18/25 17:55 Glucose Oral Gel 15 Gm Of Glucse In 37.5 Gm Tube PO PRN PRN Hypoglycemia Protocol Dextrose 1,000 mls @ 100 mls/hr 02/18/25 17:55 Dextrose 5% 1,000 Ml IVPB PRN PRN Hypoglycemia Protocol Cefepime HCl 2 gm/ Sodium 50 mls @ 100 mls/hr 02/23/25 14:00 02/24/25 05:52 Chloride IVPB Infused Q8HR ALISON Infusion Insulin Aspart 4 - 8 units 02/19/25 08:00 02/23/25 16:35 Insulin Aspart (*Bkc) 100 Units/Ml SUB-Q 6 units TIDWM ALISON Administration Protocol Insulin Aspart 5 units 02/20/25 08:00 02/23/25 16:35 Insulin Aspart (*Bkc) 100 Units/Ml SUB-Q 5 units TIDWM ALISON Administration Insulin Glargine 40 units 02/20/25 09:00 02/23/25 08:21 Insulin Glargine (*Bkc) 100 Units/Ml SUB-Q 40 units QAM ALISON Administration Metoprolol Succinate 100 mg 02/19/25 09:00 02/23/25 08:15 Metoprolol Succinate Ext Rel 100 Mg Tabcr PO 100 mg DAILY ALISON Administration Metronidazole 500 mg 02/22/25 14:30 02/24/25 05:05 Metronidazole 500 Mg Tablet PO 500 mg Q8HR ALISON Administration Morphine Sulfate 4 mg 02/22/25 17:00 Morphine Sulfate (*Crx) 4 Mg/Ml Inj IV PUSH Q4H PRN Pain Rated 7-10 Oxycodone HCl 5 mg 02/23/25 11:57 02/24/25 05:05 Oxycodone Hcl (*Crx) 5 Mg Tab Ir PO 5 mg Q4H PRN Administration Pain Rated 7-10 Sacubitril/Valsartan 1 tab 02/19/25 09:00 02/23/25 20:22 Sacubitril/Valsartan 97-103 Mg Tablet BY MOUTH 1 tab Q12HR ALISON Administration Radiology Results: ITS Impressions Chest X-Ray 02/18/25 14:27 Impression: No acute cardiopulmonary abnormality. Venous Doppler Study 02/19/25 17:01 Impression: Negative for DVT. Ankle Brachial Index 02/20/25 13:55 IMPRESSION: 1. Mildly decreased left TBI and normal left ROSANA, consistent with left-sided arterial occlusive disease. Note that ROSANA may be overestimated if arteries are calcified. 2. No significant right-sided arterial occlusive disease. Labs Labs: Laboratory Results - last 24 hr 02/23/25 02/23/25 02/23/25 04:12 08:16 11:41 WBC 9.6 RBC 5.25 Hgb 14.6 Hct 47.1 MCV 89.7 MCH 27.8 MCHC 31.0 L RDW 16.1 H Plt Count 287 MPV 9.5 Immature Gran % (Auto) 1.2 H Neut % (Auto) 81.8 H Lymph % (Auto) 7.6 L [place] % (Auto) 5.4 Eos % (Auto) 3.5 Baso % (Auto) 0.5 Lymph # (Auto) 0.73 L [place] # (Auto) 0.5 Eos # (Auto) 0.3 Baso # (Auto) 0.1 Abs Immat Gran (auto) 0.12 H Absolute Neuts (auto) 7.9 H Absolute Nucleated RBC 0.000 Nucleated RBC % 0.0 Sodium 132 L Potassium 3.9 Chloride 103 Carbon Dioxide 20 L Anion Gap 9 BUN 22 H Creatinine 0.92 Estim Creat Clear Calc 112 Estimated GFR > 60 Glucose 271 H POC Capillary Glucose 213 H 192 H Calcium 8.8 Total Bilirubin AST ALT Alkaline Phosphatase C-Reactive Protein Total Protein Albumin 02/23/25 02/23/25 02/24/25 16:28 19:38 04:26 WBC 10.4 H RBC 4.69 Hgb 13.1 L Hct 41.4 L MCV 88.3 MCH 27.9 MCHC 31.6 L RDW 15.8 H Plt Count 254 MPV 9.0 Immature Gran % (Auto) 1.2 H Neut % (Auto) 79.1 H Lymph % (Auto) 7.6 L [place] % (Auto) 8.2 Eos % (Auto) 3.2 Baso % (Auto) 0.7 Lymph # (Auto) 0.79 L [place] # (Auto) 0.9 H Eos # (Auto) 0.3 Baso # (Auto) 0.1 Abs Immat Gran (auto) 0.12 H Absolute Neuts (auto) 8.2 H Absolute Nucleated RBC 0.000 Nucleated RBC % 0.0 Sodium 131 L Potassium 3.8 Chloride 102 Carbon Dioxide 23 Anion Gap 6 BUN 20 Creatinine 0.89 Estim Creat Clear Calc 115 Estimated GFR > 60 Glucose 186 H POC Capillary Glucose 311 H 272 H Calcium 8.6 Total Bilirubin 0.7 AST 33 ALT 45 Alkaline Phosphatase 140 H C-Reactive Protein 3.0 H Total Protein 6.6 Albumin 3.0 L Quality VTE Prophylaxis VTE prophylaxis: mechanical ordered
[2025-02-24] MEDS: METOPROLOL SUCCINATE EXT REL 100 MG TABCR PO (08:36)
[2025-02-24] MEDS: CLOPIDOGREL BISULFATE 75 MG TABLET PO (08:36)
[2025-02-24] MEDS: SACUBITRIL/VALSARTAN 97-103 MG TABLET 1 TAB BY MOUTH ×2 (08:36→20:03)
[2025-02-24] MEDS: ASPIRIN 81 MG ENTERIC TABLET PO (08:36)
[2025-02-24] MEDS: ENOXAPARIN 40 MG/0.4 ML SYRINGE SUB-Q (08:36)
[2025-02-24] MEDS: FUROSEMIDE 40 MG TABLET 80 MG PO (08:36)
[2025-02-24] MEDS: EMPAGLIFLOZIN 25 MG TABLET BY MOUTH (08:37)
[2025-02-24] MEDS: INSULIN ASPART (*BKC) 100 UNITS/ML SUB-Q ×5 (08:37→17:16)
[2025-02-24] MEDS: INSULIN GLARGINE (*BKC) 100 UNITS/ML 40 UNITS SUB-Q (08:38)
[2025-02-24 13:08] LABS: Osmolality, Urine 725 mOsmol/kg (.)
[2025-02-24 13:28] VITALS: BP 138/78; PULSE 74; RESP 16; TEMP 36.3; O2SAT 99
--- NOTE | 2025-02-24 13:36 | ECG_ITS ---
Test Date: 2025-02-24 13:49:53 Measurements Intervals [place] Rate: 78 P: -2 MN: 186 QRS: 37 QRSD: 122 T: 124 QT: 419 QTc: 478 Interpretive Statements SINUS RHYTHM POSSIBLE LEFT ATRIAL ENLARGEMENT LEFT BUNDLE BRANCH BLOCK BASELINE ARTIFACT- II, III, AVR, AVL, AVF ABNORMAL ECG No previous ECG available for comparison Electronically Signed On 02-24-2025 14:04:02 CDT by Demario Crawford D.O.
[2025-02-24] MEDS: MORPHINE SULFATE (*CRX) 4 MG/ML INJ IV PUSH (14:01)
--- NOTE | 2025-02-24 15:42 | P.PNGS_ITS ---
Progress Note: A&P Assessment and Plan (1) Open wound of right great toe: Qualifiers: Encounter type: initial encounter Qualified Code(s): S91.101A - Unspecified open wound of right great toe without damage to nail, initial encounter Code(s): S91.101A - Unspecified open wound of right great toe without damage to nail, initial encounter Status: Acute Assessment and Plan: * Postop day 2 following ray amputation right great toe. Wound VAC changed today and amputation site is healing well. There is granulation tissue forming. Will plan to change the wound VAC again on Saturday if he is still admitted. * Will switch to oral antibiotics today, spoke with ID pharmacist who is recommending Augmentin and Bactrim. Wound cultures from 02/19 are still pending - gram stain showed gram negative rods, gram positive rods, and gram positive cocci. Pathology pending. * Continue heel touch weight bearing for transfers/stand and pivot. Avoid ambulating on RLE. Patient has a kneeling wheeled scooter to get around once discharged. His will bring this in tonight to use with therapy while admitted. * Patient could potentially discharge home tomorrow with home health, oral antibiotics, and home wound VAC. Will reassess tomorrow. Plan I have discussed the patient's case and plan of care with Dr. Curiel Subjective Subjective Date/Time Seen: 02/24/25 15:42 Post Op day: 2 (Ray amputation right great toe with application wound VAC) Interval history: He reports having burning pain down the plantar foot. He also has sharp pain at the area of the amputation that is being controlled with oxycodone. Although, he had a hard time sleeping last night due to the constant burning pain in his foot. No other issues. Wound VAC changed with wound care nurses today and there is less than 50 cc sanguineous drainage. Review of Systems Review of Systems: All systems reviewed & are unremarkable except as noted in HPI and below Exam Narrative: Right foot wound VAC dressing changed. Ray amputation right great toe with wound bed appearing healthy and granulation tissue forming. There is surrounding erythema of the dorsal and plantar forefoot, but this is improving. He is able to wiggle his remaining toes and they appear viable. Const: General: comfortable and no acute distress Objective Data Vital Signs Vital Signs: Vital Signs - 24 hr 02/23/25 20:06 02/23/25 20:30 02/23/25 22:00 Temperature 97.7 F Pulse Rate 80 Respiratory Rate 18 Blood Pressure 117/75 Pulse Oximetry 98 96 96 Oxygen Delivery Room Air CPAP Fraction of Inspired Oxygen 21 21 02/23/25 22:13 02/24/25 04:39 02/24/25 06:00 Temperature 97.0 F L Pulse Rate 73 Respiratory Rate 18 Blood Pressure 139/85 Pulse Oximetry 100 Oxygen Delivery CPAP CPAP Fraction of Inspired Oxygen 02/24/25 08:38 02/24/25 13:28 Temperature 97.4 F L Pulse Rate 74 Respiratory Rate 16 Blood Pressure 138/78 Pulse Oximetry 99 Oxygen Delivery CPAP Fraction of Inspired Oxygen 21 Intake/Output Intake/Output: Intake & Output 02/21/25 02/22/25 02/23/25 02/24/25 23:59 23:59 23:59 23:59 Intake Total 2360 3440 2392 2260 Output Total 1700 4300 3600 Balance 2360 0010 -6939 -8010 Meds/Results Medications: Active Medications Generic Name Dose Route Start Last Admin Trade Name Freq PRN Reason Stop Dose Admin Acetaminophen 1,000 mg 02/19/25 15:32 Acetaminophen 500 Mg Tablet PO Q6H PRN Mild Pain (1-3) or Fever Hydrocodone Bitart/Acetaminophen 1 tab 02/19/25 15:32 02/23/25 08:16 Hydrocodone/Acetaminophen (*Crx) 5-325 Mg Tablet PO 1 tab Q4H PRN Administration Pain Rated 4-6 Amoxicillin/Clavulanate Potassium 1 tablet 02/24/25 21:00 Amoxicillin/Clavulanate K 875-125 Mg Tab PO Q12HR ALISON Aspirin 81 mg 02/19/25 09:00 02/24/25 08:36 Aspirin 81 Mg Enteric Tablet PO 81 mg DAILY ALISON Administration Atorvastatin Calcium 40 mg 02/19/25 21:00 02/23/25 20:21 Atorvastatin 40 Mg Tablet PO 40 mg QHS ALISON Administration Clopidogrel Bisulfate 75 mg 02/19/25 09:00 02/24/25 08:36 Clopidogrel Bisulfate 75 Mg Tablet PO 75 mg DAILY ALISON Administration Dextrose 12.5 gm 02/18/25 17:55 Dextrose 50% 25 Gm/50 Ml Syringe IV PUSH PRN PRN Hypoglycemia Protocol Empagliflozin 25 mg 02/19/25 09:00 02/24/25 08:37 Empagliflozin 25 Mg Tablet BY MOUTH 25 mg DAILY ALISON Administration Enoxaparin Sodium 40 mg 02/20/25 09:00 02/24/25 08:36 Enoxaparin 40 Mg/0.4 Ml Syringe SUB-Q 40 mg DAILY ALISON Administration Furosemide 80 mg 02/19/25 09:00 02/24/25 08:36 Furosemide 40 Mg Tablet PO 80 mg QAM ALISON Administration Glucagon 1 mg 02/18/25 17:55 Glucagon For Inj 1 Mg Vial IM PRN PRN Hypoglycemia Protocol Glucose 15 gm 02/18/25 17:55 Glucose Oral Gel 15 Gm Of Glucse In 37.5 Gm Tube PO PRN PRN Hypoglycemia Protocol Dextrose 1,000 mls @ 100 mls/hr 02/18/25 17:55 Dextrose 5% 1,000 Ml IVPB PRN PRN Hypoglycemia Protocol Insulin Aspart 4 - 8 units 02/19/25 08:00 02/24/25 12:13 Insulin Aspart (*Bkc) 100 Units/Ml SUB-Q 5 units TIDWM ALISON Administration Protocol Insulin Aspart 5 units 02/20/25 08:00 02/24/25 12:14 Insulin Aspart (*Bkc) 100 Units/Ml SUB-Q 5 units TIDWM ALISON Administration Insulin Glargine 40 units 02/20/25 09:00 02/24/25 08:38 Insulin Glargine (*Bkc) 100 Units/Ml SUB-Q 40 units QAM ALISON Administration Metoprolol Succinate 100 mg 02/19/25 09:00 02/24/25 08:36 Metoprolol Succinate Ext Rel 100 Mg Tabcr PO 100 mg DAILY ALISON Administration Morphine Sulfate 4 mg 02/22/25 17:00 02/24/25 14:01 Morphine Sulfate (*Crx) 4 Mg/Ml Inj IV PUSH 4 mg Q4H PRN Administration Pain Rated 7-10 Oxycodone HCl 5 mg 02/23/25 11:57 02/24/25 11:17 Oxycodone Hcl (*Crx) 5 Mg Tab Ir PO 5 mg Q4H PRN Administration Pain Rated 7-10 Sacubitril/Valsartan 1 tab 02/19/25 09:00 02/24/25 08:36 Sacubitril/Valsartan 97-103 Mg Tablet BY MOUTH 1 tab Q12HR ALISON Administration Trimethoprim/Sulfamethoxazole 1 tab 10/08/25 21:00 Sulfamethoxazole/Trimethoprim 800/160 Mg Ds Tablet PO 03/06/25 07:00 Q12HR [facility] Radiology Results: ITS Impressions Chest X-Ray 02/18/25 14:27 Impression: No acute cardiopulmonary abnormality. Venous Doppler Study 02/19/25 17:01 Impression: Negative for DVT. Ankle Brachial Index 02/20/25 13:55 IMPRESSION: 1. Mildly decreased left TBI and normal left ROSANA, consistent with left-sided arterial occlusive disease. Note that ROSANA may be overestimated if arteries are calcified. 2. No significant right-sided arterial occlusive disease. Labs Labs: Laboratory Results - last 24 hr 02/19/25 02/23/25 02/23/25 03:26 16:28 19:38 WBC RBC Hgb Hct MCV MCH MCHC RDW Plt Count MPV Immature Gran % (Auto) Neut % (Auto) Lymph % (Auto) [place] % (Auto) Eos % (Auto) Baso % (Auto) Lymph # (Auto) [place] # (Auto) Eos # (Auto) Baso # (Auto) Abs Immat Gran (auto) Absolute Neuts (auto) Absolute Nucleated RBC Nucleated RBC % Sodium Potassium Chloride Carbon Dioxide Anion Gap BUN Creatinine Estim Creat Clear Calc Estimated GFR Glucose POC Capillary Glucose 311 H 272 H Calcium Total Bilirubin AST ALT Alkaline Phosphatase C-Reactive Protein Total Protein Albumin Urine Osmolality 725 02/24/25 02/24/25 02/24/25 04:26 08:04 12:07 WBC 10.4 H RBC 4.69 Hgb 13.1 L Hct 41.4 L MCV 88.3 MCH 27.9 MCHC 31.6 L RDW 15.8 H Plt Count 254 MPV 9.0 Immature Gran % (Auto) 1.2 H Neut % (Auto) 79.1 H Lymph % (Auto) 7.6 L [place] % (Auto) 8.2 Eos % (Auto) 3.2 Baso % (Auto) 0.7 Lymph # (Auto) 0.79 L [place] # (Auto) 0.9 H Eos # (Auto) 0.3 Baso # (Auto) 0.1 Abs Immat Gran (auto) 0.12 H Absolute Neuts (auto) 8.2 H Absolute Nucleated RBC 0.000 Nucleated RBC % 0.0 Sodium 131 L Potassium 3.8 Chloride 102 Carbon Dioxide 23 Anion Gap 6 BUN 20 Creatinine 0.89 Estim Creat Clear Calc 115 Estimated GFR > 60 Glucose 186 H POC Capillary Glucose 142 H 274 H Calcium 8.6 Total Bilirubin 0.7 AST 33 ALT 45 Alkaline Phosphatase 140 H C-Reactive Protein 3.0 H Total Protein 6.6 Albumin 3.0 L Urine Osmolality
--- NOTE | 2025-02-24 16:13 | P.PNINF_ITS ---
Progress Note: A&P Assessment and Plan (1) Open wound of right great toe: Qualifiers: Encounter type: initial encounter Qualified Code(s): S91.101A - Unspecified open wound of right great toe without damage to nail, initial encounter Code(s): S91.101A - Unspecified open wound of right great toe without damage to nail, initial encounter Status: Acute (2) Diabetic foot ulcer with osteomyelitis: Code(s): E11.621 - Type 2 diabetes mellitus with foot ulcer; E11.69 - Type 2 diabetes mellitus with other specified complication; L97.509 - Non-pressure chronic ulcer of other part of unspecified foot with unspecified severity; M86.9 - Osteomyelitis, unspecified Status: Acute (3) Cellulitis and abscess of foot: Code(s): L03.119 - Cellulitis of unspecified part of limb; L02.619 - Cutaneous abscess of unspecified foot Status: Acute (4) Type 2 diabetes mellitus with hyperglycemia, with long-term current use of insulin: Code(s): E11.65 - Type 2 diabetes mellitus with hyperglycemia; 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 -- status post complex right 1st toe debridement 02/19. Procedure anaerobic culture finalized as skin patti with many Gram-negative rods, heavy growth. -- status post right 1st toe ray amputation 02/22. Pathology including margin involvement of osteomyelitis pending. --has been receiving cefepime, metronidazole, and vancomycin. # Diabetes with complications including nephropathy and peripheral neuropathy. Plan: --Based on initial impression with surgery and lack of any aerobic culture, will transition to Augmentin and Bactrim. Planning at least 10-14 days. We can follow up with the patient in the outpatient setting to follow-up bone margins and make any further recommendations as needed. Will continue to follow up on cultures especially anaerobic cultures. Follow-up bone path but does not need to have final results before discharge. Wound care per surgery team. Patient was seen via video telehealth consultation with the assistance of staff. Chart, data, and patient independently reviewed. Patient was located at [facility] while I was located in my [place] office. Received verbal consent from patient. Subjective Date/time seen: 02/24/25 16:13 Interval history: Doing well overall. Status post amp. Had VAC change earlier today. Cultures are pending. No growth from a robotic cultures. Some anaerobic growth still pending. G stain noted. Exam Narrative: Alert and oriented to person place and time. Wound VAC in place. There has been no rash described with the antibiotics. No active phlebitis. Objective Data Vital Signs Vital Signs: Vital Signs - 24 hr 02/23/25 20:06 02/23/25 20:30 02/23/25 22:00 Temperature 36.5 C Pulse Rate 80 Respiratory Rate 18 Blood Pressure 117/75 Pulse Oximetry 98 96 96 Oxygen Delivery Room Air CPAP Fraction of Inspired Oxygen 21 21 02/23/25 22:13 02/24/25 04:39 02/24/25 06:00 Temperature 36.1 C L Pulse Rate 73 Respiratory Rate 18 Blood Pressure 139/85 Pulse Oximetry 100 Oxygen Delivery CPAP CPAP Fraction of Inspired Oxygen 02/24/25 08:38 02/24/25 13:28 Temperature 36.3 C L Pulse Rate 74 Respiratory Rate 16 Blood Pressure 138/78 Pulse Oximetry 99 Oxygen Delivery CPAP Fraction of Inspired Oxygen 21 Intake/Output Intake/Output: Intake & Output 02/21/25 02/22/25 02/23/25 02/24/25 23:59 23:59 23:59 23:59 Intake Total 2360 3440 2392 2260 Output Total 1700 4300 3600 Balance 2360 1740 -1908 -1340 Meds/Results Medications: Active Medications Generic Name Dose Route Start Last Admin Trade Name Freq PRN Reason Stop Dose Admin Acetaminophen 1,000 mg 02/19/25 15:32 Acetaminophen 500 Mg Tablet PO Q6H PRN Mild Pain (1-3) or Fever Hydrocodone Bitart/Acetaminophen 1 tab 02/19/25 15:32 02/23/25 08:16 Hydrocodone/Acetaminophen (*Crx) 5-325 Mg Tablet PO 1 tab Q4H PRN Administration Pain Rated 4-6 Amoxicillin/Clavulanate Potassium 1 tablet 02/24/25 21:00 Amoxicillin/Clavulanate K 875-125 Mg Tab PO Q12HR ALISON Aspirin 81 mg 02/19/25 09:00 02/24/25 08:36 Aspirin 81 Mg Enteric Tablet PO 81 mg DAILY ALISON Administration Atorvastatin Calcium 40 mg 02/19/25 21:00 02/23/25 20:21 Atorvastatin 40 Mg Tablet PO 40 mg QHS ALISON Administration Clopidogrel Bisulfate 75 mg 02/19/25 09:00 02/24/25 08:36 Clopidogrel Bisulfate 75 Mg Tablet PO 75 mg DAILY ALISON Administration Dextrose 12.5 gm 02/18/25 17:55 Dextrose 50% 25 Gm/50 Ml Syringe IV PUSH PRN PRN Hypoglycemia Protocol Empagliflozin 25 mg 02/19/25 09:00 02/24/25 08:37 Empagliflozin 25 Mg Tablet BY MOUTH 25 mg DAILY ALISON Administration Enoxaparin Sodium 40 mg 02/20/25 09:00 02/24/25 08:36 Enoxaparin 40 Mg/0.4 Ml Syringe SUB-Q 40 mg DAILY ALISON Administration Furosemide 80 mg 02/19/25 09:00 02/24/25 08:36 Furosemide 40 Mg Tablet PO 80 mg QAM ALISON Administration Gabapentin 300 mg 02/24/25 22:00 Gabapentin 300 Mg Capsule PO Q8HR ALISON Glucagon 1 mg 02/18/25 17:55 Glucagon For Inj 1 Mg Vial IM PRN PRN Hypoglycemia Protocol Glucose 15 gm 02/18/25 17:55 Glucose Oral Gel 15 Gm Of Glucse In 37.5 Gm Tube PO PRN PRN Hypoglycemia Protocol Dextrose 1,000 mls @ 100 mls/hr 02/18/25 17:55 Dextrose 5% 1,000 Ml IVPB PRN PRN Hypoglycemia Protocol Insulin Aspart 4 - 8 units 02/19/25 08:00 02/24/25 12:13 Insulin Aspart (*Bkc) 100 Units/Ml SUB-Q 5 units TIDWM ALISON Administration Protocol Insulin Aspart 5 units 02/20/25 08:00 02/24/25 12:14 Insulin Aspart (*Bkc) 100 Units/Ml SUB-Q 5 units TIDWM ALISON Administration Insulin Glargine 40 units 02/20/25 09:00 02/24/25 08:38 Insulin Glargine (*Bkc) 100 Units/Ml SUB-Q 40 units QAM ALISON Administration Metoprolol Succinate 100 mg 02/19/25 09:00 02/24/25 08:36 Metoprolol Succinate Ext Rel 100 Mg Tabcr PO 100 mg DAILY ALISON Administration Morphine Sulfate 4 mg 02/22/25 17:00 02/24/25 14:01 Morphine Sulfate (*Crx) 4 Mg/Ml Inj IV PUSH 4 mg Q4H PRN Administration Pain Rated 7-10 Oxycodone HCl 5 mg 02/23/25 11:57 02/24/25 11:17 Oxycodone Hcl (*Crx) 5 Mg Tab Ir PO 5 mg Q4H PRN Administration Pain Rated 7-10 Sacubitril/Valsartan 1 tab 02/19/25 09:00 02/24/25 08:36 Sacubitril/Valsartan 97-103 Mg Tablet BY MOUTH 1 tab Q12HR ALISON Administration Trimethoprim/Sulfamethoxazole 1 tab 02/24/25 21:00 Sulfamethoxazole/Trimethoprim 800/160 Mg Ds Tablet PO 03/06/25 07:00 Q12HR [facility] Radiology Results: ITS Impressions Chest X-Ray 02/18/25 14:27 Impression: No acute cardiopulmonary abnormality. Venous Doppler Study 02/19/25 17:01 Impression: Negative for DVT. Ankle Brachial Index 02/20/25 13:55 IMPRESSION: 1. Mildly decreased left TBI and normal left ROSANA, consistent with left-sided arterial occlusive disease. Note that ROSANA may be overestimated if arteries are calcified. 2. No significant right-sided arterial occlusive disease. Labs Labs: Laboratory Results - last 24 hr 02/19/25 02/23/25 02/23/25 03:26 16:28 19:38 WBC RBC Hgb Hct MCV MCH MCHC RDW Plt Count MPV Immature Gran % (Auto) Neut % (Auto) Lymph % (Auto) [place] % (Auto) Eos % (Auto) Baso % (Auto) Lymph # (Auto) [place] # (Auto) Eos # (Auto) Baso # (Auto) Abs Immat Gran (auto) Absolute Neuts (auto) Absolute Nucleated RBC Nucleated RBC % Sodium Potassium Chloride Carbon Dioxide Anion Gap BUN Creatinine Estim Creat Clear Calc Estimated GFR Glucose POC Capillary Glucose 311 H 272 H Calcium Total Bilirubin AST ALT Alkaline Phosphatase C-Reactive Protein Total Protein Albumin Urine Osmolality 725 02/24/25 02/24/25 02/24/25 04:26 08:04 12:07 WBC 10.4 H RBC 4.69 Hgb 13.1 L Hct 41.4 L MCV 88.3 MCH 27.9 MCHC 31.6 L RDW 15.8 H Plt Count 254 MPV 9.0 Immature Gran % (Auto) 1.2 H Neut % (Auto) 79.1 H Lymph % (Auto) 7.6 L [place] % (Auto) 8.2 Eos % (Auto) 3.2 Baso % (Auto) 0.7 Lymph # (Auto) 0.79 L [place] # (Auto) 0.9 H Eos # (Auto) 0.3 Baso # (Auto) 0.1 Abs Immat Gran (auto) 0.12 H Absolute Neuts (auto) 8.2 H Absolute Nucleated RBC 0.000 Nucleated RBC % 0.0 Sodium 131 L Potassium 3.8 Chloride 102 Carbon Dioxide 23 Anion Gap 6 BUN 20 Creatinine 0.89 Estim Creat Clear Calc 115 Estimated GFR > 60 Glucose 186 H POC Capillary Glucose 142 H 274 H Calcium 8.6 Total Bilirubin 0.7 AST 33 ALT 45 Alkaline Phosphatase 140 H C-Reactive Protein 3.0 H Total Protein 6.6 Albumin 3.0 L Urine Osmolality
[2025-02-24 19:51] VITALS: PULSE 74; RESP 16; O2SAT 99
[2025-02-24] MEDS: HYDROcodone/acetaminophen (*CRX) 5-325 MG TABLET 1 TAB PO (20:03)
[2025-02-24] MEDS: ATORVASTATIN 40 MG TABLET PO (20:04)
[2025-02-24] MEDS: GABAPENTIN 300 MG CAPSULE PO (20:04)
[2025-02-24] MEDS: SULFAMETHOXAZOLE/TRIMETHOPRIM 800/160 MG DS TABLET 1 TAB PO (20:13)
[2025-02-24 22:00] VITALS: BP 142/83; PULSE 85; RESP 18; TEMP 36.6; O2SAT 100
[2025-02-25 04:27] LABS: Hematocrit 42.9 % (42.0-52.0); Hemoglobin 13.4 g/dL (14.0-18.0); Immature Granulocyte Percent A 1.7 % (0-0.5); Lymphocytes Absolute Auto 0.77 K/mm3 (0.9-3.2); Mean Corpuscular HGB Conc 31.2 g/dl (32-36); Mean Corpuscular Hemoglobin 27.4 pg (26-34); Mean Corpuscular Volume 87.7 fl (80-100); Nucleated Red Blood Cells Absolute Auto 0.000 K/mm3 (0.0-0.012); Nucleated Red Blood Cells Perc 0.0 % (0.0-0.2); Platelet Count Result 254 k/mm3 (150-375); Red Blood Count 4.89 M/mm3 (4.6-6.20); White Blood Count 8.6 K/mm3 (4.5-10.0)
[2025-02-25 04:46] LABS: Alanine Aminotransferase 35 U/L (6-50); Albumin Level 2.9 g/dL (3.5-5.1); Alkaline Phosphatase 133 U/L (38-126); Anion Gap 6 mmol/L (4-12); Aspartate Amino Transferase 34 U/L (17-59); Bilirubin,Total 0.6 mg/dL (0.2-1.3); Blood Urea Nitrogen 18 mg/dL (9-20); CRP 2.3 mg/dL (<1.0); Calcium 8.4 mg/dL (8.4-10.2); Carbon Dioxide 23 mmol/L (22-30); Chloride 102 mmol/L (98-107); Estimated CRCL calculation 135 ml/min; Estimated Glomerular Filt Rate > 60; Glucose 130 mg/dL (65-110); Potassium 3.6 mmol/L (3.4-5.0); Sodium 131 mmol/L (137-145); Total Protein 6.5 g/dL (6.3-8.2)
[2025-02-25] MEDS: GABAPENTIN 300 MG CAPSULE PO ×2 (05:26→15:21)
[2025-02-25 06:00] VITALS: BP 137/88; PULSE 77; RESP 18; TEMP 36.2; O2SAT 99
[2025-02-25 06:08] LABS: Osmolality, Serum 289 mOsmol/kg (275-295)
[2025-02-25] MEDS: SACUBITRIL/VALSARTAN 97-103 MG TABLET 1 TAB BY MOUTH (08:43)
[2025-02-25] MEDS: FUROSEMIDE 40 MG TABLET 80 MG PO (08:43)
[2025-02-25] MEDS: EMPAGLIFLOZIN 25 MG TABLET BY MOUTH (08:43)
[2025-02-25] MEDS: SULFAMETHOXAZOLE/TRIMETHOPRIM 800/160 MG DS TABLET 1 TAB PO (08:43)
[2025-02-25 08:44] VITALS: PULSE 77
[2025-02-25] MEDS: CLOPIDOGREL BISULFATE 75 MG TABLET PO (08:44)
[2025-02-25] MEDS: ASPIRIN 81 MG ENTERIC TABLET PO (08:44)
[2025-02-25] MEDS: METOPROLOL SUCCINATE EXT REL 100 MG TABCR PO (08:44)
[2025-02-25] MEDS: INSULIN GLARGINE (*BKC) 100 UNITS/ML 40 UNITS SUB-Q (08:45)
[2025-02-25] MEDS: ENOXAPARIN 40 MG/0.4 ML SYRINGE SUB-Q (08:45)
[2025-02-25] MEDS: INSULIN ASPART (*BKC) 100 UNITS/ML SUB-Q ×3 (08:46→12:26)
[2025-02-25] MEDS: HYDROcodone/acetaminophen (*CRX) 5-325 MG TABLET 1 TAB PO (08:51)
--- NOTE | 2025-02-25 10:20 | P.PNGS_ITS ---
Progress Note: A&P Assessment and Plan (1) Open wound of right great toe: Qualifiers: Encounter type: initial encounter Qualified Code(s): S91.101A - Unspecified open wound of right great toe without damage to nail, initial encounter Code(s): S91.101A - Unspecified open wound of right great toe without damage to nail, initial encounter Status: Acute Assessment and Plan: * Postop day 3 following ray amputation right great toe. Wound appeared to be healing well during the dressing change yesterday. Continue wound VAC therapy. * He is tolerating oral antibiotics. ID is recommending Augmentin and Bactrim, which we would recommend to continue for a week after discharge. Wound cultures from 02/19 with no final growth, and the gram stain showed gram negative rods, gram positive rods, and gram positive cocci. Pathology showed margin negative for osteomyelitis. * He is surgically stable for discharge when medically stable and okay with other services. Home wound VAC has been set up and will need to be switched to the home wound VAC canister prior to discharge. He has a wheeled scooter at home for getting around, but can do heel-touch weight bearing for transfers or stand/pivot. He can follow-up in the wound clinic tomorrow as an outpatient for his dressing change if he is discharged today. If he stays today, then we will plan to change his wound VAC tomorrow with the wound care nurses. Will have the patient follow-up with Dr. Curiel in 1 week in the wound clinic. Plan I have discussed the patient's case and plan of care with Dr. Curiel Subjective Subjective Date/Time Seen: 02/25/25 10:20 Post Op day: 3 (Ray amputation right great toe with application wound VAC) Patient reports: no new complaints, feels better and afebrile Interval history: Patient's pain was much better through the night. He reports significant improvement in the burning pain in his foot. He was able to sleep better. No other complaints at this time. Per wound care nurse, HH would not be able to be at his house tomorrow, but could start doing dressing changes next week. Exam Narrative: Right foot wound VAC dressing dry and intact with scant sanguineous drainage in canister, minimal output overnight. Const: General: comfortable and no acute distress Orientation/consciousness: patient oriented x3 Objective Data Vital Signs Vital Signs: Vital Signs - 24 hr 10/08/25 13:28 02/24/25 19:51 02/24/25 20:28 Temperature 97.4 F L Pulse Rate 74 74 Respiratory Rate 16 16 Blood Pressure 138/78 Pulse Oximetry 99 99 Oxygen Delivery CPAP CPAP Fraction of Inspired Oxygen 21 02/24/25 22:00 02/25/25 02:22 02/25/25 06:00 Temperature 97.8 F 97.1 F L Pulse Rate 85 77 Respiratory Rate 18 18 Blood Pressure 142/83 H 137/88 Pulse Oximetry 100 99 Oxygen Delivery CPAP Fraction of Inspired Oxygen 02/25/25 08:44 Temperature Pulse Rate 77 Respiratory Rate Blood Pressure Pulse Oximetry Oxygen Delivery Fraction of Inspired Oxygen Intake/Output Intake/Output: Intake & Output 02/22/25 02/23/25 02/24/25 02/25/25 23:59 23:59 23:59 23:59 Intake Total 3440 2392 2980 444 Output Total 1700 4300 5325 250 Balance 9817 -4883 -9661 194 Meds/Results Medications: Active Medications Generic Name Dose Route Start Last Admin Trade Name Freq PRN Reason Stop Dose Admin Acetaminophen 1,000 mg 02/19/25 15:32 Acetaminophen 500 Mg Tablet PO Q6H PRN Mild Pain (1-3) or Fever Hydrocodone Bitart/Acetaminophen 1 tab 02/19/25 15:32 02/25/25 08:51 Hydrocodone/Acetaminophen (*Crx) 5-325 Mg Tablet PO 1 tab Q4H PRN Administration Pain Rated 4-6 Amoxicillin/Clavulanate Potassium 1 tablet 02/24/25 21:00 02/25/25 08:44 Amoxicillin/Clavulanate K 875-125 Mg Tab PO 1 tablet Q12HR ALISON Administration Aspirin 81 mg 02/19/25 09:00 02/25/25 08:44 Aspirin 81 Mg Enteric Tablet PO 81 mg DAILY ALISON Administration Atorvastatin Calcium 40 mg 02/19/25 21:00 02/24/25 20:04 Atorvastatin 40 Mg Tablet PO 40 mg QHS ALISON Administration Clopidogrel Bisulfate 75 mg 02/19/25 09:00 02/25/25 08:44 Clopidogrel Bisulfate 75 Mg Tablet PO 75 mg DAILY ALISON Administration Dextrose 12.5 gm 02/18/25 17:55 Dextrose 50% 25 Gm/50 Ml Syringe IV PUSH PRN PRN Hypoglycemia Protocol Empagliflozin 25 mg 02/19/25 09:00 02/25/25 08:43 Empagliflozin 25 Mg Tablet BY MOUTH 25 mg DAILY ALISON Administration Enoxaparin Sodium 40 mg 02/20/25 09:00 02/25/25 08:45 Enoxaparin 40 Mg/0.4 Ml Syringe SUB-Q 40 mg DAILY ALISON Administration Furosemide 80 mg 02/19/25 09:00 02/25/25 08:43 Furosemide 40 Mg Tablet PO 80 mg QAM ALISON Administration Gabapentin 300 mg 02/24/25 22:00 02/25/25 05:26 Gabapentin 300 Mg Capsule PO 300 mg Q8HR ALISON Administration Glucagon 1 mg 02/18/25 17:55 Glucagon For Inj 1 Mg Vial IM PRN PRN Hypoglycemia Protocol Glucose 15 gm 02/18/25 17:55 Glucose Oral Gel 15 Gm Of Glucse In 37.5 Gm Tube PO PRN PRN Hypoglycemia Protocol Dextrose 1,000 mls @ 100 mls/hr 02/18/25 17:55 Dextrose 5% 1,000 Ml IVPB PRN PRN Hypoglycemia Protocol Insulin Aspart 4 - 8 units 02/19/25 08:00 02/25/25 08:23 Insulin Aspart (*Bkc) 100 Units/Ml SUB-Q Not Given TIDWM [facility] Protocol Insulin Aspart 5 units 02/20/25 08:00 02/25/25 08:46 Insulin Aspart (*Bkc) 100 Units/Ml SUB-Q 5 units TIDWM ALISON Administration Insulin Glargine 40 units 02/20/25 09:00 02/25/25 08:45 Insulin Glargine (*Bkc) 100 Units/Ml SUB-Q 40 units QAM ALISON Administration Metoprolol Succinate 100 mg 02/19/25 09:00 02/25/25 08:44 Metoprolol Succinate Ext Rel 100 Mg Tabcr PO 100 mg DAILY ALISON Administration Morphine Sulfate 4 mg 02/22/25 17:00 02/24/25 14:01 Morphine Sulfate (*Crx) 4 Mg/Ml Inj IV PUSH 4 mg Q4H PRN Administration Pain Rated 7-10 Oxycodone HCl 5 mg 02/23/25 11:57 02/24/25 11:17 Oxycodone Hcl (*Crx) 5 Mg Tab Ir PO 5 mg Q4H PRN Administration Pain Rated 7-10 Sacubitril/Valsartan 1 tab 02/19/25 09:00 02/25/25 08:43 Sacubitril/Valsartan 97-103 Mg Tablet BY MOUTH 1 tab Q12HR ALISON Administration Trimethoprim/Sulfamethoxazole 1 tab 02/24/25 21:00 02/25/25 08:43 Sulfamethoxazole/Trimethoprim 800/160 Mg Ds Tablet PO 03/06/25 07:00 1 tab Q12HR ALISON Administration Radiology Results: ITS Impressions Chest X-Ray 02/18/25 14:27 Impression: No acute cardiopulmonary abnormality. Venous Doppler Study 02/19/25 17:01 Impression: Negative for DVT. Ankle Brachial Index 02/20/25 13:55 IMPRESSION: 1. Mildly decreased left TBI and normal left ROSANA, consistent with left-sided arterial occlusive disease. Note that ROSANA may be overestimated if arteries are calcified. 2. No significant right-sided arterial occlusive disease. Labs Labs: Laboratory Results - last 24 hr 02/19/25 02/19/25 02/24/25 03:26 04:49 12:07 WBC RBC Hgb Hct MCV MCH MCHC RDW Plt Count MPV Immature Gran % (Auto) Neut % (Auto) Lymph % (Auto) [place] % (Auto) Eos % (Auto) Baso % (Auto) Lymph # (Auto) [place] # (Auto) Eos # (Auto) Baso # (Auto) Abs Immat Gran (auto) Absolute Neuts (auto) Absolute Nucleated RBC Nucleated RBC % Sodium Potassium Chloride Carbon Dioxide Anion Gap BUN Creatinine Estim Creat Clear Calc Estimated GFR Glucose POC Capillary Glucose 274 H Serum Osmolality 289 Calcium Total Bilirubin AST ALT Alkaline Phosphatase C-Reactive Protein Total Protein Albumin Urine Osmolality 725 02/24/25 02/24/25 02/25/25 16:55 19:41 03:47 WBC 8.6 RBC 4.89 Hgb 13.4 L Hct 42.9 MCV 87.7 MCH 27.4 MCHC 31.2 L RDW 15.9 H Plt Count 254 MPV 9.2 Immature Gran % (Auto) 1.7 H Neut % (Auto) 76.1 H Lymph % (Auto) 8.9 L [place] % (Auto) 8.3 Eos % (Auto) 4.3 Baso % (Auto) 0.7 Lymph # (Auto) 0.77 L [place] # (Auto) 0.7 H Eos # (Auto) 0.4 H Baso # (Auto) 0.1 Abs Immat Gran (auto) 0.15 H Absolute Neuts (auto) 6.6 Absolute Nucleated RBC 0.000 Nucleated RBC % 0.0 Sodium 131 L Potassium 3.6 Chloride 102 Carbon Dioxide 23 Anion Gap 6 BUN 18 Creatinine 0.75 Estim Creat Clear Calc 135 Estimated GFR > 60 Glucose 130 H POC Capillary Glucose 213 H 236 H Serum Osmolality Calcium 8.4 Total Bilirubin 0.6 AST 34 ALT 35 Alkaline Phosphatase 133 H C-Reactive Protein 2.3 H Total Protein 6.5 Albumin 2.9 L Urine Osmolality 02/25/25 08:07 WBC RBC Hgb Hct MCV MCH MCHC RDW Plt Count MPV Immature Gran % (Auto) Neut % (Auto) Lymph % (Auto) [place] % (Auto) Eos % (Auto) Baso % (Auto) Lymph # (Auto) [place] # (Auto) Eos # (Auto) Baso # (Auto) Abs Immat Gran (auto) Absolute Neuts (auto) Absolute Nucleated RBC Nucleated RBC % Sodium Potassium Chloride Carbon Dioxide Anion Gap BUN Creatinine Estim Creat Clear Calc Estimated GFR Glucose POC Capillary Glucose 129 H Serum Osmolality Calcium Total Bilirubin AST ALT Alkaline Phosphatase C-Reactive Protein Total Protein Albumin Urine Osmolality
--- NOTE | 2025-02-25 12:01 | P.DS_ITS ---
DS: Admitting Diagnosis Discharge Date 02/25/2025 Admitting Diagnosis Osteomyelitis DS: Discharge Diagnosis Discharge Diagnosis (1) Osteomyelitis: Qualifiers: Laterality: right Osteomyelitis location: foot Osteomyelitis type: unspecified type Qualified Code(s): M86.9 - Osteomyelitis, unspecified Code(s): M86.9 - Osteomyelitis, unspecified Status: Acute Assessment and Plan: -patient follows with podiatry. Patient had outpatient MRI 02/16/25 which apparently showed osteomyelitis of the great toe. Records requested. Patient was on doxycycline for 1 month and has had multiple debridements - initial CRP 20, downtrending. Afebrile, no leukocytosis. LA WNL. - s/p complex I&D of R great toe by Dr. Curiel 02/19. Culture with heavy growth of gram negative bacilli, speciation pending. - concern for continued cellulitis and osteo. S/p R ray amputation with wound vac placement by Dr. Curiel 02/22. - blood cultures NGTD - continue cefepime, Flagyl and vancomycin. Await surgical cultures. ID consulted, appreciate recs. 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 - pain control - PT/OT, care coordination consulted - wound care - wound cultures still pending (2) Chronic kidney disease, stage 3: Code(s): N18.30 - Chronic kidney disease, stage 3 unspecified Status: Acute Assessment and Plan: - Cr 0.76, stable - avoid nephrotoxins (3) Type 2 diabetes mellitus with hyperglycemia, with long-term current use of insulin: Code(s): E11.65 - Type 2 diabetes mellitus with hyperglycemia; Z79.4 - jail (current) use of insulin Status: Acute Assessment and Plan: - last HgbA1c - 11.0 02/19/25. Admitted to poor compliance with home medications. - admit glucose 300s - hold home metformin, tirzepatide - continue home lantus at reduced dose, aspart 5u TIDWM with high dose SSI. Titrate PRN. - POCT glucose qACHS - hypoglycemia management protocol - family living educator consulted (4) Obstructive sleep apnea on CPAP: Code(s): G47.33 - Obstructive sleep apnea (adult) (pediatric); Z99.89 - Dependence on other enabling machines and devices Status: Acute Assessment and Plan: - continue home CPAP (5) CHF (congestive heart failure): Qualifiers: Heart failure chronicity: chronic Heart failure type: combined systolic and diastolic Qualified Code(s): I50.42 - Chronic combined systolic (congestive) and diastolic (congestive) heart failure Code(s): I50.9 - Heart failure, unspecified Status: Acute Assessment and Plan: - echo 05/2021 with EF 25-30% - continue home metoprolol and Entresto. Aldactone on hold due to hyponatremia. - monitor volume status (6) Hyperlipidemia associated with type 2 diabetes mellitus: Code(s): E11.69 - Type 2 diabetes mellitus with other specified complication; E78.5 - Hyperlipidemia, unspecified Status: Acute Assessment and Plan: - hold statin due to elevated LFTs - repeat CMP in AM (7) Hyponatremia: Code(s): E87.1 - Hypo-osmolality and hyponatremia Status: Acute Assessment and Plan: - improved with better glucose management. - Encourage PO intake and optimize blood sugars - daily BMP (8) CAD (coronary artery disease): Qualifiers: Associated angina: angina presence unspecified Coronary Disease- Associated Artery/Lesion type: [place] artery [place] vs. transplanted heart: [place] heart Qualified Code(s): I25.10 - Atherosclerotic heart disease of [place] coronary artery without angina pectoris Code(s): I25.10 - Atherosclerotic heart disease of [place] coronary artery without angina pectoris Status: Acute Assessment and Plan: - s/p CABG - continue home Plavix, ASA and statin (9) Transaminitis: Code(s): R74.01 - Elevation of levels of liver transaminase levels Status: Acute Assessment and Plan: - trending down - hold statin - may be secondary to surgery - repeat CMP in AM - Down-trending Plan DVT prophylaxis: Marilia Code status: full code Dispo: TBD pending PT/OT recs. Will need wound vac on discharge. DS: Summary Hospital Course Reason for hospitalization: Open wound of right great toe Hospital Course: Per HPI: This is a 49-year-old male patient has a history of hypertension and diabetes with neuropathy, nephropathy, and chronic renal failure. The patient has been treated for a right great toe infection for several months. 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 He stated that he has had some debridement to the right great toe in the past. An MRI was performed and there was some concern for osteomyelitis without developing abscess. The patient has been on doxycycline for approximately 1 month and his wound is getting worse his right great toe. His PCP sent him to the emergency room here. His white count is 10.7. His sodium is down to 127 with the only comparison 0f 133 on 10/29/2023. His blood sugar is 352 and then 361. His hydro butyrate acetoacetate is 2.65. His urine has 3+ protein 3+ glucose and 1+ ketones with 3+ blood. Leukocytes 21-50 in the urine. Chest x-ray will today was read as lungs are clear no effusion no pneumothorax heart is normal size mediastinal and hilar contours are within normal limits post sternotomy no acute cardiopulmonary abnormality. Surgery has been consulted. The patient was given cefepime, Rocephin, and vancomycin in the emergency room. He was also given ketorolac and morphine for pain in the emergency room. He was also given IV fluids in the emergency room. The patient is being admitted to inpatient status on the date of service of 02/18/2025. General surgery consulted regarding open wound to the right great toe. Complex incision and drainage of right great toe abscess on 02/19. Patient had an abscess of the right great toe distally at the junction of the proximal distal phalanx. Recommended continuing packing of wound with [place] drain in place, along with continuing IV antibiotics for osteomyelitis. Patient eventually needed an amputation of the right great toe with application of wound VAC. This procedure was performed on 02/22. Infectious Disease was consulted regarding diabetic foot infection involving ulcer/abscess/underlying osteomyelitis. IV antibiotics, including cefepime was continued throughout hospitalization until wound cultures could be obtained. Wound VAC was maintained by General surgery. Infectious Disease recommended transitioning to Augmentin and Bactrim for at least 10-14 days based on initial impression was surgery in lack of a repeat culture. Patient otherwise hemodynamically stable for discharge at this time. For discharge home with prescription of Augmentin and Bactrim. He can follow-up in the Wound Clinic tomorrow as an outpatient for dressing change and will follow-up with Dr. Curiel in 1 week in the wound clinic. Status at Discharge Functional status at discharge: independent ambulation Overall status at discharge: patient is progressing back to baseline Time Spent with Patient Time attestation: Total time spent providing and/or coordinating discharge services: 32 Exam Narrative: General: NAD Eyes: EOMI ENT: neck supple Cardiovascular: Regular rate and rhythm Respiratory: Clear to auscultation, respirations even and unlabored on RA Gastrointestinal: Soft, non tender Genitourinary: no suprapubic tenderness Musculoskeletal: No edema Skin: warm, dry. R great toe amputation with wound vac in place. Neuro: Alert. Psych: Mood appropriate Const: General: cooperative, comfortable, no acute distress, well developed, awake, Physically active and obese Nutritional Appearance: obese Orientation/consciousness: oriented to person, oriented to place, oriented to time and patient oriented x3 Limitations: no limitations HENMT: Head: normal to inspection, No palpable skull fracture present, normocephalic and atraumatic Eyes: General: appearance normal, both eyes and all related structures Alignment and Position: alignment normal Periorbital: periorbital findings normal Eyelids: eyelids normal Pupils: Equal, round and reactive pupils present Neck: Neck: normal visual inspection, full ROM and no lymphadenopathy Chest: Chest palpation & inspection: normal inspection of the chest Resp: Effort & Inspection: normal respiratory effort Auscultation: clear to auscultation bilaterally Cardio: Palpation: normal PMI Rate: tachycardic Rhythm: regular rhythm Heart sounds: S1 normal heart sound present and S2 normal heart sound present Peripheral pulses: Peripheral pulses 2+ throughout GI: Inspection: normal to inspection Auscultation: normal bowel sounds Rectal Exam: deferred Skin: General skin exam: normal color and lesion Lesions: lesion noted Other: Right foot wound VAC dressing dry and intact with scant sanguineous drainage in canister, minimal output overnight. Neuro: General: oriented to person, oriented to place, oriented to time and patient oriented x3 Cranial nerves: Yes Equal, round and reactive pupils present and Yes Normal hearing present Sensory Exam: normal sensation Extrem: General: normal to inspection Right upper extremity: normal to inspection and shoulder/upper arm Left upper extremity: normal to inspection and shoulder/upper arm Right lower extremity: full ROM, edema Details: 1+ and foot Left lower extremity: normal to inspection Other: 1+ pitting edema to the right foot. José thema to mid right foot. Ulcerated area noted on the right great toe with serosanguineous drainage. No malodorous smell noted. Patient is neurologically intact. Normal capillary refill. Psych: Appearance: grossly normal Mental Status: mental status grossly normal Speech and movement: Normal speech and movement present Affect: normal affect Attitude: cooperative Thought process: Normal thought process present Insight: Good insight present (Psych) Judgement: Good judgement present (Psych) DS: Data Data Completed and Pending Completed studies during hospitalization: Pending at discharge 02/22/25 15:02 Surgical [PTH] Routine Labs on day of discharge: Labs from last 24 hours 02/25/25 02/25/25 02/24/25 08:07 03:47 19:41 WBC 8.6 RBC 4.89 Hgb 13.4 L Hct 42.9 MCV 87.7 MCH 27.4 MCHC 31.2 L RDW 15.9 H Plt Count 254 MPV 9.2 Immature Gran % (Auto) 1.7 H Neut % (Auto) 76.1 H Lymph % (Auto) 8.9 L Mathews % (Auto) 8.3 Eos % (Auto) 4.3 Baso % (Auto) 0.7 Lymph # (Auto) 0.77 L Mathews # (Auto) 0.7 H Eos # (Auto) 0.4 H Baso # (Auto) 0.1 Abs Immat Gran (auto) 0.15 H Absolute Neuts (auto) 6.6 Absolute Nucleated RBC 0.000 Nucleated RBC % 0.0 Sodium 131 L Potassium 3.6 Chloride 102 Carbon Dioxide 23 Anion Gap 6 BUN 18 Creatinine 0.75 Estim Creat Clear Calc 135 Estimated GFR > 60 Glucose 130 H POC Capillary Glucose 129 H 236 H Serum Osmolality Calcium 8.4 Total Bilirubin 0.6 AST 34 ALT 35 Alkaline Phosphatase 133 H C-Reactive Protein 2.3 H Total Protein 6.5 Albumin 2.9 L Urine Osmolality 02/24/25 02/24/25 02/19/25 16:55 12:07 04:49 WBC RBC Hgb Hct MCV MCH MCHC RDW Plt Count MPV Immature Gran % (Auto) Neut % (Auto) Lymph % (Auto) Mathews % (Auto) Eos % (Auto) Baso % (Auto) Lymph # (Auto) Mathews # (Auto) Eos # (Auto) Baso # (Auto) Abs Immat Gran (auto) Absolute Neuts (auto) Absolute Nucleated RBC Nucleated RBC % Sodium Potassium Chloride Carbon Dioxide Anion Gap BUN Creatinine Estim Creat Clear Calc Estimated GFR Glucose POC Capillary Glucose 213 H 274 H Serum Osmolality 289 Calcium Total Bilirubin AST ALT Alkaline Phosphatase C-Reactive Protein Total Protein Albumin Urine Osmolality 02/19/25 03:26 WBC RBC Hgb Hct MCV MCH MCHC RDW Plt Count MPV Immature Gran % (Auto) Neut % (Auto) Lymph % (Auto) Mathews % (Auto) Eos % (Auto) Baso % (Auto) Lymph # (Auto) Mathews # (Auto) Eos # (Auto) Baso # (Auto) Abs Immat Gran (auto) Absolute Neuts (auto) Absolute Nucleated RBC Nucleated RBC % Sodium Potassium Chloride Carbon Dioxide Anion Gap BUN Creatinine Estim Creat Clear Calc Estimated GFR Glucose POC Capillary Glucose Serum Osmolality Calcium Total Bilirubin AST ALT Alkaline Phosphatase C-Reactive Protein Total Protein Albumin Urine Osmolality 725 Preliminary micro results at discharge 02/19/25 13:37 Anaerobic Culture - Preliminary Toe Right Great Discharge Plan Discharge Attending physician on discharge: Duran Oneal Oca Consulting providers: Joceline De La Garza; Anuj Curiel; Chevy Summers; Darrion Du Discharging Clinician: Darrion Du Anticipated Discharge Date/Time: 02/25/25 12:49 Patient Disposition: Home with Home Health Service Activity: no straining Diet: regular Wound Care Instructions: other - see discharge instructions Discharge Instructions: Per Care Coordination: [facility] ([phone]) has been arranged to start services at hospital discharge. They will call you to set up initial visit. Initial appointment for wound vac dressing change will be at the [facility] tomorrow Saturday at 8:30AM. Please arrive to Registration(located in the lab area of Hospital entrance 1) by 8:00AM. Once registered with your papers, the Wound Center is located on the 2nd floor of the hospital. There are signs to direct you. Questions regarding appointment, please contact [phone]. General surgery discharge instructions: * Follow-up with Dr. Curiel in 1 week in the wound clinic. * You may use heel-touch weight bearing on the right leg to transfer to the chair or bed, but if you are wanting to walk around, then use the wheeled scooter or crutches. * We have sent a prescription for pain medication (oxycodone which is is a narcotic, and gabapentin which is for nerve pain). As your pain is improving, you can transition off the oxycodone and to Tylenol over the counter. You can also just use before dressing changes if needed (take about 30 minutes before your appointment with wound clinic or home health). Wound vac Settings: Home Health to change dressing 3 times per week. Black foam only, track to the top of the foot. -125mmHg low continuous pressure. Place ABD pads under the tubing and wrap foot with kerlex. If your wound vac dressing comes off, you must remove all black foam from the wound bed and apply a wet to dry dressing. Contact home health the next day once started under their services. Discharge disposition: Home with home health Take medications as prescribed. He will be prescribed Augmentin and Bactrim, take these for the entire course. Monitor blood pressures Take caution while standing, rising, or moving Change positions slowly taking a break between each position change If you standing feel dizzy sit back down and take a break Encouraged to continue with yearly vaccinations Return to the emergency department if you develops sudden shortness of breath, chest pain, nausea, vomiting, upset stomach or intractable diarrhea Return to the emergency department if you develop fever greater than 101.5 Follow-up with the primary care physician within 1-2 weeks Thank you for choosing [facility] for your healthcare needs Patient Instructions: Antibiotic Form, Basic Carbohydrate Counting (DC) Patient Language: Colombian Stand Alone Forms: General Discharge Information Follow-up/Referrals: Anuj Curiel MD [Physician, General Surgery] - 1 Week Discharge Medications: New oxycodone-acetaminophen 5-325 mg tablet 1 tablet PO Q6H PRN (Reason: pain) Qty: 20 0RF Rx Instructions: Take 0.5 - 1 tablet every 6 hours as needed for moderate to severe pain gabapentin [Neurontin] 300 mg Capsule 300 mg PO Q8HR 30 Days Qty: 90 0RF amoxicillin-pot clavulanate 875-125 mg tablet 1 tablet PO Q12H 5 Days Qty: 10 0RF sulfamethoxazole-trimethoprim 800-160 mg tablet 1 tablet PO Q12H 7 Days Qty: 14 0RF Continued Lantus Solostar U-100 Insulin 100 unit/mL (3 mL) insulin pen 60 unit subcut QAM Qty: 60 3RF insulin lispro 100 unit/mL insulin pen 1 sliding scale dose SUBCUT USEASDIRECTD Qty: 15 3RF Rx Instructions: max daily dose: 20 units metoprolol succinate 100 mg tablet extended release 24 hr 100 mg PO DAILY Qty: 90 3RF doxycycline hyclate 100 mg capsule 100 mg PO Q12H (DME) Dexcom G6 Transmitter Device See Rx Instructions .Route Qty: 1 3RF Rx Instructions: As directed (DME) Dexcom G6 Sensor Device See Rx Instructions .Route Qty: 9 3RF Rx Instructions: As directed clopidogrel [Plavix] 75 mg tablet 75 mg PO DAILY Qty: 90 3RF aspirin 81 mg Tablet,Delayed Release (Dr/Ec) 81 mg PO DAILY sertraline 100 mg tablet 100 mg PO DAILY Qty: 90 1RF furosemide 40 mg tablet 80 mg PO QAM Qty: 180 0RF Mounjaro 7.5 mg/0.5 mL pen injector See Rx Instructions .ROUTE .COMPLEX Qty: 4 0RF Dose Instruction: INJECT 7.5MG SUBCUTANEOUSLY ONCE WEEKLY Rx Instructions: INJECT 7.5MG SUBCUTANEOUSLY ONCE WEEKLY sacubitril-valsartan [Entresto] 97-103 mg tablet See Rx Instructions .ROUTE .COMPLEX Qty: 180 0RF Dose Instruction: Take 1 tablet by mouth twice daily Rx Instructions: Take 1 tablet by mouth twice daily Jardiance 25 mg tablet See Rx Instructions .ROUTE .COMPLEX Qty: 90 0RF Dose Instruction: Take 1 tablet by mouth once daily Rx Instructions: Take 1 tablet by mouth once daily spironolactone 25 mg tablet See Rx Instructions .ROUTE .COMPLEX Qty: 90 0RF Dose Instruction: TAKE 1 TABLET BY MOUTH IN THE MORNING Rx Instructions: TAKE 1 TABLET BY MOUTH IN THE MORNING metformin 500 mg tablet extended release 24 hr 1,000 mg PO BID Qty: 180 0RF Rx Instructions: LAST REFILL, NEEDS APPOINTMENT atorvastatin 40 mg tablet 40 mg PO QHS Qty: 90 0RF Rx Instructions: LAST REFILL, NEEDS APPOINTMENT Discontinued acetaminophen-codeine 300-30 mg tablet 1 tablet PO Q4H PRN (Reason: pain) pen needle, diabetic [BD Ultra-Fine Short Pen Needle] 31 gauge x 5/16 needle See Rx Instructions .ROUTE .COMPLEX Qty: 1200 3RF Dose Instruction: USE 1 NEEDLE DAILY AND NEEDED Rx Instructions: USE 1 NEEDLE QID AND NEEDED; Men's Multivitamin 400-20-300 mcg Tablet 1 tablet PO DAILY Date of admission: 02/18/25 16:07 Primary Care Provider: Lindsay Peralta Admitting Provider: Liza Alves Attending physician on admission: Liza lAves Condition: Stable Quality VTE Prophylaxis VTE prophylaxis: mechanical ordered
--- NOTE | 2025-03-01 15:26 | PCCDE ---
Reached patient for DM educator courtesy follow up call. Denies questions, stating he has his Dexcom again and numbers are better. Still interested in OP DSMT - [facility] if referral has been received from Dr. Watson office Directed patient to call number on DM flyer from hospital if haven't connected x ~ 1 wk.
== END 2025-02-25 15:30 | disposition home health service (06) | DRG 617 ==
LOC: ANHED 16:07 → ANH2MED 16:59
PROVIDERS: Nurse Practitioner; Physician Assistant; Surgery; Admitting Provider Internal Medicine; Emergency Provider Nurse Practitioner Family; PCP Family Medicine; Visit Provider Physician Assistant
PROC: 0J9Q0ZX Drainage of Right Foot Subcutaneous Tissue and Fascia, Open Approach, Diagnostic (ICD-10-PCS; principal; 2025-02-19 13:30)
PROC: 0Y6M0Z4 Detachment at Right Foot, Complete 1st Ray, Open Approach (ICD-10-PCS; principal; 2025-02-22 14:30)
DX: E11.69 Type 2 diabetes mellitus with other specified complication (principal); E87.1 Hypo-osmolality and hyponatremia; L02.611 Cutaneous abscess of right foot; M86.171 Other acute osteomyelitis, right ankle and foot; I13.0 Hypertensive heart and chronic kidney disease with heart failure and stage 1 through stage 4 chronic kidney disease, or unspecified chronic kidney disease; I50.42 Chronic combined systolic (congestive) and diastolic (congestive) heart failure; E11.621 Type 2 diabetes mellitus with foot ulcer; E11.628 Type 2 diabetes mellitus with other skin complications; L03.031 Cellulitis of right toe; B96.89 Other specified bacterial agents as the cause of diseases classified elsewhere; E11.3493 Type 2 diabetes mellitus with severe nonproliferative diabetic retinopathy without macular edema, bilateral; E11.42 Type 2 diabetes mellitus with diabetic polyneuropathy; G47.33 Obstructive sleep apnea (adult) (pediatric); N18.30 Chronic kidney disease, stage 3 unspecified; L97.519 Non-pressure chronic ulcer of other part of right foot with unspecified severity; E78.2 Mixed hyperlipidemia; E11.22 Type 2 diabetes mellitus with diabetic chronic kidney disease; I25.10 Atherosclerotic heart disease of native coronary artery without angina pectoris; M70.61 Trochanteric bursitis, right hip; N40.0 Benign prostatic hyperplasia without lower urinary tract symptoms; R74.01 Elevation of levels of liver transaminase levels; E11.65 Type 2 diabetes mellitus with hyperglycemia; Z95.1 Presence of aortocoronary bypass graft; Z86.16 Personal history of COVID-19; Z79.4 Long term (current) use of insulin; I25.2 Old myocardial infarction; Z90.49 Acquired absence of other specified parts of digestive tract; Z95.5 Presence of coronary angioplasty implant and graft
CPT/HCPCS: 36415; 71046; 80048; 80053; 80202; 81001; 82010; 82565; 82803; 82948; 83036; 83605; 83930; 83935; 84443; 85025; 85610; 85730; 86140; 87040; 87070; 87075; 87205; 88305; 88311; 93005; 93922; 93971; 96365; 96375; 97161; 97164; 97165; 99285; A9270; J0692; J0696; J1650; J1815; J1836; J1885; J2003; J2004; J2250; J2270; J2371; J2405; J2704; J3010; J3373; J7030; J7120

== ENCOUNTER 2025-05-04 10:56 | Outpatient (CLI) | payer BC, SELFPAY ==
--- OUTSIDE RECORDS SUMMARY | 2025-05-04 13:13 | XMS_ITS | Clinical Summary ---
Author Organization [facility] Address [address] [place] [phone] Phone Care Team Providers Care County Director Name Role Phone Lindsay Peralta MD Primary Care Provider [phone] Allergies Active Allergy Reactions Criticality Noted Date [...] by mouth daily Active Continuous Blood Gluc [place] (DEXCOM G6 [employer] [place] HOST/HOSTESS) device USE TO MONITIOR BLOOD GLUCOSE LEVELS [...] Plan: Utilize home CPAP Coronary arteriosclerosis in [place] artery 10/16 Overview (12/11/2018): Coronary atherosclerosis Generalized [...] Comments Blood Pressure 128/72 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 Pulse 84 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 Temperature 36 C (96.8 F) 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
--- OUTSIDE RECORDS SUMMARY | 2025-05-04 13:13 | XMS_ITS | Encounter Summary ---
Author Organization [facility] Healthcare Address [address] [place] [address] Care Team Providers Care Hand Stone Polisher Name Role Phone Lindsay Peralta MD Primary Care Provider + Samantha Zhang NP Unavailable Salvador Prince MD Unavailable [phone] Miscellaneous, Not In File Unavailable Unava ilable Gia Brannon MD Unavailable [phone] Fran Reyes MD Unavailable [phone] Encounter Details Date Type Department Care Team (Late st Contact Info) Description 09/30/2019 Documentation [facility] Case Management [address] [place] [address] Stephane Yeboah, LUIS Social History Tobacco Use [...] on file Legal Sex Male 11:10 AM [employer] Gender Identity Male 07/11/2019 11:28 AM [employer] Sexual Orientation Straight 11/11/2018 2: 54 PM CDT documented as of this encounter Functional Status * Blanco Fall Risk Question Answer Date of Assessment Author History of Falling 0 10/03/2019 7: 30 PM CDT Summer Johnston, LUIS Secondary Diagnosis 15 10/03/2019 7 :30 PM CDT Summer Johnston, automotive tire tester Aids 0 10/03/2019 7:30 PM CDT Summer Johnston, LUIS Intravenous Therapy/Heparin/Saline Lock 20 10/03/2019 7:30 PM CDT Summer Johnston, RN Gait/Transferring 0 10/03/2019 7:3 0 PM CDT Summer Johnston, RN Mental Status 0 10/03/2019 7:30 PM CDT Summer Johnston, LUIS Auto Low/High - if selected proceed to interventions (retired) High risk-per unit/hospital protocol 10/02/2019 8:00 AM CDT Sunshine Herron, LUIS Blanco Fall Risk Score (Score >= 45 places fall precaution order) 35 10/03/2019 7:30 PM CDT Summer Johnston, LUIS * Arthur Scale Question Answer Date of Assessment Author Sensory Perceptions 4 10/03/2019 7:30 PM CD T Summer Johnston RN Moisture 4 10/03/2019 7:30 PM CDT Summer Guerrero, RN Activity 3 10/03/2019 7:30 PM CDT Summer Guerrero, RN Mobility 4 10/03/2019 7:30 PM CDT Summer Guerrero, RN Nutrition 3 10/03/2019 7:30 PM CDT Summer Guerrero, RN Friction and Shear 3 10/03/2019 7:30 PM CDT Summer Johnston RN Arthur Scale Score 21 10/03/2019 7:30 PM CDT Summer Johnston, RN * Question Answer Date of Assessment Author BP Location Left arm 10/03/2019 11:59 PM CDT Call , Molly BP Method Automatic 10/03/2019 11:59 PM CDT Call , Molly MAP (mmHg) 104 10/03/2019 11:59 PM CDT Call , Molly * Question Answer Date of Assessment Author Arterial Line MAP (mmHg) 75 10/02/2019 11:00 AM CDT Radha Lilly RN Arterial Line BP 114/59 10/02/2019 11:00 AM CDT Radha Lilly RN * Fall Risk Interventions Question Answer Date of Assessment Author All Low Fall Interventions Applied Yes 10/03/2019 7:30 PM TATET Summer Johnston, LUIS All Low Fall Interventions EXCEPT: Provide fall prevention education 10/01/2019 8:00 PM CDT Michael Gallardo NP All Moderate Fall Interventions Applied No 10/03/2019 7:30 PM CDT Summer Johnston RN All Moderate Fall Risk Interventions EXCEPT: Gait belt at bedside 10/03/2019 7:30 PM CDT Summer Johnston, LUIS All High Fall Risk Interventions Applied No 10/03/2019 7:43 AM TATET Elmira Orozco RN All High Risk Interventions EXCEPT: Bed alarm;Chair alarm;Fall risk sign with education 10/02/2019 8:00 AM CDT Sunshine Herron RN Additional Interventions Applied Over-bed table on non-exit side;Exit bed on strong/preferred side 10/03/2019 7:30 PM CDT Summer Johnston RN Reason For Exception(s) bedrest, icu 10/01/19 8:00 PM CDT Michael Gallardo NP Reason For Exception(s) Sternal precautions 09/17 7:30 PM TATET Summer Johnston RN Reason For Exception(s) ICU level of care 2019 8:00 AM TATET Sunshine Herron RN * Question Answer Date of Assessment Author Protective Foam Dressing Location Coccyx 10/02/2019 8:00 AM CDT Sunshine Herron se, RN * B.M.A.T. - Bedside Mobility Assessment Tool for Nurses Question Answer Date of Assessment Author Is patient able to participate in the BMAT? Yes 10/03/2019 7:30 PM TATET Shelly Johnston RN Reason patient is unable to participate in BMAT Bed rest orders 10/03/2019 7:30 PM TATET Jaclyn Johnston RN BMAT Level Level 3 - Yellow 10/03/2019 7:30 PM CDT Summer Monae RN Level 3 Equipment Use non-powered stand aid 10/02/2019 12:00 PM CDT Sunshine Herron RN * Pressure Injury Prevention Question Answer Date of Assessment Author Pressure Ulcer Prevention Interventions Keep skin clean and dry (Sensory Perception/Moisture ) 10/03/2019 7:30 PM CDT Summer Johnston RN 2 Nurse Skin Assessment Veronique 09/30/2019 8:00 P M CDT Michael Gallardo NP * Integumentary Question Answer Date of Assessment Author Skin Color Appropriate for ethnicity 10/03/2019 7:30 PM CDT Summer Johnston RN Skin Condition/Temp Warm;Hot 10/03/2019 7 :30 PM CDT Summer Johnston RN Skin Integrity Surgical incision 10/03/2019 7:3 0 PM CDT Summer Johnston RN Skin Turgor Non-tenting 10/02/2019 8:00 AM CDT Sunshine Herron RN Integumentary Additional Assessments Yes-Arthur 10/03/2019 7:30 PM TATET Summer Johnston RN Integumentary (WDL) X 10/03/2019 7 :30 PM CDT Summer Johnston RN Skin Location See LDAs 10/02/2019 8:00 AM CDT Sunshine Herron RN * Arthur Scale Question Answer Date of Assessment Author Arthur Scale Used Arthur 09/30/2019 5:44 AM CDT Xiomara Rome RN * Question Answer Date of Assessment Author Special Mattress Rotation with alternating pressure relief and low air loss 10/02/2019 8:00 AM CDT Sunshine Herron RN * Question Answer Date of Assessment Author Edema No pitting 10/02/2019 8:00 AM CDT Sunshine Herron RN Edema Generalized 10/03/2019 7:30 PM CDT Summer Guerrero RN * Question Answer Date of Assessment Author Percent Meal Eaten (%) 100 10/02/2019 1:00 PM CDT Sunshine Herron RN * Question Answer Date of Assessment Author BP Location Left arm 10/03/2019 11:59 PM CDT Molly Bobo BP Method Automatic 10/03/2019 11:59 PM CDT Molly Bobo * Question Answer Date of Assessment Author Bed In Lowest Position Yes 10/03/2019 10:37 P M TATET Summer Johnston RN Bed Wheels Locked Yes 10/03/2019 10:37 PM TATET Summer Johnston RN * Fall Risk Interventions Question Answer Date of Assessment Author All Low Fall Interventions Applied Yes 10/03/2019 7:30 PM Summer Cooper RN All Low Fall Interventions EXCEPT: Provide fall prevention education 10/01/2019 8:00 PM CDT Michael Gallardo NP All Moderate Fall Interventions Applied No 10/03/2019 7:30 PM TATET Summer Johnston RN All Moderate Fall Risk Interventions EXCEPT: Gait belt at bedside 10/03/2019 7:30 PM TATET Summer Johnston, LUIS All High Fall Risk Interventions Applied No 10/03/2019 7:43 AM TATET Elmira Orozco RN All High Risk Interventions EXCEPT: Bed alarm;Chair alarm;Fall risk sign with education 10/02/2019 8:00 AM TATET Sunshine Herron RN Additional Interventions Applied Over-bed table on non-exit side;Exit bed on strong/preferred side 10/03/2019 7:30 PM TATET Summer Johnston RN Reason For Exception(s) bedrest, icu 10/01/19 8:00 PM CDT Michael Gallardo, RAMONE Reason For Exception(s) Sternal precautions 09/17 7:30 PM Summer Cooper RN Reason For Exception(s) ICU level of care 2019 8:00 AM Sunshine Ryan RN * Question Answer Date of Assessment Author Skin Care Protective barrier;Protective Foam Dressing 10/02/2019 8:00 AM Sunshine Ryan RN Hygiene Dickey care;Maryuri care 10/02/2019 8:00 PM Summer Cooper, LUIS Oral Care Mouth rinsed 10/02/2019 12:00 PM Sunshine Ryan RN Hygiene Level of Assistance Independent 09/30/2019 4:10 AM TATET Lisandra Judd RN * Nutrition Question Answer Date of Assessment Author Feeding Level of Assistance Able to feed self 10/03/2019 7:30 PM Summer Cooper RN documented as of this encounter Mental Status * Question Answer Entry Date Author Level of Consciousness Alert;Awake 0 11:30 PM CDT Summer Johnston, LUIS Orientation Oriented X4 (person, place, time, situation) 10/03/2019 11:30 PM CDT Summer Johnston, LUIS * Question Answer Entry Date Author Neuro (WDL) WDL 10/03/2019 7:30 PM CDT Summer Guerrero, LUIS * [place] Cognitive Assessment (MOCA) Question Answer Entry Date Author MOCA Version Version 3 10/01/2019 10:40 AM CDT Maribel Newman, OT Visuospatial/Executive 5 10/01/2019 10:40 A M CDT Maribel Motta, OT Naming 3 10/01/2019 10:40 AM CDT Maribel Newman OT Memory Memory not scored 10/01/2019 10:40 AM CDT Maribel Motta OT Attention 5 10/01/2019 10:40 AM CDT Maribel Newman OT Language 3 10/01/2019 10:40 AM CDT Maribel Newman, OT Abstraction 2 10/01/2019 10:40 AM CDT Maribel Newman, OT Delayed Recall 5 10/01/2019 10:40 AM CDT Maribel Bellamy OT Orientation 6 10/01/2019 10:40 AM CDT Maribel Newman OT Education Level 0 10/01/2019 10:40 AM CDT Maribel Conrad, OT MOCA Total Score 29 10/01/2019 10:40 AM CDT Maribel Motta OT Score Evaluation 26 and above Normal 10/01/2019 10:40 AM CDT Maribel Motta OT * Question Answer Entry Date Author Feature 1: Acute Onset or Fluctuating Course Negative 10/02/2019 8:00 AM CDT Sunshine Herron se, RN Overall CAM-ICU Negative 10/02/2019 8:00 AM CDT Sunshine Rivers RN documented in this encounter Miscellaneous Notes * Plan of Care - Stephane Yeboah RN - 09/30/2019 8:35 AM CDT Patient to OR today with CTS Case management services will continue to follow for any d/c needs. Please call me at [phone] further inquiries. documented in this encounter Plan of Treatment Not on file documented as of this encounter Visit Diagnoses Not on filedocumented in this encounter Care Teams Hand Stone Polisher Relationship Specialty Start Date End Date Lindsay Peralta MD PCP - General 03/22/08 Samantha Zhang NP [address] [address] Nurse Practitioner Cardiology 06/16/19 10/25/19 Salvador Prince MD [address] [place] [address] Surgeon Cardiothoracic Surgery 10/07/19 Miscellaneous, Not In File 10/07/19 Gia Brannon MD Consulting Physician Endocrinology Diabetes & Metabolism 10/19/19 Fran Reyes MD [address] [address] Consulting Physician Cardiology 10/26/19 documented as of this encounter
--- OUTSIDE RECORDS SUMMARY | 2025-05-04 13:13 | XMS_ITS | Clinical Summary ---
Author Organization [facility] Address [address] [place] [address] Care Team Providers Care Dry Press Operator Helper Name Role Phone Lindsay Peralta MD Primary Care Provider [phone] Source Comments [facility],non-owned Affiliates and Associated Physician Practices is amultiple site organization consisting of ambulatory clinics and hospital sitesin [place], [place], [place] and [place]. This disclosure is being madepursuant to the Care Everywhere program and may not contain all information available regarding this patient. Last updated 18.[facility] Allergies Active Allergy Reactions Criticality Noted Date [...] Insulin Pen Needle 32G X 4 MM [facility] [place]EN NEEDLES FOUR TIMES A DAY FOR INJECTIONS 100 Each 11/02/19 24 Active Active Problems Problem Noted Date Diagnosed Date Diabetic ketoacidosis withou t coma associated with diabetes mellitus due to underlying condition 10/30/2023 CAD s/p PCI, CABG 10/30/2023 Overview (10/30/2023): PCI in 2012, CABG in 2019 at [place] Perineal abscess 10/30/2023 Sinus tachycardia 10/30/2023 High [...] care, and heating? Not very hard 10/30/2023 [facility] Occupat ional [facility] - Occupational Stress [...] place to sleep or slept in a senior care (including now)? No 10/30/2023 Sex and Gender [...] Additional history exists COVID-19 VACCINE ( - 2024- season) 2025 INFLUENZA VACCINE (#1) 2025 03/01/2020, [...] 7 - 26 mg/dL 11/02/2023 3:50 AM [facility] Creatinine 1.03 0.71 - 1.16 mg/dL 11/02/2023 3:50 AM [facility] Sodium 134(L) 136 - 145 mmol/L 11/02/2023 3:50 AM [facility] Potassium 3.7 3.5 - 4.5 mmol/L 11/02/2023 3:50 AM [facility] Chloride 106 98 - 107 mmol/L 11/02/2023 3:50 AM [facility] CO2 19(L) 22 - 29 mmol/L 11/02/2023 3:50 AM [facility] Glucose 234(H) 70 - 115 mg/dL 11/02/2023 3:50 AM [facility] Calcium 9.2 8.4 - 10.2 mg/dL 11/02/2023 3:50 AM [facility] Anion Gap 9 6 - 16 11/02/2023 3:50 AM [facility] BUN/Creatinine Ratio 24(H) 7 - 23 11/02/2023 3:50 AM [facility] Osmolality Calculated 290 275 - 295 mOsm/kg 11/02/2023 3:50 AM [facility] eGFR by CKD-EPI 89(L) >=90 mL/min/1.7 3 m2 11/02/2023 3:50 AM [facility] Blood BLOOD SPECIMEN / Unknown Venipuncture / Unknown 11/02/2023 3:19 AM CDT 11/02/2023 3:27 AM CDT Result [facility] Dequan Munson MD LAB - CHEMISTRY ORDERABLES Final Result Performing Organization Address [facility]/ZIP Co de Phone Number [facility] [address] [place] [address], [facility] [phone] * (ABNORMAL) HEMOGLOBIN A1C (10/30/2023 8:05 AM CDT) Hemoglobin A1c 13.0(H) <=5.6 % 10/30/2023 11:05 AM [facility] Estimated Average Glucose 326 mg/dL 10/30/2023 11:05 AM [facility] Comment: HbA1c Interpretation: Normal : < 5.7% Pre-diabetes: 5.7-6.4% Diabetes: Equal to or greater than 6.5% Test results diagnostic of diabetes should be repeated for confirmation. Treatment target values recommended by ADA and other clinical organizations should be used to evaluate metabolic control in patients. Reference: [place] Diabetes Association, Standards of Care in Diabetes [...] ORDERABLES F inal Result Performing Organization Address City/[facility]/ZIP Co de Phone Number [facility] [address] [place] [id number], [place] [phone] from Last 3 Months or Most Recently Relevant to Health [place] [address] [place] [address] [employer] Advance Directives * Full Code (Latest Code Status on File) Date Activated Date Inactivated Comments 10/30/2023 7:31 AM 11/02/2023 12:57 PM Care Teams Dry Press Operator Helper Relationship Specialty Start Date End Date Lindsay Peralta MD [address] [place] [id number] PCP - General Family Medicine 10/29/23
--- OUTSIDE RECORDS SUMMARY | 2025-05-04 13:13 | XMS_ITS | Clinical Summary ---
Author Organization [facility] [place] [address] Address [address] [place] [address] Care Team Providers Care Java Sdet Name Role Phone Lindsay Peralta MD Primary Care Provider + Salvador Prince MD Unavailable [phone] Miscellaneous, Not In File Unavailable Unava ilable Gia Brannon MD Unavailable [phone] Fran Reyes MD Unavailable [phone] Allergies Active Allergy Reactions Criticality Noted Date Comments Atenolol-Chlorthalidone Cough Low 12/10/2001 Medications metoprolol XL (TOPROL-XL) 100 mg 24 hr tablet Take one by mouth one time per day 0 0 09/03/19 09 Active Additional Information Patient taking differently:100 mgoral Every morning, Indications: hypertension, Reported on 04/30/2025 multivitamin tabletIndicat ions:Vitamin Deficiency Prevention Take 1 tablet by mouth every morning Centrum Active sertraline (ZOLOFT) 100 mg tabletIndicat ions:mood Take 200 mg by mouth every morning 07/01/19 19 Active acetaminophen (TYLENOL) 325 mg tablet Take 2 tablets (650 mg total) by mouth every 6 (six) hours as needed for pain 30 tablet 10/07/19 20 Active aspirin 81 mg chewable tablet Take 1 tablet (81 mg total) by mouth daily 30 tablet 10/08/19 20 Active clopidogreL (PLAVIX) 75 mg tablet Take 1 tablet (75 mg total) by mouth daily 30 tablet 1 10/08/19 20 Active atorvastatin (LIPITOR) 20 mg tablet Take 1 tablet (20 mg total) by mouth nightly 30 tablet 1 10/07/19 20 Active Additional Information Patient taking differently: 40 mgoral Nightly, Reported on 04/30/2025 metFORMIN (GLUCOPHAGE) 1,000 mg tablet Take 1,000 mg by mouth 2 (two) times a day with meals Active insulin glargine (Lantus U-100 Insulin) 100 unit/mL injection Inject 50 Units under the skin daily 15 mL 1 10/19/19 Active empagliflozin (JARDIANCE) 25 mg tabletIndicat ions:type 2 diabetes mellitus Take 1 tablet (25 mg total) by mouth every morning 30 tablet 1 10/20/19 Active insulin aspart U-100 (NovoLOG) 100 unit/mL (3 mL) insulin pen Inject 15 Units under the skin 3 (three) times a day with meals (plus 1 unit for every 25 greater than 150 up to max 7 units. Max daily dose) Refer to After Visit Summary for Sliding Scale Insulin Instructions. 7 pen 10/19/19 Active blood glucose diagnostic (glucose blood) strip Use as directed up to four times a day. 100 each 10/19/19 Active blood-glucose sensor (Dexcom G6 Sensor) deviceIndicat ions:Type 2 diabetes mellitus 1 Device continuously Use 1 sensor device every 10 days. 9 Device 3 10/27/19 20 Active tadalafiL (CIALIS) 5 mg tablet 02/28/20 20 Active cholecalcifer ol (VITAMIN D-3) 2000 unit capsule Take 2,000 Units by mouth daily Active sacubitriL-va lsartan (ENTRESTO) 97-103 mg tabletIndicat ions:chronic heart failure Take 1 tablet by mouth 2 (two) times a day 60 tablet 3 04/12/20 21 Active spironolacton e (ALDACTONE) 25 mg tablet Take 1 tablet by mouth once daily 30 tablet 3 01/09/20 22 Active tirzepatide (Mounjaro) 7.5 mg/0.5 mL pen injector injection Inject 0.5 mL (7.5 mg total) under the skin every 7 days Active bumetanide (BUMEX) 2 mg tablet Take 1 tablet (2 mg total) by mouth daily 60 tablet 11 04/30/20 25 026 Active furosemide (LASIX) 40 mg tablet Take 1 tablet (40 mg total) by mouth daily 30 tablet 10/20/19 20 025 Discontinued semaglutide (Ozempic) 1 mg/dose (2 mg/1.5 mL) pen injectorIndic ations:Type 2 diabetes mellitus Inject 1 mg under the skin every 7 days 6 Syringe 2 12/23/19 20 025 Discontinued(P atient Reported) Active Problems Problem Noted Date Diagnosed Date [...] auto-diuresis in the setting of a worsening SHANWEE - BMP at 1700 Right ventricular dysfunction [...] home CPAP Coronary artery disease invo lving mes[place] coronary artery of [place] heart without angina pectoris 10/16/2018 Assessment & [...] but that it was stopped after his TAPER OPERATOR with stent. On statin Atherosclerosis of coronary [...] diet, and CGM use. Clinic phone number: [phone] for my clinic. Goals of management will [...] diet, and CGM use. Clinic phone number: [phone] for my clinic. Goals of management will [...] diet, and CGM use. Clinic phone number: [phone] for my clinic. Goals of management will [...] continuous glucose monitoring, have pt see a community educator to review carb counting, and to follow a diet restricted in carbs. Clinic phone number: [phone]. Goals of management to include weight loss [...] call him to schedule). Clinic phone number: [phone] Assessment & Plan (10/14/2019 12:54 PM CDT): [...] call him to schedule). Clinic phone number: [phone] Assessment & Plan (10/14/2019 9:09 AM CDT): HgA1c 8.4 (194) but may be unreliable due to recent blood transfusion from surgery hold metformin while inpatient Continue lantus Continue humalog Endocrine consult Patients PCP manages diabetes but he has tried to get in with an military technician in the past, he would be willing to see endocrinology at [facility] family life educator consulted Assessment & Plan (10/02/2019 11:56 [...] (07/09/2019): Added automatically from request for surgery [id number] Assessment & Plan (09/29/2019 9:22 AM CDT): [facility] showed severe multi vessel CAD Prep for planned CABG on 09/29 Continue ASA, Statin, Beta raquel TNG SL prn angina Check 12 L, Troponins Preoperative testing completed Encounters Date Type Department Care Team Description 04/30/2025 10:30 AM ELECTRIC SPOT WELDER Office Visit [facility] Cardiology [address] [place] [phone] Fran Ryees MD History of coronary artery stent placement (Primary Dx); Coronary artery disease involving [place] grande coronary artery of [place] heart without angina pectoris; Cardiomyopathy, ischemic; S/P CABG x 2; Obesity, class 3 (E66.813); Body mass index [BMI] 45.0-49.9, adult (Z68.42) from Last 3 Months Immunizations Immunization Administration Dates Next Due Influenza, [...] on file Legal Sex Male 11:10 AM ELECTRIC SPOT WELDER Gender Identity Male 07/11/2019 11:28 AM ELECTRIC SPOT WELDER Sexual Orientation Straight 11/11/2018 2: 54 PM CDT Last Filed Vital Signs Vital Sign Reading Time Taken Comments Blood Pressure 142/96 04/30/2025 9:52 AM ELECTRIC SPOT WELDER Pulse 101 04/30/2025 9:52 AM ELECTRIC SPOT WELDER Temperature 36.1 C (97 F) 04/11/2020 2:56 PM ELECTRIC SPOT WELDER Respiratory Rate 20 04/30/2025 9:52 AM ELECTRIC SPOT WELDER Oxygen Saturation 97% 04/30/2025 9:52 AM ELECTRIC SPOT WELDER Inhaled Oxygen Concentration - - Weight 154.2 kg (340 lb) 04/30/2025 9:52 AM ELECTRIC SPOT WELDER Height 180.3 cm (5' 11) 04/30/2025 9:52 AM ELECTRIC SPOT WELDER Body Mass Index 47.42 04/30/2025 9:52 AM ELECTRIC SPOT WELDER Plan of Treatment Health Maintenance Due Date Last Done Comments Colon Cancer Screening-Colonoscopy 1975 Depression Screening 1975 Hepatitis C Screening 1975 Prostate Cancer Screening-PSA 1975 Dilated Eye Exam 1975 Foot Exam 1974 Hepatitis B Screening 1992 Regular Well Visit/Exam 18-64 1992 DTaP/Tdap/Td Vaccine (1 - Tdap) 01/15/2013 3 Hemoglobin A1C 04/14/2020 10/13/2019, 09/28/2019 Albumin Creatinine Ratio, Urine 10/15/2020 0 Pneumococcal vaccine <65 (2 of 2 - PCV) 03/01/2021 03/01/2020 eGFR 04/11/2022 04/11/2021 Zoster Vaccine (1 of 2) 2024 Covid-19 Vaccine (4 - 2024-2 6 season) 2025 04/18/2021, 08/11/2020, 07/21/2020 Influenza Vaccine (#1) 2025 3, 04/11/2021, 03/01/2020, Additional history exists Lipid Panel 04/30/2026 04/30/2025, 03/20, 09/28/2019, Additional history exists Medical Devices Implanted Type Area Self Pay Representative Device Identifier Shelf Expiration Date Model / Serial / Lot Heart Stent Heart Description:x1 stent per pt Procedures Procedure Name Priority Date/Time Associated Diagnosis Comments ELECTROCARDIOGRAM REPORT Routine 025 11:07 AM ELECTRIC SPOT WELDER History of coronary artery stent placement Cardiomyopathy, ischemic POCT LIPID PANEL Routine 04/30/2025 9:54 AM ELECTRIC SPOT WELDER Coronary artery disease involving [place] coronary artery of [place] heart without angina pectoris BASIC METABOLIC PANEL Routine 04/11/2021 1:48 PM ELECTRIC SPOT WELDER Cardiomyopathy, ischemic ALBUMIN CREATININE RATIO, URINE Timed 10/16/2019 11:16 PM CDT HEMOGLOBIN A1C Routine 10/13/2019 5:34 PM CDT from Last 3 Months or Most Recently Relevant to Health Maintenance Results * Electrocardiogram Report (04/30/2025 11:07 AM ELECTRIC SPOT WELDER) Fran Reyes MD ECG ORDERABLES Final Re sult * (ABNORMAL) POCT lipid panel (04/30/2025 9:54 AM ELECTRIC SPOT WELDER) Cholesterol, POC 66 <200 MG/DL HDL, POC 14(A) >=40 mg/dL Triglycerides, POC 114 <=149 mg/dL LDL Cholesterol POC 62.2 <=129 mg/dL Cholesterol Total, POC 99 30 - 199 mg/dL Capillary blood 04/30/2025 9 :54 AM ELECTRIC SPOT WELDER Fran Reyes MD POINT OF CARE TEST ORDER BLAKE Final Result * (ABNORMAL) Basic metabolic panel (04/11/2021 1:48 PM ELECTRIC SPOT WELDER) Glucose 149(H) 65 - 99 mg/dL [facility] Comment: Fasting reference interval For someone without known diabetes, a glucose value >125 mg/dL indicates that they may have diabetes and this should be confirmed with a follow-up test. BUN 18 7 - 25 mg/dL [facility] Creatinine 1.02 0.60 - 1.35 mg/dL [facility] eGFR NON-AFR. CITIZEN OF [place] 88 > OR = 60 mL/min/1. 73m2 [facility] EGFR 102 > OR = 60 mL/min/1. 73m2 [facility] BUN/creat ratio NOT APPLICABLE 6 - 22 (calc) [facility] Sodium 136 135 - 146 mmol/L [facility] Potassium, pl 4.0 3.5 - 5.3 mmol/L [facility] Chloride 97(L) 98 - 110 mmol/L [facility] CO2 29 20 - 32 mmol/L [facility] Calcium 9.7 8.6 - 10.3 mg/dL [facility] Blood specimen (specimen) 04/11/2021 1:48 PM ELECTRIC SPOT WELDER 04/11/2021 1:49 PM ELECTRIC SPOT WELDER us Alvina Hunt DIRECTOR OF RETENTION LAB BLOOD ORDERABLES Final R esult [facility] [address] [place] [address] * (ABNORMAL) Albumin Creatinine Ratio, Urine (10/16/2019 11:16 PM CDT) Albumin Ur 41.4 mg/L [facility] Comment: Interpretive Data No reference range established. Current interpretive data was last revised 2018. Creatinine Ur 95.2 mg/dL [facility] Comment: Interpretive Data No reference range established. Current interpretive data was last revised 2018. Albumin Creatinine Ratio, Ur 43(H) 1 - 29 mg/g [facility] Urine 10/16/2019 11:1 6 PM CDT 10/16/2019 11:45 PM CDT us Jenn Barajas DIRECTOR OF RETENTION LAB URINE ORDERABLES Final R esult [facility] [address] [facility] Department [place] [address] * (ABNORMAL) Hemoglobin A1c (10/13/2019 5:34 PM CDT) Hgb A1C 8.4(H) 4.0 - 5.6 % [facility] Estimated Average Glucose 194 mg/dL [facility] Comment: The ADA recommends reporting an estimated Average Glucose (eAG) with all Hemoglobin A1c results using the equation derived from a study of 507 normal and diabetic adults. Minority populations were underrepresented and children were not included. (Diabetes Care 31:5075-9380, 2008). The eAG is not equivalent to a fasting glucose. Blood specimen (specimen) 10/13/2019 5:34 PM CDT 10/13/2019 5:56 PM CDT Sandra Salinas NP LAB BLOOD ORDERABLES Final Result [facility] [address] [facility] [place] [address] from Last 3 Months or Most Recently Relevant to Health Maintenance Insurance [employer] [facility] BL[place] Advance Directives For more information, please contact: [phone] Documents on File Type Date Recorded Patient Radio Station Operator Expl anation ADVANCE DIRECTIVE 10/08/2019 6:48 AM POWER OF BLOCK STACKER-MEDICAL * Full Code (Latest Code Status on [...] Dunn Spouse Health Care Agent Care Teams Java Sdet Relationship Specialty Start Date End Date Lindsay Peralta MD PCP - General 03/22/08 Salvador Prince MD [address] [place] [address] Surgeon Cardiothoracic Surgery 10/07/19 Miscellaneous, Not In File 10/07/19 Gia Brannon MD Consulting Physician Endocrinology Diabetes & Metabolism 10/19/19 Fran Reyes MD [address] [address] Consulting Physician Cardiology 10/26/19
--- OUTSIDE RECORDS SUMMARY | 2025-05-04 13:13 | XMS_ITS | Clinical Summary ---
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
--- OUTSIDE RECORDS SUMMARY | 2025-05-04 13:13 | XMS_ITS | Encounter Summary ---
Author Organization [facility] Address [facility] [place] [address] Care Team Providers Care Manual Arts Teacher Name Role Phone Unavailable Primary Care Provider Unavailabl e Encounter Details Date Type Department Care Team (Late st Contact Info) Description 12/29/[address] 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
[2025-05-04 19:20] LABS: Hematocrit 51.3 % (42.0-52.0); Hemoglobin 16.0 g/dL (14.0-18.0); Immature Granulocyte Percent A 0.2 % (0-0.5); Lymphocytes Absolute Auto 0.49 K/mm3 (0.9-3.2); Mean Corpuscular HGB Conc 31.2 g/dl (32-36); Mean Corpuscular Hemoglobin 28.3 pg (26-34); Mean Corpuscular Volume 90.8 fl (80-100); Nucleated Red Blood Cells Absolute Auto 0.000 K/mm3 (0.0-0.012); Nucleated Red Blood Cells Perc 0.0 % (0.0-0.2); Platelet Count Result 203 k/mm3 (150-375); Red Blood Count 5.65 M/mm3 (4.6-6.20); White Blood Count 8.1 K/mm3 (4.5-10.0)
[2025-05-04 19:33] LABS: Alanine Aminotransferase 44 U/L (6-50); Albumin Level 4.2 g/dL (3.5-5.1); Alkaline Phosphatase 229 U/L (38-126); Anion Gap 11 mmol/L (4-12); Aspartate Amino Transferase 73 U/L (17-59); Bilirubin,Total 2.0 mg/dL (0.2-1.3); Blood Urea Nitrogen 37 mg/dL (9-20); Calcium 9.5 mg/dL (8.4-10.2); Carbon Dioxide 28 mmol/L (22-30); Chloride 102 mmol/L (98-107); Cholesterol 107 mg/dL (0-200); Estimated Glomerular Filt Rate > 60; Glucose 147 mg/dL (65-110); HDL Direct 46 mg/dL; Potassium 4.3 mmol/L (3.4-5.0); Sodium 141 mmol/L (137-145); Total Protein 8.1 g/dL (6.3-8.2); Triglycerides 65 mg/dL (<150)
[2025-05-04 20:24] LABS: Vitamin B12 821.0 pg/mL (239-931)
[2025-05-04 20:29] LABS: Hemoglobin A1C 6.7 % (<5.7)
== END 2025-05-04 10:57 | disposition home or self-care (01) ==
LOC: ANHGOSHLAB 10:57
PROVIDERS: PCP Family Medicine; Visit Provider Family Medicine
DX: R18.8 Other ascites (principal); E11.8 Type 2 diabetes mellitus with unspecified complications
CPT/HCPCS: 36415; 80053; 80061; 82043; 82607; 83036; 85025

== ENCOUNTER 2025-05-10 08:12 | Outpatient (CLI) | payer BC, SELFPAY ==
--- NOTE | ~2025-05-10 | CT_ITS ---
EXAMINATION: CT abdomen pelvis wo con DATE: 05/10/2025 08:43 INDICATION: Other specified symptoms and signs. TECHNIQUE: Computed tomography (CT) of the abdomen and pelvis was performed without intravenous contrast. Automated exposure control and iterative reconstruction technique were employed. The dose-length product was 1332.36 mGy-cm. COMPARISON: CT 10/29/2023 FINDINGS: The visualized portions of lung bases demonstrate septal thickening, consistent with mild pulmonary edema. There is a small right pleural effusion. Cardiomegaly is noted. There are coronary artery calcifications. No pericardial effusion. Body wall edema is noted. The liver and spleen are normal. There are changes of cholecystectomy. The pancreas and adrenal glands are normal. There are cysts in the kidneys measuring up to 2.4 cm on the right. There is no urolithiasis. There are no dilated loops of bowel. The appendix is not visualized. There is a moderate volume of ascites. There is a supraumbilical ventral hernia containing fat. There is extensive body wall edema. There is mild chronic height loss of multiple thoracic vertebral bodies. There is moderate lumbar spondylosis. IMPRESSION: 1. Supraumbilical ventral hernia containing fat. 2. Anasarca including mild pulmonary edema, small right pleural effusion, and moderate volume of ascites. Reviewed, dictated and finalized at location E. TERM IMPRESSION: 1. Supraumbilical ventral hernia containing fat. 2. Anasarca including mild pulmonary edema, small right pleural effusion, and m oderate volume of ascites.
== END 2025-05-10 08:13 | disposition home or self-care (01) ==
LOC: GOSHIMG 08:13
PROVIDERS: PCP Specialist; Visit Provider Family Medicine
DX: R19.8 Other specified symptoms and signs involving the digestive system and abdomen (principal); R18.8 Other ascites; J81.1 Chronic pulmonary edema
CPT/HCPCS: 74176

== ENCOUNTER 2025-05-11 06:15 | Inpatient (IN) | payer BC, SELFPAY ==
[2025-05-11] VITALS (23 sets, daily range): BP systolic 136–161; BP diastolic 81–109; PULSE 88–94; RESP 9–25; TEMP 36.3–36.9; O2SAT 94–99; BMI 47.0
--- NOTE | 2025-05-11 | ECHO_ITS ---
Patient Info Name: Getachew Dunn Age: 49 years : 1975 Gender: Male Ht: 71 in Wt: 337 lbs BSA: 2.84 m2 HR: 92 bpm BP: 149 / 84 mmHg Heart Rhythm: Sinus Rhythm Technical Quality: Poor Exam Date: 05/11/2025 2:41 PM Patient Status: O Admit Date: 05/11/2025 Exam Type: CA echo dop color flow w con Complete two-dimensional, color flow and Doppler transthoracic echocardiogram is performed with contrast to opacify the left ventricle and to improve the deliniation of the left ventricle endocardial borders. Staff Referring Physician: Dmitriy Meraz Management Professional: Cammy Trejo Attending Provider: Onur Chavis MD Contrast/Agitated Saline Contrast/Ag. Saline: Definity Amount: 2.00 ml Administered By: Cammy Trejo Existing IV Access: Yes IV Access Condition: patent with no signs of infiltration Reason for Poor Study: patient body habitus Summary 1. Echo contrast was used. Suboptimal image quality. Mild LV enlargement, moderate LVH, severe LV systolic dysfunction, ejection fraction about 30%. Diastolic dysfunction is present. Mild RV enlargement with hypokinesis. Moderate left enlargement, mild right atrial enlargement. Mitral annular calcification, mild MR. Aortic valve not well visualized. Trivial TR, mild pulmonary hypertension, RVSP 43 mmHg. Left Ventricle Left ventricular chamber dimension is mildly enlarged. Left ventricular systolic function is severely reduced, estimated at 25-30. There is moderately increased left ventricular wall thickness. The left ventricular diastolic function is abnormal. Left Atria Left atrial chamber dimension is moderately enlarged. Right Atria Right atrial chamber dimension is mildly enlarged. Mitral Valve The mitral valve has thickened leaflets. There is mild mitral valve regurgitation. The mitral valve annulus is mildly calcified. Tricuspid Valve The tricuspid valve leaflets are normal. There is trace tricuspid valve regurgitation. Mild pulmonary hypertension, estimated pulmonary arterial systolic pressure is 43 mmHg. Pericardium/Pleural The pericardium appears normal. Aorta The aortic root size at the sinus of Valsalva is not well visualized. Left Ventricular Outflow Tract Name Value Normal LVOT 2D LVOT Diameter 1.9 cm LVOT Doppler LVOT Peak Velocity 55 cm/s LVOT Peak Gradient 1 mmHg LVOT Mean Gradient 1 mmHg LVOT VTI 8 cm LVOT VTI/AV VTI Ratio 0.6 LVOT Stroke Volume 23 ml LVOT CO 2.1 l/min LVOT CI 0.7 l/min/m2 Mitral Valve Name Value Normal MV Diastolic Function MV E Peak Velocity 94 cm/s MV A Peak Velocity 2 cm/s MV E/A 40.3 MV Decel Time (PW) 153 ms MV Annular TDI MV E/e' (Septal) 27.3 MV E/e' (Lateral) 17.0 MV E/e' (Average) 22.2 Tricuspid Valve Name Value Normal TV Regurgitation Doppler TR Peak Velocity 287 cm/s TR Peak Gradient 33 mmHg Estimated PAP/RSVP RA Pressure 10 mmHg <=5 PA Systolic Pressure 43 mmHg <36 RV Systolic Pressure 43 mmHg <36 TV Annular TDI TV Lateral Samantha s' Velocity 5.4 cm/s >=9.5 Aorta Name Value Normal Ascending Aorta Ao Root Diameter (MM) 3.0 cm Ao Root Diam Index (MM) 1.1 cm/m2 Aortic Valve Name Value Normal AV Doppler AV Peak Velocity 89 cm/s AV Peak Gradient 3 mmHg AV Mean Gradient 2 mmHg AV VTI 13 cm AV Area (Cont Eq VTI) 1.7 cm2 >=3.0 AV Area (Cont Eq Morris) 1.7 cm2 AV DI (Morris) 0.62 AV Regurgitation 2D LVOT Area 2.7 cm2 Ventricles Name Value Normal LV Dimensions 2D/MM IVS Diastolic Thickness (2D) 1.3 cm 0.6-1.0 LVID Diastole (2D) 5.5 cm 4.2-5.8 LVIW Diastolic Thickness (2D) 1.2 cm 0.6-1.0 LVID Systole (2D) 4.6 cm 2.5-4.0 LVOT Diameter 1.9 cm LV Mass (2D Cubed) 277.61 g 88.00-224.00 LV Mass Index (2D Cubed) 98 g/m2 49-115 Relative Wall Thickness (2D) 0.42 <=0.42 LV Fractional Shortening/Ejection Fraction 2D/MM LV Fractional Shortening (2D) 16 % 25-43 LV EF (2D Teichholz) 33 % LV Diastolic Volume (4C MOD) 133 ml LV EF (4C MOD) 30 % LV Diastolic Volume (2C MOD) 94 ml LV EF (2C MOD) 34 % LV Diastolic Volume (BP MOD) 113 ml 62-150 LV Diastolic Volume Index (BP MOD) 40 ml/m2 34-74 LV Systolic Volume (BP MOD) 77 ml 21-61 LV Systolic Volume Index (BP MOD) 27 ml/m2 11-31 LV EF (BP MOD) 32 % 52-72 LV Diastolic Length (4C) 9.4 cm LV Systolic Length (4C) 8.8 cm LV Stroke Volume (4C MOD) 40 ml Atria Name Value Normal LA Dimensions LA Dimension (MM) 4.7 cm 3.0-4.0 LA Volume (4C A-L) 138 ml LA Volume (BP A-L) 130 ml RA Dimensions RA Area (4C) 25.0 cm2 <=18.0 Report Signatures
--- NOTE | ~2025-05-11 | XR_ITS ---
Examination: XR chest 2V Clinical History: sob, weight gain Comparison: 02/18/2025 Technique: PA and Lateral Findings: Heart size upper limit of normal. Small right effusion with associated basilar atelectasis. No acute bony abnormality. IMPRESSION: 1. Small right pleural effusion with associated basilar atelectasis. Reviewed, dictated and finalized at location R. BULATORY SERVICES REPRESENTATIVE
--- NOTE | ~2025-05-11 | CT_ITS ---
CTA CHEST CLINICAL HISTORY: SOB . COMPARISON: Chest x-rays earlier same day TECHNIQUE: Helical CTA performed from thoracic inlet to upper abdomen IV contrast information not listed in PACS Coronal, sagittal reformats. Multiplanar MIPS CT images acquired with automatic exposure control for dose reduction DLP: 1080 mGy-cm FINDINGS: Pulmonary arteries: No PE. Thoracic Aorta: No dissection or aneurysm. Heart/pericardium: Cardiomegaly. RV/LV ratio: Normal. Lungs/Pleura: Moderate right pleural effusion. Tracheobronchial tree: Patent. Nodes: No enlarged nodes. Bones: No acute bony abnormality. Soft tissues: Unremarkable. Visualized upper abdomen: Unremarkable. IMPRESSION: 1. Moderate right pleural effusion. 2. No PE or other acute abnormality. Reviewed, dictated and finalized at location R. ERY REPAIRER
--- OUTSIDE RECORDS SUMMARY | 2025-05-11 06:18 | XMS_ITS | Clinical Summary ---
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
--- OUTSIDE RECORDS SUMMARY | 2025-05-11 06:18 | XMS_ITS | Encounter Summary ---
Author Organization [facility] Address [facility] [place] [address] Care Team Providers Care Costumed Character Name Role Phone Unavailable Primary Care Provider Unavailabl e Encounter Details Date Type Department Care Team (Late st Contact Info) Description 12/29/[address] 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
--- OUTSIDE RECORDS SUMMARY | 2025-05-11 06:18 | XMS_ITS | Encounter Summary ---
Author Organization [facility] Healthcare Address [address] [place] [address] Care Team Providers Care Container Coordinator Name Role Phone Lindsay Peralta MD Primary Care Provider + Samantha Zhang NP Unavailable Salvador Prince MD Unavailable [phone] Miscellaneous, Not In File Unavailable Unava ilable Gia Brannon MD Unavailable [phone] Fran Reyes MD Unavailable [phone] Encounter Details Date Type Department Care Team (Late st Contact Info) Description 09/30/2019 Documentation [facility] Case Management [address] [place] [address] Stephane Yeboah, RN Social History Tobacco Use Types Packs/Day Years [...] on file Legal Sex Male 11:10 AM CIRCULATION DIRECTOR Gender Identity Male 07/11/2019 11:28 AM CIRCULATION DIRECTOR Sexual Orientation Straight 11/11/2018 2: 54 PM CDT documented as of this encounter Miscellaneous Notes * Plan of Care - Stephane Yeboah RN - 09/30/2019 8:35 AM CDT Patient to OR today with CTS Case management services will continue to follow for any d/c needs. Please call me at [phone] further inquiries. documented in this encounter Plan of Treatment Not on file documented as of this encounter Visit Diagnoses Not on filedocumented in this encounter Care Teams Container Coordinator Relationship Specialty Start Date End Date Lindsay Peralta MD PCP - General 03/22/08 Samantha Zhang NP [address] [address] Nurse Practitioner Cardiology 06/16/19 10/25/19 Salvador Prince MD [address] [place] [address] Surgeon Cardiothoracic Surgery 10/07/19 Miscellaneous, Not In File 10/07/19 Gia Brannon MD Consulting Physician Endocrinology Diabetes & Metabolism 10/19/19 Fran Reyes MD Consulting Physician Cardiology 10/26/19 documented as of this encounter
--- OUTSIDE RECORDS SUMMARY | 2025-05-11 06:19 | XMS_ITS | Patient Health Record ---
Author Organization [facility] [employer] [facility] Address [address] [place] [address] Care Team Providers Care Vamp Cut Out Worker Name Role Phone KOMAL TAVAREZ MD Primary Care Provider Unav ailable Abby Peña Unavailable [phone] Allergies Allergen (clinical drug ingredient) Drug/Non Drug Allergy documented on EMR Reaction Allergy Type Onset Date Status atenolol Atenolol Unknown Drug Allergy Active Reason For Referral No Information Social History Sex Assigned At : Social History Observation Description Sex Assigned At Male Encounters Encounter Location Date Provider Diagnosis [facility] [address] [facility] [address] [place] [address] 03/23/2025 Abby Peña Plan Of Treatment No Information Insurance Providers Payer Name Payer Address Payer Phone Subscriber Number Group Number Insured Name Patient Relationship to Insured Coverage Start Date Coverage End Date [facility] [address] [place] [address] [id number] Getachew Dunn Self - patient is the insured Medical (General) History Medical History History ICD Code CHF Moderate pulmonary HTN Diabetic Neuropathy A'Fib SUSANA Chronic depression CKD Mixed HLD DM Type 2
--- OUTSIDE RECORDS SUMMARY | 2025-05-11 06:19 | XMS_ITS | Clinical Summary ---
Author Organization [facility] [address] Address [address] [place] [address] Care Team Providers Care Cranberry Sorter Name Role Phone Lindsay Peralta MD Primary Care Provider + Salvador Prince MD Unavailable [phone] Miscellaneous, Not In File Unavailable Unava ilable Gia Brannon MD Unavailable [phone] Fran Reyes MD Unavailable [phone] Allergies Active Allergy Reactions Criticality Noted Date [...] home CPAP Coronary artery disease invo lving wales coronary artery of wales heart without angina pectoris 10/16/2018 Assessment & [...] but that it was stopped after his PREVENTIVE MAINTENANCE ENGINEER with stent. On statin Atherosclerosis of coronary [...] diet, and CGM use. Clinic phone number: [phone] for my clinic. Goals of management will [...] diet, and CGM use. Clinic phone number: [phone] for my clinic. Goals of management will [...] diet, and CGM use. Clinic phone number: [phone] for my clinic. Goals of management will [...] continuous glucose monitoring, have pt see a cosmetology educator to review carb counting, and to follow a diet restricted in carbs. Clinic phone number: [phone]. Goals of management to include weight loss [...] call him to schedule). Clinic phone number: [phone] Assessment & Plan (10/14/2019 12:54 PM CDT): [...] call him to schedule). Clinic phone number: [phone] Assessment & Plan (10/14/2019 9:09 AM CDT): HgA1c 8.4 (194) but may be unreliable due to recent blood transfusion from surgery hold metformin while inpatient Continue lantus Continue humalog Endocrine consult Patients PCP manages diabetes but he has tried to get in with an analytical chemist in the past, he would be willing to see endocrinology at [facility] tobacco prevention health educator consulted Assessment & Plan (10/02/2019 11:56 [...] (07/09/2019): Added automatically from request for surgery [id number] Assessment & Plan (09/29/2019 9:22 AM CDT): [facility] showed severe multi vessel CAD Prep for planned CABG on 09/29 Continue ASA, Statin, Beta raquel TNG SL prn angina Check 12 L, Troponins Preoperative testing completed Encounters Date Type Department Care Team Description 04/30/2025 10:30 AM PROFESSIONAL PROGRAMMER ANALYST Office Visit [facility] Cardiology [address] [place] [phone] Fran Reyes MD History of coronary artery stent placement (Primary Dx); Coronary artery disease involving wales coronary artery of wales heart without angina pectoris; Cardiomyopathy, ischemic; S/P [...] on file Legal Sex Male 11:10 AM PROFESSIONAL PROGRAMMER ANALYST Gender Identity Male 07/11/2019 11:28 AM PROFESSIONAL PROGRAMMER ANALYST Sexual Orientation Straight 11/11/2018 2: 54 PM CDT Last Filed Vital Signs Vital Sign Reading Time Taken Comments Blood Pressure 142/96 04/30/2025 9:52 AM PROFESSIONAL PROGRAMMER ANALYST Pulse 101 04/30/2025 9:52 AM PROFESSIONAL PROGRAMMER ANALYST Temperature 36.1 C (97 F) 04/11/2020 2:56 PM PROFESSIONAL PROGRAMMER ANALYST Respiratory Rate 20 04/30/2025 9:52 AM PROFESSIONAL PROGRAMMER ANALYST Oxygen Saturation 97% 04/30/2025 9:52 AM PROFESSIONAL PROGRAMMER ANALYST Inhaled Oxygen Concentration - - Weight 154.2 kg (340 lb) 04/30/2025 9:52 AM PROFESSIONAL PROGRAMMER ANALYST Height 180.3 cm (5' 11) 04/30/2025 9:52 AM PROFESSIONAL PROGRAMMER ANALYST Body Mass Index 47.42 04/30/2025 9:52 AM PROFESSIONAL PROGRAMMER ANALYST Plan of Treatment Health Maintenance Due Date [...] history exists Medical Devices Implanted Type Area Geography Professor Device Identifier Shelf Expiration Date Model / Serial / Lot Heart Stent Heart Description:x1 stent per pt Procedures Procedure Name Priority Date/Time Associated Diagnosis Comments ELECTROCARDIOGRAM REPORT Routine 025 11:07 AM PROFESSIONAL PROGRAMMER ANALYST History of coronary artery stent placement Cardiomyopathy, ischemic POCT LIPID PANEL Routine 04/30/2025 9:54 AM PROFESSIONAL PROGRAMMER ANALYST Coronary artery disease involving wales coronary artery of wales heart without angina pectoris BASIC METABOLIC PANEL Routine 04/11/2021 1:48 PM PROFESSIONAL PROGRAMMER ANALYST Cardiomyopathy, ischemic ALBUMIN CREATININE RATIO, URINE Timed 10/16/2019 11:16 PM CDT HEMOGLOBIN A1C Routine 10/13/2019 5:34 PM CDT from Last 3 Months or Most Recently Relevant to Health Maintenance Results * Electrocardiogram Report (04/30/2025 11:07 AM PROFESSIONAL PROGRAMMER ANALYST) Fran Reyes MD ECG ORDERABLES Final Re sult * (ABNORMAL) POCT lipid panel (04/30/2025 9:54 AM PROFESSIONAL PROGRAMMER ANALYST) Cholesterol, POC 66 <200 MG/DL HDL, POC 14(A) >=40 mg/dL Triglycerides, POC 114 <=149 mg/dL LDL Cholesterol POC 62.2 <=129 mg/dL Cholesterol Total, POC 99 30 - 199 mg/dL Capillary blood 04/30/2025 9 :54 AM PROFESSIONAL PROGRAMMER ANALYST Fran Reyes MD POINT OF CARE TEST ORDER BLAKE Final Result * (ABNORMAL) Basic metabolic panel (04/11/2021 1:48 PM PROFESSIONAL PROGRAMMER ANALYST) Glucose 149(H) 65 - 99 mg/dL [facility] Comment: Fasting reference interval For someone without known diabetes, a glucose value >125 mg/dL indicates that they may have diabetes and this should be confirmed with a follow-up test. BUN 18 7 - 25 mg/dL [facility] Creatinine 1.02 0.60 - 1.35 mg/dL [facility] eGFR NON-AFR. VENEZUELAN 88 > OR = 60 mL/min/1. 73m2 [facility] EGFR 102 > OR = 60 mL/min/1. 73m2 [facility] BUN/creat ratio NOT APPLICABLE 6 - 22 (calc) [facility] Sodium 136 135 - 146 mmol/L [facility] Potassium, pl 4.0 3.5 - 5.3 mmol/L [facility] Chloride 97(L) 98 - 110 mmol/L [facility] CO2 29 20 - 32 mmol/L [facility] Calcium 9.7 8.6 - 10.3 mg/dL [facility] Blood specimen (specimen) 04/11/2021 1:48 PM PROFESSIONAL PROGRAMMER ANALYST 04/11/2021 1:49 PM PROFESSIONAL PROGRAMMER ANALYST us Alvina Hunt WARP SPINNER LAB BLOOD ORDERABLES Final R esult [facility] [address] [place] [address] * (ABNORMAL) Albumin Creatinine Ratio, Urine (10/16/2019 11:16 PM CDT) Albumin Ur 41.4 mg/L [facility] Comment: Interpretive Data No reference range established. Current interpretive data was last revised 2018. Creatinine Ur 95.2 mg/dL [facility] Comment: Interpretive Data No reference range established. Current interpretive data was last revised 2018. Albumin Creatinine Ratio, Ur 43(H) 1 - 29 mg/g [facility] Urine 10/16/2019 11:1 6 PM CDT 10/16/2019 11:45 PM CDT us Jenn Barajas WARP SPINNER LAB URINE ORDERABLES Final R esult [facility] Department [place] [address] * (ABNORMAL) Hemoglobin A1c (10/13/2019 5:34 PM CDT) Hgb A1C 8.4(H) 4.0 - 5.6 % [facility] Estimated Average Glucose 194 mg/dL [facility] Comment: The ADA recommends reporting an estimated Average Glucose (eAG) with all Hemoglobin A1c results using the equation derived from a study of 507 normal and diabetic adults. Minority populations were underrepresented and children were not included. (Diabetes Care 31:7494-3575, 2008). The eAG is not equivalent to a fasting glucose. Blood specimen (specimen) 10/13/2019 5:34 PM CDT 10/13/2019 5:56 PM CDT Sandra Salinas NP LAB BLOOD ORDERABLES Final Result [facility] Department [place] [address] from Last 3 Months or Most Recently Relevant to Health Maintenance Insurance [employer] [facility] BLUE ACCESS CHOICE CO BLUE ACCESS CHOICE CO Advance Directives For more information, please contact: [phone] Documents on File Type Date Recorded Patient Tactical Air Control Party Manager Expl anation ADVANCE DIRECTIVE 10/08/2019 6:48 AM POWER OF VENDING TECHNICIAN-MEDICAL * Full Code (Latest Code Status on [...] Dunn Spouse Health Care Agent Care Teams Cranberry Sorter Relationship Specialty Start Date End Date Lindsay Peralta MD PCP - General 03/22/08 Salvador Prince MD [address] [place] [address] Surgeon Cardiothoracic Surgery 10/07/19 Miscellaneous, Not In File 10/07/19 Gia Brannon MD Consulting Physician Endocrinology Diabetes & Metabolism 10/19/19 Fran Reyes MD Consulting Physician Cardiology 10/26/19
--- OUTSIDE RECORDS SUMMARY | 2025-05-11 06:19 | XMS_ITS | Clinical Summary ---
Author Organization [facility] Address [address] [place] [address] Phone Care Team Providers Care Entry Level Sales Consultant Name Role Phone Lindsay Peralta MD Primary Care Provider [phone] Allergies Active Allergy Reactions Criticality Noted Date [...] by mouth daily Active Continuous Blood Gluc Toy Assembly Supervisor (DEXCOM G6 PUNCHBOARD STUFFER) device USE TO MONITIOR BLOOD GLUCOSE LEVELS [...] Plan: Utilize home CPAP Coronary arteriosclerosis in [place] artery 10/16 Overview (12/11/2018): Coronary atherosclerosis Generalized [...] Comments Blood Pressure 128/72 03/22/2020 2:38 PM B2B SALES MANAGER Pulse 84 03/22/2020 2:38 PM B2B SALES MANAGER Temperature 36 C (96.8 F) 03/22/2020 2:38 PM B2B SALES MANAGER Respiratory Rate - - Oxygen Saturation - - Inhaled Oxygen Concentration - - Weight 132 kg (291 lb) 03/22/2020 2:38 PM B2B SALES MANAGER Height 180.3 cm (5' 11) 03/22/2020 2:38 PM B2B SALES MANAGER Body Mass Index 40.59 03/22/2020 2:38 PM B2B SALES MANAGER Plan of Treatment Health Maintenance Due Date Last Done Comments Influenza Vaccine (#1) 2025 03/01/2020, 2017 Insurance [facility] Care Teams Entry Level Sales Consultant Relationship Specialty Start Date End Date Lindsay Peralta MD [address] [place] [id number] PCP - General 09/04/18
--- NOTE | 2025-05-11 06:25 | ECG_ITS ---
Test Date: 2025-05-11 06:29:12 Measurements Intervals [place] Rate: 94 P: 1 IN: 215 QRS: 78 QRSD: 109 T: 89 QT: 372 QTc: 467 Interpretive Statements SINUS RHYTHM WITH FIRST DEGREE AV BLOCK LOW QRS VOLTAGE IN LIMB LEADS BORDERLINE ST-T WAVE ABNORMALITY- DIFFUSE LEADS BASELINE ARTIFACT- I, II, III, AVR, AVL, AVF, V5 BORDERLINE ECG Compared to ECG 02/24/2025 13:49:53 First degree AV block now present Electronically Signed On 05-11-2025 07:14:41 MINE EQUIPMENT DESIGN ENGINEER by Demario Crawford D.O.
[2025-05-11 06:50] LABS: Hematocrit 49.6 % (42.0-52.0); Hemoglobin 15.9 g/dL (14.0-18.0); Immature Granulocyte Percent A 0.4 % (0-0.5); Lymphocytes Absolute Auto 0.66 K/mm3 (0.9-3.2); Mean Corpuscular HGB Conc 32.1 g/dl (32-36); Mean Corpuscular Hemoglobin 28.3 pg (26-34); Mean Corpuscular Volume 88.3 fl (80-100); Nucleated Red Blood Cells Absolute Auto 0.000 K/mm3 (0.0-0.012); Nucleated Red Blood Cells Perc 0.0 % (0.0-0.2); Platelet Count Result 207 k/mm3 (150-375); Red Blood Count 5.62 M/mm3 (4.6-6.20); White Blood Count 8.2 K/mm3 (4.5-10.0)
[2025-05-11] MEDS: ASPIRIN 81 MG CHEWABLE TABLET 324 MG PO (06:58)
[2025-05-11 07:02] LABS: Alanine Aminotransferase 46 U/L (6-50); Albumin Level 4.3 g/dL (3.5-5.1); Alkaline Phosphatase 285 U/L (38-126); Anion Gap 13 mmol/L (4-12); Aspartate Amino Transferase 71 U/L (17-59); Bilirubin,Total 2.3 mg/dL (0.2-1.3); Blood Urea Nitrogen 32 mg/dL (9-20); Calcium 9.4 mg/dL (8.4-10.2); Carbon Dioxide 25 mmol/L (22-30); Chloride 100 mmol/L (98-107); Estimated CRCL calculation 119 ml/min; Estimated Glomerular Filt Rate > 60; Glucose 126 mg/dL (65-110); Lipase 149 U/L (23-300); Potassium 3.7 mmol/L (3.4-5.0); Sodium 138 mmol/L (137-145); Total Protein 8.3 g/dL (6.3-8.2)
[2025-05-11 07:04] LABS: INR 1.4; Prothrombin Time 16.5 Seconds (11.1-14.7)
[2025-05-11 07:05] LABS: Partial Thromboplastin Time 34.3 Seconds (22.3-36.8)
[2025-05-11 07:14] LABS: Troponin I 0.048 ng/mL (0.000-0.034)
--- NOTE | 2025-05-11 07:15 | PC.NURSE ---
Took report on this patient at [phone]
[2025-05-11 07:26] LABS: Influenza A QL RT-PCR Negative (Negative); Influenza B QL RT-PCR Negative (Negative); RSV RNA, RT-PCR Negative (Negative); SARS-CoV-2 RNA PCR Negative (Negative)
--- NOTE | 2025-05-11 07:28 | ED_ITS ---
HPI - General Adult General Chief complaint: Shortness of Breath/Dyspnea Stated complaint: difficulty breathing, gained 60# in 2 months Time Seen by Provider: 05/11/25 06:53 History of Present Illness HPI narrative: 49-year-old male presents to the emergency department for evaluation for worsening shortness of breath and approximately 60 lb of weight gain. Patient does have a prior history of CHF, type 2 diabetes, ischemic congestive cardiomyopathy, high cholesterol, hypertension, chronic kidney disease. Patient had a CABG at [facility], patient follows up with Dr. Reyes with cardiology. Patient recently had a right great toe amputation here at [facility] by Dr. Curiel. patient states over the course of the last few weeks he has had worsening weight gain worsening exertional shortness of breath. Patient denies any associated chest pain. Related Data Home Medications ?Medication ?Instructions ?Recorded ?Confirmed ?Last Taken ?Type aspirin 81 mg tablet,delayed 81 mg PO DAILY 05/31/19 1 07/12/24 05/10/25 History release insulin glargine 100 unit/mL (3 40 unit subcut QAM 05/11/25 05/10/25 History mL) subcutaneous pen (Lantus Solostar U-100 Insulin) bumetanide 2 mg tablet 2 mg PO DAILY 05/04/2505/1105/10/25 History atorvastatin 40 mg tablet 40 mg PO DAILY 05/11/2504/2005/10/25 History gabapentin 300 mg capsule 300 mg PO BID 05/11/2505/1105/10/25 History (Neurontin) sertraline 100 mg tablet 200 mg PO DAILY 05/11/2505/10/25 History Allergies Allergy/AdvReac Type Severity Reaction Status Date / Time atenolol AdvReac Unknown cough Verified 05/11/25 12:10 Review of Systems 2 Review of Systems: All systems reviewed & are unremarkable except as noted in HPI and below PMFSH Past Medical History Medical History HTN (hypertension) CHF (congestive heart failure) Echocardiogram 2020 demonstrated EF of 15-20 with grade 3 diastolic dysfunction repeat echocardiogram 2021 demonstrated moderate left ventricular enlargement, moderate left ventricular systolic dysfunction, impaired diastolic relaxation grade 1, moderate left atrial enlargement, prior echos have demonstrated moderate pulmonary hypertension but study from 2021 was technically difficult. Moderate pulmonary hypertension Ischemic cardiomyopathy Diabetic neuropathy Diabetic nephropathy Trochanteric bursitis, right hip Transient atrial fibrillation/flutter 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 Mitral valve regurgitation Obstructive sleep apnea on CPAP COVID-19 (01/2021) Erectile dysfunction BPH loc w urin obs/LUTS Chronic depression Chronic kidney disease, stage 3 (moderate) Macroalbuminuric diabetic nephropathy Mixed hyperlipidemia Type 2 diabetes mellitus, with long-term current use of insulin Hemoglobin A1c was 11.1% on 05/31/2019. And 8.25 March 2021 Polycythemia Herniated disc Myocardial infarction Surgical History Surgical History History of coronary artery bypass graft x 2 (09/30/19) Bypass of the LAD and right posterior left ventricular branch. Complicated by sternal infection. Status post panniculectomy (2001) History of laparoscopic cholecystectomy (11/2008) History of cardiac catheterization 10/09/2013: PTCA/stent to circumflex. 06/02/2019: Multivessel coronary artery disease with severe ischemic cardiomyopathy with ejection fraction around 25%, referred for surgical revascularization Family History Family History (Updated 05/11/25 @ 12:12 by Lori Condon RN) Mother Family history of cardiovascular disease Pancreatic cancer Hypertension Father Colon cancer Diabetes mellitus Family history of malignant neoplasm Atrial fibrillation Sibling Diabetes mellitus Kidney disease Hypertension Social History Social History Social History: The patient lives at home with his and their 2 (ages 17 and 19 as of February 2025) children in [place]. He works for [employer] in [employer]. Lifelong nonsmoker. He drinks perhaps 1-2 alcoholic beverages a month on average. No illicit substance use. He designates his , Maru Dunn, as his surrogate decision-maker. CODE STATUS: Full code. Surrogate decision maker: Maru Dunn () Smoking status: Never smoker Alcohol intake: never Substance use: never Substance use type: does not use Lack of Transportation: No Lack of Food: Never True Current Housing: I Have Housing Concerned About Future Housing: No Difficulty Paying Gas/Electric Bills: No Difficulty Paying for Meds: No Currently Unemployed: No Education: Bachelor's Degree Difficulty w/ Childcare or Family Care: No Living arrangements: with family Spiritual care concerns: No Exam 2 Narrative: APPEARANCE: morbidly obese HEAD: normocephalic, atraumatic. EYES: PERRLA/EOMI, conjunctivae clear. NOSE: Normal no drainage EARS:TMS clear with good light reflex. THROAT: Pharynx clear, no exudate. NECK: Supple. No adenopathy, no masses. RESPIRATORY: decreased lung sounds bilaterally CARDIOVASCULAR: Regular rate and rhythm without murmurs rubs or gallops. ABDOMINAL: Soft, nontender, nondistended, normal bowel sounds MUSCULOSKELETAL: Moves all extremities. Strength/ROM intact, edema of abdominal wall and upper and lower legs NEURO: Alert. Cranial nerves II through XII intact. Good gait. Good coordination SKIN: Healing chronic wound right foot no evidence of acute cellulitis Course Vital Signs Vital signs: Vital Signs Temperature 97.4 F L 05/11/25 06:17 Pulse Rate 94 05/11/25 06:17 Respiratory Rate 16 05/11/25 06:17 Blood Pressure 160/109 H 05/11/25 06:17 Pulse Oximetry 99 05/11/25 06:17 Oxygen Delivery Room Air 05/11/25 06:17 Temperature 98.0 F 05/11/25 15:21 Pulse Rate 89 05/11/25 17:55 Respiratory Rate 20 05/11/25 15:21 Blood Pressure 136/82 05/11/25 15:21 Pulse Oximetry 95 05/11/25 15:21 Oxygen Delivery Room Air 05/11/25 16:12 [facility] Narrative Medical decision making narrative: 49-year-old male presenting emergency department for evaluation for weight gain and worsening shortness of breath. Patient is afebrile with no leukocytosis and hemoglobin of 15.9. Patient's INR is 1.4. Creatinine is 0.99. Glucose is 126. Patient did have an elevated troponin at 0.048. patient's most recent troponin on file was from 2020 these were also elevated. Patient was negative influenza RSV and for COVID. CTA of chest was ordered to evaluate for pulmonary embolism. Differential Diagnosis Differential Diagnosis: CHF, ACS, pneumonia, pulmonary embolism, cellulitis Lab Data [facility] Lab Attestation statement: I personally reviewed the patient's lab results. 05/11/25 06:37 05/11/25 06:37 Labs: Lab Results 05/11/25 Range/Units 06:37 WBC 8.2 (4.5-10.0) K/mm3 RBC 5.62 (4.6-6.20) M/mm3 Hgb 15.9 (14.0-18.0) g/dL Hct 49.6 (42.0-52.0) % MCV 88.3 (80-100) fl MCH 28.3 (26-34) pg MCHC 32.1 (32-36) g/dl RDW 19.2 H (11.5-14.5) % Plt Count 207 (150-375) k/mm3 MPV 9.4 (7.4-10.4) fl Immature Gran % (Auto) 0.4 (0-0.5) % Neut % (Auto) 81.1 H (45.5-73.1) % Lymph % (Auto) 8.0 L (18.3-44.2) % Mcminn % (Auto) 8.3 (2.6-8.5) % Eos % (Auto) 1.6 (0-4.4) % Baso % (Auto) 0.6 (0.2-1.2) % Lymph # (Auto) 0.66 L (0.9-3.2) K/mm3 Mcminn # (Auto) 0.7 H (0.1-0.6) K/mm3 Eos # (Auto) 0.1 (0-0.3) K/mm3 Baso # (Auto) 0.1 (0.0-0.1) K/mm3 Abs Immat Gran (auto) 0.03 (0.00-0.031) K/mm3 Absolute Neuts (auto) 6.7 (1.3-6.7) K/mm3 Absolute Nucleated RBC 0.000 (0.0-0.012) K/mm3 Nucleated RBC % 0.0 (0.0-0.2) % PT 16.5 H (11.1-14.7) Seconds INR 1.4 APTT 34.3 (22.3-36.8) Seconds Sodium 138 (137-145) mmol/L Potassium 3.7 (3.4-5.0) mmol/L Chloride 100 (98-107) mmol/L Carbon Dioxide 25 (22-30) mmol/L Anion Gap 13 H (4-12) mmol/L BUN 32 H (9-20) mg/dL Creatinine 0.99 (0.7-1.3) mg/dL Estim Creat Clear Calc 119 ml/min Estimated GFR > 60 (59 - ) Glucose 126 H (65-110) mg/dL Calcium 9.4 (8.4-10.2) mg/dL Total Bilirubin 2.3 H (0.2-1.3) mg/dL AST 71 H (17-59) U/L ALT 46 (6-50) U/L Alkaline Phosphatase 285 H (38-126) U/L Troponin I 0.048 H* (0.000-0.034) ng/mL NT-Pro-B Natriuret Pep 6170 H (19.9-100) pg/mL Total Protein 8.3 H (6.3-8.2) g/dL Albumin 4.3 (3.5-5.1) g/dL Lipase 149 (23-300) U/L Influenza A (RT-PCR) Negative (Negative) Influenza B (RT-PCR) Negative (Negative) RSV (RT-PCR) Negative (Negative) SARS-CoV-2 RNA (RT-PCR) Negative (Negative) Imaging Data Radiologist's impression: ITS Impressions Chest X-Ray 05/11/25 06:57 IMPRESSION: 1. Small right pleural effusion with associated basilar atelectasis. Chest CTA 05/11/25 07:31 IMPRESSION: 1. Moderate right pleural effusion. 2. No PE or other acute abnormality. Discharge Plan Discharge Clinical Impression: CHF (congestive heart failure), Anasarca Patient Disposition: Still a Patient Condition: Serious
--- OUTSIDE RECORDS SUMMARY | 2025-05-11 07:48 | XMS_ITS | Encounter Summary ---
Author Organization [facility] Healthcare Address [address] [place] [address] Care Team Providers Care Grab Driver Name Role Phone Lindsay Peralta MD Primary Care Provider + Samantha Zhang NP Unavailable Salvador Prince MD Unavailable [phone] Miscellaneous, Not In File Unavailable Unava ilable Gia Brannon MD Unavailable [phone] Fran Reyes MD Unavailable [phone] Encounter Details Date Type Department Care Team (Late st Contact Info) Description 09/30/2019 Documentation [facility] Case Management [address] [place] [address] Stephane Yeboah, RN Social History Tobacco Use [...] on file Legal Sex Male 11:10 AM DERRICK HAND Gender Identity Male 07/11/2019 11:28 AM DERRICK HAND Sexual Orientation Straight 11/11/2018 2: 54 PM CDT documented as of this encounter Miscellaneous Notes * Plan of Care - Stephane Yeboah RN - 09/30/2019 8:35 AM CDT Patient to OR today with [facility] Case management services will continue to follow for any d/c needs. Please call me at [phone] further inquiries. documented in this encounter Plan of Treatment Not on file documented as of this encounter Visit Diagnoses Not on filedocumented in this encounter Care Teams Grab Driver Relationship Specialty Start Date End Date Lindsay Peralta MD PCP - General 03/22/08 Samantha Zhang NP [address] [address] Nurse Practitioner Cardiology 06/16/19 10/25/19 Salvador Prince MD [address] [place] [address] Surgeon Cardiothoracic Surgery 10/07/19 Miscellaneous, Not In File 10/07/19 Gia Brannon MD Consulting Physician Endocrinology Diabetes & Metabolism 10/19/19 Fran Reyes MD Consulting Physician Cardiology 10/26/19 documented as of this encounter
--- OUTSIDE RECORDS SUMMARY | 2025-05-11 07:48 | XMS_ITS | Clinical Summary ---
Author Organization [facility] Address [address] [place] [address] Care Team Providers Care Signing Agent Name Role Phone Lindsay Peralta MD Primary Care Provider [phone] Source Comments [facility],non-owned Affiliates and Associated Physician Practices is amultiple site organization consisting of ambulatory clinics and hospital sitesin [place], [place], [place] and [place]. This disclosure is being madepursuant to the Care Everywhere program and may not contain all information available regarding this patient. Last updated 18.[facility] Allergies Active Allergy Reactions Criticality Noted Date [...] Insulin Pen Needle 32G X 4 MM [facility] USE PEN NEEDLES FOUR TIMES A DAY FOR INJECTIONS 100 Each 11/02/19 24 Active Active Problems Problem Noted Date Diagnosed Date Diabetic ketoacidosis withou t coma associated with diabetes mellitus due to underlying condition 10/30/2023 CAD s/p PCI, CABG 10/30/2023 Overview (10/30/2023): PCI in 2012, CABG in 2019 at [place] Perineal abscess 10/30/2023 Sinus tachycardia 10/30/2023 High [...] care, and heating? Not very hard 10/30/2023 [facility] - Occup[facility] Stress [...] place to sleep or slept in a snf (including now)? No 10/30/2023 Sex and Gender [...] 7 - 26 mg/dL 11/02/2023 3:50 AM [facility] Creatinine 1.03 0.71 - 1.16 mg/dL 11/02/2023 3:50 AM [facility] Sodium 134(L) 136 - 145 mmol/L 11/02/2023 3:50 AM [facility] Potassium 3.7 3.5 - 4.5 mmol/L 11/02/2023 3:50 AM [facility] Chloride 106 98 - 107 mmol/L 11/02/2023 3:50 AM [facility] CO2 19(L) 22 - 29 mmol/L 11/02/2023 3:50 AM [facility] Glucose 234(H) 70 - 115 mg/dL 11/02/2023 3:50 AM [facility] Calcium 9.2 8.4 - 10.2 mg/dL 11/02/2023 3:50 AM [facility] Anion Gap 9 6 - 16 11/02/2023 3:50 AM [facility] BUN/Creatinine Ratio 24(H) 7 - 23 11/02/2023 3:50 AM [facility] Osmolality Calculated 290 275 - 295 mOsm/kg 11/02/2023 3:50 AM [facility] eGFR by CKD-EPI 89(L) >=90 mL/min/1.7 3 m2 11/02/2023 3:50 AM [facility] Blood BLOOD SPECIMEN / Unknown Venipuncture / Unknown 11/02/2023 3:19 AM CDT 11/02/2023 3:27 AM CDT Result [facility] Dequan Munson MD LAB - CHEMISTRY ORDERABLES Final Result Performing Organization Address [facility]/ZIP Co de Phone Number [facility] [address] [place] [address], [facility] [phone] * (ABNORMAL) HEMOGLOBIN A1C (10/30/2023 8:05 AM CDT) Hemoglobin A1c 13.0(H) <=5.6 % 10/30/2023 11:05 AM [facility] Estimated Average Glucose 326 mg/dL 10/30/2023 11:05 AM [facility] Comment: HbA1c Interpretation: Normal : < 5.7% Pre-diabetes: 5.7-6.4% Diabetes: Equal to or greater than 6.5% Test results diagnostic of diabetes should be repeated for confirmation. Treatment target values recommended by ADA and other clinical organizations should be used to evaluate metabolic control in patients. Reference: Citizen Of [place] Diabetes Association, Standards of Care in Diabetes [...] ORDERABLES F inal Result Performing Organization Address City/[facility]/ZIP Co de Phone Number [facility] [address] [place] [phone], [place] [phone] from Last 3 Months or Most Recently Relevant to Health [place] [id number] ANTHE[employer] Advance Directives * Full Code (Latest Code Status on File) Date Activated Date Inactivated Comments 10/30/2023 7:31 AM 11/02/2023 12:57 PM Care Teams Signing Agent Relationship Specialty Start Date End Date Lindsay Peralta MD [address] [place] [phone] PCP - General Family Medicine 10/29/23
--- OUTSIDE RECORDS SUMMARY | 2025-05-11 07:48 | XMS_ITS | Clinical Summary ---
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
--- OUTSIDE RECORDS SUMMARY | 2025-05-11 07:48 | XMS_ITS | Clinical Summary ---
Author Organization [facility] [address] Address [address] [place] [address] Care Team Providers Care Material Preparation Worker Name Role Phone Lindsay Peralta MD Primary Care Provider + Salvador Prince MD Unavailable [phone] Miscellaneous, Not In File Unavailable Unava ilable Gia Brannon MD Unavailable [phone] Fran Reyes MD Unavailable [phone] Allergies Active Allergy Reactions Criticality Noted Date [...] home CPAP Coronary artery disease invo lving squaxin coronary artery of squaxin heart without angina pectoris 10/16/2018 Assessment & [...] but 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 On statin Atherosclerosis of coronary [...] diet, and CGM use. Clinic phone number: [phone] for my clinic. Goals of management will [...] diet, and CGM use. Clinic phone number: [phone] for my clinic. Goals of management will [...] diet, and CGM use. Clinic phone number: [phone] for my clinic. Goals of management will [...] continuous glucose monitoring, have pt see a simulation educator to review carb counting, and to follow a diet restricted in carbs. Clinic phone number: [phone]. Goals of management to include weight loss [...] call him to schedule). Clinic phone number: [phone] Assessment & Plan (10/14/2019 12:54 PM CDT): [...] call him to schedule). 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 natural resources extension educator consulted Assessment & Plan (10/02/2019 11:56 [...] (07/09/2019): Added automatically from request for surgery [id number] Assessment & Plan (09/29/2019 9:22 AM CDT): [facility] showed severe multi vessel CAD Prep for planned CABG on 09/29 Continue ASA, Statin, Beta raquel TNG SL prn angina Check 12 L, Troponins Preoperative testing completed Encounters Date Type Department Care Team Description 04/30/2025 10:30 AM HVAC SERVICE MANAGER Office Visit [facility] Cardiology [address] [place] [phone] Fran Reyes MD History of coronary artery stent placement (Primary Dx); Coronary artery disease involving squaxin coronary artery of squaxin heart without angina pectoris; Cardiomyopathy, ischemic; S/P [...] on file Legal Sex Male 11:10 AM HVAC SERVICE MANAGER Gender Identity Male 07/11/2019 11:28 AM HVAC SERVICE MANAGER Sexual Orientation Straight 11/11/2018 2: 54 PM CDT Last Filed Vital Signs Vital Sign Reading Time Taken Comments Blood Pressure 142/96 04/30/2025 9:52 AM HVAC SERVICE MANAGER Pulse 101 04/30/2025 9:52 AM HVAC SERVICE MANAGER Temperature 36.1 C (97 F) 04/11/2020 2:56 PM HVAC SERVICE MANAGER Respiratory Rate 20 04/30/2025 9:52 AM HVAC SERVICE MANAGER Oxygen Saturation 97% 04/30/2025 9:52 AM HVAC SERVICE MANAGER Inhaled Oxygen Concentration - - Weight 154.2 kg (340 lb) 04/30/2025 9:52 AM HVAC SERVICE MANAGER Height 180.3 cm (5' 11) 04/30/2025 9:52 AM HVAC SERVICE MANAGER Body Mass Index 47.42 04/30/2025 9:52 AM HVAC SERVICE MANAGER Plan of Treatment Health Maintenance Due [...] history exists Medical Devices Implanted Type Area Aviation Safety Inspector Device Identifier Shelf Expiration Date Model / Serial / Lot Heart Stent Heart Description:x1 stent per pt Procedures Procedure Name Priority Date/Time Associated Diagnosis Comments ELECTROCARDIOGRAM REPORT Routine 025 11:07 AM HVAC SERVICE MANAGER History of coronary artery stent placement Cardiomyopathy, ischemic POCT LIPID PANEL Routine 04/30/2025 9:54 AM HVAC SERVICE MANAGER Coronary artery disease involving squaxin coronary artery of squaxin heart without angina pectoris BASIC METABOLIC PANEL Routine 04/11/2021 1:48 PM HVAC SERVICE MANAGER Cardiomyopathy, ischemic ALBUMIN CREATININE RATIO, URINE Timed 10/16/2019 11:16 PM CDT HEMOGLOBIN A1C Routine 10/13/2019 5:34 PM CDT from Last 3 Months or Most Recently Relevant to Health Maintenance Results * Electrocardiogram Report (04/30/2025 11:07 AM HVAC SERVICE MANAGER) Fran Reyes MD ECG ORDERABLES Final Re sult * (ABNORMAL) POCT lipid panel (04/30/2025 9:54 AM HVAC SERVICE MANAGER) Cholesterol, POC 66 <200 MG/DL HDL, POC 14(A) >=40 mg/dL Triglycerides, POC 114 <=149 mg/dL LDL Cholesterol POC 62.2 <=129 mg/dL Cholesterol Total, POC 99 30 - 199 mg/dL Capillary blood 04/30/2025 9 :54 AM HVAC SERVICE MANAGER Fran Reyes MD POINT OF CARE TEST ORDER BLAKE Final Result * (ABNORMAL) Basic metabolic panel (04/11/2021 1:48 PM HVAC SERVICE MANAGER) Glucose 149(H) 65 - 99 mg/dL [facility] Comment: Fasting reference interval For someone without known diabetes, a glucose value >125 mg/dL indicates that they may have diabetes and this should be confirmed with a follow-up test. BUN 18 7 - 25 mg/dL [facility] Creatinine 1.02 0.60 - 1.35 mg/dL [facility] eGFR NON-AFR. INDONESIAN 88 > OR = 60 mL/min/1. 73m2 [facility] EGFR 102 > OR = 60 mL/min/1. 73m2 [facility] BUN/creat ratio NOT APPLICABLE 6 - 22 (calc) [facility] Sodium 136 135 - 146 mmol/L [facility] Potassium, pl 4.0 3.5 - 5.3 mmol/L [facility] Chloride 97(L) 98 - 110 mmol/L [facility] CO2 29 20 - 32 mmol/L [facility] Calcium 9.7 8.6 - 10.3 mg/dL [facility] Blood specimen (specimen) 04/11/2021 1:48 PM HVAC SERVICE MANAGER 04/11/2021 1:49 PM HVAC SERVICE MANAGER us Alvina Hunt INSPECTOR SHEET METAL PARTS LAB BLOOD ORDERABLES Final R esult [facility] [address] [place] [address] * (ABNORMAL) Albumin Creatinine Ratio, Urine (10/16/2019 11:16 PM CDT) Albumin Ur 41.4 mg/L [facility] Comment: Interpretive Data No reference range established. Current interpretive data was last revised 2018. Creatinine Ur 95.2 mg/dL [facility] Comment: Interpretive Data No reference range established. Current interpretive data was last revised 2018. Albumin Creatinine Ratio, Ur 43(H) 1 - 29 mg/g [facility] Urine 10/16/2019 11:1 6 PM CDT 10/16/2019 11:45 PM CDT us Jenn Barajas INSPECTOR SHEET METAL PARTS LAB URINE ORDERABLES Final R esult [facility] Department [place] [address] * (ABNORMAL) Hemoglobin A1c (10/13/2019 5:34 PM CDT) Hgb A1C 8.4(H) 4.0 - 5.6 % [facility] Estimated Average Glucose 194 mg/dL [facility] Comment: The ADA recommends reporting an estimated Average Glucose (eAG) with all Hemoglobin A1c results using the equation derived from a study of 507 normal and diabetic adults. Minority populations were underrepresented and children were not included. (Diabetes Care 31:1018-2194, 2008). The eAG is not equivalent to a fasting glucose. Blood specimen (specimen) 10/13/2019 5:34 PM CDT 10/13/2019 5:56 PM CDT Sandra Salinas NP LAB BLOOD ORDERABLES Final Result [facility] Department [place] [address] from Last 3 Months or Most Recently Relevant to Health Maintenance Insurance [employer]x [facility] BLUE [place] CHOICE [place] Advance Directives For more information, please contact: [phone] Documents on File Type Date Recorded Patient Body Service Team Member Expl anation ADVANCE DIRECTIVE 10/08/2019 6:48 AM POWER OF PARENT EDUCATOR-MEDICAL * Full Code (Latest Code Status on [...] Dunn Spouse Health Care Agent Care Teams Material Preparation Worker Relationship Specialty Start Date End Date Lindsay Peralta MD PCP - General 03/22/08 Salvador Prince MD [address] [place] [address] Surgeon Cardiothoracic Surgery 10/07/19 Miscellaneous, Not In File 10/07/19 Gia Brannon MD Consulting Physician Endocrinology Diabetes & Metabolism 10/19/19 Fran Reyes MD Consulting Physician Cardiology 10/26/19
--- OUTSIDE RECORDS SUMMARY | 2025-05-11 07:48 | XMS_ITS | Encounter Summary ---
Author Organization [facility] Address [facility] [place] [address] Care Team Providers Care Education Assistant Name Role Phone Unavailable Primary Care Provider Unavailabl e Encounter Details Date Type Department Care Team (Late st Contact Info) Description 12/29/[address] 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
--- OUTSIDE RECORDS SUMMARY | 2025-05-11 07:48 | XMS_ITS | Clinical Summary ---
Author Organization [facility] Address [address] [place] [phone] Phone Care Team Providers Care Stock Parts Fabricator Name Role Phone Lindsay Peralta MD Primary Care Provider [phone] Allergies Active Allergy Reactions Criticality Noted Date [...] by mouth daily Active Continuous Blood Gluc Rheumatology Nurse (DEXCOM G6 VICE CHAIR) device USE TO MONITIOR BLOOD GLUCOSE LEVELS [...] Plan: Utilize home CPAP Coronary arteriosclerosis in [place] artery 10/16 Overview (12/11/2018): Coronary atherosclerosis Generalized [...] Comments Blood Pressure 128/72 03/22/2020 2:38 PM BACK PANEL PADDER Pulse 84 03/22/2020 2:38 PM BACK PANEL PADDER Temperature 36 C (96.8 F) 03/22/2020 2:38 PM BACK PANEL PADDER Respiratory Rate - - Oxygen Saturation - - Inhaled Oxygen Concentration - - Weight 132 kg (291 lb) 03/22/2020 2:38 PM BACK PANEL PADDER Height 180.3 cm (5' 11) 03/22/2020 2:38 PM BACK PANEL PADDER Body Mass Index 40.59 03/22/2020 2:38 PM BACK PANEL PADDER Plan of Treatment Health Maintenance Due Date Last Done Comments Influenza Vaccine (#1) 2025 03/01/2020, 2017 Insurance [facility] Care Teams Stock Parts Fabricator Relationship Specialty Start Date End Date Lindsay Peralta MD [address] [place] [id number] PCP - General 09/04/18
[2025-05-11 07:51] LABS: NT Pro B Type Natriuretic Pept 6170 pg/mL (19.9-100)
[2025-05-11] MEDS: FUROSEMIDE INJ 40 MG/4 ML VIAL IV PUSH ×2 (09:08→20:27)
--- NOTE | 2025-05-11 10:05 | ECG_ITS ---
Test Date: 2025-05-11 10:08:23 Measurements Intervals [place] Rate: 88 P: -5 SC: 207 QRS: 44 QRSD: 126 T: 71 QT: 419 QTc: 507 Interpretive Statements SINUS RHYTHM INCOMPLETE LEFT BUNDLE BRANCH BLOCK BORDERLINE ST-T WAVE ABNORMALITY- INF/LAT LEADS BASELINE ARTIFACT- I, II, III, AVR, AVL, AVF ABNORMAL ECG Compared to ECG 05/11/2025 06:29:12 INCOMPLETE LEFT BUNDLE BRANCH BLOCK NOW PRESENT Electronically Signed On 05-11-2025 10:41:04 BUILDING MAINTENANCE MECHANIC by Demario Crawford D.O.
[2025-05-11 10:39] LABS: Troponin I 0.046 ng/mL (0.000-0.034)
--- NOTE | 2025-05-11 11:38 | WPCEDHO ---
ED Hand Off Checklist All vitals saved: yes IV Site documented:yes All med administrations documented:yes Triage Note Triage Note Pt arrives from home with c/o 05/11/25 06:59 difficulty breathing. States that he had his toe amputated in February d/t infection. Since then he has been retaining fluid, gaining 60# in 2 months. States that he was told to come to the ED if he became SOB. Denies any fever or chest pain. Allergies atenolol Adverse Reaction (Unknown, Verified 05/11/25 06:17) cough Family History (Last Reviewed 05/04/25 @ 10:12 by Lisy Graham MA) Mother Pancreatic cancer Hypertension Family history of cardiovascular disease Family history of malignant neoplasm Father Colon cancer Diabetes mellitus Atrial fibrillation Family history of malignant neoplasm Sibling Diabetes mellitus Kidney disease Hypertension Administered/Completed Medications Discontinued Medications Aspirin (Aspirin 81 Mg Chewable Tablet) 324 mg PO ONCE STA Stop: 05/11/25 06:26 Last Admin: 05/11/25 06:58 Dose: 324 mg Documented By: MABEL Furosemide (Furosemide Inj 40 Mg/4 Ml Vial) 40 mg IV PUSH ONCE STA Stop: 05/11/25 08:51 Last Admin: 05/11/25 09:08 Dose: 40 mg Documented By: CYNTHIA Notes 05/11/25 07:15 Nurse Note by Birdie Pfeiffer Took report on this patient at 0710 Initialized on 05/11/25 07:15 - END OF NOTE Interventions/Assessments IV / Saline Lock, Insert Start: 05/11/25 06:25 Freq: STAT Status: Active Protocol: Document 05/11/25 06:42 AMI (Rec: 05/11/25 06:43 AMI [id number]) IV Assessment Peripheral Access Right Antecubital IV Catheter Access Initiated IV Insertion Date 05/11/25 IV Insertion Time 06:42 Catheter Gauge 18 IV Insertion 1 Attempts Ultrasound Used for No Placement IV Site Assessment WNL IV Care and WNL Maintenance PA: Cardiovascular Assessment Start: 05/11/25 06:16 Freq: Status: Active Protocol: Document 05/11/25 06:59 LLG (Rec: 05/11/25 07:00 LLG [id number]) Cardiovascular Assessment Cardiovascular Dyspnea Symptoms Skin Description Normal Color Heart Sounds Normal Jugular Vein None Distention PA: Respiratory Assessment Start: 05/11/25 06:16 Freq: Status: Active Protocol: Document 05/11/25 06:59 LLG (Rec: 05/11/25 07:00 LLG [id number]) Respiratory Assessment Symptoms Congestion,Shortness of Breath at Rest,Shortness of Breath With Exertion Effort Normal Cough Description None Sputum Amount None Oxygen Delivery Oxygen Delivery Room Air Pulse Oximetry (90- 99 100) Last Vital Signs Temperature 97.6 F 05/11/25 11:36 Pulse Rate 89 05/11/25 11:36 Respiratory Rate 18 05/11/25 11:36 Pulse Oximetry 98 05/11/25 11:36 Blood Pressure 145/94 H 05/11/25 11:36 Blood Pressure Mean 111 05/11/25 11:36 Blood Pressure Position Sitting 05/11/25 06:17 Oxygen Delivery Room Air 05/11/25 06:59 Weight 154 kg 05/11/25 06:59 Last Result - Abnormals Only RDW 19.2 % (11.5-14.5) H 05/11/25 06:37 Neut % (Auto) 81.1 % (45.5-73.1) H 05/11/25 06:37 Lymph % (Auto) 8.0 % (18.3-44.2) L 05/11/25 06:37 Lymph # (Auto) 0.66 K/mm3 (0.9-3.2) L 05/11/25 06:37 [place] # (Auto) 0.7 K/mm3 (0.1-0.6) H 05/11/25 06:37 PT 16.5 Seconds (11.1-14.7) H 05/11/25 06:37 Anion Gap 13 mmol/L (4-12) H 05/11/25 06:37 BUN 32 mg/dL (9-20) H 05/11/25 06:37 Glucose 126 mg/dL (65-110) H 05/11/25 06:37 Total Bilirubin 2.3 mg/dL (0.2-1.3) H 05/11/25 06:37 AST 71 U/L (17-59) H 05/11/25 06:37 Alkaline Phosphatase 285 U/L (38-126) H 05/11/25 06:37 Troponin I 0.046 ng/mL (0.000-0.034) H* 05/11/25 09:57 NT-Pro-B Natriuret Pep 6170 pg/mL (19.9-100) H 05/11/25 06:37 Total Protein 8.3 g/dL (6.3-8.2) H 05/11/25 06:37 Most Recent Suicide Severity Rating Suicide Severity Rating NO RISK INDICATED 05/11/25 06:59
--- NOTE | 2025-05-11 12:00 | WNDPHOTO ---
PHOTO ONLY - See Nursing Notes and/ or assessments for documentation.
--- NOTE | 2025-05-11 12:28 | ADMGEN ---
This patient, Getachew Dunn, was admitted to IMU Room 202- at 1132. Patient/family oriented to hospital policies and general routines including ID bracelet, bed and alarms, visiting hours, pain management, procedures, bathroom and other care routines, personal items, smoking policy, room service/diet, and visiting hours. Information on how to activate the Rapid Response Team has been discussed. Patient/Family are encouraged to report perceived risks to care and to ask questions if they do not understand what they are told or what they should do.
--- NOTE | 2025-05-11 13:18 | PM.IMHP2 ---
H&P: HPI History of Present Illness Date/Time: 05/11/25 13:18 Chief Complaint: Shortness of breath Narrative: 49-year-old male with a past medical history of DMII, SUSANA w/ CPAP, CHF, HTN, IA s/p CABG, CKD, hyperlipidemia presents to the ED on 05/11/2025 with complaints of increasing dyspnea. Patient had right great toe amputated on 02/22/2025 and states he has been gaining ?water weight? since then. He states he has gained about 60 lb since that operation in February. Patient has been experiencing dyspnea on exertion over the past week and states last night he felt dyspneic while laying down even with his CPAP on. 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 Reyes. Patient states he was scheduled to have an echo on 05/12. Patient follows at [facility] for his right great toe amputation. Denies chest pain, fevers. Initial vital signs 160/109, HR 94, respirations 16, afebrile and 99% on room air excellent Labs revealed no leukocytosis. PT 16.5. Anion gap 13, BUN 32. Bilirubin 2.3, AST 71, alk-phos 285. Initial troponin 0.048 (chronically elevated). BNP 6170. Viral panel negative. Initial EKG was sinus rhythm and first-degree AV block. Chest x-ray reads small right pleural effusion with associated basilar atelectasis. CTA chest with no concern for PE, moderate right pleural effusion. Abdomen pelvis CT reads supraumbilical ventral hernia containing fat. Anasarca including mild pulmonary edema, small right pleural effusion, and moderate volume of ascites Review of Systems Review of Systems: All systems reviewed & are unremarkable except as noted in HPI and below [facility] Past Medical History Medical History HTN (hypertension) CHF (congestive heart failure) Echocardiogram 2020 demonstrated EF of 15-20 with grade 3 diastolic dysfunction repeat echocardiogram 2021 demonstrated moderate left ventricular enlargement, moderate left ventricular systolic dysfunction, impaired diastolic relaxation grade 1, moderate left atrial enlargement, prior echos have demonstrated moderate pulmonary hypertension but study from 2021 was technically difficult. Moderate pulmonary hypertension Ischemic cardiomyopathy Diabetic neuropathy Diabetic nephropathy Trochanteric bursitis, right hip Transient atrial fibrillation/flutter 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 Mitral valve regurgitation Obstructive sleep apnea on CPAP COVID-19 (01/2021) Erectile dysfunction BPH loc w urin obs/LUTS Chronic depression Chronic kidney disease, stage 3 (moderate) Macroalbuminuric diabetic nephropathy Mixed hyperlipidemia Type 2 diabetes mellitus, with long-term current use of insulin Hemoglobin A1c was 11.1% on 05/31/2019. And 8.25 March 2021 Polycythemia Herniated disc Myocardial infarction Surgical History Surgical History History of coronary artery bypass graft x 2 (09/30/19) Bypass of the LAD and right posterior left ventricular branch. Complicated by sternal infection. Status post panniculectomy (2001) History of laparoscopic cholecystectomy (11/2008) History of cardiac catheterization 10/09/2013: PTCA/stent to circumflex. 06/02/2019: Multivessel coronary artery disease with severe ischemic cardiomyopathy with ejection fraction around 25%, referred for surgical revascularization Family History Family History (Updated 05/11/25 @ 12:12 by Lori Condon RN) Mother Family history of cardiovascular disease Pancreatic cancer Hypertension Father Colon cancer Diabetes mellitus Family history of malignant neoplasm Atrial fibrillation Sibling Diabetes mellitus Kidney disease Hypertension Social History Social History Social History: The patient lives at home with his and their 2 (ages 17 and 19 as of February 2025) children in [place]. He works for [employer] in [employer]. Lifelong nonsmoker. He drinks perhaps 1-2 alcoholic beverages a month on average. No illicit substance use. He designates his , Maru Dunn, as his surrogate decision-maker. CODE STATUS: Full code. Surrogate decision maker: Maru Dunn () Smoking status: Never smoker Alcohol intake: never Substance use: never Substance use type: does not use Lack of Transportation: No Lack of Food: Never True Current Housing: I Have Housing Concerned About Future Housing: No Difficulty Paying Gas/Electric Bills: No Difficulty Paying for Meds: No Currently Unemployed: No Education: Bachelor's Degree Difficulty w/ Childcare or Family Care: No Living arrangements: with family Spiritual care concerns: No Meds Home Medications and Allergies Home Medications ?Medication ?Instructions ?Recorded ?Confirmed ?Type aspirin 81 mg tablet,delayed 81 mg PO DAILY 05/31/19 05/11/25 History release sacubitril 97 mg-valsartan 103 mg See Rx Instructions .Route 07/24/24 05/11/25 Rx tablet (Entresto) .COMPLEX #180 tabs empagliflozin 25 mg tablet See Rx Instructions .Route 08/28/24 05/11/25 Rx (Jardiance) .COMPLEX #90 tabs metformin 500 mg tablet,extended 1,000 mg (2 x 500 mg) PO BID #180 12/21/24 05/11/25 Rx release 24 hr tabs metoprolol succinate 100 mg 100 mg PO DAILY #90 tabs 02/26/25 05/11/25 Rx tablet,extended release 24 hr bupropion HCl 150 mg 24 hr tablet, 150 mg PO QAM #90 tabs 03/09/25 05/11/25 Rx extended release (Wellbutrin XL) clopidogrel 75 mg tablet (Plavix) 75 mg PO DAILY #90 tabs 03/09/25 05/11/25 Rx spironolactone 25 mg tablet 25 mg PO QAM #90 tabs 03/09/25 05/11/25 Rx glucagon 1 mg/0.2 mL subcutaneous 1 mg (0.2 mL) subcut ONCE #0.4 mL 03/19/25 05/11/25 Rx auto-injector (Sybil Hartmannen 2-Pack) insulin glargine 100 unit/mL (3 40 unit subcut QAM 03/19/25 05/11/25 History mL) subcutaneous pen (Lantus Solostar U-100 Insulin) insulin lispro 100 unit/mL 5 unit (0.05 mL) subcut .before 03/19/25 05/11/25 Rx subcutaneous pen each meal #21 mL tirzepatide 10 mg/0.5 mL 10 mg (0.5 mL) subcut WEEKLY #6 mL 03/19/25 05/11/25 Rx subcutaneous pen injector (Henry) blood-glucose sensor (Dexcom G6 #9 ea 03/29/25 05/11/25 Rx Sensor device) blood-glucose transmitter (Dexcom #1 ea 03/29/25 05/11/25 Rx G6 Transmitter device) amoxicillin 875 mg-potassium 1 tablet PO BID #30 tabs 05/04/25 05/11/25 Rx clavulanate 125 mg tablet bumetanide 2 mg tablet 2 mg PO DAILY 05/04/25 05/11/25 History oxycodone-acetaminophen 5 mg-325 1 tablet PO Q6H PRN pain #20 tabs 05/10/25 05/11/25 Rx mg tablet atorvastatin 40 mg tablet 40 mg PO DAILY 05/11/25 05/11/25 History gabapentin 300 mg capsule 300 mg PO BID 05/11/25 05/11/25 History (Neurontin) sertraline 100 mg tablet 200 mg PO DAILY 05/11/25 05/11/25 History Allergies Allergy/AdvReac Type Severity Reaction Status Date / Time atenolol AdvReac Unknown cough Verified 05/11/25 12:10 Vital Signs Vital Signs - 24 hr 05/11/25 06:17 05/11/25 06:59 05/11/25 07:04 Temperature 97.4 F L Pulse Rate 94 94 Respiratory Rate 16 11 L Blood Pressure 160/109 H Pulse Oximetry 99 99 96 Oxygen Delivery Room Air Room Air 05/11/25 07:46 05/11/25 07:54 05/11/25 08:01 Temperature Pulse Rate 91 94 92 Respiratory Rate 23 H 25 H 13 Blood Pressure 161/96 H 161/96 H 154/96 H Pulse Oximetry 94 95 95 Oxygen Delivery 05/11/25 08:16 05/11/25 08:43 05/11/25 08:45 Temperature Pulse Rate 91 89 89 Respiratory Rate 19 15 9 L Blood Pressure Pulse Oximetry 94 97 95 Oxygen Delivery 05/11/25 09:00 05/11/25 09:15 05/11/25 09:45 Temperature Pulse Rate 89 91 94 Respiratory Rate 23 H 18 Blood Pressure Pulse Oximetry 97 96 94 Oxygen Delivery 05/11/25 10:00 05/11/25 10:01 05/11/25 11:36 Temperature 97.6 F Pulse Rate 88 88 89 Respiratory Rate 24 H 14 18 Blood Pressure 155/81 H 145/94 H Pulse Oximetry 95 96 98 Oxygen Delivery 05/11/25 12:02 05/11/25 12:57 Temperature 98.2 F Pulse Rate 92 Respiratory Rate 20 Blood Pressure 149/84 H Pulse Oximetry 97 Oxygen Delivery Room Air Exam Narrative: GENERAL: non-toxic appearing, in no acute distress. Morbidly obese HEAD: Normocephalic, atraumatic. EYES: PERRLA. Conjunctivae clear. NOSE: Normal no drainage. THROAT: Pharynx clear, no exudate. NECK: ?Trachea midline. No adenopathy, no masses. RESPIRATORY: Airway patent, respirations nonlabored. Diminished lung sounds bilaterally CARDIOVASCULAR: Regular rate and rhythm GASTROINTESTINAL: ?Abdomen is soft and nontender. Bowel sounds normal in all quadrants. ?Obese with abdominal wall edema. GENITOURINARY: ?Defer MUSCULOSKELETAL: Moves all extremities. No gross deformities. Anasarca with edema to bilateral lower extremities, abdomen. Rolled gauze to right foot. SKIN: Warm, dry, normal color. NEURO: A&O X4. Speech clear PSYCHIATRIC: Normal interaction Results Labs Labs: Short CBC 05/11/25 Range/Units 06:37 WBC 8.2 (4.5-10.0) K/mm3 Hgb 15.9 (14.0-18.0) g/dL Hct 49.6 (42.0-52.0) % Plt Count 207 (150-375) k/mm3 BMP 05/11/25 06:37 Sodium 138 Potassium 3.7 Chloride 100 Carbon Dioxide 25 BUN 32 H Creatinine 0.99 Glucose 126 H Calcium 9.4 Cardiac Enzymes 05/11/25 05/11/25 Range/Units 06:37 09:57 Troponin I 0.048 H* 0.046 H* (0.000-0.034) ng/mL Liver Function 05/11/25 Range/Units 06:37 Total Bilirubin 2.3 H (0.2-1.3) mg/dL AST 71 H (17-59) U/L ALT 46 (6-50) U/L Alkaline Phosphatase 285 H (38-126) U/L Albumin 4.3 (3.5-5.1) g/dL Quality VTE Prophylaxis VTE prophylaxis: mechanical ordered Assessment and Plan Assessment and plan (1) CHF exacerbation: Code(s): I50.9 - Heart failure, unspecified Status: Acute Assessment and Plan: Increasing dyspnea on exertion and weight gain over the past 2 months. Chest x-ray reads small right pleural effusion with associated basilar atelectasis. CTA chest with no concern for PE, moderate right pleural effusion. Abdomen pelvis CT reads supraumbilical ventral hernia containing fat. Anasarca including mild pulmonary edema, small right pleural effusion, and moderate volume of ascites. Was switched to 2 mg Bumex daily on 04/30 from 40 mg furosemide daily. - BNP 6170 - most recent echo 07/26/21 reads EF 40%, impaired diastolic relaxation grade 1. 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 - Continue Augmentin - Wound care consult - Follow-up with Wound Clinic outpatient as directed (3) Type 2 diabetes mellitus with hyperglycemia, with long-term current use of insulin: Code(s): E11.65 - Type 2 diabetes mellitus with hyperglycemia; Z79.4 - [facility] (current) use of insulin Status: Chronic Assessment and Plan: - hypoglycemia protocol - POC blood glucose ACHS - home medication: ?Jardiance, Lantus and Lispro insulin, Metformin and Mounjaro - correct regimen ordered: Lantus 32 units HS, low-dose corrective scale - A1C 6.7 on 05/04/2025 (4) HTN (hypertension): Qualifiers: Hypertension type: essential hypertension Qualified Code(s): I10 - Essential (primary) hypertension Code(s): I10 - Essential (primary) hypertension Status: Chronic Assessment and Plan: Continue metoprolol Prior Studies I have reviewed the following patient records and this information was taken into consideration when formulating the assessment and plan.: previous labs, previous ER visits, previous hospitalizations and previous clinic visits Time Spent with Patient Time with patient: 45 - 74 minutes Hospitalist MIPS Advance Care Plan I have confirmed that the patient's Advanced Care Plan is present, code status is documented, or surrogate decision maker is listed in patient medical record.: Yes Medication Reconciliation I have utilized all available resources to obtain, update and review the patients current medications (includes all prescriptions, OTC, herbals, cannabis, and nutritional supplements).: Yes
[2025-05-11 13:20] LABS: Troponin I 0.040 ng/mL (0.000-0.034)
[2025-05-11] MEDS: PERFLUTREN LIPID MICROSPHERES 1.5 ML VIAL DILUTED TO 10 ML TOTAL VOLUME IV PUSH (15:00)
--- NOTE | 2025-05-11 15:31 | IVDEFINITY ---
Prior to administration of IV Definity the patient was educated on the risks and benefits of the imaging enhancing agent including potential adverse side effects. The patient verbalized understanding. Allergies were verified. No exclusion criteria were identified and at least one of the following inclusion criteria were met: 1) physician request, 2) patient technically difficult to image (per the [place] [employer] Echocardi[employer] guidelines of two or more segments not discernable within the apical view), or 3) questionable left ventricular function. ?
[2025-05-11] MEDS: SACUBITRIL/VALSARTAN 97-103 MG TABLET 1 TAB BY MOUTH (20:27)
[2025-05-11] MEDS: GABAPENTIN 300 MG CAPSULE PO (20:27)
[2025-05-11] MEDS: oxyCODONE/ACETAMINOPHEN (*CRX) 5-325 MG TABLET 1 TABLET PO (20:27)
[2025-05-11] MEDS: INSULIN GLARGINE (*BKC) 100 UNITS/ML 32 UNITS SUB-Q (20:32)
[2025-05-12] VITALS (18 sets, daily range): BP systolic 133–149; BP diastolic 79–88; PULSE 67–96; RESP 18–20; TEMP 36.4–36.9; O2SAT 93–100
[2025-05-12] MEDS: buPROPion HCL XL (24 HR) 150 MG TABCR PO (08:47)
--- NOTE | 2025-05-12 08:47 | P.PNIM_ITS ---
Assessment and Plan Assessment and Plan (1) CHF exacerbation: Code(s): I50.9 - Heart failure, unspecified Status: Acute Assessment and Plan: Acute on chronic combined systolic/diastolic function -Increasing dyspnea on exertion and weight gain over the past 2 months. Was switched to 2 mg Bumex daily on 04/30 from 40 mg furosemide daily. -Chest x-ray reads small right pleural effusion with associated basilar atelectasis. -CTA chest with no concern for PE, moderate right pleural effusion. Abdomen pelvis CT reads supraumbilical ventral hernia containing fat. Anasarca including mild pulmonary edema, small right pleural effusion, and moderate volume of ascites. - BNP 6170 - echo 05/12 with EF 30% (decreased from previous), diastolic dysfunction with RV hypokinesis - Cardiology consulted, increased IV Lasix to 60 mg b.i.d.. 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) use of insulin Status: Chronic Assessment and Plan: - hypoglycemia protocol - POC blood glucose ACHS - home medication: ?Jardiance, Lantus and Lispro insulin, Metformin and Mounjaro - correct regimen ordered: Lantus 32 units HS, low-dose corrective scale - A1C 6.7 on 05/04/2025 (4) HTN (hypertension): Qualifiers: Hypertension type: essential hypertension Qualified Code(s): I10 - Essential (primary) hypertension Code(s): I10 - Essential (primary) hypertension Status: Chronic Assessment and Plan: -continue metoprolol Plan Dispo: home, possibly tomorrow Code status:full code DVT prophylaxis: Lovenox Medical Record Review I have reviewed the following patient records and this information was taken into consideration when formulating the assessment and plan.: previous labs Consultations Consultations: I have discussed the care of this pt with the consulting providers. (cardiology) Subjective Date/time seen: 05/12/25 08:47 Interval history: Patient seen and examined at bedside. Patient states he is feeling better, but still appears to have abdominal distention. Patient adamant about wanting to leave the hospital today however cardio evaluated and recommended patient remain in the hospital for IV diuresis. Patient currently denies chest pain, shortness of breath. Review of Systems Review of Systems: All systems reviewed & are unremarkable except as noted in HPI and below Exam Narrative: General: NAD, obese Eyes: EOMI ENT: neck supple Cardiovascular: Regular rate and rhythm Respiratory: Clear to auscultation, respirations even and unlabored on RA Gastrointestinal: Soft, moderate distention Genitourinary: no suprapubic tenderness Musculoskeletal: 1+ bilateral lower extremity pitting edema Skin: warm, dry Neuro: Alert. Psych: Mood appropriate Objective Data Vital Signs Vital Signs: Vital Signs - 24 hr 05/11/25 09:00 05/11/25 09:15 05/11/25 09:45 Temperature Pulse Rate 89 91 94 Respiratory Rate 23 H 18 Blood Pressure Pulse Oximetry 97 96 94 Oxygen Delivery 05/11/25 10:00 05/11/25 10:01 05/11/25 11:36 Temperature 97.6 F Pulse Rate 88 88 89 Respiratory Rate 24 H 14 18 Blood Pressure 155/81 H 145/94 H Pulse Oximetry 95 96 98 Oxygen Delivery 05/11/25 12:00 05/11/25 12:02 05/11/25 12:57 Temperature 98.2 F Pulse Rate 93 92 Respiratory Rate 20 Blood Pressure 149/84 H Pulse Oximetry 97 Oxygen Delivery Room Air 05/11/25 14:00 05/11/25 15:21 05/11/25 16:00 Temperature 98.0 F Pulse Rate 92 90 91 Respiratory Rate 20 Blood Pressure 136/82 Pulse Oximetry 95 Oxygen Delivery 05/11/25 16:12 05/11/25 17:55 05/11/25 20:00 Temperature 98.4 F Pulse Rate 89 89 Respiratory Rate 20 Blood Pressure 149/90 H Pulse Oximetry 99 Oxygen Delivery Room Air 05/11/25 20:00 05/11/25 22:00 05/12/25 00:00 Temperature 98.5 F Pulse Rate 91 88 86 Respiratory Rate 18 Blood Pressure 133/79 Pulse Oximetry 99 Oxygen Delivery 05/12/25 00:00 05/12/25 01:28 05/12/25 02:00 Temperature Pulse Rate 87 67 82 Respiratory Rate Blood Pressure Pulse Oximetry 93 Oxygen Delivery Autopap 05/12/25 04:00 05/12/25 04:00 05/12/25 06:00 Temperature 97.8 F Pulse Rate 77 82 81 Respiratory Rate 20 Blood Pressure 137/85 Pulse Oximetry 99 Oxygen Delivery 05/12/25 08:00 Temperature 98.0 F Pulse Rate 87 Respiratory Rate 20 Blood Pressure 143/79 H Pulse Oximetry 98 Oxygen Delivery Intake/Output Intake/Output: Intake & Output 05/09/25 05/10/25 05/11/25 05/12/25 23:59 23:59 23:59 23:59 Intake Total 780 550 Balance 780 550 Meds/Results Medications: Active Medications Generic Name Dose Route Start Last Admin Trade Name Freq PRN Reason Stop Dose Admin Amoxicillin/Clavulanate Potassium 1 tablet 05/11/25 13:30 05/11/25 20:27 Amoxicillin/Clavulanate K 875-125 Mg Tab PO 1 tablet Q12HR ALISON Administration Aspirin 81 mg 05/12/25 09:00 Aspirin 81 Mg Enteric Tablet PO DAILY [facility] Atorvastatin Calcium 40 mg 05/12/25 09:00 Atorvastatin 40 Mg Tablet PO DAILY [facility] Bupropion HCl 150 mg 05/12/25 09:00 Bupropion Hcl Xl (24 Hr) 150 Mg Tabcr PO QAM [facility] Clopidogrel Bisulfate 75 mg 05/12/25 09:00 Clopidogrel Bisulfate 75 Mg Tablet PO DAILY ALISON Dextrose 12.5 gm 05/11/25 14:20 Dextrose 50% 25 Gm/50 Ml Syringe IV PUSH PRN PRN Hypoglycemia Protocol Empagliflozin 25 mg 05/12/25 09:00 Empagliflozin 25 Mg Tablet BY MOUTH DAILY [facility] Furosemide 40 mg 05/11/25 21:00 05/11/25 20:27 Furosemide Inj 40 Mg/4 Ml Vial IV PUSH 40 mg Q12HR ALISON Administration Gabapentin 300 mg 05/11/25 21:00 05/11/25 20:27 Gabapentin 300 Mg Capsule PO 300 mg Q12HR ALISON Administration Glucagon 1 mg 05/11/25 14:20 Glucagon For Inj 1 Mg Vial IM PRN PRN Hypoglycemia Protocol Glucose 15 gm 05/11/25 14:20 Glucose Oral Gel 15 Gm Of Glucse In 37.5 Gm Tube PO PRN PRN Hypoglycemia Protocol Dextrose 1,000 mls @ 100 mls/hr 05/11/25 14:20 Dextrose 5% 1,000 Ml IVPB PRN PRN Hypoglycemia Protocol Insulin Aspart 2 - 5 units 05/11/25 17:00 05/11/25 17:36 Insulin Aspart (*Bkc) 100 Units/Ml SUB-Q Not Given TIDWM [facility] Protocol Insulin Glargine 32 units 05/11/25 21:00 05/11/25 20:32 Insulin Glargine (*Bkc) 100 Units/Ml SUB-Q 32 units HS ALISON Administration Metoprolol Succinate 100 mg 05/12/25 09:00 Metoprolol Succinate Ext Rel 100 Mg Tabcr PO DAILY [facility] Oxycodone/Acetaminophen 1 tablet 05/11/25 13:21 05/11/25 20:27 Oxycodone/Acetaminophen (*Crx) 5-325 Mg Tablet PO 1 tablet Q6H PRN Administration Pain Sacubitril/Valsartan 1 tab 05/11/25 21:00 05/11/25 20:27 Sacubitril/Valsartan 97-103 Mg Tablet BY MOUTH 1 tab Q12HR ALISON Administration Sertraline HCl 200 mg 05/12/25 09:00 Sertraline Hcl 50 Mg Tablet PO DAILY ALISON Spironolactone 25 mg 05/12/25 09:00 Spironolactone 25 Mg Tablet PO QAM [facility] Radiology Results: ITS Impressions Chest X-Ray 05/11/25 06:57 IMPRESSION: 1. Small right pleural effusion with associated basilar atelectasis. Chest CTA 05/11/25 07:31 IMPRESSION: 1. Moderate right pleural effusion. 2. No PE or other acute abnormality. Labs Labs: Laboratory Results - last 24 hr 05/11/25 05/11/25 05/11/25 09:57 12:29 17:00 POC Capillary Glucose 178 H Troponin I 0.046 H* 0.040 H* 05/11/25 05/12/25 19:42 07:10 POC Capillary Glucose 218 H 111 H Troponin I Quality VTE Prophylaxis VTE prophylaxis: pharmacologic ordered
[2025-05-12] MEDS: SPIRONOLACTONE 25 MG TABLET PO (08:48)
[2025-05-12] MEDS: METOPROLOL SUCCINATE EXT REL 100 MG TABCR PO (08:48)
[2025-05-12] MEDS: GABAPENTIN 300 MG CAPSULE PO ×2 (08:48→20:15)
[2025-05-12] MEDS: EMPAGLIFLOZIN 25 MG TABLET BY MOUTH (08:48)
[2025-05-12] MEDS: ATORVASTATIN 40 MG TABLET PO (08:48)
[2025-05-12] MEDS: SACUBITRIL/VALSARTAN 97-103 MG TABLET 1 TAB BY MOUTH ×2 (08:48→20:15)
[2025-05-12] MEDS: FUROSEMIDE INJ 40 MG/4 ML VIAL IV PUSH (08:48)
[2025-05-12] MEDS: SERTRALINE HCL 50 MG TABLET 200 MG PO (08:48)
[2025-05-12] MEDS: ASPIRIN 81 MG ENTERIC TABLET PO (08:48)
[2025-05-12] MEDS: CLOPIDOGREL BISULFATE 75 MG TABLET PO (08:48)
[2025-05-12 09:22] LABS: Hematocrit 49.5 % (42.0-52.0); Hemoglobin 15.5 g/dL (14.0-18.0); Immature Granulocyte Percent A 0.4 % (0-0.5); Lymphocytes Absolute Auto 0.42 K/mm3 (0.9-3.2); Mean Corpuscular HGB Conc 31.3 g/dl (32-36); Mean Corpuscular Hemoglobin 27.8 pg (26-34); Mean Corpuscular Volume 88.9 fl (80-100); Nucleated Red Blood Cells Absolute Auto 0.000 K/mm3 (0.0-0.012); Nucleated Red Blood Cells Perc 0.0 % (0.0-0.2); Platelet Count Result 192 k/mm3 (150-375); Red Blood Count 5.57 M/mm3 (4.6-6.20); White Blood Count 7.6 K/mm3 (4.5-10.0)
[2025-05-12 09:40] LABS: Alanine Aminotransferase 42 U/L (6-50); Albumin Level 4.1 g/dL (3.5-5.1); Alkaline Phosphatase 249 U/L (38-126); Anion Gap 10 mmol/L (4-12); Aspartate Amino Transferase 66 U/L (17-59); Bilirubin,Total 2.1 mg/dL (0.2-1.3); Blood Urea Nitrogen 30 mg/dL (9-20); Calcium 9.3 mg/dL (8.4-10.2); Carbon Dioxide 30 mmol/L (22-30); Chloride 96 mmol/L (98-107); Estimated CRCL calculation 112 ml/min; Estimated Glomerular Filt Rate > 60; Glucose 139 mg/dL (65-110); Magnesium 1.9 mg/dL (1.6-2.3); Potassium 3.7 mmol/L (3.4-5.0); Sodium 136 mmol/L (137-145); Total Protein 8.2 g/dL (6.3-8.2)
--- NOTE | 2025-05-12 11:12 | P.CONCA_ITS ---
Assessment and Plan Assessment and plan (1) CHF exacerbation: Code(s): I50.9 - Heart failure, unspecified Status: Acute Assessment and Plan: * acute on chronic decompensated combined severe systolic and diastolic dysfunction * EF of 25-30% on echo this admission, previous echo EF of 40% * he has significant bilateral LE edema and ascites * his CTA chest showed moderate rt pleural effusion * his CT abd/pelvis demonstrated anarsarca and ascites * will increase his lasix to 60 mg IV BID * will need accurate I&O * discussed with patient that this is not treated appropriately at home and requires inpatient management * continue GDMT with Jardiance 25 mg daily, Entresto 97-103 mg BID, aldactone 25 mg daily and Toprol XL 100 mg daily (2) Ischemic congestive cardiomyopathy: Code(s): I25.5 - Ischemic cardiomyopathy; I42.0 - Dilated cardiomyopathy Status: Acute Assessment and Plan: * EF of 25-30% on his repeat echo this admission * will continue GDMT at this time * can consider further OP ischemic evaluation with cath vs stress test (3) CAD (coronary artery disease): Qualifiers: Coronary Disease-Associated Artery/Lesion type: [place] artery [place] vs. transplanted heart: [place] heart Associated angina: angina presence unspecified Qualified Code(s): I25.10 - Atherosclerotic heart disease of [place] coronary artery without angina pectoris Code(s): I25.10 - Atherosclerotic heart disease of [place] coronary artery without angina pectoris Status: Acute Assessment and Plan: * with history of stent and CABG * his troponin are mildly elevated and flat this admission * most likely representing demand ischemia in the setting of dilated CMP/CHF * will continue with aspirin 81 mg daily, plavix 75 mg daily and atorvastatin 40 mg daily (4) Hypertension associated with diabetes: Code(s): E11.59 - Type 2 diabetes mellitus with other circulatory complications; I15.2 - Hypertension secondary to endocrine disorders Status: Acute Assessment and Plan: * blood pressure with reasonable control * continue present medications and monitor (5) Mitral valve regurgitation, ischemic: Code(s): I34.0 - Nonrheumatic mitral (valve) insufficiency Status: Acute Assessment and Plan: * mild on echo this admission * will monitor (6) Hyperlipidemia associated with type 2 diabetes mellitus: Code(s): E11.69 - Type 2 diabetes mellitus with other specified complication; E78.5 - Hyperlipidemia, unspecified Status: Acute Assessment and Plan: * continue with atorvastatin 40 mg daily (7) Obstructive sleep apnea on CPAP: Code(s): G47.33 - Obstructive sleep apnea (adult) (pediatric); Z99.89 - Dependence on other enabling machines and devices Status: Acute Assessment and Plan: * CPAP for all sleep Plan * continue IV diuresis * accurate intake and output * continue GDMT History of Present Illness History of Present Illness Consult date/time: 05/12/25 11:12 Requesting physician: Radha Millan APRN Consult reason: congestive heart failure Reason For Visit: chf,elevated troponin Narrative: Getachew Dunn is a 49 y.o. male with a PMH of CAD s/p stent and CABG, CHF, cardiomyopathy, HTN, DM, SUSANA and obesity. Patient reports back in February he had his rt great toe amputated d/t infection. Ever since then he has steadily put on weight. He states he has gain 60lbs. He saw Dr. Zhang who switched his lasix to bumex, but he did not notice a significant change. He then began to note that he could not catch his breath when lying flat. He denies any chest pain or pressure. No palpitations. He has abdominal, scrotal and LE edema reports. He is upset at this time as he wishes to go as it is [place]. Review of Systems 2 Review of Systems: All systems reviewed & are unremarkable except as noted in HPI and below PMFSH Past Medical History Medical History HTN (hypertension) CHF (congestive heart failure) Echocardiogram 2020 demonstrated EF of 15-20 with grade 3 diastolic dysfunction repeat echocardiogram 2021 demonstrated moderate left ventricular enlargement, moderate left ventricular systolic dysfunction, impaired diastolic relaxation grade 1, moderate left atrial enlargement, prior echos have demonstrated moderate pulmonary hypertension but study from 2021 was technically difficult. Moderate pulmonary hypertension Ischemic cardiomyopathy Diabetic neuropathy Diabetic nephropathy Trochanteric bursitis, right hip Transient atrial fibrillation/flutter 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 Mitral valve regurgitation Obstructive sleep apnea on CPAP COVID-19 (01/2021) Erectile dysfunction BPH loc w urin obs/LUTS Chronic depression Chronic kidney disease, stage 3 (moderate) Macroalbuminuric diabetic nephropathy Mixed hyperlipidemia Type 2 diabetes mellitus, with long-term current use of insulin Hemoglobin A1c was 11.1% on 05/31/2019. And 8.25 March 2021 Polycythemia Herniated disc Myocardial infarction Surgical History Surgical History History of coronary artery bypass graft x 2 (09/30/19) Bypass of the LAD and right posterior left ventricular branch. Complicated by sternal infection. Status post panniculectomy (2001) History of laparoscopic cholecystectomy (11/2008) History of cardiac catheterization 10/09/2013: PTCA/stent to circumflex. 06/02/2019: Multivessel coronary artery disease with severe ischemic cardiomyopathy with ejection fraction around 25%, referred for surgical revascularization Family History Family History (Updated 05/11/25 @ 12:12 by Lori Condon RN) Mother Family history of cardiovascular disease Pancreatic cancer Hypertension Father Colon cancer Diabetes mellitus Family history of malignant neoplasm Atrial fibrillation Sibling Diabetes mellitus Kidney disease Hypertension Social History Social History Social History: The patient lives at home with his and their 2 (ages 17 and 19 as of February 2025) children in [place]. He works for [employer] in [employer]. Lifelong nonsmoker. He drinks perhaps 1-2 alcoholic beverages a month on average. No illicit substance use. He designates his , Maru Dunn, as his surrogate decision-maker. CODE STATUS: Full code. Surrogate decision maker: Maru Dunn () Smoking status: Never smoker Alcohol intake: never Substance use: never Substance use type: does not use Lack of Transportation: No Lack of Food: Never True Current Housing: I Have Housing Concerned About Future Housing: No Difficulty Paying Gas/Electric Bills: No Difficulty Paying for Meds: No Currently Unemployed: No Education: Bachelor's Degree Difficulty w/ Childcare or Family Care: No Living arrangements: with family Spiritual care concerns: No Meds Home Medications and Allergies Home Medications ?Medication ?Instructions ?Recorded ?Confirmed ?Type aspirin 81 mg tablet,delayed 81 mg PO DAILY 05/31/19 1 07/12/24 History release sacubitril 97 mg-valsartan 103 mg See Rx Instructions .Route 07/24/24 05/11/25 Rx tablet (Entresto) .COMPLEX #180 tabs empagliflozin 25 mg tablet See Rx Instructions .Route 08/28/24 05/11/25 Rx (Jardiance) .COMPLEX #90 tabs metformin 500 mg tablet,extended 1,000 mg (2 x 500 mg) PO BID #180 12/21/24 05/11/25 Rx release 24 hr tabs metoprolol succinate 100 mg 100 mg PO DAILY #90 tabs 1 05/11/25 Rx tablet,extended release 24 hr bupropion HCl 150 mg 24 hr tablet, 150 mg PO QAM #90 t abs 03/09/25 05/11/25 Rx extended release (Wellbutrin XL) clopidogrel 75 mg tablet (Plavix) 75 mg PO DAILY #90 t abs 03/09/25 05/11/25 Rx spironolactone 25 mg tablet 25 mg PO QAM #90 tabs 02/1805/11/25 Rx glucagon 1 mg/0.2 mL subcutaneous 1 mg (0.2 mL) subcut ONCE #0.4 mL 03/19/25 05/11/25 Rx auto-injector (Sybil Hartmannen 2-Pack) insulin glargine 100 unit/mL (3 40 unit subcut QAM 05/11/25 History mL) subcutaneous pen (Lantus Solostar U-100 Insulin) insulin lispro 100 unit/mL 5 unit (0.05 mL) subcut .be fore 03/19/25 05/11/25 Rx subcutaneous pen each meal #21 mL tirzepatide 10 mg/0.5 mL 10 mg (0.5 mL) subcut WEEKLY #6 mL 03/19/25 05/11/25 Rx subcutaneous pen injector (Henry) blood-glucose sensor (Dexcom G6 #9 ea 03/29/25 5 Rx Sensor device) blood-glucose transmitter (Dexcom #1 ea 03/29/2505/11 Rx G6 Transmitter device) amoxicillin 875 mg-potassium 1 tablet PO BID #30 tabs 05/04/25 05/11/25 Rx clavulanate 125 mg tablet bumetanide 2 mg tablet 2 mg PO DAILY 05/04/2505/11 History oxycodone-acetaminophen 5 mg-325 1 tablet PO Q6H PRN p ain #20 tabs 05/10/25 05/11/25 Rx mg tablet atorvastatin 40 mg tablet 40 mg PO DAILY 05/11/2504/20 History gabapentin 300 mg capsule 300 mg PO BID 05/11/2505/11 History (Neurontin) sertraline 100 mg tablet 200 mg PO DAILY 05/11/25 History Allergies Allergy/AdvReac Type Severity Reaction Status Date / Time atenolol AdvReac Unknown cough Verified 05/11/25 12:10 Vital Signs Vital Signs - 24 hr 05/11/25 11:36 05/11/25 12:00 05/11/25 12:02 Temperature 36.4 C 36.8 C Pulse Rate 89 93 92 Respiratory Rate 18 20 Blood Pressure 145/94 H 149/84 H Pulse Oximetry 98 97 Oxygen Delivery 05/11/25 12:57 05/11/25 14:00 05/11/25 15:21 Temperature 36.7 C Pulse Rate 92 90 Respiratory Rate 20 Blood Pressure 136/82 Pulse Oximetry 95 Oxygen Delivery Room Air 05/11/25 16:00 05/11/25 16:12 05/11/25 17:55 Temperature Pulse Rate 91 89 Respiratory Rate Blood Pressure Pulse Oximetry Oxygen Delivery Room Air 05/11/25 20:00 05/11/25 20:00 05/11/25 22:00 Temperature 36.9 C Pulse Rate 89 91 88 Respiratory Rate 20 Blood Pressure 149/90 H Pulse Oximetry 99 Oxygen Delivery 05/12/25 00:00 05/12/25 00:00 05/12/25 01:28 Temperature 36.9 C Pulse Rate 86 87 67 Respiratory Rate 18 Blood Pressure 133/79 Pulse Oximetry 99 93 Oxygen Delivery Autopap 05/12/25 02:00 05/12/25 04:00 05/12/25 04:00 Temperature 36.6 C Pulse Rate 82 77 82 Respiratory Rate 20 Blood Pressure 137/85 Pulse Oximetry 99 Oxygen Delivery 05/12/25 06:00 05/12/25 08:00 05/12/25 08:48 Temperature 36.7 C Pulse Rate 81 87 92 Respiratory Rate 20 Blood Pressure 143/79 H Pulse Oximetry 98 Oxygen Delivery Exam 2 Const: General: comfortable and no acute distress Neck: Neck: supple Resp: Effort & Inspection: normal respiratory effort Auscultation: clear to auscultation bilaterally Cardio: Rate: regular rate Rhythm: regular rhythm Heart sounds: no gallops, Murmur heart sound present and no rubs Neuro: Speech: normal speech Extrem: General: edema bilateral (+3 LE edema ) Psych: Mental Status: mental status grossly normal Results Labs and Meds 05/12/25 09:05 05/12/25 09:05 Lab results: Cardiac Enzymes 05/11/25 05/12/25 Range/Units 12:29 09:05 AST 66 H (17-59) U/L Troponin I 0.040 H* (0.000-0.034) ng/mL CBC 05/12/25 Range/Units 09:05 WBC 7.6 (4.5-10.0) K/mm3 RBC 5.57 (4.6-6.20) M/mm3 Hgb 15.5 (14.0-18.0) g/dL Hct 49.5 (42.0-52.0) % Plt Count 192 (150-375) k/mm3 Lymph # (Auto) 0.42 L (0.9-3.2) K/mm3 [place] # (Auto) 0.6 (0.1-0.6) K/mm3 Eos # (Auto) 0.1 (0-0.3) K/mm3 Baso # (Auto) 0.1 (0.0-0.1) K/mm3 Comprehensive Metabolic Panel 05/12/25 Range/Units 09:05 Sodium 136 L (137-145) mmol/L Potassium 3.7 (3.4-5.0) mmol/L Chloride 96 L (98-107) mmol/L Carbon Dioxide 30 (22-30) mmol/L BUN 30 H (9-20) mg/dL Creatinine 1.05 (0.7-1.3) mg/dL Glucose 139 H (65-110) mg/dL Calcium 9.3 (8.4-10.2) mg/dL AST 66 H (17-59) U/L ALT 42 (6-50) U/L Alkaline Phosphatase 249 H (38-126) U/L Total Protein 8.2 (6.3-8.2) g/dL Albumin 4.1 (3.5-5.1) g/dL Intake and Output 12/23/25 12/24/25 12/24/25 23:59 07:59 15:59 Intake Total 540 550 240 Balance 540 550 240 Intake: Oral 540 550 240 Patient Weight 05/12/25 23:59 Weight 153 kg Imaging and Cardiology Echo: report reviewed (EF of 25-30% with combined systolic and diastolic dysfunction, mild MR and mild pulmonary HTN ) EKG Interpretation EKG: sinus rhythm EKG shows: sinus rhythm (rate of 94 bpm with 1st degree AVB )
--- NOTE | 2025-05-12 11:30 | ECG_ITS ---
Test Date: 2025-05-12 11:51:06 Measurements Intervals [place] Rate: 89 P: 1 FL: 207 QRS: 43 QRSD: 114 T: 64 QT: 401 QTc: 490 Interpretive Statements SINUS RHYTHM WITH FIRST DEGREE AV BLOCK INCOMPLETE LEFT BUNDLE BRANCH BLOCK LOW QRS VOLTAGE IN LIMB LEADS BORDERLINE ST-T WAVE ABNORMALITY- INF/HIGH LAT LEADS BASELINE ARTIFACT- I, II, AVR ABNORMAL ECG Compared to ECG 05/11/2025 10:08:23 NO SIGNIFICANT CHANGE Electronically Signed On 05-12-2025 12:14:31 ANODE MACHINE OPERATOR by Demario Crawford D.O.
[2025-05-12] MEDS: INSULIN ASPART (*BKC) 100 UNITS/ML SUB-Q (16:31)
[2025-05-12] MEDS: oxyCODONE/ACETAMINOPHEN (*CRX) 5-325 MG TABLET 1 TABLET PO (20:15)
[2025-05-12] MEDS: FUROSEMIDE INJ 40 MG/4 ML VIAL 60 MG IV PUSH (20:16)
[2025-05-12] MEDS: INSULIN GLARGINE (*BKC) 100 UNITS/ML 32 UNITS SUB-Q (20:24)
[2025-05-13] VITALS (15 sets, daily range): BP systolic 117–139; BP diastolic 69–88; PULSE 66–85; RESP 16–20; TEMP 36.3–36.9; O2SAT 94–97
[2025-05-13 04:08] LABS: Hematocrit 50.0 % (42.0-52.0); Hemoglobin 15.4 g/dL (14.0-18.0); Immature Granulocyte Percent A 0.4 % (0-0.5); Lymphocytes Absolute Auto 0.50 K/mm3 (0.9-3.2); Mean Corpuscular HGB Conc 30.8 g/dl (32-36); Mean Corpuscular Hemoglobin 27.5 pg (26-34); Mean Corpuscular Volume 89.4 fl (80-100); Nucleated Red Blood Cells Absolute Auto 0.000 K/mm3 (0.0-0.012); Nucleated Red Blood Cells Perc 0.0 % (0.0-0.2); Platelet Count Result 210 k/mm3 (150-375); Red Blood Count 5.59 M/mm3 (4.6-6.20); White Blood Count 6.8 K/mm3 (4.5-10.0)
[2025-05-13 04:58] LABS: Alanine Aminotransferase 40 U/L (6-50); Albumin Level 4.2 g/dL (3.5-5.1); Alkaline Phosphatase 223 U/L (38-126); Anion Gap 12 mmol/L (4-12); Aspartate Amino Transferase 68 U/L (17-59); Bilirubin,Total 2.0 mg/dL (0.2-1.3); Blood Urea Nitrogen 31 mg/dL (9-20); Calcium 9.1 mg/dL (8.4-10.2); Carbon Dioxide 28 mmol/L (22-30); Chloride 98 mmol/L (98-107); Estimated CRCL calculation 109 ml/min; Estimated Glomerular Filt Rate > 60; Glucose 118 mg/dL (65-110); Magnesium 2.0 mg/dL (1.6-2.3); Potassium 3.9 mmol/L (3.4-5.0); Sodium 138 mmol/L (137-145); Total Protein 8.4 g/dL (6.3-8.2)
[2025-05-13] MEDS: METOPROLOL SUCCINATE EXT REL 100 MG TABCR PO (08:31)
[2025-05-13] MEDS: SACUBITRIL/VALSARTAN 97-103 MG TABLET 1 TAB BY MOUTH ×2 (08:31→21:07)
[2025-05-13] MEDS: CLOPIDOGREL BISULFATE 75 MG TABLET PO (08:31)
[2025-05-13] MEDS: EMPAGLIFLOZIN 25 MG TABLET BY MOUTH (08:31)
[2025-05-13] MEDS: ATORVASTATIN 40 MG TABLET PO (08:31)
[2025-05-13] MEDS: buPROPion HCL XL (24 HR) 150 MG TABCR PO (08:32)
[2025-05-13] MEDS: SPIRONOLACTONE 25 MG TABLET PO (08:32)
[2025-05-13] MEDS: ASPIRIN 81 MG ENTERIC TABLET PO (08:32)
[2025-05-13] MEDS: ENOXAPARIN 40 MG/0.4 ML SYRINGE SUB-Q (08:32)
[2025-05-13] MEDS: GABAPENTIN 300 MG CAPSULE PO ×2 (08:32→21:07)
--- NOTE | 2025-05-13 08:34 | P.PNCA_ITS ---
Progress Note: A&P Assessment and Plan (1) S/P CABG x 2: Code(s): Z95.1 - Presence of aortocoronary bypass graft Status: Acute (2) CHF (congestive heart failure): Qualifiers: Heart failure chronicity: chronic Heart failure type: combined systolic and diastolic Qualified Code(s): I50.42 - Chronic combined systolic (congestiv e) and diastolic (congestive) heart failure Code(s): I50.9 - Heart failure, unspecified Status: Acute Plan 49-year-old man with ischemic heart disease previous percutaneous and surgical revascularization has relatively poor systolic dysfunction and decompensated heart failure. Continuing guideline directed medical therapy as well as an intravenous furosemide. He appears to be benefitting from this will advance the dosage to 80 mg. Explained to the patient that it is not reasonable or patient service representative of good care to discharge him because it is [place] he is significantly volume overloaded and discharge at this time would be premature/inappropriate in my opinion Fran Reyes MD [facility] Subjective Date/time seen: Date of service: 05/13/25 08:34 Interval history: Follow-up visit in this 49-year-old man with: Ischemic heart disease with severe ischemic cardiomyopathy admitted with decompensated congestive heart failure/volume overload. Complicating this is morbid obesity. Exam Const: General: comfortable and no acute distress Other: Pleasant morbidly obese man no distress HENMT: Mouth: Yes moist mucous membranes Eyes: Sclera: sclerae normal Neck: Neck: supple Other: Unable to assess JVD given body habitus Resp: Effort & Inspection: normal respiratory effort Auscultation: rales bilateral (Lower 1/3 bilaterally) Cardio: Rate: regular rate Rhythm: regular rhythm Other: PMI not palpable, no murmur GI: GI Palp: Yes Soft to palpation Auscultation: normal bowel sounds Neuro: Other: Alert and oriented x3 Extrem: Other: Moderate edema Objective Data Vital Signs Vital Signs: Vital Signs - 24 hr 05/12/25 08:48 05/12/25 10:00 05/12/25 11:45 Temperature Pulse Rate 92 96 Respiratory Rate Blood Pressure Pulse Oximetry 97 Oxygen Delivery Room Air 05/12/25 11:54 05/12/25 12:00 05/12/25 14:00 Temperature 36.6 C Pulse Rate 91 89 87 Respiratory Rate 20 Blood Pressure 149/86 H Pulse Oximetry 95 Oxygen Delivery 05/12/25 16:00 05/12/25 17:00 05/12/25 18:00 Temperature 36.5 C Pulse Rate 86 83 84 Respiratory Rate 20 Blood Pressure 146/87 H Pulse Oximetry 100 Oxygen Delivery 05/12/25 19:49 05/12/25 20:00 05/12/25 20:00 Temperature 36.4 C Pulse Rate 83 83 Respiratory Rate 20 Blood Pressure 149/88 H Pulse Oximetry 99 Oxygen Delivery Room Air 05/12/25 22:00 05/13/25 00:00 05/13/25 00:00 Temperature 36.9 C Pulse Rate 81 77 Respiratory Rate 16 Blood Pressure 137/86 Pulse Oximetry 97 Oxygen Delivery Room Air 05/13/25 00:00 05/13/25 02:00 05/13/25 03:22 Temperature Pulse Rate 79 79 66 Respiratory Rate Blood Pressure Pulse Oximetry 94 Oxygen Delivery Autopap 05/13/25 04:00 05/13/25 04:00 05/13/25 04:00 Temperature 36.5 C Pulse Rate 79 80 Respiratory Rate 16 Blood Pressure 117/69 Pulse Oximetry 97 Oxygen Delivery Room Air 05/13/25 06:00 05/13/25 07:52 05/13/25 08:31 Temperature 36.3 C L Pulse Rate 81 79 84 Respiratory Rate 20 Blood Pressure 138/78 Pulse Oximetry 97 Oxygen Delivery Intake/Output Intake/Output: Intake & Output 05/10/25 05/11/25 05/12/25 05/13/25 23:59 23:59 23:59 23:59 Intake Total 780 1770 1264 Balance 780 1770 1264 Meds/Results Medications: Active Medications Generic Name Dose Route Start Last Admin Trade Name Freq PRN Reason Stop Dose Admin Amoxicillin/Clavulanate Potassium 1 tablet 05/11/25 13:30 05/13/25 08:31 Amoxicillin/Clavulanate K 875-125 Mg Tab PO 1 tablet Q12HR ALISON Administration Aspirin 81 mg 05/12/25 09:00 05/13/25 08:32 Aspirin 81 Mg Enteric Tablet PO 81 mg DAILY ALISON Administration Atorvastatin Calcium 40 mg 05/12/25 09:00 05/13/25 08:31 Atorvastatin 40 Mg Tablet PO 40 mg DAILY ALISON Administration Bupropion HCl 150 mg 05/12/25 09:00 05/13/25 08:32 Bupropion Hcl Xl (24 Hr) 150 Mg Tabcr PO 150 mg QAM ALISON Administration Clopidogrel Bisulfate 75 mg 05/12/25 09:00 05/13/25 08:31 Clopidogrel Bisulfate 75 Mg Tablet PO 75 mg DAILY ALISON Administration Dextrose 12.5 gm 05/11/25 14:20 Dextrose 50% 25 Gm/50 Ml Syringe IV PUSH PRN PRN Hypoglycemia Protocol Empagliflozin 25 mg 05/12/25 09:00 05/13/25 08:31 Empagliflozin 25 Mg Tablet BY MOUTH 25 mg DAILY ALISON Administration Enoxaparin Sodium 40 mg 05/13/25 09:00 05/13/25 08:32 Enoxaparin 40 Mg/0.4 Ml Syringe SUB-Q 40 mg DAILY ALISON Administration Furosemide 80 mg 05/13/25 09:00 Furosemide Inj 40 Mg/4 Ml Vial IV PUSH Q12HR ALISON Gabapentin 300 mg 05/11/25 21:00 05/13/25 08:32 Gabapentin 300 Mg Capsule PO 300 mg Q12HR ALISON Administration Glucagon 1 mg 05/11/25 14:20 Glucagon For Inj 1 Mg Vial IM PRN PRN Hypoglycemia Protocol Glucose 15 gm 05/11/25 14:20 Glucose Oral Gel 15 Gm Of Glucse In 37.5 Gm Tube PO PRN PRN Hypoglycemia Protocol Dextrose 1,000 mls @ 100 mls/hr 05/11/25 14:20 Dextrose 5% 1,000 Ml IVPB PRN PRN Hypoglycemia Protocol Insulin Aspart 2 - 5 units 05/11/25 17:00 05/12/25 16:31 Insulin Aspart (*Bkc) 100 Units/Ml SUB-Q 2 units TIDWM ALISON Administration Protocol Insulin Glargine 32 units 05/11/25 21:00 05/12/25 20:24 Insulin Glargine (*Bkc) 100 Units/Ml SUB-Q 32 units HS ALISON Administration Metoprolol Succinate 100 mg 05/12/25 09:00 05/13/25 08:31 Metoprolol Succinate Ext Rel 100 Mg Tabcr PO 100 mg DAILY ALISON Administration Oxycodone/Acetaminophen 1 tablet 05/11/25 13:21 05/12/25 20:15 Oxycodone/Acetaminophen (*Crx) 5-325 Mg Tablet PO 1 tablet Q6H PRN Administration Pain Sacubitril/Valsartan 1 tab 05/11/25 21:00 05/13/25 08:31 Sacubitril/Valsartan 97-103 Mg Tablet BY MOUTH 1 tab Q12HR ALISON Administration Sertraline HCl 200 mg 05/12/25 09:00 05/12/25 08:48 Sertraline Hcl 50 Mg Tablet PO 200 mg DAILY ALISON Administration Spironolactone 25 mg 05/12/25 09:00 05/13/25 08:32 Spironolactone 25 Mg Tablet PO 25 mg QAM ALISON Administration Radiology Results: ITS Impressions Chest X-Ray 05/11/25 06:57 IMPRESSION: 1. Small right pleural effusion with associated basilar atelectasis. Chest CTA 05/11/25 07:31 IMPRESSION: 1. Moderate right pleural effusion. 2. No PE or other acute abnormality. Labs Labs: Laboratory Results - last 24 hr 05/12/25 05/12/25 05/12/25 09:05 11:20 15:37 WBC 7.6 RBC 5.57 Hgb 15.5 Hct 49.5 MCV 88.9 MCH 27.8 MCHC 31.3 L RDW 19.2 H Plt Count 192 MPV 9.7 Immature Gran % (Auto) 0.4 Neut % (Auto) 84.1 H Lymph % (Auto) 5.6 L [place] % (Auto) 7.7 Eos % (Auto) 1.5 Baso % (Auto) 0.7 Lymph # (Auto) 0.42 L [place] # (Auto) 0.6 Eos # (Auto) 0.1 Baso # (Auto) 0.1 Abs Immat Gran (auto) 0.03 Absolute Neuts (auto) 6.4 Absolute Nucleated RBC 0.000 Nucleated RBC % 0.0 Sodium 136 L Potassium 3.7 Chloride 96 L Carbon Dioxide 30 Anion Gap 10 BUN 30 H Creatinine 1.05 Estim Creat Clear Calc 112 Estimated GFR > 60 Glucose 139 H POC Capillary Glucose 186 H 201 H Calcium 9.3 Magnesium 1.9 Total Bilirubin 2.1 H AST 66 H ALT 42 Alkaline Phosphatase 249 H Total Protein 8.2 Albumin 4.1 05/12/25 05/13/25 05/13/25 19:51 03:47 07:25 WBC 6.8 RBC 5.59 Hgb 15.4 Hct 50.0 MCV 89.4 MCH 27.5 MCHC 30.8 L RDW 19.4 H Plt Count 210 MPV 10.0 Immature Gran % (Auto) 0.4 Neut % (Auto) 81.9 H Lymph % (Auto) 7.4 L [place] % (Auto) 7.8 Eos % (Auto) 1.9 Baso % (Auto) 0.6 Lymph # (Auto) 0.50 L [place] # (Auto) 0.5 Eos # (Auto) 0.1 Baso # (Auto) 0.0 Abs Immat Gran (auto) 0.03 Absolute Neuts (auto) 5.5 Absolute Nucleated RBC 0.000 Nucleated RBC % 0.0 Sodium 138 Potassium 3.9 Chloride 98 Carbon Dioxide 28 Anion Gap 12 BUN 31 H Creatinine 1.08 Estim Creat Clear Calc 109 Estimated GFR > 60 Glucose 118 H POC Capillary Glucose 190 H 136 H Calcium 9.1 Magnesium 2.0 Total Bilirubin 2.0 H AST 68 H ALT 40 Alkaline Phosphatase 223 H Total Protein 8.4 H Albumin 4.2
[2025-05-13] MEDS: FUROSEMIDE INJ 100 MG/10 ML VIAL 80 MG IV PUSH ×2 (08:50→21:07)
--- NOTE | 2025-05-13 13:19 | P.PNIM_ITS ---
Assessment and Plan Assessment and Plan (1) CHF exacerbation: Code(s): I50.9 - Heart failure, unspecified Status: Acute Assessment and Plan: Acute on chronic combined systolic/diastolic function -Increasing dyspnea on exertion and weight gain over the past 2 months. Was switched to 2 mg Bumex daily on 04/30 from 40 mg furosemide daily. -Chest x-ray reads small right pleural effusion with associated basilar atelectasis. -CTA chest with no concern for PE, moderate right pleural effusion. Abdomen pelvis CT reads supraumbilical ventral hernia containing fat. Anasarca including mild pulmonary edema, small right pleural effusion, and moderate volume of ascites. - BNP 6170 - echo 05/12 with EF 30% (decreased from previous), diastolic dysfunction with RV hypokinesis - Cardiology consulted, increased IV Lasix to 80 mg b.i.d.. 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 - Continue Augmentin - Wound care consult - [facility]-up with [facility] outpatient as directed (3) Type 2 diabetes mellitus with hyperglycemia, with long-term current use of insulin: Code(s): E11.65 - Type 2 diabetes mellitus with hyperglycemia; Z79.4 - fsr (current) use of insulin Status: Chronic Assessment and Plan: - hypoglycemia protocol - POC blood glucose ACHS - home medication: ?Jardiance, Lantus and Lispro insulin, Metformin and Mounjaro - correct regimen ordered: Lantus 32 units HS, low-dose corrective scale - A1C 6.7 on 05/04/2025 (4) HTN (hypertension): Qualifiers: Hypertension type: essential hypertension Qualified Code(s): I10 - Essential (primary) hypertension Code(s): I10 - Essential (primary) hypertension Status: Chronic Assessment and Plan: -continue metoprolol Plan Dispo: home, possibly tomorrow Code status:full code DVT prophylaxis: Lovenox Medical Record Review I have reviewed the following patient records and this information was taken into consideration when formulating the assessment and plan.: previous labs Consultations Consultations: I have discussed the care of this pt with the consulting providers. (cardiology) Subjective Date/time seen: 05/13/25 13:19 Interval history: Patient seen and examined at bedside. Patient states he is feeling better, but still appears volume overloaded. Cardio recommended continued IV diuresis this AM. Patient denies chest pain, SOB. He has lost 3 lbs since admission. Review of Systems Review of Systems: All systems reviewed & are unremarkable except as noted in HPI and below Exam Narrative: General: NAD, obese Eyes: EOMI ENT: neck supple Cardiovascular: Regular rate and rhythm Respiratory: Clear to auscultation, respirations even and unlabored on RA Gastrointestinal: Soft, moderate distention Genitourinary: no suprapubic tenderness Musculoskeletal: 1+ bilateral lower extremity pitting edema Skin: warm, dry Neuro: Alert. Psych: Mood appropriate Objective Data Vital Signs Vital Signs: Vital Signs - 24 hr 05/12/25 14:00 05/12/25 16:00 05/12/25 17:00 Temperature 97.7 F Pulse Rate 87 86 83 Respiratory Rate 20 Blood Pressure 146/87 H Pulse Oximetry 100 Oxygen Delivery 05/12/25 18:00 05/12/25 19:49 05/12/25 20:00 Temperature 97.6 F Pulse Rate 84 83 Respiratory Rate 20 Blood Pressure 149/88 H Pulse Oximetry 99 Oxygen Delivery Room Air 05/12/25 20:00 05/12/25 22:00 05/13/25 00:00 Temperature 98.4 F Pulse Rate 83 81 77 Respiratory Rate 16 Blood Pressure 137/86 Pulse Oximetry 97 Oxygen Delivery 05/13/25 00:00 05/13/25 00:00 05/13/25 02:00 Temperature Pulse Rate 79 79 Respiratory Rate Blood Pressure Pulse Oximetry Oxygen Delivery Room Air 05/13/25 03:22 05/13/25 04:00 05/13/25 04:00 Temperature 97.7 F Pulse Rate 66 79 Respiratory Rate 16 Blood Pressure 117/69 Pulse Oximetry 94 97 Oxygen Delivery Autopap Room Air 05/13/25 04:00 05/13/25 06:00 05/13/25 07:52 Temperature 97.3 F L Pulse Rate 80 81 79 Respiratory Rate 20 Blood Pressure 138/78 Pulse Oximetry 97 Oxygen Delivery 05/13/25 08:00 05/13/25 08:31 05/13/25 10:00 Temperature Pulse Rate 80 84 82 Respiratory Rate Blood Pressure Pulse Oximetry Oxygen Delivery Intake/Output Intake/Output: Intake & Output 05/10/25 05/11/25 05/12/25 05/13/25 23:59 23:59 23:59 23:59 Intake Total 780 1770 2426 Output Total 1300 Balance 780 1770 1126 Meds/Results Medications: Active Medications Generic Name Dose Route Start Last Admin Trade Name Freq PRN Reason Stop Dose Admin Amoxicillin/Clavulanate Potassium 1 tablet 05/11/25 13:30 05/13/25 08:31 Amoxicillin/Clavulanate K 875-125 Mg Tab PO 1 tablet Q12HR ALISON Administration Aspirin 81 mg 05/12/25 09:00 05/13/25 08:32 Aspirin 81 Mg Enteric Tablet PO 81 mg DAILY ALISON Administration Atorvastatin Calcium 40 mg 05/12/25 09:00 05/13/25 08:31 Atorvastatin 40 Mg Tablet PO 40 mg DAILY ALISON Administration Bupropion HCl 150 mg 05/12/25 09:00 05/13/25 08:32 Bupropion Hcl Xl (24 Hr) 150 Mg Tabcr PO 150 mg QAM ALISON Administration Clopidogrel Bisulfate 75 mg 05/12/25 09:00 05/13/25 08:31 Clopidogrel Bisulfate 75 Mg Tablet PO 75 mg DAILY ALISON Administration Dextrose 12.5 gm 05/11/25 14:20 Dextrose 50% 25 Gm/50 Ml Syringe IV PUSH PRN PRN Hypoglycemia Protocol Empagliflozin 25 mg 05/12/25 09:00 05/13/25 08:31 Empagliflozin 25 Mg Tablet BY MOUTH 25 mg DAILY ALISON Administration Enoxaparin Sodium 40 mg 05/13/25 09:00 05/13/25 08:32 Enoxaparin 40 Mg/0.4 Ml Syringe SUB-Q 40 mg DAILY ALISON Administration Furosemide 80 mg 05/13/25 09:00 Furosemide Inj 100 Mg/10 Ml Vial IV PUSH Q12HR ALISON Gabapentin 300 mg 05/11/25 21:00 05/13/25 08:32 Gabapentin 300 Mg Capsule PO 300 mg Q12HR ALISON Administration Glucagon 1 mg 05/11/25 14:20 Glucagon For Inj 1 Mg Vial IM PRN PRN Hypoglycemia Protocol Glucose 15 gm 05/11/25 14:20 Glucose Oral Gel 15 Gm Of Glucse In 37.5 Gm Tube PO PRN PRN Hypoglycemia Protocol Dextrose 1,000 mls @ 100 mls/hr 05/11/25 14:20 Dextrose 5% 1,000 Ml IVPB PRN PRN Hypoglycemia Protocol Insulin Aspart 2 - 5 units 05/11/25 17:00 05/13/25 11:10 Insulin Aspart (*Bkc) 100 Units/Ml SUB-Q Not Given TIDWM [facility] Protocol Insulin Glargine 32 units 05/11/25 21:00 05/12/25 20:24 Insulin Glargine (*Bkc) 100 Units/Ml SUB-Q 32 units HS ALISON Administration Metoprolol Succinate 100 mg 05/12/25 09:00 05/13/25 08:31 Metoprolol Succinate Ext Rel 100 Mg Tabcr PO 100 mg DAILY ALISON Administration Oxycodone/Acetaminophen 1 tablet 05/11/25 13:21 05/12/25 20:15 Oxycodone/Acetaminophen (*Crx) 5-325 Mg Tablet PO 1 tablet Q6H PRN Administration Pain Sacubitril/Valsartan 1 tab 05/11/25 21:00 05/13/25 08:31 Sacubitril/Valsartan 97-103 Mg Tablet BY MOUTH 1 tab Q12HR ALISON Administration Sertraline HCl 200 mg 05/12/25 09:00 05/12/25 08:48 Sertraline Hcl 50 Mg Tablet PO 200 mg DAILY ALISON Administration Spironolactone 25 mg 05/12/25 09:00 05/13/25 08:32 Spironolactone 25 Mg Tablet PO 25 mg QAM ALISON Administration Radiology Results: ITS Impressions Chest X-Ray 05/11/25 06:57 IMPRESSION: 1. Small right pleural effusion with associated basilar atelectasis. Chest CTA 05/11/25 07:31 IMPRESSION: 1. Moderate right pleural effusion. 2. No PE or other acute abnormality. Labs Labs: Laboratory Results - last 24 hr 05/12/25 05/12/25 05/13/25 15:37 19:51 03:47 WBC 6.8 RBC 5.59 Hgb 15.4 Hct 50.0 MCV 89.4 MCH 27.5 MCHC 30.8 L RDW 19.4 H Plt Count 210 MPV 10.0 Immature Gran % (Auto) 0.4 Neut % (Auto) 81.9 H Lymph % (Auto) 7.4 L [place] % (Auto) 7.8 Eos % (Auto) 1.9 Baso % (Auto) 0.6 Lymph # (Auto) 0.50 L [place] # (Auto) 0.5 Eos # (Auto) 0.1 Baso # (Auto) 0.0 Abs Immat Gran (auto) 0.03 Absolute Neuts (auto) 5.5 Absolute Nucleated RBC 0.000 Nucleated RBC % 0.0 Sodium 138 Potassium 3.9 Chloride 98 Carbon Dioxide 28 Anion Gap 12 BUN 31 H Creatinine 1.08 Estim Creat Clear Calc 109 Estimated GFR > 60 Glucose 118 H POC Capillary Glucose 201 H 190 H Calcium 9.1 Magnesium 2.0 Total Bilirubin 2.0 H AST 68 H ALT 40 Alkaline Phosphatase 223 H Total Protein 8.4 H Albumin 4.2 05/13/25 05/13/25 07:25 11:17 WBC RBC Hgb Hct MCV MCH MCHC RDW Plt Count MPV Immature Gran % (Auto) Neut % (Auto) Lymph % (Auto) [place] % (Auto) Eos % (Auto) Baso % (Auto) Lymph # (Auto) [place] # (Auto) Eos # (Auto) Baso # (Auto) Abs Immat Gran (auto) Absolute Neuts (auto) Absolute Nucleated RBC Nucleated RBC % Sodium Potassium Chloride Carbon Dioxide Anion Gap BUN Creatinine Estim Creat Clear Calc Estimated GFR Glucose POC Capillary Glucose 136 H 144 H Calcium Magnesium Total Bilirubin AST ALT Alkaline Phosphatase Total Protein Albumin Quality VTE Prophylaxis VTE prophylaxis: pharmacologic ordered
[2025-05-13] MEDS: INSULIN ASPART (*BKC) 100 UNITS/ML SUB-Q (16:28)
[2025-05-13] MEDS: INSULIN GLARGINE (*BKC) 100 UNITS/ML 32 UNITS SUB-Q (21:07)
[2025-05-14] VITALS (8 sets, daily range): BP systolic 126–134; BP diastolic 84–89; PULSE 72–79; RESP 18; TEMP 36.4–36.8; O2SAT 96–100
[2025-05-14] MEDS: oxyCODONE/ACETAMINOPHEN (*CRX) 5-325 MG TABLET 1 TABLET PO ×3 (00:02→17:04)
[2025-05-14 05:42] LABS: Hematocrit 44.0 % (42.0-52.0); Hemoglobin 13.7 g/dL (14.0-18.0); Immature Granulocyte Percent A 0.3 % (0-0.5); Lymphocytes Absolute Auto 0.62 K/mm3 (0.9-3.2); Mean Corpuscular HGB Conc 31.1 g/dl (32-36); Mean Corpuscular Hemoglobin 27.8 pg (26-34); Mean Corpuscular Volume 89.4 fl (80-100); Nucleated Red Blood Cells Absolute Auto 0.000 K/mm3 (0.0-0.012); Nucleated Red Blood Cells Perc 0.0 % (0.0-0.2); Platelet Count Result 166 k/mm3 (150-375); Red Blood Count 4.92 M/mm3 (4.6-6.20); White Blood Count 6.9 K/mm3 (4.5-10.0)
[2025-05-14 06:02] LABS: Alanine Aminotransferase 32 U/L (6-50); Albumin Level 3.4 g/dL (3.5-5.1); Alkaline Phosphatase 188 U/L (38-126); Anion Gap 8 mmol/L (4-12); Aspartate Amino Transferase 51 U/L (17-59); Bilirubin,Total 1.5 mg/dL (0.2-1.3); Blood Urea Nitrogen 33 mg/dL (9-20); Calcium 8.3 mg/dL (8.4-10.2); Carbon Dioxide 29 mmol/L (22-30); Chloride 100 mmol/L (98-107); Estimated CRCL calculation 98 ml/min; Estimated Glomerular Filt Rate > 60; Glucose 100 mg/dL (65-110); Magnesium 2.0 mg/dL (1.6-2.3); Potassium 3.4 mmol/L (3.4-5.0); Sodium 137 mmol/L (137-145); Total Protein 6.8 g/dL (6.3-8.2)
[2025-05-14 08:17] LABS: Magnesium 1.8 mg/dL (1.6-2.3)
[2025-05-14] MEDS: INSULIN ASPART (*BKC) 100 UNITS/ML SUB-Q ×3 (10:00→16:56)
[2025-05-14] MEDS: ENOXAPARIN 40 MG/0.4 ML SYRINGE SUB-Q (10:00)
[2025-05-14] MEDS: CLOPIDOGREL BISULFATE 75 MG TABLET PO (10:00)
[2025-05-14] MEDS: SERTRALINE HCL 50 MG TABLET 200 MG PO (10:01)
[2025-05-14] MEDS: SACUBITRIL/VALSARTAN 97-103 MG TABLET 1 TAB BY MOUTH ×2 (10:01→20:37)
[2025-05-14] MEDS: SPIRONOLACTONE 25 MG TABLET PO (10:01)
[2025-05-14] MEDS: GABAPENTIN 300 MG CAPSULE PO ×2 (10:01→20:36)
[2025-05-14] MEDS: EMPAGLIFLOZIN 25 MG TABLET BY MOUTH (10:01)
[2025-05-14] MEDS: ATORVASTATIN 40 MG TABLET PO (10:01)
[2025-05-14] MEDS: ASPIRIN 81 MG ENTERIC TABLET PO (10:01)
[2025-05-14] MEDS: buPROPion HCL XL (24 HR) 150 MG TABCR PO (10:01)
[2025-05-14] MEDS: METOPROLOL SUCCINATE EXT REL 100 MG TABCR PO (10:02)
[2025-05-14] MEDS: FUROSEMIDE INJ 100 MG/10 ML VIAL 80 MG IV PUSH ×2 (10:02→20:36)
--- NOTE | 2025-05-14 11:38 | PM.PNCARD ---
Progress Note: A&P Assessment and Plan (1) Ischemic congestive cardiomyopathy: Code(s): I25.5 - Ischemic cardiomyopathy; I42.0 - Dilated cardiomyopathy Status: Acute (2) S/P CABG x 2: Code(s): Z95.1 - Presence of aortocoronary bypass graft Status: Acute Plan 49-year-old man with severe ischemic cardiomyopathy admitted with decompensated CHF/volume overload. He is improving day by day with intravenous furosemide. This will be continued and will keep the IV furosemide going at least for 1 more day. Explained to the patient and family that if he does well like this the discharge in the next 24-48 hours would be expected to be reasonable Fran Reyes MD [facility] Subjective Date/time seen: Date of service: 05/14/25 11:38 Interval history: Follow-up visit in this 49-year-old man with: Ischemic heart disease with severe ischemic cardiomyopathy admitted with decompensated congestive heart failure/volume overload. Complicating this is morbid obesity. 05/14/2025: Patient is feeling better reports no shortness of breath abdominal girth seems to be improving with IV furosemide. Visiting with family this afternoon, feeling comfortable Exam Const: General: comfortable and no acute distress Other: Pleasant morbidly obese man no distress HENMT: Mouth: Yes moist mucous membranes Eyes: Sclera: sclerae normal Neck: Neck: supple Other: Unable to assess JVD given body habitus Resp: Effort & Inspection: normal respiratory effort Auscultation: clear to auscultation bilaterally Other: Audible rales have resolved Cardio: Rate: regular rate Rhythm: regular rhythm Heart sounds: no gallops, Murmur heart sound present and no rubs Other: PMI not palpable, no murmur GI: Auscultation: normal bowel sounds Neuro: Speech: normal speech Other: Alert and oriented x3 Extrem: General: edema bilateral (+3 LE edema ) Other: Moderate edema Psych: Mental Status: mental status grossly normal Objective Data Vital Signs Vital Signs: Vital Signs - 24 hr 05/13/25 12:00 05/13/25 14:00 05/13/25 15:29 Temperature 36.4 C Pulse Rate 80 81 80 Respiratory Rate 20 Blood Pressure 139/83 Pulse Oximetry 97 Oxygen Delivery 05/13/25 16:00 05/13/25 20:00 05/13/25 22:29 Temperature 36.7 C Pulse Rate 85 81 Respiratory Rate 18 Blood Pressure 132/88 Pulse Oximetry 94 Oxygen Delivery Room Air 05/13/25 22:45 05/13/25 22:45 05/14/25 00:00 Temperature 36.4 C L Pulse Rate 68 68 75 Respiratory Rate 18 Blood Pressure 134/86 Pulse Oximetry 95 95 96 Oxygen Delivery Autopap Room Air 05/14/25 03:15 05/14/25 06:57 05/14/25 10:00 Temperature 36.4 C Pulse Rate 75 72 Respiratory Rate 18 Blood Pressure 126/87 Pulse Oximetry 96 99 Oxygen Delivery Autopap CPAP 05/14/25 10:02 Temperature Pulse Rate 79 Respiratory Rate Blood Pressure Pulse Oximetry Oxygen Delivery Intake/Output Intake/Output: Intake & Output 05/11/25 05/12/25 05/13/25 05/14/25 23:59 23:59 23:59 23:59 Intake Total 780 1770 3136 840 Output Total 2650 Balance 780 1770 486 840 Meds/Results Medications: Active Medications Generic Name Dose Route Start Last Admin Trade Name Freq PRN Reason Stop Dose Admin Amoxicillin/Clavulanate Potassium 1 tablet 05/11/25 13:30 05/14/25 10:01 Amoxicillin/Clavulanate K 875-125 Mg Tab PO 1 tablet Q12HR ALISON Administration Aspirin 81 mg 05/12/25 09:00 05/14/25 10:01 Aspirin 81 Mg Enteric Tablet PO 81 mg DAILY ALISON Administration Atorvastatin Calcium 40 mg 05/12/25 09:00 05/14/25 10:01 Atorvastatin 40 Mg Tablet PO 40 mg DAILY ALISON Administration Bupropion HCl 150 mg 05/12/25 09:00 05/14/25 10:01 Bupropion Hcl Xl (24 Hr) 150 Mg Tabcr PO 150 mg QAM ALISON Administration Clopidogrel Bisulfate 75 mg 05/12/25 09:00 05/14/25 10:00 Clopidogrel Bisulfate 75 Mg Tablet PO 75 mg DAILY ALISON Administration Dextrose 12.5 gm 05/11/25 14:20 Dextrose 50% 25 Gm/50 Ml Syringe IV PUSH PRN PRN Hypoglycemia Protocol Empagliflozin 25 mg 05/12/25 09:00 05/14/25 10:01 Empagliflozin 25 Mg Tablet BY MOUTH 25 mg DAILY ALISON Administration Enoxaparin Sodium 40 mg 05/13/25 09:00 05/14/25 10:00 Enoxaparin 40 Mg/0.4 Ml Syringe SUB-Q 40 mg DAILY ALISON Administration Furosemide 80 mg 05/13/25 09:00 05/14/25 10:02 Furosemide Inj 100 Mg/10 Ml Vial IV PUSH 80 mg Q12HR ALISON Administration Gabapentin 300 mg 05/11/25 21:00 05/14/25 10:01 Gabapentin 300 Mg Capsule PO 300 mg Q12HR ALISON Administration Glucagon 1 mg 05/11/25 14:20 Glucagon For Inj 1 Mg Vial IM PRN PRN Hypoglycemia Protocol Glucose 15 gm 05/11/25 14:20 Glucose Oral Gel 15 Gm Of Glucse In 37.5 Gm Tube PO PRN PRN Hypoglycemia Protocol Dextrose 1,000 mls @ 100 mls/hr 05/11/25 14:20 Dextrose 5% 1,000 Ml IVPB PRN PRN Hypoglycemia Protocol Insulin Aspart 2 - 5 units 05/11/25 17:00 05/14/25 08:55 Insulin Aspart (*Bkc) 100 Units/Ml SUB-Q Not Given TIDWM ALISON Protocol Insulin Aspart 5 units 05/14/25 08:00 05/14/25 10:00 Insulin Aspart (*Bkc) 100 Units/Ml SUB-Q 5 units TIDWM ALISON Administration Insulin Glargine 40 units 05/14/25 21:00 Insulin Glargine (*Bkc) 100 Units/Ml SUB-Q HS ALISON Metoprolol Succinate 100 mg 05/12/25 09:00 05/14/25 10:02 Metoprolol Succinate Ext Rel 100 Mg Tabcr PO 100 mg DAILY ALISON Administration Oxycodone/Acetaminophen 1 tablet 05/11/25 13:21 05/14/25 10:02 Oxycodone/Acetaminophen (*Crx) 5-325 Mg Tablet PO 1 tablet Q6H PRN Administration Pain Sacubitril/Valsartan 1 tab 05/11/25 21:00 05/14/25 10:01 Sacubitril/Valsartan 97-103 Mg Tablet BY MOUTH 1 tab Q12HR ALISON Administration Sertraline HCl 200 mg 05/12/25 09:00 05/14/25 10:01 Sertraline Hcl 50 Mg Tablet PO 200 mg DAILY ALISON Administration Spironolactone 25 mg 05/12/25 09:00 05/14/25 10:01 Spironolactone 25 Mg Tablet PO 25 mg QAM ALISON Administration Radiology Results: ITS Impressions Chest X-Ray 05/11/25 06:57 IMPRESSION: 1. Small right pleural effusion with associated basilar atelectasis. Chest CTA 05/11/25 07:31 IMPRESSION: 1. Moderate right pleural effusion. 2. No PE or other acute abnormality. Labs Labs: Laboratory Results - last 24 hr 05/13/25 05/13/25 05/13/25 16:02 20:07 20:09 WBC RBC Hgb Hct MCV MCH MCHC RDW Plt Count MPV Immature Gran % (Auto) Neut % (Auto) Lymph % (Auto) [place] % (Auto) Eos % (Auto) Baso % (Auto) Lymph # (Auto) [place] # (Auto) Eos # (Auto) Baso # (Auto) Abs Immat Gran (auto) Absolute Neuts (auto) Absolute Nucleated RBC Nucleated RBC % Sodium Potassium Chloride Carbon Dioxide Anion Gap BUN Creatinine Estim Creat Clear Calc Estimated GFR Glucose POC Capillary Glucose 234 H 305 H 279 H Calcium Magnesium Total Bilirubin AST ALT Alkaline Phosphatase Total Protein Albumin 05/14/25 05/14/25 05/14/25 05:21 05:24 07:59 WBC 6.9 RBC 4.92 Hgb 13.7 L Hct 44.0 MCV 89.4 MCH 27.8 MCHC 31.1 L RDW 18.6 H Plt Count 166 MPV 9.4 Immature Gran % (Auto) 0.3 Neut % (Auto) 73.6 H Lymph % (Auto) 9.0 L [place] % (Auto) 12.9 H Eos % (Auto) 3.2 Baso % (Auto) 1.0 Lymph # (Auto) 0.62 L [place] # (Auto) 0.9 H Eos # (Auto) 0.2 Baso # (Auto) 0.1 Abs Immat Gran (auto) 0.02 Absolute Neuts (auto) 5.1 Absolute Nucleated RBC 0.000 Nucleated RBC % 0.0 Sodium 137 Potassium 3.4 Chloride 100 Carbon Dioxide 29 Anion Gap 8 BUN 33 H Creatinine 1.20 Estim Creat Clear Calc 98 Estimated GFR > 60 Glucose 100 POC Capillary Glucose 105 Calcium 8.3 L Magnesium 1.8 2.0 Total Bilirubin 1.5 H AST 51 ALT 32 Alkaline Phosphatase 188 H Total Protein 6.8 Albumin 3.4 L
--- NOTE | 2025-05-14 12:28 | P.PNIM_ITS ---
Assessment and Plan Assessment and Plan (1) CHF exacerbation: Code(s): I50.9 - Heart failure, unspecified Status: Acute Assessment and Plan: Acute on chronic combined systolic/diastolic function -Increasing dyspnea on exertion and weight gain over the past 2 months. Was switched to 2 mg Bumex daily on 04/30 from 40 mg furosemide daily. -Chest x-ray reads small right pleural effusion with associated basilar atelectasis. -CTA chest with no concern for PE, moderate right pleural effusion. Abdomen pelvis CT reads supraumbilical ventral hernia containing fat. Anasarca including mild pulmonary edema, small right pleural effusion, and moderate volume of ascites. - BNP 6170 - echo 05/12 with EF 30% (decreased from previous), diastolic dysfunction with RV hypokinesis - Cardiology consulted, increased IV Lasix to 80 mg b.i.d.. 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 - Continue Augmentin - Wound care consult - Follow-up with [facility] outpatient as directed (3) Type 2 diabetes mellitus with hyperglycemia, with long-term current use of insulin: Code(s): E11.65 - Type 2 diabetes mellitus with hyperglycemia; Z79.4 - intermodal customer service (current) use of insulin Status: Chronic Assessment and Plan: - hypoglycemia protocol - POC blood glucose ACHS - home medication: ?Jardiance, Lantus and Lispro insulin, Metformin and Mounjaro - resume Lantus 40 u, Novolog 5u TID with SSI - A1C 6.7 on 05/04/2025 (4) HTN (hypertension): Qualifiers: Hypertension type: essential hypertension Qualified Code(s): I10 - Essential (primary) hypertension Code(s): I10 - Essential (primary) hypertension Status: Chronic Assessment and Plan: -continue metoprolol L Plan Dispo: home, possibly tomorrow Code status: full code DVT prophylaxis: Lovenox Medical Record Review I have reviewed the following patient records and this information was taken into consideration when formulating the assessment and plan.: previous labs Consultations Consultations: I have discussed the care of this pt with the consulting providers. (cardiology) Subjective Date/time seen: 05/14/25 12:28 Interval history: Patient seen and examined at bedside. Continues to feel better each day. Denies chest pain or SOB. Review of Systems Review of Systems: All systems reviewed & are unremarkable except as noted in HPI and below Exam Narrative: General: NAD, obese Eyes: EOMI ENT: neck supple Cardiovascular: Regular rate and rhythm Respiratory: Clear to auscultation, respirations even and unlabored on RA Gastrointestinal: Soft, moderate distention Genitourinary: no suprapubic tenderness Musculoskeletal: 1+ bilateral lower extremity pitting edema Skin: warm, dry Neuro: Alert. Psych: Mood appropriate Objective Data Vital Signs Vital Signs: Vital Signs - 24 hr 05/13/25 14:00 05/13/25 15:29 05/13/25 16:00 Temperature 97.6 F Pulse Rate 81 80 85 Respiratory Rate 20 Blood Pressure 139/83 Pulse Oximetry 97 Oxygen Delivery 05/13/25 20:00 05/13/25 22:29 05/13/25 22:45 Temperature 98.0 F Pulse Rate 81 68 Respiratory Rate 18 Blood Pressure 132/88 Pulse Oximetry 94 95 Oxygen Delivery Room Air Autopap 05/13/25 22:45 05/14/25 00:00 05/14/25 03:15 Temperature 97.5 F L Pulse Rate 68 75 75 Respiratory Rate 18 Blood Pressure 134/86 Pulse Oximetry 95 96 96 Oxygen Delivery Room Air Autopap 05/14/25 06:57 05/14/25 10:00 05/14/25 10:02 Temperature 97.6 F Pulse Rate 72 79 Respiratory Rate 18 Blood Pressure 126/87 Pulse Oximetry 99 Oxygen Delivery CPAP Intake/Output Intake/Output: Intake & Output 05/11/25 05/12/25 05/13/25 05/14/25 23:59 23:59 23:59 23:59 Intake Total 780 1770 3136 840 Output Total 2650 Balance 780 1770 486 840 Meds/Results Medications: Active Medications Generic Name Dose Route Start Last Admin Trade Name Freq PRN Reason Stop Dose Admin Amoxicillin/Clavulanate Potassium 1 tablet 05/11/25 13:30 05/14/25 10:01 Amoxicillin/Clavulanate K 875-125 Mg Tab PO 1 tablet Q12HR ALISON Administration Aspirin 81 mg 05/12/25 09:00 05/14/25 10:01 Aspirin 81 Mg Enteric Tablet PO 81 mg DAILY ALISON Administration Atorvastatin Calcium 40 mg 05/12/25 09:00 05/14/25 10:01 Atorvastatin 40 Mg Tablet PO 40 mg DAILY ALISON Administration Bupropion HCl 150 mg 05/12/25 09:00 05/14/25 10:01 Bupropion Hcl Xl (24 Hr) 150 Mg Tabcr PO 150 mg QAM ALISON Administration Clopidogrel Bisulfate 75 mg 05/12/25 09:00 05/14/25 10:00 Clopidogrel Bisulfate 75 Mg Tablet PO 75 mg DAILY ALISON Administration Dextrose 12.5 gm 05/11/25 14:20 Dextrose 50% 25 Gm/50 Ml Syringe IV PUSH PRN PRN Hypoglycemia Protocol Empagliflozin 25 mg 05/12/25 09:00 05/14/25 10:01 Empagliflozin 25 Mg Tablet BY MOUTH 25 mg DAILY ALISON Administration Enoxaparin Sodium 40 mg 05/13/25 09:00 05/14/25 10:00 Enoxaparin 40 Mg/0.4 Ml Syringe SUB-Q 40 mg DAILY ALISON Administration Furosemide 80 mg 05/13/25 09:00 05/14/25 10:02 Furosemide Inj 100 Mg/10 Ml Vial IV PUSH 80 mg Q12HR ALISON Administration Gabapentin 300 mg 05/11/25 21:00 05/14/25 10:01 Gabapentin 300 Mg Capsule PO 300 mg Q12HR ALISON Administration Glucagon 1 mg 05/11/25 14:20 Glucagon For Inj 1 Mg Vial IM PRN PRN Hypoglycemia Protocol Glucose 15 gm 05/11/25 14:20 Glucose Oral Gel 15 Gm Of Glucse In 37.5 Gm Tube PO PRN PRN Hypoglycemia Protocol Dextrose 1,000 mls @ 100 mls/hr 05/11/25 14:20 Dextrose 5% 1,000 Ml IVPB PRN PRN Hypoglycemia Protocol Insulin Aspart 2 - 5 units 05/11/25 17:00 05/14/25 08:55 Insulin Aspart (*Bkc) 100 Units/Ml SUB-Q Not Given TIDWM ALSION Protocol Insulin Aspart 5 units 05/14/25 08:00 05/14/25 11:58 Insulin Aspart (*Bkc) 100 Units/Ml SUB-Q 5 units TIDWM ALISON Administration Insulin Glargine 40 units 05/14/25 21:00 Insulin Glargine (*Bkc) 100 Units/Ml SUB-Q HS ALISON Metoprolol Succinate 100 mg 05/12/25 09:00 05/14/25 10:02 Metoprolol Succinate Ext Rel 100 Mg Tabcr PO 100 mg DAILY ALISON Administration Oxycodone/Acetaminophen 1 tablet 05/11/25 13:21 05/14/25 10:02 Oxycodone/Acetaminophen (*Crx) 5-325 Mg Tablet PO 1 tablet Q6H PRN Administration Pain Sacubitril/Valsartan 1 tab 05/11/25 21:00 05/14/25 10:01 Sacubitril/Valsartan 97-103 Mg Tablet BY MOUTH 1 tab Q12HR ALISON Administration Sertraline HCl 200 mg 05/12/25 09:00 05/14/25 10:01 Sertraline Hcl 50 Mg Tablet PO 200 mg DAILY ALISON Administration Spironolactone 25 mg 05/12/25 09:00 05/14/25 10:01 Spironolactone 25 Mg Tablet PO 25 mg QAM ALISON Administration Radiology Results: ITS Impressions Chest X-Ray 05/11/25 06:57 IMPRESSION: 1. Small right pleural effusion with associated basilar atelectasis. Chest CTA 05/11/25 07:31 IMPRESSION: 1. Moderate right pleural effusion. 2. No PE or other acute abnormality. Labs Labs: Laboratory Results - last 24 hr 05/13/25 05/13/25 05/13/25 16:02 20:07 20:09 WBC RBC Hgb Hct MCV MCH MCHC RDW Plt Count MPV Immature Gran % (Auto) Neut % (Auto) Lymph % (Auto) Nance % (Auto) Eos % (Auto) Baso % (Auto) Lymph # (Auto) Nance # (Auto) Eos # (Auto) Baso # (Auto) Abs Immat Gran (auto) Absolute Neuts (auto) Absolute Nucleated RBC Nucleated RBC % Sodium Potassium Chloride Carbon Dioxide Anion Gap BUN Creatinine Estim Creat Clear Calc Estimated GFR Glucose POC Capillary Glucose 234 H 305 H 279 H Calcium Magnesium Total Bilirubin AST ALT Alkaline Phosphatase Total Protein Albumin 05/14/25 05/14/25 05/14/25 05:21 05:24 07:59 WBC 6.9 RBC 4.92 Hgb 13.7 L Hct 44.0 MCV 89.4 MCH 27.8 MCHC 31.1 L RDW 18.6 H Plt Count 166 MPV 9.4 Immature Gran % (Auto) 0.3 Neut % (Auto) 73.6 H Lymph % (Auto) 9.0 L Nance % (Auto) 12.9 H Eos % (Auto) 3.2 Baso % (Auto) 1.0 Lymph # (Auto) 0.62 L Nance # (Auto) 0.9 H Eos # (Auto) 0.2 Baso # (Auto) 0.1 Abs Immat Gran (auto) 0.02 Absolute Neuts (auto) 5.1 Absolute Nucleated RBC 0.000 Nucleated RBC % 0.0 Sodium 137 Potassium 3.4 Chloride 100 Carbon Dioxide 29 Anion Gap 8 BUN 33 H Creatinine 1.20 Estim Creat Clear Calc 98 Estimated GFR > 60 Glucose 100 POC Capillary Glucose 105 Calcium 8.3 L Magnesium 1.8 2.0 Total Bilirubin 1.5 H AST 51 ALT 32 Alkaline Phosphatase 188 H Total Protein 6.8 Albumin 3.4 L 05/14/25 11:40 WBC RBC Hgb Hct MCV MCH MCHC RDW Plt Count MPV Immature Gran % (Auto) Neut % (Auto) Lymph % (Auto) Nance % (Auto) Eos % (Auto) Baso % (Auto) Lymph # (Auto) Nance # (Auto) Eos # (Auto) Baso # (Auto) Abs Immat Gran (auto) Absolute Neuts (auto) Absolute Nucleated RBC Nucleated RBC % Sodium Potassium Chloride Carbon Dioxide Anion Gap BUN Creatinine Estim Creat Clear Calc Estimated GFR Glucose POC Capillary Glucose 117 H Calcium Magnesium Total Bilirubin AST ALT Alkaline Phosphatase Total Protein Albumin Quality VTE Prophylaxis VTE prophylaxis: pharmacologic ordered
[2025-05-14] MEDS: INSULIN GLARGINE (*BKC) 100 UNITS/ML 40 UNITS SUB-Q (20:36)
[2025-05-15] VITALS: BP 130/90; PULSE 79; RESP 18; TEMP 36.9; O2SAT 100
[2025-05-15 01:05] VITALS: PULSE 76; O2SAT 100
[2025-05-15] MEDS: oxyCODONE/ACETAMINOPHEN (*CRX) 5-325 MG TABLET 1 TABLET PO (06:40)
[2025-05-15 06:54] LABS: Alanine Aminotransferase 38 U/L (6-50); Albumin Level 4.0 g/dL (3.5-5.1); Alkaline Phosphatase 234 U/L (38-126); Anion Gap 8 mmol/L (4-12); Aspartate Amino Transferase 58 U/L (17-59); Bilirubin,Total 1.6 mg/dL (0.2-1.3); Blood Urea Nitrogen 35 mg/dL (9-20); Calcium 8.7 mg/dL (8.4-10.2); Carbon Dioxide 32 mmol/L (22-30); Chloride 100 mmol/L (98-107); Estimated CRCL calculation 97 ml/min; Estimated Glomerular Filt Rate > 60; Glucose 126 mg/dL (65-110); Magnesium 2.0 mg/dL (1.6-2.3); Potassium 3.4 mmol/L (3.4-5.0); Sodium 140 mmol/L (137-145); Total Protein 8.0 g/dL (6.3-8.2)
[2025-05-15 08:00] VITALS: BP 124/81; PULSE 78; RESP 18; TEMP 36.6; O2SAT 98
[2025-05-15 09:10] VITALS: O2SAT 98
[2025-05-15] MEDS: INSULIN ASPART (*BKC) 100 UNITS/ML SUB-Q ×2 (09:38→12:40)
[2025-05-15 09:40] VITALS: PULSE 72
[2025-05-15] MEDS: METOPROLOL SUCCINATE EXT REL 100 MG TABCR PO (09:40)
[2025-05-15] MEDS: GABAPENTIN 300 MG CAPSULE PO (09:40)
[2025-05-15] MEDS: ENOXAPARIN 40 MG/0.4 ML SYRINGE SUB-Q (09:40)
[2025-05-15] MEDS: SERTRALINE HCL 50 MG TABLET 200 MG PO (09:41)
[2025-05-15] MEDS: SPIRONOLACTONE 25 MG TABLET PO (09:41)
[2025-05-15] MEDS: CLOPIDOGREL BISULFATE 75 MG TABLET PO (09:41)
[2025-05-15] MEDS: ASPIRIN 81 MG ENTERIC TABLET PO (09:41)
[2025-05-15] MEDS: EMPAGLIFLOZIN 25 MG TABLET BY MOUTH (09:41)
[2025-05-15] MEDS: buPROPion HCL XL (24 HR) 150 MG TABCR PO (09:41)
[2025-05-15] MEDS: ATORVASTATIN 40 MG TABLET PO (09:42)
[2025-05-15] MEDS: SACUBITRIL/VALSARTAN 97-103 MG TABLET 1 TAB BY MOUTH (09:42)
[2025-05-15] MEDS: FUROSEMIDE INJ 100 MG/10 ML VIAL 80 MG IV PUSH (09:42)
--- NOTE | 2025-05-15 13:21 | PM.PNCARD ---
Progress Note: A&P Assessment and Plan (1) S/P CABG x 2: Code(s): Z95.1 - Presence of aortocoronary bypass graft Status: Acute (2) CHF exacerbation: Code(s): I50.9 - Heart failure, unspecified Status: Acute Plan 49-year-old man with ischemic heart disease significant ischemic cardiomyopathy and congestive heart failure complicated by morbid obesity. He has been stabilized with intravenous furosemide for the last several days. Will discontinue this and recommend discharging him on his guideline directed medical therapy as well as furosemide 80 mg daily. Will keep him on this rather than the Bumex that he was on at home since he did not have a good response to Bumex. He does have follow-up scheduled in the office already. Fran Reyes MD [facility] Subjective Date/time seen: Date of service: 05/15/25 13:21 Interval history: Follow-up visit in this 49-year-old man with: Ischemic heart disease with severe ischemic cardiomyopathy admitted with decompensated congestive heart failure/volume overload. Complicating this is morbid obesity. 05/14/2025: Patient is feeling better reports no shortness of breath abdominal girth seems to be improving with IV furosemide. Visiting with family this afternoon, feeling comfortable 05/15/2025: Continues to feel well no shortness of breath feels back to baseline and is hoping to be discharged. Exam Const: General: comfortable and no acute distress Other: Pleasant morbidly obese man no distress HENMT: Mouth: Yes moist mucous membranes Eyes: Sclera: sclerae normal Neck: Neck: supple Other: Unable to assess JVD given body habitus Resp: Effort & Inspection: normal respiratory effort Auscultation: clear to auscultation bilaterally and rales bilateral (Lower 1/3 bilaterally) Other: Audible rales have resolved Cardio: Rate: regular rate Rhythm: regular rhythm Heart sounds: no gallops, Murmur heart sound present and no rubs Other: PMI not palpable, no murmur GI: Auscultation: normal bowel sounds Neuro: Speech: normal speech Other: Alert and oriented x3 Extrem: General: edema bilateral (+3 LE edema ) Other: Moderate edema Psych: Mental Status: mental status grossly normal Objective Data Vital Signs Vital Signs: Vital Signs - 24 hr 05/14/25 15:18 05/14/25 20:00 05/14/25 20:00 Temperature 36.6 C 36.8 C Pulse Rate 77 79 Respiratory Rate 18 18 Blood Pressure 130/84 134/89 Pulse Oximetry 99 100 100 Oxygen Delivery CPAP Fraction of Inspired Oxygen 05/14/25 20:35 05/14/25 20:37 05/15/25 00:00 Temperature 36.9 C Pulse Rate 79 79 Respiratory Rate 18 Blood Pressure 130/90 Pulse Oximetry 100 100 100 Oxygen Delivery Room Air Autopap Fraction of Inspired Oxygen 05/15/25 01:05 05/15/25 08:00 05/15/25 09:10 Temperature 36.6 C Pulse Rate 76 78 Respiratory Rate 18 Blood Pressure 124/81 Pulse Oximetry 100 98 98 Oxygen Delivery Autopap Room Air Fraction of Inspired Oxygen 21 05/15/25 09:40 05/15/25 10:05 Temperature Pulse Rate 72 Respiratory Rate Blood Pressure Pulse Oximetry Oxygen Delivery Room Air Fraction of Inspired Oxygen Intake/Output Intake/Output: Intake & Output 05/12/25 05/13/25 05/14/25 05/15/25 23:59 23:59 23:59 23:59 Intake Total 1770 3136 2146 444 Output Total 2650 2100 2900 Balance 1770 335 85 -9025 Meds/Results Medications: Active Medications Generic Name Dose Route Start Last Admin Trade Name Freq PRN Reason Stop Dose Admin Amoxicillin/Clavulanate Potassium 1 tablet 05/11/25 13:30 05/15/25 09:41 Amoxicillin/Clavulanate K 875-125 Mg Tab PO 1 tablet Q12HR ALISON Administration Aspirin 81 mg 05/12/25 09:00 05/15/25 09:41 Aspirin 81 Mg Enteric Tablet PO 81 mg DAILY ALISON Administration Atorvastatin Calcium 40 mg 05/12/25 09:00 05/15/25 09:42 Atorvastatin 40 Mg Tablet PO 40 mg DAILY ALISON Administration Bupropion HCl 150 mg 05/12/25 09:00 05/15/25 09:41 Bupropion Hcl Xl (24 Hr) 150 Mg Tabcr PO 150 mg QAM ALISON Administration Clopidogrel Bisulfate 75 mg 05/12/25 09:00 05/15/25 09:41 Clopidogrel Bisulfate 75 Mg Tablet PO 75 mg DAILY ALISON Administration Dextrose 12.5 gm 05/11/25 14:20 Dextrose 50% 25 Gm/50 Ml Syringe IV PUSH PRN PRN Hypoglycemia Protocol Empagliflozin 25 mg 05/12/25 09:00 05/15/25 09:41 Empagliflozin 25 Mg Tablet BY MOUTH 25 mg DAILY ALISON Administration Enoxaparin Sodium 40 mg 05/13/25 09:00 05/15/25 09:40 Enoxaparin 40 Mg/0.4 Ml Syringe SUB-Q 40 mg DAILY ALISON Administration Furosemide 80 mg 05/13/25 09:00 05/15/25 09:42 Furosemide Inj 100 Mg/10 Ml Vial IV PUSH 80 mg Q12HR ALISON Administration Gabapentin 300 mg 05/11/25 21:00 05/15/25 09:40 Gabapentin 300 Mg Capsule PO 300 mg Q12HR ALISON Administration Glucagon 1 mg 05/11/25 14:20 Glucagon For Inj 1 Mg Vial IM PRN PRN Hypoglycemia Protocol Glucose 15 gm 05/11/25 14:20 Glucose Oral Gel 15 Gm Of Glucse In 37.5 Gm Tube PO PRN PRN Hypoglycemia Protocol Dextrose 1,000 mls @ 100 mls/hr 05/11/25 14:20 Dextrose 5% 1,000 Ml IVPB PRN PRN Hypoglycemia Protocol Insulin Aspart 2 - 5 units 05/11/25 17:00 05/15/25 11:29 Insulin Aspart (*Bkc) 100 Units/Ml SUB-Q Not Given TIDWM ALISON Protocol Insulin Aspart 5 units 05/14/25 08:00 05/15/25 12:40 Insulin Aspart (*Bkc) 100 Units/Ml SUB-Q 5 units TIDWM ALISON Administration Insulin Glargine 40 units 05/14/25 21:00 05/14/25 20:36 Insulin Glargine (*Bkc) 100 Units/Ml SUB-Q 40 units HS ALISON Administration Metoprolol Succinate 100 mg 05/12/25 09:00 05/15/25 09:40 Metoprolol Succinate Ext Rel 100 Mg Tabcr PO 100 mg DAILY ALISON Administration Oxycodone/Acetaminophen 1 tablet 05/11/25 13:21 05/15/25 06:40 Oxycodone/Acetaminophen (*Crx) 5-325 Mg Tablet PO 1 tablet Q6H PRN Administration Pain Sacubitril/Valsartan 1 tab 05/11/25 21:00 05/15/25 09:42 Sacubitril/Valsartan 97-103 Mg Tablet BY MOUTH 1 tab Q12HR ALISON Administration Sertraline HCl 200 mg 05/12/25 09:00 05/15/25 09:41 Sertraline Hcl 50 Mg Tablet PO 200 mg DAILY ALISON Administration Spironolactone 25 mg 05/12/25 09:00 05/15/25 09:41 Spironolactone 25 Mg Tablet PO 25 mg QAM ALISON Administration Radiology Results: ITS Impressions Chest X-Ray 05/11/25 06:57 IMPRESSION: 1. Small right pleural effusion with associated basilar atelectasis. Chest CTA 05/11/25 07:31 IMPRESSION: 1. Moderate right pleural effusion. 2. No PE or other acute abnormality. Labs Labs: Laboratory Results - last 24 hr 05/14/25 05/14/25 05/15/25 16:36 20:33 05:32 Sodium 140 Potassium 3.4 Chloride 100 Carbon Dioxide 32 H Anion Gap 8 BUN 35 H Creatinine 1.24 Estim Creat Clear Calc 97 Estimated GFR > 60 Glucose 126 H POC Capillary Glucose 129 H 230 H Calcium 8.7 Magnesium 2.0 Total Bilirubin 1.6 H AST 58 ALT 38 Alkaline Phosphatase 234 H Total Protein 8.0 Albumin 4.0 05/15/25 05/15/25 07:39 11:16 Sodium Potassium Chloride Carbon Dioxide Anion Gap BUN Creatinine Estim Creat Clear Calc Estimated GFR Glucose POC Capillary Glucose 153 H 139 H Calcium Magnesium Total Bilirubin AST ALT Alkaline Phosphatase Total Protein Albumin
--- NOTE | 2025-05-15 14:24 | P.DS_ITS ---
DS: Admitting Diagnosis Discharge Date 05/15/25 Admitting Diagnosis - acute on chronic combined systolic and diastolic CHF DS: Discharge Diagnosis Discharge Diagnosis (1) CHF exacerbation: Code(s): I50.9 - Heart failure, unspecified Status: Acute (2) Amputation of right great toe: Code(s): S98.111A - Complete traumatic amputation of right great toe, initial encounter Status: Chronic (3) Type 2 diabetes mellitus with hyperglycemia, with long-term current use of insulin: Code(s): E11.65 - Type 2 diabetes mellitus with hyperglycemia; Z79.4 - senior living (current) use of insulin Status: Chronic (4) HTN (hypertension): Qualifiers: Hypertension type: essential hypertension Qualified Code(s): I10 - Essential (primary) hypertension Code(s): I10 - Essential (primary) hypertension Status: Chronic DS: Summary Hospital Course Reason for hospitalization: - acute on chronic combined systolic and diastolic CHF Hospital Course: The patient is a 49-year-old male with a history of ischemic cardiomyopathy, chronic systolic and diastolic heart failure, CAD status post CABG, type 2 diabetes mellitus, CKD stage 3, hypertension, hyperlipidemia, morbid obesity, and SUSANA on CPAP who presented on 05/11/25 with progressive dyspnea, orthopnea, and approximately 60-pound weight gain over two months following a right great toe amputation. Initial evaluation was notable for severe volume overload with anasarca, ascites, right pleural effusion, and markedly elevated BNP of 6170. CTA chest was negative for pulmonary embolism. Troponins were mildly elevated but flat and consistent with chronic demand ischemia. Echocardiogram during admission demonstrated worsening left ventricular function with EF 25?30% and combined systolic and diastolic dysfunction. He was admitted for acute on chronic decompensated heart failure and treated with aggressive IV diuresis using escalating doses of IV furosemide with close monitoring of intake/output, daily weights, renal function, and electrolytes. Cardiology was consulted and guided management; bumetanide was discontinued due to poor outpatient response, and guideline-directed medical therapy including Entresto, metoprolol succinate, spironolactone, and Jardiance was continued. The patient had steady symptomatic improvement with significant net negative fluid balance, reduction in edema and abdominal distention, and resolution of dyspnea. Renal function remained stable throughout admission. Diabetes was managed with basal-bolus insulin and continuation of home agents, with acceptable glycemic control. His chronic right great toe amputation site remained stable without signs of acute infection; antibiotics and wound care were continued. By discharge, the patient had returned near baseline functional status, was hemodynamically stable on room air, and was transitioned to oral furosemide 80 mg daily per cardiology recommendations with plans for close outpatient cardiology follow-up. He was discharged home in stable condition. Time Spent with Patient Time attestation: Total time spent providing and/or coordinating discharge services: Time spent: Greater than 30 minutes Exam Narrative: General: NAD, obese Eyes: EOMI ENT: neck supple Cardiovascular: Regular rate and rhythm Respiratory: Clear to auscultation, respirations even and unlabored on RA Gastrointestinal: Soft, mild distention without tenderness Genitourinary: no suprapubic tenderness Musculoskeletal: trace bilateral lower extremity pitting edema Skin: warm, dry Neuro: Alert. Psych: Mood appropriate DS: Data Data Completed and Pending Completed studies during hospitalization: ITS Impressions Chest X-Ray 05/11/25 06:57 IMPRESSION: 1. Small right pleural effusion with associated basilar atelectasis. Chest CTA 05/11/25 07:31 IMPRESSION: 1. Moderate right pleural effusion. 2. No PE or other acute abnormality. Labs on day of discharge: Labs from last 24 hours 05/15/25 05/15/25 05/15/25 11:16 07:39 05:32 Sodium 140 Potassium 3.4 Chloride 100 Carbon Dioxide 32 H Anion Gap 8 BUN 35 H Creatinine 1.24 Estim Creat Clear Calc 97 Estimated GFR > 60 Glucose 126 H POC Capillary Glucose 139 H 153 H Calcium 8.7 Magnesium 2.0 Total Bilirubin 1.6 H AST 58 ALT 38 Alkaline Phosphatase 234 H Total Protein 8.0 Albumin 4.0 05/14/25 05/14/25 20:33 16:36 Sodium Potassium Chloride Carbon Dioxide Anion Gap BUN Creatinine Estim Creat Clear Calc Estimated GFR Glucose POC Capillary Glucose 230 H 129 H Calcium Magnesium Total Bilirubin AST ALT Alkaline Phosphatase Total Protein Albumin Discharge Plan Discharge Attending physician on discharge: Kayla Cee Consulting providers: Joceline De La Garza; Tanmay Talavera Discharging Clinician: Joceline De La Garza Anticipated Discharge Date/Time: 05/15/25 14:20 Patient Disposition: Home Activity: as tolerated Diet: heart healthy Discharge Instructions: Your Heart Failure Discharge Instructions You are being discharged from the hospital after treatment for heart failure. It is very important that you follow these instructions carefully to stay healthy and avoid coming back to the hospital. Your Medications IMPORTANT MEDICATION CHANGE: * STOP taking Bumex (bumetanide)?- Do not take this medication anymore * START taking furosemide 80 mg by mouth once daily?- This is your new water pill Continue taking all your other heart medications exactly as prescribed. Do not stop or change any medications without talking to your doctor first. Daily Weight Monitoring - VERY IMPORTANT Weigh yourself every morning: * Use the same scale each day * Weigh yourself at the same time each morning (best time is after you urinate and before you eat breakfast) * Wear similar clothing each time * Write down your weight every day Call your monument stonecutter if: * You gain?3 pounds or more in one day * You gain?5 pounds or more in one week * You lose more than 5 pounds in one week Fluid Restriction Limit your total fluid intake to 2000 mL (about 64 ounces or 8 cups) per day. ?This includes: * Water, coffee, tea, juice, and other beverages * Soup, ice cream, popsicles, and gelatin * Any other liquids Tips to help manage your fluid restriction: * Use a measuring cup to track your fluids throughout the day * Suck on ice chips or sugar-free hard candy if you feel thirsty * Rinse your mouth with cold water without swallowing Diet * Limit sodium (salt) to less than 5046-7504 mg per day * Do not add salt to your food * Avoid processed foods, canned soups, deli meats, and fast food * Read nutrition labels and choose low-sodium options Warning Signs - When to Call Your Doctor Call your monument stonecutter right away if you notice: * Sudden weight gain (see above) * Increased shortness of breath or trouble breathing * Swelling in your legs, ankles, or belly that gets worse * Feeling more tired than usual or unable to do your normal activities * Waking up at night short of breath * New or worsening cough * Dizziness or feeling like you might pass out * Fast or irregular heartbeat Call 911 if you have: * Severe shortness of breath * Chest pain or pressure * Fainting Activity * Stay as active as you can, but rest when you feel tired * Gradually increase your activity level as tolerated * Ask your doctor about cardiac rehabilitation programs Follow-Up Appointments You have a scheduled follow-up appointment with cardiology. It is very important that you keep this appointment.?If you need to reschedule or have questions before your appointment, call your monument stonecutter's office. Other Important Reminders * Take your medications at the same time every day * Keep all your follow-up appointments * Get your flu shot and pneumonia vaccine if recommended * Avoid smoking and limit alcohol * Ask your doctor or pharmacist before taking any new medications, including [id number] drugs or supplements Questions? If you have any questions or concerns, please call your monument stonecutter's office. Remember: Daily weights and watching for warning signs are the most important things you can do to stay out of the hospital. You recieved 9 doses of Augmentin while in the hospital which you can subtract from your pills at home. Patient Instructions: Antibiotic Form, Heart Failure (GEN) Patient Language: Maltese Stand Alone Forms: General Discharge Information Follow-up/Referrals: Fran Reyes MD [Physician, Cardiology] Referral Note: follow-up as scheduled Lindsay Peralta MD [Primary Care Provider, Family Practice] - Call for Appointment Referral Note: 1 week for hospital follow-up Discharge Medications: New furosemide 80 mg Tablet 80 mg PO DAILY 30 Days Qty: 30 0RF Continued amoxicillin-pot clavulanate 875-125 mg tablet 1 tablet PO BID Qty: 30 0RF Mounjaro 10 mg/0.5 mL pen injector 10 mg subcut WEEKLY Qty: 6 0RF Patient Comments: Takes on Saturday/Saturday Gvoke HypoPen 2-Pack 1 mg/0.2 mL auto-injector 1 mg subcut ONCE Qty: 0.4 0RF Rx Instructions: as a single dose; may repeat once after 15 minutes if no response Lantus Solostar U-100 Insulin 100 unit/mL (3 mL) insulin pen 40 unit subcut QAM insulin lispro 100 unit/mL insulin pen 5 unit SUBCUT .before each meal MDD 40 Qty: 21 1RF Rx Instructions: 5 units before each meal plus sliding scale aspirin 81 mg Tablet,Delayed Release (Dr/Ec) 81 mg PO DAILY atorvastatin 40 mg tablet 40 mg PO DAILY Rx Instructions: LAST REFILL, NEEDS APPOINTMENT sertraline 100 mg tablet 200 mg PO DAILY gabapentin [Neurontin] 300 mg Capsule 300 mg PO BID sacubitril-valsartan [Entresto] 97-103 mg tablet See Rx Instructions .ROUTE .COMPLEX Qty: 180 0RF Dose Instruction: Take 1 tablet by mouth twice daily Rx Instructions: Take 1 tablet by mouth twice daily Jardiance 25 mg tablet See Rx Instructions .ROUTE .COMPLEX Qty: 90 0RF Dose Instruction: Take 1 tablet by mouth once daily Rx Instructions: Take 1 tablet by mouth once daily metformin 500 mg tablet extended release 24 hr 1,000 mg PO BID Qty: 180 0RF Rx Instructions: LAST REFILL, NEEDS APPOINTMENT metoprolol succinate 100 mg tablet extended release 24 hr 100 mg PO DAILY Qty: 90 1RF bupropion HCl [Wellbutrin XL] 150 mg tablet extended release 24 hr 150 mg PO QAM Qty: 90 1RF clopidogrel [Plavix] 75 mg tablet 75 mg PO DAILY Qty: 90 1RF spironolactone 25 mg tablet 25 mg PO QAM Qty: 90 1RF (DME) Dexcom G6 Sensor Device See Rx Instructions .Route Qty: 9 12RF Rx Instructions: Use to check BS (DME) Dexcom G6 Transmitter Device See Rx Instructions .Route Qty: 1 7RF Rx Instructions: Use to check BS oxycodone-acetaminophen 5-325 mg tablet 1 tablet PO Q6H PRN (Reason: pain) Qty: 20 0RF Rx Instructions: Take 0.5 - 1 tablet every 6 hours as needed for moderate to severe pain Discontinued bumetanide 2 mg tablet 2 mg PO DAILY Date of admission: 05/14/25 13:00 Primary Care Provider: Lindsay Peralta Admitting Provider: Onur Chavis Attending physician on admission: Onur Chavis Condition: Stable
== END 2025-05-15 14:42 | disposition home or self-care (01) | DRG 291 ==
LOC: ANHED 09:30 → ANHIMU 11:12 → ANH3MED 05-13 17:53
PROVIDERS: Emergency Medicine; Admitting Provider Internal Medicine; Emergency Provider Emergency Medicine; PCP Family Medicine; Visit Provider Physician Assistant
DX: I13.0 Hypertensive heart and chronic kidney disease with heart failure and stage 1 through stage 4 chronic kidney disease, or unspecified chronic kidney disease (principal); I50.43 Acute on chronic combined systolic (congestive) and diastolic (congestive) heart failure; N13.8 Other obstructive and reflux uropathy; I25.5 Ischemic cardiomyopathy; I27.20 Pulmonary hypertension, unspecified; I48.0 Paroxysmal atrial fibrillation; I34.0 Nonrheumatic mitral (valve) insufficiency; E11.40 Type 2 diabetes mellitus with diabetic neuropathy, unspecified; E11.21 Type 2 diabetes mellitus with diabetic nephropathy; E11.22 Type 2 diabetes mellitus with diabetic chronic kidney disease; E78.00 Pure hypercholesterolemia, unspecified; E78.2 Mixed hyperlipidemia; D75.1 Secondary polycythemia; N18.30 Chronic kidney disease, stage 3 unspecified; N40.1 Benign prostatic hyperplasia with lower urinary tract symptoms; K43.9 Ventral hernia without obstruction or gangrene; G47.33 Obstructive sleep apnea (adult) (pediatric); F32.A Depression, unspecified; Z20.822 Contact with and (suspected) exposure to COVID-19; I25.2 Old myocardial infarction; Z95.5 Presence of coronary angioplasty implant and graft; Z95.1 Presence of aortocoronary bypass graft; Z79.4 Long term (current) use of insulin; Z89.411 Acquired absence of right great toe; Z79.82 Long term (current) use of aspirin; Z79.02 Long term (current) use of antithrombotics/antiplatelets
CPT/HCPCS: 36415; 71046; 71275; 80053; 82948; 83690; 83735; 83880; 84484; 85025; 85610; 85730; 87637; 93005; 96372; 96374; 96375; 96376; 99213; 99285; A9270; C8929; G0378; G0463; J1650; J1815; J1938; Q9957; Q9967